=== PATIENT | male | born 1965 | race Caucasian/White ===

== ENCOUNTER 2020-11-02 15:00 | Emergency (ER) | payer OTHER, SELFPAY ==
[2020-11-02 15:08] VITALS: BP 148/100; PULSE 78; RESP 18; TEMP 36.9; O2SAT 98; BMI 27.1
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
[2020-11-02] MEDS: Ibuprofen 600 MG TABLET PO (16:53)
[2020-11-02] MEDS: Silver Sulfadiazine 1 % Cream 20 GM TUBE 1 APPL TOPICAL (17:25)
== END 2020-11-02 17:25 | disposition home or self-care (01) ==
PROVIDERS: Emergency Provider Emergency Medicine; PCP Internal Medicine
DX: T23.051A Burn of unspecified degree of right palm, initial encounter (principal); T31.0 Burns involving less than 10% of body surface; X15.8XXA Contact with other hot household appliances, initial encounter; Y93.G3 Activity, cooking and baking; Y92.010 Kitchen of single-family (private) house as the place of occurrence of the external cause; Y99.9 Unspecified external cause status
CPT/HCPCS: 16020; 99283

== ENCOUNTER 2023-02-17 10:58 | Outpatient (REF) | payer OTHER, SELFPAY ==
[2023-02-17 12:38] LABS: MANUAL DIFF FLAG NO
[2023-02-17 12:49] LABS: Basophils Percent Auto 0.9 % (0-2); Eosinophils Absolute Auto 0.2 X10*3/uL (0.0-0.4); Eosinophils Percent Auto 3.4 % (0-4); Hematocrit 43.3 % (42.0-52.0); Hemoglobin 14.5 g/dl (14.0-18.0); Imm Gran Abs Auto 0.01 X10*3/uL (0.00-0.03); Imm Gran Pct Auto 0.2 % (0.0-0.4); Lymphocytes Absolute Auto 1.1 X10*3/uL (1.2-4.9); Lymphocytes Percent Auto 25.1 % (20-40); Mean Corpuscular HGB Conc 33.5 g/dl (31.0-36.0); Mean Corpuscular Volume 98.6 fL (80.0-98.0); Mean Platelet Volume 11.2 fL (9.4-12.4); Monocytes Absolute Auto 0.4 X10*3/uL (0.1-1.2); Monocytes Percent Auto 8.5 % (2-11); Neutrophils Absolute Auto 2.8 x10*3/uL (2.0-8.3); Neutrophils Percent Auto 61.9 % (45-73); Platelet Count 173 X10*3/uL (160-400); Red Blood Count 4.39 X10*6/uL (4.60-5.80); Red Cell Distribution Width 12.8 % (11.0-16.0); White Blood Count 4.5 X10*3/uL (4.8-10.8)
[2023-02-17 12:50] LABS: NRBC Pct Auto 1.1 /100WBC (0.0-0.2)
[2023-02-17 12:55] LABS: Appearance Urine Clear; Color Urine Yellow; Glucose Urine UA Negative (Negative); Leukocyte Esterase Urine Negative (Negative); Nitrite Urine Negative (Negative); PH 5.5 (5.0-9.0); Urine Blood Negative (Negative); Urine Ketones Negative (Negative); Urine Protein Negative (Neg-Trace)
[2023-02-17 13:36] LABS: Alanine Aminotransferase 15 U/L (0-40); Albumin Level 4.5 g/dL (3.5-5.0); Alkaline Phosphatase 67 U/L (39-117); Anion Gap 13 (12-20); Aspartate Amino Transferase 13 U/L (5-37); Bilirubin Total 0.6 mg/dL (0.0-1.0); Blood Urea Nitrogen 17 mg/dL (9-16); Calcium 9.7 mg/dL (8.4-10.2); Carbon Dioxide 27 mmol/L (22-29); Chloride 106 mmol/L (96-108); Cholesterol 173 mg/dL; Estimated Glomerular Filt Rate > 60; Glucose Fasting 107 mg/dL (60-99); HDL Cholesterol 62 mg/dL; LDL Cholesterol Calculated 101 mg/dl; Potassium 4.5 mmol/L (3.3-5.1); Sodium 141 mmol/L (135-145); Total Protein 6.7 g/dL (6.5-8.0); Triglycerides 51 mg/dL
[2023-02-17 13:57] LABS: Prostate Specific Antigen Scr 0.76 ng/mL (<0.05-4.0); TSH reflex Free T4 1.61 uIU/mL (0.32-4.0)
[2023-02-17 19:28] LABS: Folate 4.9 ng/mL (> or = 4.0); Vitamin B12 369 pg/mL (200-900)
== END 2023-02-17 10:59 | disposition home or self-care (01) ==
LOC: HO.WFDLDS 10:58
PROVIDERS: Visit Provider Family Medicine
DX: Z00.00 Encounter for general adult medical examination without abnormal findings (principal); Z12.5 Encounter for screening for malignant neoplasm of prostate; E53.8 Deficiency of other specified B group vitamins; R26.89 Other abnormalities of gait and mobility
CPT/HCPCS: 36415; 80053; 80061; 81003; 82607; 82746; 84153; 84443; 85025

== ENCOUNTER → 2023-04-28 07:48 | Outpatient (BNVA) | payer OTHER, SELFPAY | PROVIDERS: PCP Family Medicine; Visit Provider Nurse Practitioner Family ==

== ENCOUNTER 2023-05-09 07:54 | Outpatient (REF) | payer OTHER, SELFPAY | END 2023-05-09 07:55 | disposition home or self-care (01) | LOC: HO.MRI 07:54 | PROVIDERS: PCP Family Medicine; Visit Provider Psychiatry & Neurology Neurology | DX: G23.1 Progressive supranuclear ophthalmoplegia [Steele-Richardson-Olszewski] (principal) | CPT/HCPCS: 70551 ==

== ENCOUNTER 2023-05-19 11:59 | Outpatient (AMB) | payer OTHER, SELFPAY ==
[2023-05-19 12:25] VITALS: BP 120/76; PULSE 67; O2SAT 97; BMI 22.0
--- NOTE | 2023-05-19 12:25 | A.OFFPC_ITS ---
Vital Signs 05/19/23 12:25 Height 6 ft Weight 162 lb BMI 22.0 BP 120/76 Blood Pressure Location Lt brachial Position Sitting Pulse 67 Pulse Source Pulse Oximeter Pulse Oximetry (%) 97 Oxygen Delivery Method Room Air Intake Visit Reasons: CPE Intake Note: Patient is here for his physical today. Patient would like med refills, too. Allergies SEASONAL ALLERGIES Allergy (Unknown, Uncoded 05/19/23 12:26) RUNNY NOSE Medication List - Last Reconciled 05/19/23 by Alen Castanon MD amantadine HCl 100 mg PO BID esomeprazole magnesium (Nexium) 20 mg PO DAILY ibuprofen 600 mg PO Q6H PRN lisinopril 20 mg PO DAILY 90 days mecobalamin (vitamin B12) 1,000 mcg PO DAILY 90 days simvastatin 20 mg PO DAILY 90 days Tobacco use date assessed: 05/19/23 Dental Screening Dental Screen Date: 05/19/23 Did you have a dental visit in the last 12 months?: Yes Did you have a dental problem in the last 6 months where you did not have access to dental care?: No Was dental information given to patient?: No HPI CPE HPI Details 57 y/o male presents for a CPE with f/u labs and health maintenance. Labs were drawn 02/17/23. Reviewed labs with pt. Elevated fasting glucose of 107. A1c today 05/19/23 is 5.4%. Triglycerides 51. TC 173. LDL 101. HDL 62. Had referred him to Neurology for his unsteady gait. Had started him on amantadine 100mg b.i.d. They report he is still unsteady but does mention that he has not fallen as much. He states he is up to date with his colonoscopy. He had it at [facility]. He reports a sleep study has not been done yet. 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 Review of Systems Const Denies chills, Denies fatigue, Denies fever(s), Denies headache(s) and Denies weakness Eyes Denies change in vision ENT Denies dizziness, Denies headache(s), Denies hearing loss, Denies nasal congestion, Denies sinus pain, Denies sinus pressure and Denies sore throat Card Denies chest pain, Denies lightheadedness, Denies dyspnea and Denies other (palpitations) Resp Denies cough, Denies dyspnea and Denies wheezing GI Denies abdominal pain, Denies melena, Denies hematochezia, Denies change in bowel habits, Denies dyspepsia and Denies nausea Denies hematuria and Denies dysuria Musc Denies abnormal gait, Denies myalgias, Denies arthralgias, Denies numbness and Denies tingling Skin/Breast Denies rash, Denies unusual bruising and Denies wounds Neuro Denies abnormal gait, Denies dizziness, Denies headache(s), Denies memory loss, Denies numbness, Denies Sensory deficit (Neuro), Denies tingling and Denies weakness Psych Denies anxiety, Denies depression and Denies memory loss Endo Denies cold intolerance, Denies fatigue, Denies heat intolerance, Denies polydipsia and Denies polyuria Lewis/Lymph Denies easy bleeding and Denies easy bruising Aller/Immun Denies wheezing Physical exam (Primary Care) Vital Signs: Last Vital Signs Pulse 67 05/19/23 12:25 BP 120/76 05/19/23 12:25 Pulse Ox 97 05/19/23 12:25 Oxygen Delivery Method Room Air 05/19/23 12:25 BMI result Body Mass Index 22.0 Tobacco/Smoking Status: Tobacco use Status Tobacco use date assessed 05/19/23 05/19/23 12:32 Patient Tobacco Use Status Former Tobacco user 05/19/23 12:27 Tobacco use type Cigarette 05/19/23 12:27 e-Cigarette/Vaping Use Never Used 05/19/23 12:27 Const General: no acute distress, well developed, alert and awake Nutritional Appearance: well nourished Orientation/consciousness: patient oriented x3 HENTN Head: Yes normocephalic and Yes atraumatic Ears: hearing grossly normal bilaterally and TM's normal bilaterally General nose exam: Normal external nose present and Normal nares present Mouth: Normal oral and palatal mucosa present and moist mucous membranes Teeth and gingiva: dentition normal Throat: Yes posterior oropharynx normal Eyes General: appearance normal, both eyes and all related structures Pupils: Equal, round and reactive pupils present and Pupil accommodation reflex normal EOM: EOMs intact bilaterally Neck Neck: Yes normal visual inspection, Yes no lymphadenopathy and Yes trachea midline Thyroid: Thyroid normal Carotids: no bruits Lymphatic: no lymphadenopathy noted Chest Chest palpation & inspection: normal inspection of the chest Resp Effort & Inspection: normal respiratory effort Auscultation: clear to auscultation bilaterally Cardio Rate: regular rate Rhythm: regular rhythm Heart sounds: S1 normal heart sound present, S2 normal heart sound present, no gallops, no murmurs and no rubs Bruits: no abdominal aortic bruits and no carotid bruits GI Palpation (GI): No Abdominal aortic bruit present, Soft to palpation, nontender, No hepatosplenomegaly present and No Rebound tenderness present Auscultation: normal bowel sounds General: Yes no CVA tenderness Back/Spine/Pelvis Back: no CVA tenderness Cervical Spine: cervical ROM normal and No Cervical spine tenderness Thoracic/Lumbar Spine: thoraco-lumbar ROM normal, No pain with thoraco-lumbar ROM, No thoracic spinal tenderness and No lumbar spinal tenderness Skin Lesions: no lesions Rashes: no rashes Trauma: no lacerations or abrasions Wounds: no wounds Nails: normal Neuro General: patient oriented x3 Cranial nerves: Yes Equal, round and reactive pupils present Cognition (Neuro): normal cognition Gait exam (Neuro): Normal gait present Motor exam (neuro): 5/5 motor strength present throughout Sensory Exam: No Sensory deficit (Neuro) Deep tendon reflexes (DTR's): Right patellar reflex intensity grade: 2+ and Left patellar reflex intensity grade: 2+ Extrem General: Yes normal to inspection and No edema Psych Appearance: grossly normal Affect: normal affect Attitude: cooperative Thought process: Normal thought process present Results AMB Hemoglobin A1c AMB Hemoglobin A1c 5.4 % Last Edit by Rayne Carrizales CMA on 05/19/23 13:15 Assessment and Plan Assessment & Plan (1) Adult general medical exam: Code(s): Z00.00 - Encounter for general adult medical examination without abnormal findings Plan: 57-year-old male presents for complete physical exam Encouraged healthy diet with active lifestyle and plenty of exercise (2) Daytime sleepiness: Code(s): R40.0 - Somnolence Plan: He has seen sleep medicine and a sleep study is ordered Advised he sleep on his side or use a wedge pillow to stay off his back while sleeping, while awaiting further workup by sleep medicine. (3) Hypertension: Code(s): I10 - Essential (primary) hypertension Plan: Blood pressure is well controlled. Goal is less than 140/90 Continue current medication regimen (4) Elevated fasting glucose: Code(s): R73.01 - Impaired fasting glucose Plan: Elevated fasting blood sugar. A1c is 5.4% which is within normal limits Likely some insulin resistance. Advised a diet lower in saturated fats and cholesterol, weight control and exercise as tolerated. 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 Collins Now started on add amantadine and tolerating this. Continue current medication and follow-up with Dr. Collins as recommended (7) Imbalance: Code(s): R26.89 - Other abnormalities of gait and mobility Plan: Will follow-up in 3 months. Follow-up with Neurology as recommended If still having difficulty or worsening, will start neurologic physical therapy (8) Unsteady gait: Code(s): R26.81 - Unsteadiness on feet Plan: As above Orders: Orders AMB Hemoglobin A1c Today Z13.9 - Encounter for screening, unspecified Medications: Changed From esomeprazole magnesium (Nexium) 20 mg PO DAILY To esomeprazole magnesium (Nexium) 20 mg PO DAILY 90 caps 3RF 90 days Refilled lisinopril 20 mg PO DAILY 90 tabs 2RF 90 days mecobalamin (vitamin B12) 1,000 mcg PO DAILY 90 tabs 2RF 90 days simvastatin 20 mg PO DAILY 90 tabs 2RF 90 days Coding Level of Care Code Est Pt Level 3 (50520) Est Pt Prev Care 40-64y(18371) Diagnoses Adult general medical exam Z00.00 Daytime sleepiness R40.0 Hypertension I10 Elevated fasting glucose R73.01 GERD (gastroesophageal reflux disease) K21.9 Progressive supranuclear palsy G23.1 Imbalance R26.89 Unsteady gait R26.81
== END 2023-05-19 13:23 | disposition home or self-care (01) ==
PROVIDERS: Visit Provider Family Medicine
DX: Z00.00 Encounter for general adult medical examination without abnormal findings (principal); I10 Essential (primary) hypertension; G23.1 Progressive supranuclear ophthalmoplegia [Steele-Richardson-Olszewski]; K21.9 Gastro-esophageal reflux disease without esophagitis; R40.0 Somnolence; R73.01 Impaired fasting glucose; R26.89 Other abnormalities of gait and mobility; R26.81 Unsteadiness on feet
CPT/HCPCS: 83036; 99396

== ENCOUNTER 2023-06-04 08:10 | Outpatient (AMB) | payer OTHER, SELFPAY ==
--- NOTE | 2023-06-04 08:22 | MHC.PC.OV ---
Vital Signs 06/04/23 08:23 Height 6 ft Weight 164 lb 2 oz BMI 22.3 BP 126/80 Blood Pressure Location Rt brachial Position Sitting Pulse 59 Pulse Source Pulse Oximeter Pulse Oximetry (%) 100 Oxygen Delivery Method Room Air Intake Visit Reasons: Neurological concerns Intake Note: Patient is here for referral to neurologist in out of area network, [facility] in [place] number: . Allergies SEASONAL ALLERGIES Allergy (Unknown, Uncoded 06/04/23 08:25) RUNNY NOSE Tobacco use date assessed: 06/04/23 Dental Screening Dental Screen Date: 06/04/23 Did you have a dental visit in the last 12 months?: Yes Did you have a dental problem in the last 6 months where you did not have access to dental care?: No Was dental information given to patient?: No HPI Neurological concerns HPI Details Pt presents today for neurological concerns. He has imbalance due to progressive supranuclear palsy. He is requesting a new neurology referral. He would like to be referred to a specialist in [place], neurology, who specializes in neuro degenerative disorders and technology excess ability for these conditions. 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 Cognitive needs: No Hearing needs: No Vision needs: No Physical exam (Primary Care) Vital Signs: Last Vital Signs Pulse 59 06/04/23 08:23 BP 126/80 06/04/23 08:23 Pulse Ox 100 06/04/23 08:23 Oxygen Delivery Method Room Air 06/04/23 08:23 BMI result Body Mass Index 22.3 Tobacco/Smoking Status: Tobacco use Status Tobacco use date assessed 06/04/23 06/04/23 08:28 Patient Tobacco Use Status Former Tobacco user 06/04/23 08:28 Tobacco use type Cigarette 06/04/23 08:28 e-Cigarette/Vaping Use Never Used 06/04/23 08:28 Assessment and Plan Assessment & Plan (1) Progressive supranuclear palsy: Code(s): G23.1 - Progressive supranuclear ophthalmoplegia [[id number]-Lrgsxrhfzd-Khxjfylzj] Plan: Referral made to specialist in [place] at patient's request. (2) Unsteady gait: Code(s): R26.81 - Unsteadiness on feet Plan: As above Plan Paperwork filled out for patient's employer regarding out of network provider. Orders: Referrals Neurology Referral G23.1 - Progressive supranuclear ophthalmoplegia [[id number]-Kmavalntxg-[id number]], R26.81 - Unsteadiness on feet Coding Level of Care Code Est Pt Level 3 (51985) Diagnoses Progressive supranuclear palsy G23.1 Unsteady gait R26.81
[2023-06-04 08:23] VITALS: BP 126/80; PULSE 59; O2SAT 100; BMI 22.3
== END 2023-06-04 08:55 | disposition home or self-care (01) ==
PROVIDERS: PCP Family Medicine; Visit Provider Family Medicine
DX: G23.1 Progressive supranuclear ophthalmoplegia [Steele-Richardson-Olszewski] (principal); R26.81 Unsteadiness on feet
CPT/HCPCS: 99213

== ENCOUNTER → 2023-06-16 13:49 | Outpatient (REF) | payer OTHER, SELFPAY | LOC: HO.SL 13:49 | PROVIDERS: PCP Family Medicine; Visit Provider Nurse Practitioner Family | DX: G47.30 Sleep apnea, unspecified (principal); R06.83 Snoring | CPT/HCPCS: 95806 ==

== ENCOUNTER → 2023-06-16 14:02 | Outpatient (BNV) | payer OTHER, SELFPAY | PROVIDERS: PCP Family Medicine; Visit Provider Psychiatry & Neurology Neurology | DX: R06.83 Snoring (principal) | CPT/HCPCS: 95806 ==

== ENCOUNTER 2023-10-05 12:08 | Emergency (ER) | payer OTHER, SELFPAY ==
--- NOTE | ~2023-10-05 | XR_ITS ---
EXAMINATION: XR KNEE, LEFT CLINICAL INFORMATION: Knee pain, swelling COMPARISON: None available. TECHNIQUE: Four views of the left knee. FINDINGS: There is a loss of lateral compartment joint space. The medial and the patellofemoral compartment joint space is maintained. A small suprapatellar joint effusion. There is solitary nail traversing the distal femur and proximal tibia from previous intervention. There is moderate enthesophyte along the lateral femoral condyle. No loose body seen. XR/XR knee LT 4V IMPRESSION: Moderate suprapatellar joint effusion. Mild loss of medial compartment joint space. There is moderate size enthesophyte along t lateral femoral condyle.
[2023-10-05 12:13] VITALS: BP 139/85; PULSE 80; RESP 16; TEMP 37.2; O2SAT 100; BMI 22.1
--- NOTE | 2023-10-05 12:16 | ED_ITS ---
HPI - Extremity Problem General Chief complaint: Extremity Problem Stated complaint: l knee issue Time Seen by Provider: 10/05/23 12:16 Source: patient Mode of arrival: ambulatory Limitations: no limitations History of Present Illness HPI Narrative: 58 year old male hx of GERD, HTN, high cholesterol presents w/ complaints of atruamtic knee swelling X 2 days. Reports its just swollen not painful. Tells me its twice as big as her other knee. Has never happened to him before. Denies fevers, chills, numbnness, tingling Related Data Home Medications Medication Instructions Recorded Confirmed amantadine HCl 100 mg capsule 100 mg PO BID 04/28/23 05/19/23 Previous Rx's Medication Instructions Recorded ibuprofen 600 mg tablet 600 mg PO Q6H PRN pain #20 tabs 11/02/20 esomeprazole magnesium 20 mg 20 mg PO DAILY 90 days #90 caps 05/19/23 capsule,delayed release (Nexium) lisinopril 20 mg tablet 20 mg PO DAILY 90 days #90 tabs 05/19/23 mecobalamin (vitamin B12) 1,000 1,000 mcg PO DAILY 90 days #90 tabs 05/19/23 mcg chewable tablet simvastatin 20 mg tablet 20 mg PO DAILY 90 days #90 tabs 05/19/23 prednisone 50 mg tablet 50 mg PO DAILY 5 days #5 tabs 10/05/23 Allergies Allergy/AdvReac Type Severity Reaction Status Date / Time SEASONAL ALLERGIES Allergy Unknown RUNNY NOSE Uncoded 10/05/23 12:16 Review of Systems Review of Systems: Constitutional : No Weight loss, No Fever, No Chills, No Fatigue, No Malaise ENT/Mouth : No sore throat, No Rhinorrhea Eyes: No Eye Pain, No Swelling, No Redness Cardiovascular : No Chest Pain, No SOB, No Dyspnea on Exertion, No Orthopnea, No Edema, No Palpitations Respiratory : No Cough, No Sputum, No Wheezing Gastrointestinal : No Nausea, No Vomiting, No Diarrhea, No Constipation, No abdominal Pain, No Hematochezia, No Melena Genitourinary : No Dysuria, No Urinary Frequency, No Hematuria, Musculoskeletal : + joint pain, No Myalgias, + Joint Swelling Skin : No Skin Lesions, No rash Neuro : No Weakness, No Numbness, No Dizziness, No Headache Psych : No Anxiety/Panic, No Depression All other systems reviewed and are negative Yes all other systems are reviewed and are negative [facility] Past Medical History Attestation statement: The following information was validated with the patient. Source: old records reviewed and nursing notes reviewed Medical History High cholesterol Hypertension Surgical History History of appendectomy History of repair of anterior cruciate ligament of left knee Family History Family History Maternal Grandmother Mental health disorder Maternal Uncle Mental health disorder Father Colon cancer Family/Other Leukemia Social History Social History Housing: House Alcohol intake: former Patient Tobacco Use Status: Former Tobacco user Tobacco use type: Cigarette e-Cigarette/Vaping Use: Never Used Substance Use Type: Marijuana service: Yes Current occupational status: employed 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 Oriented X3.? No acute distress.? Head: Normocephalic, atraumatic, no step-offs or deformities Eyes: Pupils equal, round and reactive to light.? CVS: Normal heart rate and rhythm.? Pulses normal.? Respiratory: No respiratory distress.? Breath sounds normal.? Abdomen: Soft and nontender.? Skin: Skin warm and dry.? Normal skin color.? Normal skin turgor.? Extremities: No lower extremity edema.? No calf ttp. 5/5 strength to bilateral upper and lower extremities + L sided knee effusion full painless ROM. 2+ patellar pulses. Normal sensation distally. Back: No midline tenderness, no C-spine tenderness, full range of motion, no CVA tenderness bilaterally Neuro: Oriented X 3.? No motor deficit.? No sensory deficit. CN 2-12 intact Course Course Course Narrative: RME performed by Corie Doll PA-C. Patient is a 58 year old assigned male at presenting to the emergency department with left knee pain / swelling. Imaging ordered. Patient placed back in the waiting room pending room availability and results. Reevaluation(s) Reevaluation #1: Xray with suprapatellar joint effusion. Mild loss of medial compartment of joint space ? inflammatory arthritis. BRANDON wrap and prednisione will be given at this time with ortho follow up. Not requesting anything for pain. Will give ortho follow up should call tomorrow. No indication for joint aspiration. Would like lyme testing that his PCP was going to order outpatient but never got to it will order at this time. Time: 16:55 Medical Decision Making Medical Decision Making MDM Narrative: 58 year old male presents w/ L knee pain X 2 days. A traumatic Pe w/ L sided knee effusion full painless ROM. 2+ patellar pulses. Normal sensation distally. Likely knee efussion due to inflammatory arthritis. Unlikely septic joint threat to limb, NV compromise. No signs of DVT or arterial occlusion Plan xray Differential Diagnosis Differential Diagnoses: The differential diagnosis associated with the presentation includes Likely knee efussion due to inflammatory arthritis. Unlikely septic joint threat to limb, NV compromise. No signs of DVT or arterial occlusion Admission/Observation Consideration of admission/observation: Escalation of care including admission/observation considered Unlikely Independent Interpretation I performed an independent interpretation of an: Plain X-Ray (XR/XR knee LT 4V IMPRESSION: Moderate suprapatellar joint effusion. Mild loss of medial compartment joint space. There is moderate size enthesophyte along t lateral femoral condyle.) Radiology Impression Discussion of test interpretation with radiology: I have reviewed the radiologist's reading. Prescription Management I considered prescription management with: Other (prednisione ) Discharge Plan Discharge Clinical Impression: Effusion of right knee Patient Disposition: Home, Self-Care Instructions: Swollen Joint (ED) Additional Instructions: Take your medications as prescribed. If you were prescribed antibiotics today, it is important that you take your medication to their entirety, do not skip any doses, do not finish them early. Follow-up with your primary care provider this week. Return to the emergency department with new or worsening symptoms. Such as fevers, chills, chest pain, shortness of breath, nausea, vomiting, dizziness, headache, vision changes, lethargy In case of emergency call 911 XR/XR knee LT 4V IMPRESSION: Moderate suprapatellar joint effusion. Mild loss of medial compartment joint space. There is moderate size enthesophyte along t lateral femoral condyle. Prescriptions: New prednisone 50 mg tablet 50 mg PO DAILY 5 Days Qty: 5 0RF No Action ibuprofen 600 mg tablet 600 mg PO Q6H PRN (Reason: pain) Qty: 20 0RF esomeprazole magnesium [Nexium] 20 mg capsule,delayed release(DR/EC) 20 mg PO DAILY 90 Days Qty: 90 3RF lisinopril 20 mg tablet 20 mg PO DAILY 90 Days Qty: 90 2RF mecobalamin (vitamin B12) 1,000 mcg tablet,chewable 1,000 mcg PO DAILY 90 Days Qty: 90 2RF simvastatin 20 mg tablet 20 mg PO DAILY 90 Days Qty: 90 2RF amantadine HCl 100 mg capsule 100 mg PO BID Referrals: [facility] [place]Provider Group] - 1 week Alen Castanon MD [Primary Care Provider] - 2 days Stand Alone Forms: Work/School Release
--- NOTE | 2023-10-05 16:53 | PC.NURSE ---
labs obtained/sent to lab.
[2023-10-08 01:44] LABS: Lyme Abs Screen <0.90 index
== END 2023-10-05 18:38 | disposition home or self-care (01) ==
PROVIDERS: Physician Assistant; Emergency Provider Student in an Organized Health Care Education/Training Program; PCP Family Medicine
DX: M25.461 Effusion, right knee (principal); Z87.891 Personal history of nicotine dependence; Z79.899 Other long term (current) drug therapy
CPT/HCPCS: 36415; 73564; 86617; 86618; 99283; 99284

== ENCOUNTER 2023-10-08 12:59 | Outpatient (AMB) | payer OTHER, SELFPAY ==
[2023-10-08 13:18] VITALS: BP 122/70; PULSE 69; RESP 13; TEMP 36.6; O2SAT 99; BMI 22.0
--- NOTE | 2023-10-08 13:18 | A.OFFPC_ITS ---
Vital Signs 10/08/23 13:18 Height 6 ft Weight 162 lb 8 oz BMI 22.0 BP 122/70 Blood Pressure Location Rt brachial Position Sitting Respiration 13 Pulse 69 Pulse Source Pulse Oximeter Temp 97.9 F Temp Source Temporal Artery Scan Pulse Oximetry (%) 99 Oxygen Delivery Method Room Air Intake Visit Reasons: [facility] [place]23 follow up on knee pain Special Diet Cook Required: No Accompanied by: Self / Same As Patient Allergies Seasonal Allergies Allergy (Intermediate, Verified 10/08/23 13:41) Runny Nose Medication List - Last Reconciled 10/08/23 by Lenin Esquivel CNP ibuprofen 600 mg PO Q6H PRN lisinopril 20 mg PO DAILY 90 days mecobalamin (vitamin B12) 1,000 mcg PO DAILY 90 days prednisone 50 mg PO DAILY 5 days simvastatin 20 mg PO DAILY 90 days Tobacco use date assessed: 06/04/23 Dental Screening Dental Screen Date: 10/08/23 Did you have a dental visit in the last 12 months?: Yes Did you have a dental problem in the last 6 months where you did not have access to dental care?: No Was dental information given to patient?: Patient has dentist HPI HPI Comments History of Present Illness Details 58-year-old male presents for a follow-u p visit He was evaluated at [facility] [place] [facility] on 10/05/2023 for atraumatic left knee swelling. X- ray revealed suprapatellar joint effusion, mild loss of medial compartments of joint space. He was prescribed prednisone and advised to follow-up with Ortho. He had a negative lyme disease test. He notes that the left knee is still a little bigger than the right. He has been taking prednisone as prescribed. He [place] [facility] [place] less than 2 weeks. He denies pain/discomfort, tingling, or numbness. 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 Cognitive needs: No Hearing needs: No Vision needs: No Review of Systems Const Details: Const Denies chills, Denies fatigue, Denies fever(s), Denies headache(s) and Denies weakness ENT Denies dizziness and Denies headache(s) Card Denies chest pain, Denies lightheadedness, Denies dyspnea and Denies other (Pal pitations) Resp Denies cough, Denies dyspnea, Denies wheezing and Denies other ( shortness of breath) GI Denies abdominal pain, Denies melena, Denies hematochezia, Denies change in bowel habits, Denies dyspepsia and Denies nausea Denies hematuria and Denies dysuria Musc Reports as per HPI Skin/Breast Denies rash, Denies unusual bruising and Denies wounds Neuro Denies abnormal gait, Denies dizziness, Denies headache(s), Denies memory loss, Denies numbness, Denies Sensory deficit (Neuro), Denies tingling and Denies weakness Psych Denies anxiety, Denies depression, Denies memory loss Endo Denies cold intolerance, Denies fatigue, Denies heat intolerance, Denies polydipsia and Denies polyuria Aller/Immun Denies wheezing Physical exam (Primary Care) Vital Signs: Last Vital Signs Temp 97.9 F 10/08/23 13:18 Pulse 69 10/08/23 13:18 Resp 13 10/08/23 13:18 BP 122/70 10/08/23 13:18 Pulse Ox 99 10/08/23 13:18 Oxygen Delivery Method Room Air 10/08/23 13:18 BMI result Body Mass Index 22.0 Tobacco/Smoking Status: Tobacco use Status Tobacco use date assessed 06/04/23 10/08/23 13:25 Patient Tobacco Use Status Former Tobacco user 10/08/23 13:25 Tobacco use type Cigarette 10/08/23 13:25 e-Cigarette/Vaping Use Never Used 10/08/23 13:25 Const Other: General: no acute distress and well developed Nutritional Appearance: well nourished Orientation/consciousness: patient oriented x3 HENMT Head: Yes normocephalic and Yes atraumatic Eyes General: appearance normal, both eyes and all related structures Pupils: Equal, round and reactive pupils present EOM: EOMs intact bilaterally Resp Effort & Inspection: normal respiratory effort Auscultation: clear to auscultation bilaterally Cardio Rate: regular rate Rhythm: regular rhythm Heart sounds: S1 normal heart sound present, S2 normal heart sound present, no gallops, no murmurs and no rubs GI Palpation (GI): No Abdominal aortic bruit present, Soft to palpation, nontender, No hepatosplenomegaly present and No Rebound tenderness present Auscultation: normal bowel sounds General: Yes no CVA tenderness Back/Spine/Pelvis Back: no CVA tenderness Cervical Spine: cervical ROM normal and No Cervical spine tenderness Thoracic/Lumbar Spine: thoraco-lumbar ROM normal, No pain with thoraco-lumbar ROM, No thoracic spinal tenderness and No lumbar spinal tenderness Extrem General: Yes normal to inspection, No calf tenderness. Left knee with slight edema, no erythema, no tenderness Skin General: warm and dry. Normal skin color. Normal skin turgor Neuro General: patient oriented x3, gait normal and no focal neuro deficit Cranial nerves: Yes Equal, round and reactive pupils present Cognition (Neuro): normal cognition Gait exam (Neuro): Normal gait present Sensory Exam: No Sensory deficit (Neuro) Psych Appearance: grossly normal Affect: normal affect Attitude: cooperative Thought process: Normal thought process present Assessment and Plan Assessment & Plan (1) Effusion, left knee: Code(s): M25.462 - Effusion, left knee Plan: Presents for left knee swelling follow-up. No pain or discomfort. Was evaluated and treated at [facility] [place] [facility] on 10/05/2023. He has Ortho follow-up in less than 2 weeks Left knee with slight edema, no erythema, no tenderness For advised to finish course of prednisone RICE encouraged Follow-up with Ortho and PCP as planned Return sooner with worsening or new signs and symptoms Verbalized understanding and agreed with treatment plan Coding Level of Care Code Est Pt Level 3 (24342) Diagnoses Effusion, left knee M25.462
== END 2023-10-08 13:52 | disposition home or self-care (01) ==
PROVIDERS: PCP Family Medicine; Visit Provider Nurse Practitioner Family
DX: M25.462 Effusion, left knee (principal)
CPT/HCPCS: 99213

== ENCOUNTER 2023-10-20 11:00 | Outpatient (AMB) | payer OTHER, SELFPAY ==
[2023-10-20 11:09] VITALS: BMI 22.0
--- NOTE | 2023-10-20 11:09 | MHC.OFFVIS ---
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 Patient was seen in the ED on 10/05/23 due to having an effusion. He was prescribed some steroids and it gave him relief. He states that he woke up that morning with his knee super swollen. 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 The patient presented to the ED on 10/05/2023 status post effusion of the left knee for 2 days, since 10/03/2023. In the ED note the patient reported it was swollen but not painful. X-rays of the left knee were obtained. The patient was prescribed Prednisone 50 mg PO daily for 5 days. He was negative for lyme disease. He presented to the his PCP on 10/08/2023 where he was advised to complete his course of Prednisone and to follow up with Orthopedics. While in the office today the patient reports the Prednisone gave him relief. However, he states he woke up this morning with severe edema. 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 No ecchymosis, erythema, or joint effusion. No tenderness to palpation to the medial or lateral joint lines. Full knee extension and flexion. Negative Comfort's. Negative anterior drawer. NVI. Assessment & Plan Assessment & Plan (1) Gout of left knee: Code(s): M10.9 - Gout, unspecified Qualifiers: Chronicity: unspecified Gout etiology: unspecified cause Qualified Code(s): M10.9 - Gout, unspecified Plan Mr. Clinton is a 58-year-old male who presents in the office today, as a new patient, for an evaluation of left knee effusion. The patient presented to the ED on 10/05/2023 status post effusion of the left knee for 2 days, since 10/03/2023. In the ED note the patient reported it was swollen but not painful. X-rays of the left knee were obtained. The patient was prescribed Prednisone 50 mg PO daily for 5 days. He was negative for lyme disease. He presented to the his PCP on 10/08/2023 where he was advised to complete his course of Prednisone and to follow up with Orthopedics. While in the office today the patient reports the Prednisone gave him relief. However, he states he woke up this morning with severe edema. The patient confirms a history of gout in the left knee and was previously on Allopurinol. He states he has not taken it for years due to no longer needing it. He states the Prednisone gave him relief and his symptoms have since resolved and he is back to normal. Follow up will be PRN, or sooner if needed. X-rays of the left knee, obtained on 10/05/2023, revealed no acute fracture or dislocation. Prior orthopedic hardware intact in the knee that is stable. It does show moderate effusion. Patient Instructions: Scribed for Carlotta Jefferson PA-C by Tiffani Fry medical clinic manager, on 10/20/2023 at 11:04 am, EST. Coding Level of Care Code New Pt Level 4 (50233) Diagnoses Gout of left knee, unspecified cause, unspecified chronicity M10.9 Chronicity: unspecified Gout etiology: unspecified cause
== END 2023-10-20 11:24 | disposition home or self-care (01) ==
PROVIDERS: PCP Family Medicine; Visit Provider Physician Assistant
DX: M10.9 Gout, unspecified (principal)
CPT/HCPCS: 99204

== ENCOUNTER → 2023-10-20 11:00 | Outpatient (BNVA) | payer OTHER, SELFPAY | PROVIDERS: PCP Family Medicine; Visit Provider Physician Assistant ==

== ENCOUNTER 2023-11-10 11:28 | Outpatient (AMB) | payer OTHER, SELFPAY ==
--- NOTE | 2023-11-10 11:35 | MHC.PC.OV ---
Vital Signs 11/10/23 11:39 Height 6 ft Weight 163 lb 4 oz BMI 22.1 BP 128/62 Blood Pressure Location Lt brachial Position Sitting Respiration 13 Pulse 54 Pulse Source Pulse Oximeter Pulse Oximetry (%) 99 Oxygen Delivery Method Room Air Intake Visit Reasons: f/u elevated fasting blood sugars and imbalance Intake Note: Patient is accompanied by his spouse, Kia. Pat reports patient has recently started on Sinemet, is unsure about the dosing but will call in later and leave a message. Pat is concerned about frequent urgency and episodic incontinence. 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 Last A1c 05/19/23 5.4%. A1c today 11/10/23 is 5.6%. Nuclear medicine SPECT iodine 123 brain scan positive for decreased uptake in L putamen. Differential dx included Parkinson's disease, progressive supranuclear palsy, Lewy body disease. Has seen neurologist at [facility] who took him off amatadine and put him on Sinumet. notes he has not had any improvement and symptoms may have been worse. They also note he was dizzy for more than 12 hours. He denies any nausea associated with the dizziness. They report a few episodes of urinary incontinence and urinary urgency. HPI Comments History of Present Illness Details Documentation assistance for Alen Castanon MD, was provided by Radu Lindsay, Telecom Specialist on 11/10/2023 12:32 PM RAI. I, Dr. Castanon, have read, observed, and verified documentation. 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 Cognitive needs: No Hearing needs: No Vision needs: No Review of Systems Const Denies chills, Denies fatigue, Denies fever(s), Denies headache(s) and Denies weakness ENT Denies dizziness and Denies headache(s) Card Denies chest pain, Denies lightheadedness, Denies dyspnea and Denies other (Palpitations) Resp Denies cough, Denies dyspnea, Denies wheezing and Denies other ( shortness of breath) Musc Denies numbness and Denies tingling Neuro Denies dizziness, Denies headache(s), Denies numbness, Denies tingling, Denies paresthesias and Denies weakness Psych Denies anxiety and Denies depression Endo Denies fatigue Aller/Immun Denies wheezing Physical exam (Primary Care) Vital Signs: Last Vital Signs Pulse 54 11/10/23 11:39 Resp 13 11/10/23 11:39 BP 128/62 11/10/23 11:39 Pulse Ox 99 11/10/23 11:39 Oxygen Delivery Method Room Air 11/10/23 11:39 BMI result Body Mass Index 22.1 Tobacco/Smoking Status: Tobacco use Status Tobacco use date assessed 06/04/23 11/10/23 11:36 Patient Tobacco Use Status Former Tobacco user 11/10/23 11:36 Tobacco use type Cigarette 11/10/23 11:36 e-Cigarette/Vaping Use Never Used 11/10/23 11:36 Const General: no acute distress and well developed Nutritional Appearance: well nourished Orientation/consciousness: patient oriented x3 HENMT Head: Yes normocephalic and Yes atraumatic Eyes General: appearance normal, both eyes and all related structures Pupils: Equal, round and reactive pupils present EOM: EOMs intact bilaterally Resp Effort & Inspection: normal respiratory effort Auscultation: clear to auscultation bilaterally Cardio Rate: regular rate Rhythm: regular rhythm Heart sounds: S1 normal heart sound present, S2 normal heart sound present, no gallops, no murmurs and no rubs Neuro General: patient oriented x3 and No gait normal Cranial nerves: Yes Equal, round and reactive pupils present Gait exam (Neuro): gait abnormal (wide based gait, list to the L) Psych Affect: normal affect Results AMB Hemoglobin A1c AMB Hemoglobin A1c 5.6 % Last Edit by Petrona Torres CMA on 11/10/23 12:27 Assessment and Plan Assessment & Plan (1) Progressive supranuclear palsy: Code(s): G23.1 - Progressive supranuclear ophthalmoplegia [Danielle] Plan: Working?diagnosis?includes?supranuclear?palsy?though?his?new?neurologist?questions?this?diagnosis. Also?possible?parkinsonism. He?was?recently?started?on?Sinemet Also?referred?to?neurologic?physical?therapy. Continue?to?follow-up?with?Neurology?as?recommended (2) Imbalance: Code(s): R26.89 - Other abnormalities of gait and mobility Plan: Continue?neurologic?physical?therapy (3) Elevated fasting glucose: Code(s): R73.01 - Impaired fasting glucose Plan: A1c?is?a?bit?higher. Likely?some?insulin?resistance?though?not?diabetes Encouraged?diet?lower?in?sugars?and?starches (4) Urinary incontinence: Code(s): R32 - Unspecified urinary incontinence Plan: Referred?to?Urology (5) Urinary urgency: Code(s): R39.15 - Urgency of urination Plan: Referred?to?Urology (6) Gout of left knee: Code(s): M10.9 - Gout, unspecified Qualifiers: Chronicity: unspecified Gout etiology: unspecified cause Qualified Code(s): M10.9 - Gout, unspecified Plan: History?of?gout?and?recent?left?knee?swelling?though?this?resolved?rather?quickly?to?be?gout No?swelling?today Check?uric?acid?level?with?labs. Orders: Orders AMB Hemoglobin A1c Today R73.03 - Prediabetes TSH reflex Free T4 Today Z00.00 - Encounter for general adult medical examination without abnormal findings Lipid Panel Today Z00.00 - Encounter for general adult medical examination without abnormal findings Uric Acid Today M10.9 - Gout, unspecified UA and rflx microscopic Today Z00.00 - Encounter for general adult medical examination without abnormal findings Complete Blood Count Auto Diff Today Z00.00 - Encounter for general adult medical examination without abnormal findings LDL Cholesterol Direct Today E78.00 - Pure hypercholesterolemia, unspecified Microalbumin, Random (w Creat) Today I10 - Essential (primary) hypertension Comprehensive Met. Panel Today R26.89 - Other abnormalities of gait and mobility Referrals Urology Referral R32 - Unspecified urinary incontinence Coding Level of Care Code Est Pt Level 4 (87913) Diagnoses Progressive supranuclear palsy G23.1 Imbalance R26.89 Elevated fasting glucose R73.01 Urinary incontinence R32 Urinary urgency R39.15 Gout of left knee, unspecified cause, unspecified chronicity M10.9 Chronicity: unspecified Gout etiology: unspecified cause
[2023-11-10 11:39] VITALS: BP 128/62; PULSE 54; RESP 13; O2SAT 99; BMI 22.1
== END 2023-11-10 12:48 | disposition home or self-care (01) ==
PROVIDERS: PCP Family Medicine; Visit Provider Family Medicine
DX: G23.1 Progressive supranuclear ophthalmoplegia [Steele-Richardson-Olszewski] (principal); R26.89 Other abnormalities of gait and mobility; R73.01 Impaired fasting glucose; R32 Unspecified urinary incontinence; R39.15 Urgency of urination; M10.9 Gout, unspecified; R73.03 Prediabetes
CPT/HCPCS: 83036; 99214

== ENCOUNTER 2023-11-10 12:42 | Outpatient (REF) | payer OTHER, SELFPAY ==
[2023-11-10 13:58] LABS: MANUAL DIFF FLAG NO
[2023-11-10 14:08] LABS: Basophils Percent Auto 0.7 % (0-2); Eosinophils Absolute Auto 0.1 X10*3/uL (0.0-0.4); Eosinophils Percent Auto 1.2 % (0-4); Hematocrit 40.1 % (42.0-52.0); Hemoglobin 13.4 g/dl (14.0-18.0); Imm Gran Abs Auto 0.01 X10*3/uL (0.00-0.03); Imm Gran Pct Auto 0.2 % (0.0-0.4); Lymphocytes Absolute Auto 1.1 X10*3/uL (1.2-4.9); Lymphocytes Percent Auto 26.3 % (20-40); Mean Corpuscular HGB Conc 33.4 g/dl (31.0-36.0); Mean Corpuscular Hemoglobin 32.9 pg (27.0-33.0); Mean Corpuscular Volume 98.5 fL (80.0-98.0); Mean Platelet Volume 9.6 fL (9.4-12.4); Monocytes Absolute Auto 0.4 X10*3/uL (0.1-1.2); Monocytes Percent Auto 8.6 % (2-11); Neutrophils Absolute Auto 2.6 x10*3/uL (2.0-8.3); Platelet Count 281 X10*3/uL (160-400); Red Blood Count 4.07 X10*6/uL (4.60-5.80); Red Cell Distribution Width 13.2 % (11.0-16.0); White Blood Count 4.2 X10*3/uL (4.8-10.8)
[2023-11-10 14:27] LABS: Alanine Aminotransferase < 5 U/L (0-40); Albumin Level 4.3 g/dL (3.5-5.0); Alkaline Phosphatase 74 U/L (39-117); Anion Gap 12 (12-20); Aspartate Amino Transferase 15 U/L (5-37); Bilirubin Total 0.5 mg/dL (0.0-1.0); Blood Urea Nitrogen 18 mg/dL (9-16); Calcium 9.8 mg/dL (8.4-10.2); Carbon Dioxide 28 mmol/L (22-29); Chloride 105 mmol/L (96-108); Cholesterol 176 mg/dL (<200); Estimated Glomerular Filt Rate > 60; Glucose Random 97 mg/dL (60-115); HDL Cholesterol 66 mg/dL (>40); LDL Cholesterol Calculated 92 mg/dL (<100); Potassium 4.8 mmol/L (3.3-5.1); Sodium 140 mmol/L (135-145); Total Protein 7.1 g/dL (6.5-8.0); Triglycerides 92 mg/dL (<150); Uric Acid 5.3 mg/dL (3.4-7.0)
[2023-11-10 14:39] LABS: TSH reflex Free T4 1.76 uIU/mL (0.32-4.0)
[2023-11-12 05:53] LABS: LDL Cholesterol Direct 97 mg/dL (<100)
== END 2023-11-10 12:43 | disposition home or self-care (01) ==
LOC: HO.WFDLDS 12:42
PROVIDERS: Visit Provider Family Medicine
DX: Z00.00 Encounter for general adult medical examination without abnormal findings (principal); R26.89 Other abnormalities of gait and mobility; E78.00 Pure hypercholesterolemia, unspecified; M10.9 Gout, unspecified
CPT/HCPCS: 36415; 80053; 80061; 83721; 84443; 84550; 85025

== ENCOUNTER 2024-01-19 14:37 | Outpatient (REF) | payer OTHER, SELFPAY ==
[2024-01-19 17:15] LABS: Prostate Specific Antigen 0.62 ng/mL (<0.05-4.0)
== END 2024-01-19 14:38 | disposition home or self-care (01) ==
LOC: HO.LAB 14:37
PROVIDERS: PCP Family Medicine; Visit Provider Nurse Practitioner Family
DX: Z12.5 Encounter for screening for malignant neoplasm of prostate (principal); N40.0 Benign prostatic hyperplasia without lower urinary tract symptoms; R39.9 Unspecified symptoms and signs involving the genitourinary system
CPT/HCPCS: 36415; 51798; 81003; 84153

== ENCOUNTER 2024-01-19 14:37 | Outpatient (AMB) | payer OTHER, SELFPAY ==
--- NOTE | 2024-01-19 15:01 | A.OFFVIS_ITS ---
Intake Intake Visit Reasons: Unspecified urinary incontinence Intake Note: Patient presents today for a follow-up on Unspecified urinary incontinence Meds- None Allergies to Antibiotic- No Known Allergies Blood Thinner- None Post Void Residual: 22ml Developer Evangelist Required: No Accompanied by: Allergies Seasonal Allergies Allergy (Intermediate, Verified 01/19/24 15:38) Runny Nose Medication List - Last Reconciled 01/19/24 by EDGAR Espitia carbidopa-levodopa 25-100 mg 1 tab PO TID ibuprofen 600 mg PO Q6H PRN lisinopril 20 mg PO DAILY 90 days mecobalamin (vitamin B12) 1,000 mcg PO DAILY 90 days omeprazole 20 mg PO DAILY simvastatin 20 mg PO DAILY 90 days HPI HPI Comments History of Present Illness Details Cesar is a very pleasant 58-year-old male patient of Dr. Castanon who was accompanied by his at today's office visit. He has a past medical history of hypercholesteremia, hypertension, and Parkinson's disease. He presents to the office today as a new patient for ongoing lower urinary tract symptoms. In discussion with the patient today he reports noting urinary issues to have been present for quite some time. He reports urinary urgency, urinary frequency, with episodes of incontinence if not near a bathroom. He otherwise denies hematuria, dysuria, foul smelling urine, changes to urinary stream, flank pain, fever, and or chills. Report nocturia up to 2 times per night. Discussed potential for lower urinary tract symptoms to be related to new onset Parkinson's verses overactive bladder. Will obtain retroperitoneal ultrasound and PSA for further assessment evaluation. In office urinalysis results reviewed with the patient today. PVR 22 mL. He otherwise offers no other issues or concerns at this time. [facility] Medical History Lower urinary tract symptoms High cholesterol Hypertension Surgical History History of appendectomy History of repair of anterior cruciate ligament of left knee Family History Maternal Grandmother Mental health disorder Maternal Uncle Mental health disorder Father Colon cancer Family/Other Leukemia Social History Housing: House Alcohol intake: former Patient Tobacco Use Status: Former Tobacco user Tobacco use type: Cigarette e-Cigarette/Vaping Use: Never Used Substance Use Type: Marijuana service: Yes Current occupational status: employed 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 Cognitive needs: No Hearing needs: No Vision needs: No Review of Systems Const Reports as per HPI Eyes Reports no additional complaints ENT Reports no additional complaints Card Reports as per HPI Resp Reports no additional complaints GI Reports no additional complaints Reports as per HPI Musc Reports no additional complaints Neuro Reports as per HPI Psych Reports no additional complaints Endo Reports no additional complaints Lewis/Lymph Reports no additional complaints Aller/Immun Reports no additional complaints Physical Exam Const General: cooperative, healthy appearing, comfortable, no acute distress, well developed, alert and awake Orientation/consciousness: patient oriented x3 Limitations: no limitations HEENT Head: Yes normal to inspection, Yes normocephalic and Yes atraumatic Eyes General: appearance normal, both eyes and all related structures Neck Neck: Yes normal visual inspection Chest Chest palpation & inspection: normal inspection of the chest Resp Effort & Inspection: normal respiratory effort and able to speak in complete sentences Cardio Rate: regular rate GI Inspection: Yes normal to inspection General: Yes no CVA tenderness Back/Spine/Pelvis Back: no CVA tenderness Skin General skin exam: no rashes or lesions noted Neuro General: patient oriented x3 Extrem General: Yes normal to inspection Psych Appearance: grossly normal and well kempt Mental Status: mental status grossly normal Speech and movement: Normal speech and movement present and Clear speech present Affect: normal affect Attitude: cooperative Thought process: Normal thought process present Thought content: Normal thought content present Insight: Fair insight present (Psych) Judgement: Fair judgement present (Psych) Office Procedures Post Void Residual Post Residual Void Post Void Residual (PVR): 22 [id number] Void Residual by ultrasound Results AMB Urinalysis, Automated UA Leukoctes 0 Margot/uL Last Edit by Radha Torres CMA on 01/19/24 15 :05 UA Nitrite Negative Last Edit by [facility], [facility] on 01/19/24 15: 05 UA Urobilinogen 0.2 mg/dL Last Edit by [facility], [facility] on 4 15:05 UA Protein 0 mg/dL Last Edit by [facility], [facility] on 01/19/24 15:05 UA pH 6.5 Last Edit by [facility], [facility] on 01/19/24 15:05 UA Blood 0 Joe/uL Last Edit by [facility], [facility] on 01/19/24 15:05 UA Specific [place] 1.015 Last Edit by [facility], [facility] on 15:05 UA Ketone Negative Last Edit by [facility], [facility] on 01/19/24 15:0 5 UA Bilirubin 0 mg/dL Last Edit by [facility], [facility] on 01/19/24 15: 05 UA Glucose 0 mg/dL Last Edit by [facility], [facility] on 01/19/24 15:05 Results Reviewed Results Reviewed: Laboratory Last Values Urine pH (Auto) 6.5 01/19/24 15:04 Specific [place] (Auto) 1.015 01/19/24 15:04 Urine Protein (Auto) 0 mg/dL 01/19/24 15:04 Glucose (UA)(Auto) 0 mg/dL 01/19/24 15:04 Urine Ketones (Auto) Negative 01/19/24 15:04 Urine Blood (Auto) 0 Joe/uL 01/19/24 15:04 Urine Nitrite (Auto) Negative 01/19/24 15:04 Urine Bilirubin (Auto) 0 mg/dL 01/19/24 15:04 Urine Urobilinogen (Auto) 0.2 mg/dL 01/19/24 15:04 Leukocyte Esterase (Auto) 0 Margot/uL 01/19/24 15:04 Assessment & Plan Assessment & Plan (1) Lower urinary tract symptoms: Code(s): R39.9 - Unspecified symptoms and signs involving the genitourinary system (2) Urinary urgency: Code(s): R39.15 - Urgency of urination (3) Urinary incontinence: Code(s): R32 - Unspecified urinary incontinence (4) Urinary frequency: Code(s): R35.0 - Frequency of micturition Plan In office urinalysis results reviewed with the patient today; as noted above. PVR 22 mL. Will obtain PSA for further assessment evaluation. Will obtain retroperitoneal ultrasound for assessment evaluation. Discussed at length bladder triggers/irritants. Discussed timed/scheduled voiding to assist with decreasing episodes of urinary incontinence. Discussed possible near future in office cystoscopy and or urodynamics for further assessment evaluation. Follow-up in 2-3 months with imaging and labs to be completed prior; or sooner with any issues, concerns, and or questions. Orders: Orders AMB Post Void Residual by ultrasound Today R33.9 - Retention of urine, unspecified AMB Urinalysis Automated Today R33.9 - Retention of urine, unspecified Prostate Specific Antigen Today N40.0 - Benign prostatic hyperplasia without lower urinary tract symptoms, R39.9 - Unspecified symptoms and signs involving the genitourinary system US retroperitoneal comp Today R32 - Unspecified urinary incontinence, R35.0 - Frequency of micturition, R39.15 - Urgency of urination, R39.9 - Unspecified symptoms and signs involving the genitourinary system Patient Instructions: The patient had an opportunity to ask questions regarding the treatment plan. All questions were answered. Physical exam, labs, and imaging were discussed and reviewed in detail. As well as risks, benefits, and discussion of treatment choices. No major barriers to understanding were identified. The patient expressed understanding and agreement with the above treatment plan. The patient was made aware they should contact our office by phone for worsening of their current condition, the appearance of new symptoms, or with any questions or concerns. Compliance is encouraged with any medications and follow up testing that is ordered. It is a privilege to be allowed the opportunity to participate in? your urological care.? Again, if you have any questions or concerns If you have any questions or concerns please do not hesitate to contact me. The office is [phone]. This note is constructed using voice recognition software. While every effort has been made to ensure accuracy cuprous chloride operator errors may have been included. Yours sincerely, EDGAR Espitia Coding Level of Care Code New Pt Level 3 (68154) Diagnoses Lower urinary tract symptoms R39.9 Urinary urgency R39.15 Urinary incontinence R32 Urinary frequency R35.0 CPT Codes Post Residual Void - PVR CPT Code: 94112-Ejcr Void Residual by ultrasound ([id number])
== END 2024-01-19 15:47 | disposition home or self-care (01) ==
PROVIDERS: PCP Family Medicine; Visit Provider Nurse Practitioner Family
DX: R39.9 Unspecified symptoms and signs involving the genitourinary system (principal); R39.15 Urgency of urination; R32 Unspecified urinary incontinence; R35.0 Frequency of micturition; R33.9 Retention of urine, unspecified
CPT/HCPCS: 99203

== ENCOUNTER 2024-02-08 11:51 | Outpatient (REF) | payer OTHER, SELFPAY ==
--- NOTE | ~2024-02-08 | US_ITS ---
EXAMINATION: US RETROPERITONEAL COMPLETE (RENAL) CLINICAL INFORMATION: Unspecified symptoms and signs involving the genitourinary system. COMPARISON: None available. TECHNIQUE: Real-time imaging of the kidneys and bladder. FINDINGS: RIGHT KIDNEY: 10.2 x 5.9 x 5.6 cm (SAG x AP x TRV). The kidney is normal in size, contour, and echogenicity. Renal cortical thickness is normal. No calculi or focal parenchymal lesions. No hydronephrosis. LEFT KIDNEY: 10.6 x 5.8 x 6.0 cm (SAG x AP x TRV). The kidney is normal in size, contour, and echogenicity. Renal cortical thickness is normal. No calculi or focal parenchymal lesions. Mild caliectasis. No definite hydronephrosis. BLADDER: Well distended and normal. Bilateral ureteral jets are demonstrated. Prevoid bladder volume is 114 mL. Postvoid bladder volume is 11.1 mL. ADDITIONAL FINDINGS: The prostate gland is enlarged measuring 4.7 x 3.5 x 5.3 cm, volume 45 mL. US/US retroperitoneal comp IMPRESSION: Normal right kidney. Question mild left renal caliectasis. No definite left hydronephrosis. Enlarged prostate gland. Normal bladder.
== END 2024-02-08 11:52 | disposition home or self-care (01) ==
LOC: HO.US 11:51
PROVIDERS: PCP Family Medicine; Visit Provider Nurse Practitioner Family
DX: R39.9 Unspecified symptoms and signs involving the genitourinary system (principal); R39.15 Urgency of urination; R32 Unspecified urinary incontinence; R35.0 Frequency of micturition
CPT/HCPCS: 76770

== ENCOUNTER 2024-03-23 08:41 | Outpatient (AMB) | payer SELFPAY ==
--- NOTE | 2024-03-23 09:01 | MHC.OFFVIS ---
Intake Visit Reasons: 2mo follow up US/incontinence, frequency(set) Intake Note: Patient presents today for a follow-up on urinary incontinence, ultrasound results, and PSA labs Imaging Completed: 02/08/24 PSA: 0.62 Urology Medications: None Allergies to Antibiotic: No Known Allergies Blood Thinner: None Post Void Residual: 40ml's Main Entree Cook And Cashier Required: No Accompanied by: Allergies Seasonal Allergies Allergy (Intermediate, Verified 03/23/24 09:14) Runny Nose HPI Comments Details: Cesar is a very pleasant 58-year-old male patient of Dr. Castanon who was accompanied by his at today's office visit. He has a past medical history of hypercholesteremia, hypertension, and Parkinson's disease. He presents to the office today for follow-up. Of note, patient was seen approximately 2 months ago as a new patient for ongoing lower urinary tract symptoms at which time a retroperitoneal ultrasound and PSA were ordered for further assessment evaluation. These results were reviewed with the patient today. Bilateral kidneys with no lesions or hydronephrosis. Mild left-sided caliectasis. No definite hydronephrosis. The bladder is well distended and normal. Bilateral ureteral jets are demonstrated. Pre void bladder volume is approximately 115 mL. Postvoid bladder volume is approximately 10 mL. Prostate gland measures approximately 45 mL. PSA 01/23 0.6. He continues to experience urinary urgency, urinary frequency, and episodes of incontinence if not near a bathroom. He reports having performed scheduled/timed voiding since his last office visit here and feels this has been helpful however given his decreased mobility at times of urinary urgency he still does continue to have episodes of incontinence. He otherwise denies hematuria, dysuria, foul smelling urine, changes to urinary stream, flank pain, fever, and or chills. Report nocturia up to 2 times per night. Discussed potential for lower urinary tract symptoms to be related to new onset Parkinson's verses overactive bladder. In office urinalysis results reviewed with the patient and his today. PVR 40 mL. Discussed at length potential treatment options for lower urinary tract symptoms patient is experiencing. He otherwise offers no other issues or concerns at this time. 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 Cognitive needs: No Hearing needs: No Vision needs: No Review of Systems Const Reports as per HPI Eyes Reports no additional complaints ENT Reports no additional complaints Card Reports as per HPI Resp Reports no additional complaints GI Reports no additional complaints Reports as per HPI Musc Reports no additional complaints Neuro Reports as per HPI Psych Reports no additional complaints Endo Reports no additional complaints Lewis/Lymph Reports no additional complaints Aller/Immun Reports no additional complaints Physical Exam Const General: cooperative, healthy appearing, comfortable, no acute distress, well developed, alert and awake Orientation/consciousness: patient oriented x3 Limitations: ambulation with walker HEENT Head: Yes normal to inspection, Yes normocephalic and Yes atraumatic Eyes General: appearance normal, both eyes and all related structures Neck Neck: Yes normal visual inspection Chest Chest palpation & inspection: normal inspection of the chest Resp Effort & Inspection: normal respiratory effort and able to speak in complete sentences Cardio Rate: regular rate GI Inspection: Yes normal to inspection General: Yes no CVA tenderness Back/Spine/Pelvis Back: no CVA tenderness Skin General skin exam: no rashes or lesions noted Neuro General: patient oriented x3 Extrem General: Yes normal to inspection Psych Appearance: grossly normal and well kempt Mental Status: mental status grossly normal Speech and movement: Normal speech and movement present and Clear speech present Affect: normal affect Attitude: cooperative Thought process: Normal thought process present Thought content: Normal thought content present Insight: Fair insight present (Psych) Judgement: Fair judgement present (Psych) Office Procedures Post Void Residual Post Residual Void Post Void Residual (PVR): 40 [id number] Void Residual by ultrasound Results AMB Urinalysis, Automated UA Leukoctes 0 Margot/uL Last Edit by Tristan Méndez on 03/23/24 09:16 UA Nitrite Negative Last Edit by Tristan Méndez on 03/23/24 09:16 UA Urobilinogen 0.2 mg/dL Last Edit by Tristan Méndez on 03/23/24 09:16 UA Protein 0 mg/dL Last Edit by Tristan Méndez on 03/23/24 09:16 UA pH 6.0 Last Edit by Tristan Méndez on 03/23/24 09:16 UA Blood 0 Joe/uL Last Edit by Tristan Méndez on 03/23/24 09:16 UA Specific [place] 1.010 Last Edit by Tristan Méndez on 03/23/24 09:16 UA Ketone Negative Last Edit by Tristan Méndez on 03/23/24 09:16 UA Bilirubin 0 mg/dL Last Edit by Tristan Méndez on 03/23/24 09:16 UA Glucose 0 mg/dL Last Edit by Tristan Méndez on 03/23/24 09:16 Results Reviewed Results Reviewed: Laboratory Last Values Urine pH (Auto) 6.0 03/23/24 09:15 Specific [place] (Auto) 1.010 03/23/24 09:15 Urine Protein (Auto) 0 mg/dL 03/23/24 09:15 Glucose (UA)(Auto) 0 mg/dL 03/23/24 09:15 Urine Ketones (Auto) Negative 03/23/24 09:15 Urine Blood (Auto) 0 Joe/uL 03/23/24 09:15 Urine Nitrite (Auto) Negative 03/23/24 09:15 Urine Bilirubin (Auto) 0 mg/dL 03/23/24 09:15 Urine Urobilinogen (Auto) 0.2 mg/dL 03/23/24 09:15 Leukocyte Esterase (Auto) 0 Margot/uL 03/23/24 09:15 Date of Service: 02/08/24 Procedure(s): US retroperitoneal comp FINDINGS: RIGHT KIDNEY: 10.2 x 5.9 x 5.6 cm (SAG x AP x TRV). The kidney is normal in size, contour, and echogenicity. Renal cortical thickness is normal. No calculi or focal parenchymal lesions. No hydronephrosis. LEFT KIDNEY: 10.6 x 5.8 x 6.0 cm (SAG x AP x TRV). The kidney is normal in size, contour, and echogenicity. Renal cortical thickness is normal. No calculi or focal parenchymal lesions. Mild caliectasis. No definite hydronephrosis. BLADDER: Well distended and normal. Bilateral ureteral jets are demonstrated. Prevoid bladder volume is 114 mL. Postvoid bladder volume is 11.1 mL. ADDITIONAL FINDINGS: The prostate gland is enlarged measuring 4.7 x 3.5 x 5.3 cm, volume 45 mL. IMPRESSION: Normal right kidney. Question mild left renal caliectasis. No definite left hydronephrosis. Enlarged prostate gland. Normal bladder. Assessment & Plan Assessment & Plan (1) Urinary frequency: Code(s): R35.0 - Frequency of micturition Category: Medical (2) Lower urinary tract symptoms: Code(s): R39.9 - Unspecified symptoms and signs involving the genitourinary system Category: Medical (3) Urinary urgency: Code(s): R39.15 - Urgency of urination Category: Medical (4) Urinary incontinence: Code(s): R32 - Unspecified urinary incontinence Category: Medical Plan Office urinalysis results reviewed with the patient today; as noted above. PVR 40 mL. Discussed recent retroperitoneal ultrasound results with the patient his today; as noted above. Recent PSA results reviewed with the patient today; as noted above. Discussed at length potential treatment options for lower urinary tract symptoms patient is experiencing. Start Cialis 5 mg daily as discussed and prescribed. Continue with scheduled toileting. Discussed attempting to sit when voiding to relax pelvis. Discussed pelvic floor exercises to assist with urinary dribbling. Follow-up in 1-3 months with PVR; or sooner with any issues, concerns, and or questions. Orders: Orders AMB Post Void Residual by ultrasound Today R35.0 - Frequency of micturition AMB Urinalysis Automated Today Z13.9 - Encounter for screening, unspecified Medications: New tadalafil (Cialis) [id number] [facility] [id number] Member [id number] 5 mg PO DAILY 90 days 90 tabs 1RF Patient Instructions: The patient had an opportunity to ask questions regarding the treatment plan. All questions were answered. Physical exam, labs, and imaging were discussed and reviewed in detail. As well as risks, benefits, and discussion of treatment choices. No major barriers to understanding were identified. The patient expressed understanding and agreement with the above treatment plan. The patient was made aware they should contact our office by phone for worsening of their current condition, the appearance of new symptoms, or with any questions or concerns. Compliance is encouraged with any medications and follow up testing that is ordered. It is a privilege to be allowed the opportunity to participate in? your urological care.? Again, if you have any questions or concerns If you have any questions or concerns please do not hesitate to contact me. The office is [phone]. This note is constructed using voice recognition software. While every effort has been made to ensure accuracy roll table operator errors may have been included. Yours sincerely, EDGAR Espitia Coding Level of Care Code Est Pt Level 3 (59022) Diagnoses Urinary frequency R35.0 Lower urinary tract symptoms R39.9 Urinary urgency R39.15 Urinary incontinence R32 CPT Codes Post Residual Void - PVR CPT Code: 47848-[id number] Void Residual by ultrasound ([id number])
== END 2024-03-23 09:36 | disposition home or self-care (01) ==
PROVIDERS: PCP Family Medicine; Visit Provider Nurse Practitioner Family
DX: R35.0 Frequency of micturition (principal); R39.9 Unspecified symptoms and signs involving the genitourinary system; R39.15 Urgency of urination; R32 Unspecified urinary incontinence; Z13.9 Encounter for screening, unspecified
CPT/HCPCS: 99213

== ENCOUNTER → 2024-03-23 08:41 | Outpatient (BNVA) | payer OTHER, SELFPAY | PROVIDERS: PCP Family Medicine; Visit Provider Nurse Practitioner Family | DX: R35.0 Frequency of micturition (principal); R39.15 Urgency of urination; R32 Unspecified urinary incontinence; R39.9 Unspecified symptoms and signs involving the genitourinary system | CPT/HCPCS: 51798; 81003; 99212 ==

== ENCOUNTER 2024-03-24 08:28 | Outpatient (AMB) | payer SELFPAY ==
--- NOTE | 2024-03-24 08:34 | A.OFFPC_ITS ---
Vital Signs 03/24/24 08:39 Height 6 ft Weight 164 lb 2 oz BMI 22.3 BP 104/62 Blood Pressure Location Lt brachial Position Sitting Pulse 84 Pulse Source Pulse Oximeter Temp 97.7 F Temp Source Oral Pulse Oximetry (%) 99 Oxygen Delivery Method Room Air Intake Visit Reasons: Dizziness Intake Note: Dizziness past two weeks Sleep Technologist Required: No Allergies Seasonal Allergies Allergy (Intermediate, Verified 03/24/24 08:35) Runny Nose Medication List - Last Reconciled 03/24/24 by Savana Toledo PA-C carbidopa-levodopa 25-100 mg 1 tab PO TID esomeprazole magnesium 20 mg PO DAILY ibuprofen 600 mg PO Q6H PRN lisinopril 20 mg PO DAILY 90 days meclizine 25 mg PO BID PRN mecobalamin (vitamin B12) 1,000 mcg PO DAILY 90 days ondansetron HCl 4 mg PO Q8H PRN 10 days simvastatin 20 mg PO DAILY 90 days tadalafil (Cialis) 5 mg PO DAILY 90 days trazodone 50 mg PO BEDTIME Tobacco use date assessed: 03/24/24 Dental Screening Dental Screen Date: 03/24/24 Did you have a dental visit in the last 12 months?: Yes Did you have a dental problem in the last 6 months where you did not have access to dental care?: No Was dental information given to patient?: Patient has dentist HPI Dizziness HPI Details Patient is a 58-year-old male who presents today with complaints dizziness. He has a significant past medical history progressive supranuclear palsy, difficulty sleeping, hypertension, hyperlipidemia and impaired fasting glucose. He is his Neuro: He was initially diagnosed with progressive supranuclear palsy by Dr. Collins and then went for a 2nd opinion at [facility] who thought it was possible and did not change the diagnosis. There were some suspicion that this may not be supranuclear palsy but he states that they decided to keep the diagnosis for now. He was last seen almost 6 months ago. This all started a couple years ago when he noticed that he was easily losing his balance and falling. This has then progressed over the last year and further worsened over the last few months. He is currently unemployed because he is falling at work and has been unable to continue working. He is also currently uninsured and paying [id number] for this. His has noticed that he has had increased cognitive issues, irritability and worsening gait and some speech issues. He is not scheduled back to see Neurology until the fall. Nuclear medicine SPECT iodine 123 brain scan positive for decreased uptake in L putamen. Differential dx included Parkinson's disease, progressive supranuclear palsy, Lewy body disease. Has seen neurologist at [facility] who took him off amatadine and put him on Sinumet. -he made this appointment because he fee ls like the dizziness is getting worse and more persistent. He describes this as feeling off balance and like he is drunk. He states he does not feel lightheaded and does not feel like things are spinning. He is noticing he has having a hard time focusing his eyes. His states that she is actually noticed some eye movements that seem off. He denies any congestion, ear pain, sinus pain or pressure, chest pain, palpitations, numbness or tingling. She thinks that his lower extremity strength is worsening. His gait is also worsening along with the instability and increased urinary incontinence. He did see Urology who believes that this is neurologic. -he states that this dizziness is exacer bated by being in a car with things going by him. He states it makes him feel nauseous and it feels like motion sickness. Psych: We did discuss his anxiety and PHQ-9 today and he states that he does have some anxiety regarding his diagnosis and he has difficulty sleeping at night. He has a hard time falling asleep and staying asleep. States that his thoughts are spinning but this has been going for a long time but since his diagnosis and being out of work it has worsened. He does feel that he is snappy at times during the day especially after nights that he does not sleep well. He has tried melatonin, zquil, Benadryl and in the past Ambien. He states that the zukd-eir-ocwpicm medications are ineffective. Ambien caused him to feel loopy/hung over in the morning. He did not like that medication and that was done by Dr. Santos. [facility] Medical History Lower urinary tract symptoms High cholesterol Hypertension Surgical History History of appendectomy History of repair of anterior cruciate ligament of left knee Family History Maternal Grandmother Mental health disorder Maternal Uncle Mental health disorder Father Colon cancer Family/Other Leukemia Social History (Updated 03/24/24 @ 08:37 by Elis Horn [facility] [address]) Housing: House Alcohol intake: former Patient Tobacco Use Status: Former Tobacco user Tobacco use type: Cigarette e-Cigarette/Vaping Use: Never Used Second Hand Smoke Exposure: No Substance Use Type: Marijuana service: Yes Current occupational status: unemployed Cognitive needs: No Hearing needs: No Vision needs: No Questionnaire PHQ-9 Over the last 2 weeks, how often have you been bothered by any of the following problems? 1. Little interest or pleasure in doing things: several days 2. Feeling down, depressed, or hopeless: several days 3. Trouble falling or staying asleep, or sleeping too much: nearly every day 4. Feeling tired or having little energy: several days 5. Poor appetite or overeating: not at all 6. Feeling bad about yourself - or that you are a failure or have let yourself or your family down: several days 7. Trouble concentrating on things, such as reading the newspaper or watching television: several days 8. Moving or speaking so slowly that other people could have noticed. Or the opposite - being so fidgety or restless that you have been moving around a lot more than usual: several days 9. Thoughts that you would be better off or of hurting yourself in some way: not at all Total score: 9 Depression Screening Interpretation: Positive Depression Screening Follow-up: Existing condition and New Medication prescribed Depression Screening Done: Yes 07462 - PHQ-9 Billing: Yes Source: Developed by Drs. Torrey Funez, Haley Aviles, Gilmer Souza and colleagues, with an educational jose a from [employer]. AUDIT C Alcohol Use Questionnaire (AUDIT-C) 1. How often do you have a drink containing alcohol?: Never (Stopped drinking 3 years ago) 3. How often do you have six or more drinks on one occasion?: Never Total Score: 0 Score Reviewed/Action Taken: Yes DARRICK-7 AMB Questionnaire DARRICK-7 Feeling nervous, anxious, or on edge: 1 = Several days Not being able to stop or control worryin = Several days Worrying too much about different things: 1 = Several days Trouble relaxin = Several days Being so restless that it is hard to sit still: 0 = Not at all Becoming easily annoyed or irritable: 2 = More than half the days Feeling afraid as if something awful might happen: 0 = Not at all Total DARRICK-7 score (0-4 normal; 5-9 mild; 10-14 moderate; 15-21 severe): 6 Source: Developed by Drs. Torrey Funez, Haley Aviles, Gilmer Souza and colleagues, with an educational jose a from [employer]. DARRICK-7 Assessment Billing DARRICK-7 Assessment Tool: DARRICK-7 Assessment 26882 Review of Systems ENT Reports Normal hearing present Neuro Reports Normal hearing present Physical exam (Primary Care) Tobacco/Smoking Status: Tobacco use Status Tobacco use date assessed 06/04/23 11/10/23 11:36 Patient Tobacco Use Status Former Tobacco user 03/24/24 08:37 Tobacco use type Cigarette 03/24/24 08:37 e-Cigarette/Vaping Use Never Used 03/24/24 08:37 Depression Screening Interpretation: Positive Depression Screening Follow-up: Existing condition and New Medication prescribed Const General: no acute distress Orientation/consciousness: patient oriented x3 HENMT Ears: hearing grossly normal bilaterally and TM's normal bilaterally Face and sinus: Yes sinuses nontender Mouth: Normal oral and palatal mucosa present Throat: Yes posterior oropharynx normal and Yes uvula midline Eyes Alignment and Position: alignment normal and position normal Eyelids: Yes eyelids normal Conjunctivae: conjunctivae normal Sclerae: sclerae normal Corneas: corneas normal Pupils: Equal, round and reactive pupils present and Pupil accommodation reflex normal EOM: movement deficit (eyes unable to converge medially) and Nystagmus present (Lateral nystagmus bilaterally) Neck Neck: No tracheostomy present Resp Effort & Inspection: normal respiratory effort Auscultation: clear to auscultation bilaterally Cardio Rate: regular rate Rhythm: regular rhythm Heart sounds: S1 normal heart sound present and S2 normal heart sound present Peripheral pulses: Peripheral pulses 2+ throughout GI Other: soft, nontender General: Yes CVA tenderness Back/Spine/Pelvis Back: CVA tenderness Cervical Spine: cervical ROM normal Thoracic/Lumbar Spine: thoraco-lumbar ROM normal Skin General skin exam: no rashes or lesions noted Neuro General: patient oriented x3 Cranial nerves: Yes CN's II-XII intact bilaterally, Yes Equal, round and reactive pupils present, Yes Normal accommodation reflex present, Yes Midline tongue present, Yes Symmetric palate elevation present, Yes Normal hearing present, Yes Ability to bilaterally rotate head present, Yes Ability to bilaterally elevate shoulders present and Yes Nystagmus present (Lateral nystagmus bilaterally) Cognition (Neuro): normal cognition Gait exam (Neuro): Wide-based gait present and Assistive device used Motor exam (neuro): 5/5 motor strength present throughout and Tremors during motor activity present (Noted in the upper extremities bilaterally) Sensory Exam: double simultaneous stimulation for sensation normal Deep tendon reflexes (DTR's): Right brachioradialis reflex intensity grade: 2+, Left brachioradialis reflex intensity grade: 2+ and Right patellar reflex intensity grade: 4+ Coordination: sways with eyes open and other (Rapid alternating movement of upper extremities abnormal) Extrem General: Yes normal to inspection and Yes full ROM Psych Affect: normal affect Attitude: cooperative Thought process: Normal thought process present Thought content: Normal thought content present Insight: Good insight present (Psych) Judgement: Good judgement present (Psych) Assessment and Plan Assessment & Plan (1) Dizziness: Code(s): R42 - Dizziness and giddiness Plan: advised to follow with neurology. meclizine and zofran ordered to use prn. has short term follow up arranged with pcp who is more familiar with baseline. His states today that his neurological exam is not far from his baseline but slightly worsened. (2) Progressive supranuclear palsy: Code(s): G23.1 - Progressive supranuclear ophthalmoplegia [[id number]-[id number]-[id number]] Plan: I believe the dizziness is related to this. (3) Difficulty sleeping: Code(s): G47.9 - Sleep disorder, unspecified Plan: will try trazodone but did discuss concerns of falls with any sedative like medications. he has a a bedside urinal, night lights and safety devices. Plan we also discussed health insurances and catherine advised them to contact [employer] today. pt and understand and agree with the plan. Medications: New meclizine 25 mg PO BID PRN 30 tabs 1RF dizziness ondansetron HCl 4 mg PO Q8H 10 days PRN 30 tabs 0RF nausea and vomiting trazodone 50 mg PO BEDTIME 30 tabs 6RF Coding Level of Care Code Est Pt Level 4 (30081) Complex EM visit Add On G2211 Diagnoses Dizziness R42 Progressive supranuclear palsy G23.1 Difficulty sleeping G47.9 Additional Codes DARRICK-7 Assessment Billing - DARRICK-7 Assessment Tool: DARRICK-7 Assessment [id number] ([id number])
[2024-03-24 08:39] VITALS: BP 104/62; PULSE 84; TEMP 36.5; O2SAT 99; BMI 22.3
== END 2024-03-24 13:25 | disposition home or self-care (01) ==
LOC: HO.HMGFM 08:28
PROVIDERS: PCP Family Medicine; Visit Provider Physician Assistant
DX: R42 Dizziness and giddiness (principal); G23.1 Progressive supranuclear ophthalmoplegia [Steele-Richardson-Olszewski]; G47.9 Sleep disorder, unspecified
CPT/HCPCS: 99214; G2211

== ENCOUNTER 2024-05-25 13:38 | Outpatient (AMB) | payer OTHER, SELFPAY ==
--- NOTE | 2024-05-25 13:41 | A.OFFVIS_ITS ---
Intake Visit Reasons: 2 Month Follow up/ PVR Intake Note: Patient presents today for a follow-up on: frequency, urgency, incontinence Urology Medications: Tadalafil Allergies to Antibiotic: No Known Allergies Blood Thinner: None Post Void Residual: 86ml's Commercial Hvac Service Technician Required: No Accompanied by: Self / Same As Patient Allergies Seasonal Allergies Allergy (Intermediate, Verified 05/25/24 16:12) Runny Nose Medication List - Last Reconciled 05/25/24 by Abril Delaney [facility]- carbidopa-levodopa 25-100 mg 1 tab PO TID 90 days esomeprazole magnesium 20 mg PO DAILY 90 days ibuprofen 600 mg PO Q6H PRN lisinopril 20 mg PO DAILY 90 days meclizine 25 mg PO BID PRN mecobalamin (vitamin B12) 1,000 mcg PO DAILY 90 days ondansetron HCl 4 mg PO Q8H PRN 10 days simvastatin 20 mg PO DAILY 90 days tamsulosin 0.4 mg PO BEDTIME 30 days trazodone 50 mg PO BEDTIME HPI Comments Details: Cesar is a very pleasant 58-year-old male patient of Dr. Castanon. He has a past medical history of hypercholesteremia, hypertension, and Parkinson's disease. He presents to the office today for follow-up of his lower urinary tract symptoms. In discussion with the patient today he reports to be doing and feeling well. He reports noting no improvement in urinary urgency, urinary frequency, and episodes of incontinence if not near a bathroom with 5 mg of tadalafil daily. Previous workup has included a retroperitoneal ultrasound noting bilateral kidneys with no lesions or hydronephrosis. Mild left-sided caliectasis. No definite hydronephrosis. The bladder is well distended and normal. Bilateral ureteral jets are demonstrated. Pre void bladder volume is approximately 115 mL. Postvoid bladder volume is approximately 10 mL. Prostate gland measures approximately 45 mL. PSA 01/23 0.6. He continues to experience urinary urgency, urinary frequency, and episodes of incontinence if not near a bathroom. He reports having performed scheduled/timed voiding since his last office visit here and feels this has been helpful however given his decreased mobility at times of urinary urgency he still does continue to have episodes of incontinence. He otherwise denies hematuria, dysuria, foul smelling urine, changes to urinary stream, flank pain, fever, and or chills. He reports nocturia up to 2 times per night. Discussed potential for lower urinary tract symptoms to be related to new onset Parkinson's verses overactive bladder. In office urinalysis results reviewed with the patient and his today. PVR 40 mL. Discussed at length potential treatment options for lower urinary tract symptoms patient is experiencing. He otherwise offers no other issues or kimberlee rns at this time. [facility] Medical History Lower urinary tract symptoms High cholesterol Hypertension Surgical History History of appendectomy History of repair of anterior cruciate ligament of left knee Family History Maternal Grandmother Mental health disorder Maternal Uncle Mental health disorder Father Colon cancer Family/Other Leukemia Social History Housing: House Alcohol intake: former Patient Tobacco Use Status: Former Tobacco user Tobacco use type: Cigarette e-Cigarette/Vaping Use: Never Used Second Hand Smoke Exposure: No Substance Use Type: Marijuana service: Yes Current occupational status: unemployed Cognitive needs: No Hearing needs: No Vision needs: No Review of Systems Const Reports as per HPI Eyes Reports no additional complaints ENT Reports no additional complaints Card Reports as per HPI Resp Reports no additional complaints GI Reports no additional complaints Reports as per HPI Musc Reports no additional complaints Neuro Reports as per HPI Psych Reports no additional complaints Endo Reports no additional complaints Lewis/Lymph Reports no additional complaints Aller/Immun Reports no additional complaints Physical Exam Const General: cooperative, healthy appearing, comfortable, no acute distress, well developed, alert and awake Orientation/consciousness: patient oriented x3 Limitations: ambulation with walker HEENT Head: Yes normal to inspection, Yes normocephalic and Yes atraumatic Eyes General: appearance normal, both eyes and all related structures Neck Neck: Yes normal visual inspection Chest Chest palpation & inspection: normal inspection of the chest Resp Effort & Inspection: normal respiratory effort and able to speak in complete sentences Cardio Rate: regular rate GI Inspection: Yes normal to inspection General: Yes no CVA tenderness Back/Spine/Pelvis Back: no CVA tenderness Skin General skin exam: no rashes or lesions noted Neuro General: patient oriented x3 Extrem General: Yes normal to inspection Psych Appearance: grossly normal and well kempt Mental Status: mental status grossly normal Speech and movement: Normal speech and movement present and Clear speech present Affect: normal affect Attitude: cooperative Thought process: Normal thought process present Thought content: Normal thought content present Insight: Fair insight present (Psych) Judgement: Fair judgement present (Psych) Office Procedures Post Void Residual Post Residual Void Post Void Residual (PVR): 86 [id number] Void Residual by ultrasound Results AMB Urinalysis, Automated UA Leukoctes 0 Margot/uL Last Edit by [employer] on 05/25/24 14:16 UA Nitrite Negative Last Edit by [employer] on 05/25/24 14:16 UA Urobilinogen 0.2 mg/dL Last Edit by [employer] on 05/25/24 14:16 UA Protein 0 mg/dL Last Edit by [employer] on 05/25/24 14:16 UA pH 6.0 Last Edit by [employer] on 05/25/24 14:16 UA Blood 0 Joe/uL Last Edit by [employer] on 05/25/24 14:16 UA Specific [place] 1.005 Last Edit by [employer] on 05/25/24 14:16 UA Ketone Negative Last Edit by [employer] on 05/25/24 14:16 UA Bilirubin 0 mg/dL Last Edit by [employer] on 05/25/24 14:16 UA Glucose 0 mg/dL Last Edit by [employer] on 05/25/24 14:16 Results Reviewed Results Reviewed: Laboratory Last Values Urine pH (Auto) 6.0 05/25/24 14:13 Specific [place] (Auto) 1.005 05/25/24 14:13 Urine Protein (Auto) 0 mg/dL 05/25/24 14:13 Glucose (UA)(Auto) 0 mg/dL 05/25/24 14:13 Urine Ketones (Auto) Negative 05/25/24 14:13 Urine Blood (Auto) 0 Joe/uL 05/25/24 14:13 Urine Nitrite (Auto) Negative 05/25/24 14:13 Urine Bilirubin (Auto) 0 mg/dL 05/25/24 14:13 Urine Urobilinogen (Auto) 0.2 mg/dL 05/25/24 14:13 Leukocyte Esterase (Auto) 0 Margto/uL 05/25/24 14:13 Assessment & Plan Assessment & Plan (1) Urinary frequency: Code(s): R35.0 - Frequency of micturition Category: Medical (2) Lower urinary tract symptoms: Code(s): R39.9 - Unspecified symptoms and signs involving the genitourinary system Category: Medical (3) Urinary urgency: Code(s): R39.15 - Urgency of urination Category: Medical (4) Urinary incontinence: Code(s): R32 - Unspecified urinary incontinence Category: Medical Plan Office urinalysis results reviewed with the patient today; as noted above. PVR 86 mL. Discussed at length potential treatment options for lower urinary tract symptoms patient is experiencing. Stop Cialis 5 mg daily. Start Flomax 0.4 mg daily as discussed and prescribed Continue with scheduled/timed voiding. Discussed attempting to sit when voiding to relax pelvis. Discussed pelvic floor exercises to assist with urinary dribbling. Follow-up in 1-3 months with PVR; or sooner with any issues, concerns, and or questions. Orders: Orders AMB Post Void Residual by ultrasound Today R39.9 - Unspecified symptoms and signs involving the genitourinary system AMB Urinalysis Automated Today Z13.9 - Encounter for screening, unspecified Medications: New tamsulosin 0.4 mg PO BEDTIME 30 caps 1RF 30 days N40.1 - Benign prostatic hyperplasia with lower urinary tract symptoms, R35.1 - Nocturia Discontinued tadalafil (Cialis) [id number] [facility] [id number] Member [id number] Discontinued Reason: Doctor's Order 5 mg PO DAILY 90 days 90 tabs 1RF Patient Instructions: The patient had an opportunity to ask questions regarding the treatment plan. All questions were answered. Physical exam, labs, and imaging were discussed and reviewed in detail. As well as risks, benefits, and discussion of treatment choices. No major barriers to understanding were identified. The patient expressed understanding and agreement with the above treatment plan. The patient was made aware they should contact our office by phone for worsening of their current condition, the appearance of new symptoms, or with any questions or concerns. Compliance is encouraged with any medications and follow up testing that is ordered. It is a privilege to be allowed the opportunity to participate in? your urological care.? Again, if you have any questions or concerns If you have any questions or concerns please do not hesitate to contact me. The office is [phone]. This note is constructed using voice recognition software. While every effort has been made to ensure accuracy hand bootmaker errors may have been included. Yours sincerely, EDGAR Espitia Coding Level of Care Code Est Pt Level 4 (82955) Diagnoses Urinary frequency R35.0 Lower urinary tract symptoms R39.9 Urinary urgency R39.15 Urinary incontinence R32 CPT Codes Post Residual Void - PVR CPT Code: 50354-Izwd Void Residual by ultrasound ([id number])
== END 2024-05-25 14:10 | disposition home or self-care (01) ==
PROVIDERS: PCP Family Medicine; Visit Provider Nurse Practitioner Family
DX: R35.0 Frequency of micturition (principal); R39.9 Unspecified symptoms and signs involving the genitourinary system; R39.15 Urgency of urination; R32 Unspecified urinary incontinence; Z13.9 Encounter for screening, unspecified
CPT/HCPCS: 99214

== ENCOUNTER → 2024-05-25 13:38 | Outpatient (BNVA) | payer OTHER, SELFPAY | PROVIDERS: PCP Family Medicine; Visit Provider Nurse Practitioner Family | DX: R35.0 Frequency of micturition (principal); R39.9 Unspecified symptoms and signs involving the genitourinary system; R39.15 Urgency of urination; R32 Unspecified urinary incontinence | CPT/HCPCS: 51798; 81003 ==

== ENCOUNTER 2024-07-27 14:19 | Outpatient (AMB) | payer OTHER, SELFPAY ==
--- NOTE | 2024-07-27 14:35 | MHC.PC.OV ---
Vital Signs 07/27/24 14:45 Height 6 ft Weight 167 lb 4 oz BMI 22.7 BP 120/50 L Blood Pressure Location Lt brachial Position Sitting Respiration 12 Pulse 74 Pulse Source Pulse Oximeter Temp 97.7 F Temp Source Tympanic Pulse Oximetry (%) 98 Oxygen Delivery Method Room Air Intake Visit Reasons: Mental Health Intake Note: mental health Allergies Seasonal Allergies Allergy (Intermediate, Verified 05/25/24 16:12) Runny Nose Medication List - Last Reconciled 07/27/24 by Alen Castanon MD carbidopa-levodopa 25-100 mg 1 tab PO TID 90 days citalopram 20 mg PO DAILY 90 days esomeprazole magnesium 20 mg PO DAILY 90 days ibuprofen 600 mg PO Q6H PRN lisinopril 20 mg PO DAILY 90 days meclizine 25 mg PO BID PRN mecobalamin (vitamin B12) 1,000 mcg PO DAILY 90 days ondansetron HCl 4 mg PO Q8H PRN 10 days simvastatin 20 mg PO DAILY 90 days tamsulosin 0.4 mg PO BEDTIME 30 days trazodone 50 mg PO BEDTIME Tobacco use date assessed: 03/24/24 Dental Screening Dental Screen Date: 03/24/24 HPI Mental Health HPI Details 59 y/o male presents today to f/u chronic conditions. Requesting a letter to excuse for jury duty. Hx of progresssive supranuclear palsy. Had seen Dr. Collins and they note they recommended he see a movement specialist. He is on carbidopa-levodopa 25-100mg t.i.d.. They note medication regimen does not make much different. He continues to fall 3x a day. He feels this is all due to his balance. He states he continues to use his walker when he can. Also reports some dizziness. PHQ-9 16, DARRICK-7 10 today. Pt does note he feels irritable. Denies SI/HI. HPI Comments History of Present Illness Details Documentation assistance for Alen Castanon MD, was provided by Radu Lindsay, [employer] on 07/27/2024 at 3:31 PM RAI. I, Dr. Castanon, have read, observed, and verified documentation. [facility] Medical History Lower urinary tract symptoms High cholesterol Hypertension Surgical History History of appendectomy History of repair of anterior cruciate ligament of left knee Family History Maternal Grandmother Mental health disorder Maternal Uncle Mental health disorder Father Colon cancer Family/Other Leukemia Social History Housing: House Alcohol intake: former Patient Tobacco Use Status: Former Tobacco user Tobacco use type: Cigarette e-Cigarette/Vaping Use: Never Used Second Hand Smoke Exposure: No Substance Use Type: Marijuana service: Yes Current occupational status: unemployed Cognitive needs: No Hearing needs: No Vision needs: No Questionnaire PHQ-9 Over the last 2 weeks, how often have you been bothered by any of the following problems? 1. Little interest or pleasure in doing things: nearly every day 2. Feeling down, depressed, or hopeless: several days 3. Trouble falling or staying asleep, or sleeping too much: nearly every day 4. Feeling tired or having little energy: not at all 5. Poor appetite or overeating: several days 6. Feeling bad about yourself - or that you are a failure or have let yourself or your family down: nearly every day 7. Trouble concentrating on things, such as reading the newspaper or watching television: several days 8. Moving or speaking so slowly that other people could have noticed. Or the opposite - being so fidgety or restless that you have been moving around a lot more than usual: nearly every day 9. Thoughts that you would be better off or of hurting yourself in some way: several days Total score: 16 Depression Screening Interpretation: Positive Depression Screening Done: Yes 41139 - PHQ-9 Billing: Yes Source: Developed by Drs. Torrey Funez, Haley Aviles, Gilmer Souza and colleagues, with an educational jose a from [employer]. DARRICK-7 AMB Questionnaire DARRICK-7 Date DARRICK - 7 assessed: 07/27/24 Feeling nervous, anxious, or on edge: 1 = Several days Not being able to stop or control worryin = Several days Worrying too much about different things: 3 = Nearly every day Trouble relaxin = Several days Being so restless that it is hard to sit still: 0 = Not at all Becoming easily annoyed or irritable: 3 = Nearly every day Feeling afraid as if something awful might happen: 1 = Several days Total DARRICK-7 score (0-4 normal; 5-9 mild; 10-14 moderate; 15-21 severe): 10 Source: Developed by Drs. Torrey Funez, Haley Aviles, Gilmer Souza and colleagues, with an educational jose a from [employer]. DARRICK-7 Assessment Billing DARRICK-7 Assessment Tool: DARRICK-7 Assessment 73539 Review of Systems Const Denies chills, Denies fatigue, Denies fever(s), Denies headache(s) and Denies weakness ENT Denies dizziness and Denies headache(s) Card Denies dyspnea Resp Denies cough, Denies dyspnea, Denies wheezing and Denies other (shortness of breath) Musc Denies numbness and Denies tingling Neuro Denies dizziness, Denies headache(s), Denies numbness, Denies tingling and Denies weakness Psych Reports anxiety and Reports depression Endo Denies fatigue Aller/Immun Denies wheezing Physical exam (Primary Care) Vital Signs: Last Vital Signs Temp 97.7 F 07/27/24 14:45 Pulse 74 07/27/24 14:45 Resp 12 07/27/24 14:45 BP 120/50 L 07/27/24 14:45 Pulse Ox 98 07/27/24 14:45 Oxygen Delivery Method Room Air 07/27/24 14:45 BMI result Body Mass Index 22.7 Tobacco/Smoking Status: Tobacco use Status Tobacco use date assessed 03/24/24 07/27/24 14:38 Patient Tobacco Use Status Former Tobacco user 07/27/24 14:38 Tobacco use type Cigarette 07/27/24 14:38 e-Cigarette/Vaping Use Never Used 07/27/24 14:38 PHQ-9: PHQ-9 Score PHQ-9: Total score 16 07/27/24 14:38 Depression Screening Interpretation: Positive Const General: well developed; No acute distress Nutritional Appearance: well nourished Orientation/consciousness: patient oriented x3 HENMT Head: Yes normocephalic and Yes atraumatic Eyes General: appearance normal, both eyes and all related structures Pupils: Equal, round and reactive pupils present EOM: EOMs intact bilaterally Resp Effort & Inspection: normal respiratory effort Auscultation: clear to auscultation bilaterally Cardio Rate: regular rate Rhythm: regular rhythm Heart sounds: S1 normal heart sound present, S2 normal heart sound present, no gallops, no murmurs and no rubs Neuro General: patient oriented x3 and gait normal Cranial nerves: Yes Equal, round and reactive pupils present Gait exam (Neuro): gait abnormal Psych Affect: normal affect Assessment and Plan Assessment & Plan (1) Progressive supranuclear palsy: Code(s): G23.1 - Progressive supranuclear ophthalmoplegia [Danielle] Plan: Progressive?supranuclear?palsy?with?weakness?and?imbalance. Patient?was?seen?by?Neurology?and?prescribed?carbidopa?levodopa However,?patient?says?this?is?not?helping?at?all.??Has?appointment?with?his?neurologist?again?in?October. I?am?recommending?they?seek?to?get?a?sooner?appointment. Will?also?refer?him?for?physical?therapy?as?he?has?not?had?physical?therapy?in?about?9?months?and?is?having?numerous?falls. Given?patient's?weakness?and?imbalance?and?inability?to?sit?and?remain?still?for?any?significant?period?of?time,?patient?should?not?be?considered?for?jury?duty. Patient?was?summoned?for?jury?duty?and?I?have?written?a?letter?to?excuse?him?from?this. 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 If?called?again,?will?recommend?that?he?be?excused?from?jury?duty?permanently. (2) Imbalance: Code(s): R26.89 - Other abnormalities of gait and mobility Plan: As?above,?referred?for?physical?therapy?and?recommended?he?follow-up?with?his?neurologist (3) Anxiety with depression: Code(s): F41.8 - Other specified anxiety disorders Plan: Significant?anxiety?and?depression. Patient?notes severe?irritability. He?has?never?had?a?therapist?and?I?will?make?a?referral He?has?never?tried?an?SSRI. Will?start?with?citalopram. Will?follow-up?in?1?month. Patient?has?had?some?SI?but?no?plan. Contracts?for?safety. Orders: Orders PT Evaluation and Treatment Today G23.1 - Progressive supranuclear ophthalmoplegia [[id number]-Vnnyqtokv], R26.81 - Unsteadiness on feet, R26.89 - Other abnormalities of gait and mobility, R53.1 - Weakness Referrals Psychiatry Outpatient Consultation Service F41.8 - Other specified anxiety disorders, G23.1 - Progressive supranuclear ophthalmoplegia [[id number]] Medications: New citalopram 20 mg PO DAILY 90 days 90 tabs 1RF Coding Level of Care Code Est Pt Level 4 (92390) Diagnoses Progressive supranuclear palsy G23.1 Imbalance R26.89 Anxiety with depression F41.8 Additional Codes DARRICK-7 Assessment Billing - DARRICK-7 Assessment Tool: DARRICK-7 Assessment [id number] ([id number])
[2024-07-27 14:45] VITALS: BP 120/50; PULSE 74; RESP 12; TEMP 36.5; O2SAT 98; BMI 22.7
== END 2024-07-27 15:52 | disposition home or self-care (01) ==
PROVIDERS: PCP Family Medicine; Visit Provider Family Medicine
DX: G23.1 Progressive supranuclear ophthalmoplegia [Steele-Richardson-Olszewski] (principal); R26.89 Other abnormalities of gait and mobility; F41.8 Other specified anxiety disorders

== ENCOUNTER → 2024-07-27 14:19 | Outpatient (BNVA) | payer OTHER, SELFPAY | PROVIDERS: PCP Family Medicine; Visit Provider Family Medicine | DX: G23.1 Progressive supranuclear ophthalmoplegia [Steele-Richardson-Olszewski] (principal); R26.89 Other abnormalities of gait and mobility; F41.8 Other specified anxiety disorders | CPT/HCPCS: 96127 ==

== ENCOUNTER 2024-08-12 09:21 | Outpatient (AMB) | payer OTHER, SELFPAY ==
--- NOTE | 2024-08-12 09:40 | MHC.OFFVIS ---
Intake Visit Reasons: 3M PVR/Med Review(Tamsulosin) Intake Note: Patient is Present for PVR/Med Review(Tamsulosin) Urology Med: Tamsulosin Antibiotic Allergy: None Blood Thinner: None Last PVR: 86ml Todays PVR: 78ml Recent PSA: 01/2024- 0.62 Case Management Associate Required: No Care Specialist: Care Specialist Present Accompanied by: Spouse Allergies Seasonal Allergies Allergy (Intermediate, Verified 05/25/24 16:12) Runny Nose HPI Comments Details: Juanita is a pleasant male. He is a patient of Dr. Castanon. He is seen for the following urologic conditions - Lower urinary tract symptoms in the setting of neurologic disease (Parkinson's/supranuclear palsy) Based on assessment of current symptoms which are primarily urgency with frequency although he is on a timed voiding schedule we will trial Myrbetriq Anticholinergics are not recommended as first-line therapy for patients with known neurologic conditions Lower urinary tract symptoms Report on initial nocturia x2, urinary urgency with frequency and episodes of incontinence of not narrow bathroom Bladder ultrasound prostate 45 cc PSA 01/23 0.6 At time of initial visit had new onset Parkinson's diagnosis Initial therapy tamsulosin Tried Cialis daily however this did not help PFSH Medical History Lower urinary tract symptoms High cholesterol Hypertension Surgical History History of appendectomy History of repair of anterior cruciate ligament of left knee Family History Maternal Grandmother Mental health disorder Maternal Uncle Mental health disorder Father Colon cancer Family/Other Leukemia Social History Housing: House Alcohol intake: former Patient Tobacco Use Status: Former Tobacco user Tobacco use type: Cigarette e-Cigarette/Vaping Use: Never Used Second Hand Smoke Exposure: No Substance Use Type: Marijuana service: Yes Current occupational status: unemployed Cognitive needs: No Hearing needs: No Vision needs: No Review of Systems Const Denies chills and Denies fever(s) Card Reports no additional complaints and Denies syncope Resp Denies cough GI Denies abdominal pain and Denies heartburn Reports as per HPI and Denies change in libido Neuro Denies syncope Psych Denies change in libido Endo Denies change in libido Physical Exam Const General: cooperative, healthy appearing, comfortable and no acute distress Orientation/consciousness: patient oriented x3 HEENT Face and sinus: Yes normal facial exam Mouth: moist mucous membranes Neck Neck: Yes normal visual inspection, Yes full ROM and Yes trachea midline Chest Chest palpation & inspection: normal inspection of the chest Resp Effort & Inspection: normal respiratory effort, able to speak in complete sentences and no respiratory distress GI Inspection: Yes normal to inspection Back/Spine/Pelvis Cervical Spine: normal cervical lordosis Thoracic/Lumbar Spine: thoracic and lumbar spine normal to inspection Skin General skin exam: no rashes or lesions noted Neuro General: patient oriented x3, gait normal, tone normal and moves all extremities Extrem General: Yes normal to inspection and Yes capillary refill normal Office Procedures Post Void Residual Post Residual Void Post Void Residual (PVR): 78 [id number]-Iimx Void Residual by ultrasound Assessment & Plan Assessment & Plan (1) Bladder instability: Code(s): N32.89 - Other specified disorders of bladder Category: Medical (2) Urinary frequency: Code(s): R35.0 - Frequency of micturition Category: Medical Plan Two month follow-up tele Trial Myrbetriq Orders: Orders AMB Post Void Residual by ultrasound Today R39.9 - Unspecified symptoms and signs involving the genitourinary system Medications: New mirabegron ER (Myrbetriq) 25 mg PO DAILY 30 days 30 tabs 1RF N30.10 - Interstitial cystitis (chronic) without hematuria, N32.81 - Overactive bladder, N32.89 - Other specified disorders of bladder, R35.1 - Nocturia, R39.15 - Urgency of urination Patient Instructions: Imaging studies, laboratory and physical exam results were discussed and reviewed in detail. No major barriers to patient understanding were identified. An opportunity to ask questions regarding the treatment plan was provided. All questions were answered. The patient expressed understanding and agreement with the above treatment plan. The patient is aware they should contact our office by phone for worsening of their current condition or the appearance of new urologic symptoms. Compliance is encouraged with any medications and followup testing that is ordered. It is a privilege to participate in the urologic care of your patient. If you have any questions or concerns regarding treatment for the above conditions, or other urologic issues, please do not hesitate to contact me. The office telephone contact is [phone]. This note is constructed using voice recognition software. While every effort has been made to ensure accuracy ramp boss errors may have been included. Yours sincerely, Dr Rico Moreno MD, [facility] - Urology Providers of Expert, Compassionate Care for the Genitourinary System Coding Level of Care Code Est Pt Level 4 (17111) Diagnoses Bladder instability N32.89 Urinary frequency R35.0 CPT Codes Post Residual Void - PVR CPT Code: 63745-Wmha Void Residual by ultrasound ([id number])
== END 2024-08-12 10:23 | disposition home or self-care (01) ==
PROVIDERS: PCP Family Medicine; Visit Provider Urology
DX: N32.89 Other specified disorders of bladder (principal); R35.0 Frequency of micturition
CPT/HCPCS: 99214

== ENCOUNTER → 2024-08-12 09:21 | Outpatient (BNVA) | payer OTHER, SELFPAY | PROVIDERS: PCP Family Medicine; Visit Provider Urology | DX: N32.89 Other specified disorders of bladder (principal); R35.0 Frequency of micturition | CPT/HCPCS: 51798 ==

== ENCOUNTER 2024-08-30 15:24 | Outpatient (AMB) | payer OTHER, SELFPAY ==
--- NOTE | 2024-08-30 15:33 | A.OFFPC_ITS ---
Vital Signs 08/30/24 15:36 Height 6 ft Weight 172 lb 2 oz BMI 23.3 BP 108/60 Blood Pressure Location Rt brachial Position Sitting Respiration 14 Pulse 72 Pulse Source Pulse Oximeter Temp 98.1 F Temp Source Temporal Artery Scan Pulse Oximetry (%) 98 Oxygen Delivery Method Room Air Intake Visit Reasons: f/u anxiety/depression, chronic conditions Intake Note: f/u anxiety and depression / chronic conditions Allergies Seasonal Allergies Allergy (Intermediate, Verified 08/30/24 15:34) Runny Nose Tobacco use date assessed: 03/24/24 Dental Screening Dental Screen Date: 03/24/24 HPI f/u anxiety/depression, chronic conditions HPI Details 59 y/o male presents to f/u anxiety/depr ession, chronic conditions. Had started him on citalopram and referred him to [facility] outpatient consult group. He notes he does not feel citalopram has been helping much. Still has an appt. with Neurology in October. [facility] Medical History Lower urinary tract symptoms High cholesterol Hypertension Surgical History History of appendectomy History of repair of anterior cruciate ligament of left knee Family History Maternal Grandmother Mental health disorder Maternal Uncle Mental health disorder Father Colon cancer Family/Other Leukemia Social History Housing: House Alcohol intake: former Patient Tobacco Use Status: Former Tobacco user Tobacco use type: Cigarette e-Cigarette/Vaping Use: Never Used Second Hand Smoke Exposure: No Substance Use Type: Marijuana service: Yes Current occupational status: unemployed Cognitive needs: No Hearing needs: No Vision needs: No Questionnaire PHQ-9 Over the last 2 weeks, how often have you been bothered by any of the following problems? 1. Little interest or pleasure in doing things: several days 2. Feeling down, depressed, or hopeless: several days 3. Trouble falling or staying asleep, or sleeping too much: several days 4. Feeling tired or having little energy: several days 5. Poor appetite or overeating: not at all 6. Feeling bad about yourself - or that you are a failure or have let yourself or your family down: not at all 7. Trouble concentrating on things, such as reading the newspaper or watching television: not at all 8. Moving or speaking so slowly that other people could have noticed. Or the opposite - being so fidgety or restless that you have been moving around a lot more than usual: several days 9. Thoughts that you would be better off or of hurting yourself in some way: not at all Total score: 5 Depression Screening Interpretation: Negative Depression Screening Done: Yes 10652 - PHQ-9 Billing: Yes Source: Developed by Drs. Torrey Funez, Haley Aviles, Gilmer Souza and colleagues, with an educational jose a from [employer]. Thrive Questionnaire I am a: Patient What is your living situation today?: I have a steady place to live Within the past 12 months, did the food you bought not last and you didn't have the money to get more?: Never true Within the past 12 months, did you worry whether your food would run out before you got money to buy more?: Never true Do you have trouble paying for medicines?: No Do you have trouble getting transportation to medical appointments?: No Do you have trouble paying your heating and electricity bill?: No Do you have trouble taking care of your child, family member or friend?: I choose not to answer this question Do you have trouble with day-to-day activities such as bathing, preparing meals, shopping, managing finances, etc.?: No Are you currently unemployed and looking for a job?: Yes Are you interested in more education?: No Please select the resources that you would like help with: Care for elder or disabled Currently or been in a relationship where the following occur: No concerns reported THRIVE Score: 0 AUDIT C Alcohol Use Questionnaire (AUDIT-C) 1. How often do you have a drink containing alcohol?: Never Total Score: 0 DARRICK-7 AMB Questionnaire DARRICK-7 Date DARRICK - 7 assessed: 07/27/24 Feeling nervous, anxious, or on edge: 0 = Not at all Not being able to stop or control worryin = Not at all Worrying too much about different things: 0 = Not at all Trouble relaxin = Not at all Being so restless that it is hard to sit still: 0 = Not at all Becoming easily annoyed or irritable: 1 = Several days Feeling afraid as if something awful might happen: 1 = Several days Total DARRICK-7 score (0-4 normal; 5-9 mild; 10-14 moderate; 15-21 severe): 2 Source: Developed by Drs. Torrey Funez, Haley Aviles, Gilmer Souza and colleagues, with an educational jose a from [employer]. DARRICK-7 Assessment Billing DARRICK-7 Assessment Tool: DARRICK-7 Assessment 24825 Review of Systems Const Denies chills, Denies fatigue, Denies fever(s), Denies headache(s) and Denies weakness ENT Denies dizziness and Denies headache(s) Card Denies dyspnea Resp Denies cough, Denies dyspnea, Denies wheezing and Denies other (shortness of breath) Musc Denies numbness and Denies tingling Neuro Denies dizziness, Denies headache(s), Denies numbness, Denies tingling and Denies weakness Psych Reports anxiety and Reports depression Endo Denies fatigue Aller/Immun Denies wheezing Physical exam (Primary Care) Vital Signs: Last Vital Signs Temp 98.1 F 08/30/24 15:36 Pulse 72 08/30/24 15:36 Resp 14 08/30/24 15:36 BP 108/60 08/30/24 15:36 Pulse Ox 98 08/30/24 15:36 Oxygen Delivery Method Room Air 08/30/24 15:36 BMI result Body Mass Index 23.3 Tobacco/Smoking Status: Tobacco use Status Tobacco use date assessed 03/24/24 08/30/24 15:38 Patient Tobacco Use Status Former Tobacco user 08/30/24 15:38 Tobacco use type Cigarette 08/30/24 15:38 e-Cigarette/Vaping Use Never Used 08/30/24 15:38 PHQ-9: PHQ-9 Score PHQ-9: Total score 5 08/30/24 16:02 Depression Screening Interpretation: Negative Currently or been in a relationship where the following occur: No concerns reported Const General: well developed; No acute distress Nutritional Appearance: well nourished Orientation/consciousness: patient oriented x3 HENMT Head: Yes normocephalic and Yes atraumatic Eyes General: appearance normal, both eyes and all related structures Pupils: Equal, round and reactive pupils present EOM: EOMs intact bilaterally Resp Effort & Inspection: normal respiratory effort Neuro General: patient oriented x3 and gait normal Cranial nerves: Yes Equal, round and reactive pupils present Psych Affect: normal affect Coding Level of Care Code Est Pt Level 3 (40375) Diagnoses Anxiety with depression F41.8 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 Tried?citalopram?and?patient?is?not?noticing?much?benefit.??Will?increase?this?f rom?20?mg?daily?to?40?mg?daily. Had?referred?him?to?the?[facility]iatric?outpatient?consult?team?but?he?has?not?been?scheduled?yet.??I?gave?him?t he?phone?number?so?he?can?call?to?get?scheduled. 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 Carbidopa?levodopa?does?not?seem?to?be?helping?much Referred?him?for?physical?therapy?for?lower?extremity?weakness He?has?imbalance?and?has?had?numerous?falls. He?is?using?a?walker?and?I?am?sending?a?script?for?a?wheelchair Also?has?bladder?dysfunction.??PSA?is?within?normal?limits. Likely?neurogenic He?is?on?Myrbetriq?which?may?be?helping?a?little.??Also?advised?scheduled?voids. ??He?will?follow-up?with?urology I?have?also?referred?him?for?V NA?to?evaluate?his?home?for?ramps?and?railings?things?etc (3) Imbalance: Code(s): R26.89 - Other abnormalities of gait and mobility Category: Medical Plan: As?above Orders: Orders Comprehensive [place]. Panel Fast Today Z00.00 - Encounter for general adult medical examination without abnormal findings Lipid Panel Today Z00.00 - Encounter for general adult medical examination without abnormal findings UA and rflx microscopic Today Z00.00 - Encounter for general adult medical examination without abnormal findings Microalbumin, Random (w Creat) Today I10 - Essential (primary) hypertension TSH reflex Free T4 Today Z00.00 - Encounter for general adult medical examination without abnormal findings Referrals [facility] Referral G23.1 - Progressive supranuclear ophthalmoplegia [Hdzhlt-Sgwhvzeslo-Rfdmjbvgh], R26.81 - Unsteadiness on feet, R29.6 - Repeated falls, R53.1 - Weakness Medications: New chair, wheel (Wheel chair) Daily As directed, 999 days 1 ea 0RF G23.1 - Progressive supranuclear ophthalmoplegia [Ekjjqu-Lpoddrfgsm-Mosqmwskl], R26.81 - Unsteadiness on feet, R29.6 - Repeated falls, R53.1 - Weakness
[2024-08-30 15:36] VITALS: BP 108/60; PULSE 72; RESP 14; TEMP 36.7; O2SAT 98; BMI 23.3
== END 2024-08-30 16:16 | disposition home or self-care (01) ==
LOC: HO.HMCFM 15:25
PROVIDERS: PCP Family Medicine; Visit Provider Family Medicine
DX: F41.8 Other specified anxiety disorders (principal); G23.1 Progressive supranuclear ophthalmoplegia [Steele-Richardson-Olszewski]; R26.89 Other abnormalities of gait and mobility

== ENCOUNTER → 2024-08-30 15:24 | Outpatient (BNVA) | payer OTHER, SELFPAY | PROVIDERS: PCP Family Medicine; Visit Provider Family Medicine | DX: F41.8 Other specified anxiety disorders (principal); G23.1 Progressive supranuclear ophthalmoplegia [Steele-Richardson-Olszewski]; R26.89 Other abnormalities of gait and mobility | CPT/HCPCS: 96127 ==

== ENCOUNTER 2024-09-28 09:58 | Outpatient (REF) | payer OTHER, SELFPAY ==
[2024-09-28 11:23] LABS: Appearance Urine Clear; Color Urine Yellow; Glucose Urine UA Negative (Negative); Leukocyte Esterase Urine Negative (Negative); Nitrite Urine Negative (Negative); PH 5.5 (5.0-9.0); Urine Blood Negative (Negative); Urine Ketones Negative (Negative); Urine Protein Negative (Neg-Trace)
[2024-09-28 11:47] LABS: Alanine Aminotransferase 10 U/L (0-40); Albumin Level 4.4 g/dL (3.5-5.0); Alkaline Phosphatase 69 U/L (39-117); Anion Gap 15 (12-20); Aspartate Amino Transferase 20 U/L (5-37); Bilirubin Total 0.8 mg/dL (0.0-1.0); Blood Urea Nitrogen 15 mg/dL (9-16); Calcium 9.9 mg/dL (8.4-10.2); Carbon Dioxide 25 mmol/L (22-29); Chloride 102 mmol/L (96-108); Cholesterol 158 mg/dL (<200); Estimated Glomerular Filt Rate > 60; Glucose Fasting 111 mg/dL (60-99); HDL Cholesterol 65 mg/dL (>40); LDL Cholesterol Calculated 79 mg/dL (<100); Sodium 138 mmol/L (135-145); Total Protein 7.2 g/dL (6.5-8.0); Triglycerides 70 mg/dL (<150)
[2024-09-28 11:53] LABS: TSH reflex Free T4 1.25 uIU/mL (0.32-4.0)
[2024-09-28 12:03] LABS: Creatinine Urine 52.59 mg/dL; Microalbumin Urine < 5.0 mg/L
== END 2024-09-28 09:59 | disposition home or self-care (01) ==
LOC: HO.LAB 09:58
PROVIDERS: PCP Family Medicine; Visit Provider Family Medicine
DX: Z00.00 Encounter for general adult medical examination without abnormal findings (principal); I10 Essential (primary) hypertension
CPT/HCPCS: 36415; 80053; 80061; 81003; 82043; 82570; 84443

== ENCOUNTER 2024-10-17 08:12 | Emergency (ER) | payer OTHER, SELFPAY ==
--- NOTE | ~2024-10-17 | CT_ITS ---
EXAMINATION: CT ABDOMEN AND PELVIS WITHOUT CONTRAST CLINICAL INFORMATION: Left hip and left lower quadrant pain. COMPARISON: None currently available. TECHNIQUE: Multidetector volumetric imaging was performed from the superior aspect of the liver through the pubic symphysis. Sagittal and coronal reformatted images were obtained on the technologist's workstation. This CT examination was performed using dose optimization techniques as appropriate, variously including the following: *Automated exposure control *Adjustment of mA and/or kV according to patient size (this includes techniques or standardized protocols for targeted exams where dose is matched to indication/reason for exam; i.e. extremities or head) *Use of iterative reconstruction technique DLP: 0.70 mGy-cm FINDINGS: LUNG BASES: The lung bases appear clear, with no evidence of inflammation or nodules. LIVER, GALLBLADDER, AND BILIARY TREE: The liver appears unremarkable in size, shape, and attenuation. No focal hepatic lesion or biliary ductal dilatation is appreciated. Unremarkable appearance of the gallbladder. PANCREAS: Unremarkable SPLEEN: Unremarkable ADRENAL GLANDS: Unremarkable KIDNEYS AND URETERS: The kidneys appear unremarkable in size, shape, and attenuation. Question mild fullness of the left renal collecting system. No hydronephrosis, aleah hydroureter, or calculi seen. BLADDER: Suspect muscular hypertrophy. No stone identified within the urinary bladder.. GASTROINTESTINAL TRACT: The small and large bowel appear unremarkable. ABDOMINAL WALL: No significant hernia is appreciated. LYMPH NODES: No evidence of adenopathy by size criteria. VASCULAR: Unremarkable PELVIC VISCERA: Mildly enlarged prostate. OSSEOUS STRUCTURES: Old, healed fractures of the lateral aspects of the right 8th through 10th ribs CT/CT abdomen pelvis wo IV con IMPRESSION: No acute finding. Question mild fullness of the left renal collecting system. No urinary tract stone directly visualized. Question recently passed left ureteral stone. Additional findings, as above. Electronically signed by: Mark Lai MD 10/17/2024 12:02 PM [facility]
--- OUTSIDE RECORDS SUMMARY | 2024-10-17 08:15 | XMS_ITS ---
Author Name [facility] Organization Unknown History of Medication Use Medication Directions Dispensed Refills Start Date End Date Stat us lisinopril (PRINIVIL,ZeSTRIL) 20 MG tablet Take 1 tablet (20 mg total) by mouth daily. 08/28/2023 active simvastatin (ZOCOR) 20 MG tablet Take 1 tablet (20 mg total) by mouth daily. 08/28/2023 active amantadine (SYMMETREL) 100 MG capsule 08/28/2023 active carbidopa-levodopa (SINEMET) 25-100 MG per tablet Take 1 tablet by mouth 3 (three) times a day. 1/2 tab per dose for 1 week then increase to 1 tab per dose 11/06/2023 active B-12, Methylcobalamin, [address] TABLET UNDER THE TONGUE EVERY DAY 08/28/2023 active esomeprazole (NexIUM) 20 MG capsule Take 1 capsule (20 mg total) by mouth daily. 08/28/2023 active Multiple Minerals-Vitamins (WILDER MAG ZINC +D3 PO) Take by mouth. 08/28/2023 active Problems Problem Status Onset Date Problem Type Date of Resoluti on Source Primary parkinsonism active 2023-08-26 ProblemAct [facility] HTN (hypertension) active 2023-10-08 ProblemAct [facility] Gait instability active 2023-08-26 ProblemAct H [facility]
[2024-10-17 08:18] VITALS: BP 124/77; PULSE 86; RESP 16; TEMP 36.2; O2SAT 100; BMI 23.7
--- NOTE | 2024-10-17 08:34 | ED_ITS ---
HPI - General Adult General Chief complaint: Extremity Injury, Lower Stated complaint: l side pain unable to walk Time Seen by Provider: 10/17/24 08:33 Source: patient and family (patient's ) Mode of arrival: ambulatory Limitations: no limitations History of Present Illness ED Provider: Corie Doll PA-C HPI narrative: Patient is a 59 year old assigned male at with a history of progressive supranuclear palsy, HTN, and gout presenting to the emergency department today with left hip pain / left lower abdominal pain. Patient states that he has frequent falls and woke up this morning with left hip pain. Patient states that the hip hurts when he walks but when he is sitting there it is not as bad. Patient denies any dizziness, lightheadedness, nausea, vomiting, fever, chills, blurry vision, double vision, loss of vision, chest pain, difficulty breathing, shortness of breath, back pain, night sweats, pain with urination, increased urinary frequency, increased urinary urgency, blood in his urine or stool, syncope or a near syncopal episode, bowel incontinence, bladder incontinence, or any other complaints at this time. Patient states he last fell yesterday and did not hit his head or have any loss of consciousness. Relieving factors: none Exacerbating factors: movement Associated symptoms: denies other symptoms Treatments prior to arrival: none Related Data Previous Rx's ?Medication ?Instructions ?Recorded carbidopa 25 mg-levodopa 100 mg 1 tab PO TID 90 days #270 tabs 05/11/24 tablet ibuprofen 600 mg tablet 600 mg PO Q6H PRN pain #20 tabs 06/27/24 lisinopril 20 mg tablet 20 mg PO DAILY 90 days #90 tabs 06/27/24 meclizine 25 mg tablet 25 mg PO BID PRN dizziness #30 tabs 06/27/24 mecobalamin (vitamin B12) 1,000 1,000 mcg PO DAILY 90 days #90 tabs 06/27/24 mcg chewable tablet ondansetron HCl 4 mg tablet 4 mg PO Q8H PRN nausea and 06/27/24 vomiting 10 days #30 tabs simvastatin 20 mg tablet 20 mg PO DAILY 90 days #90 tabs 06/27/24 tamsulosin 0.4 mg capsule 0.4 mg PO BEDTIME 30 days #30 caps 08/26/24 citalopram 20 mg tablet 20 mg PO DAILY 90 days #90 tabs 07/27/24 Myrbetriq 25 mg tablet,extended 25 mg PO DAILY 30 days #30 tabs 08/19/24 release (mirabegron) chair, wheel (Wheel chair) #1 ea 08/30/24 esomeprazole magnesium 20 mg 20 mg PO DAILY 90 days #90 caps 09/06/24 capsule,delayed release Allergies Allergy/AdvReac Type Severity Reaction Status Date / Time Seasonal Allergies Allergy Intermediate Runny Nose Verified 10/17/24 08:19 Review of Systems 2 Constitutional: Constitutional: Reports no additional constitutional complaints, Denies chills, Denies fever(s) and Denies night sweats Eyes: Eyes: Reports no additional eye complaints, Denies blurry vision, Denies change in vision, Denies diplopia, Denies eye discharge, Denies loss of vision and Denies eye pain ENT: Denies dizziness Cardiovascular: Cardiovascular: Reports no additional cardiovascular complaints, Denies chest pain, Denies lightheadedness, Denies Loss of Consciousness and Denies dyspnea Respiratory: Respiratory: Reports no additional respiratory complaints and Denies dyspnea Gastrointestinal: Gastrointestinal: Reports no additional gastrointestinal complaints, Reports abdominal pain, Denies melena, Denies hematochezia, Denies change in bowel habits and Denies change in stool character Genitourinary: Genitourinary: Reports no additional male genitourinary complaints, Denies hematuria, Denies oliguria, Denies difficulty urinating, Denies dysuria, Denies urinary frequency, Denies urinary hesitancy, Denies urinary incontinence and Denies urinary urgency Musculoskeletal: Musculoskeletal: Reports no additional musculoskeletal complaints, Denies numbness and Denies tingling Comments: left hip pain Neurologic: Denies dizziness, Denies loss of vision, Denies numbness and Denies tingling Psychiatric: Psychiatric: Reports no additional psychiatric complaints Endocrine: Endocrine: Reports no additional endocrine complaints Hematologic/Lymphatic: Hematologic/Lymphatic: Reports no additional hematologic/lymphatic complaints Allergic/Immunologic: Allergic/Immunologic: Reports no additional allergic/immunologic complaints PMFSH Past Medical History Attestation statement: The following information was validated with the patient. (all information validated with the patient's ) Source: old records reviewed, obtained from family (patient's provided additional history and confirmed the history provided by the patient.) and nursing notes reviewed Medical History Urinary urgency Urinary incontinence Effusion, left knee Adult general medical exam Falls Weakness Dizziness Imbalance Difficulty sleeping Daytime sleepiness Urinary frequency Elevated fasting glucose Lower urinary tract symptoms High cholesterol Hypertension Surgical History History of appendectomy History of repair of anterior cruciate ligament of left knee Family History Family History Maternal Grandmother Mental health disorder Maternal Uncle Mental health disorder Father Colon cancer Family/Other Leukemia Social History Social History Housing: House Alcohol intake: former Patient Tobacco Use Status: Former Tobacco user Tobacco use type: Cigarette e-Cigarette/Vaping Use: Never Used Second Hand Smoke Exposure: No Substance Use Type: Marijuana Advance Directives: Yes Advance Directives Information Provided: No Advance Directives on File: No Do you have a plan to hurt others: No Plan service: Yes Current occupational status: unemployed Cognitive needs: No Hearing needs: No Vision needs: No Physical Exam ED Vital Signs: Vital Signs - 24 hr 10/17/24 08:18 10/17/24 12:45 Temperature 97.2 F 98.9 F Pulse Rate 86 79 Respiratory Rate 16 18 Blood Pressure 124/77 125/80 Pulse Oximetry 100 100 Oxygen Delivery Method Room Air Room Air BMI result Body Mass Index 23.7 Const General: cooperative, no acute distress, alert and awake Nutritional Appearance: well nourished Orientation/consciousness: patient oriented x3 Limitations: no limitations [facility] Head: Yes normal to inspection and Yes atraumatic Ears: hearing grossly normal bilaterally and external ears normal General nose exam: Normal external nose present, no nasal discharge noted and no epistaxis Face and sinus: Yes normal facial exam, No abrasion and No laceration Mouth: Normal oral and palatal mucosa present, no drooling and no muffled voice Eyes General: appearance normal, both eyes and all related structures Periorbital: periorbital findings normal Eyelids: Yes eyelids normal Conjunctivae: conjunctivae normal Pupils: Equal, round and reactive pupils present EOM: EOMs intact bilaterally Neck Neck: Yes normal visual inspection, Yes full ROM and Yes no lymphadenopathy Chest Chest palpation & inspection: normal inspection of the chest Resp Effort & Inspection: normal respiratory effort and able to speak in complete sentences GI Inspection: Yes normal to inspection Neuro General: patient oriented x3 and moves all extremities Cranial nerves: Yes Equal, round and reactive pupils present Cognition (Neuro): normal cognition Extrem General: Yes normal to inspection, Yes full ROM and Yes capillary refill normal Psych Appearance: grossly normal Mental Status: mental status grossly normal Affect: normal affect Attitude: cooperative Thought process: Normal thought process present Thought content: Normal thought content present Insight: Good insight present (Psych) Medical Decision Making Medical Decision Making [facility] Narrative: Patient is a 59 year old assigned male at with a history of progressive supranuclear palsy, HTN, and gout presenting to the emergency department today with left hip pain / left lower abdominal pain. Patient's physical exam was unremarkable. Patient's blood work was unremarkable. Patient's urine showed no acute process. Patient's CT abd/pelvis showed no acute process but did show evidence of a recently passed left ureteral stone. I explained my physical exam findings as well as all test results to the patient. I answered all questions asked by the patient. I stressed the importance of the patient taking his medication as directed (either prescribed or as the over the counter packaging recommends). I stressed the importance of the patient following up with his primary care provider. I stressed the importance of the patient returning to the emergency department immediately if his symptoms were to worsen or if he were to develop any dizziness, shortness of breath, difficulty breathing, chest pain, blurry vision, loss of vision, nausea, vomiting, abdominal pain, fever, chills, back pain, or any other complaints. Patient verbalized agreement and understanding with this treatment plan and discharge. Differential Diagnosis Differential Diagnoses: The differential diagnosis associated with the presentation includes Kidney stone Abdominal pain Hip pain Admission/Observation Consideration of admission/observation: Escalation of care including admission/observation considered Patient would have been admitted to the hospital had his work up had any findings where hospital admission was appropriate and his clinical presentation warranted hospital admission. Lab Data [facility] Lab Attestation statement: I reviewed the patient's lab results. My interpretation of these results are in the [facility] Rationale portion of this note. 10/17/24 08:56 10/17/24 08:56 Labs: Lab Results 10/17/24 Range/Units 08:56 WBC 7.3 (4.8-10.8) X10*3/uL RBC 3.71 L (4.60-5.80) X10*6/uL Hgb 12.8 L (14.0-18.0) g/dl Hct 36.6 L (42.0-52.0) % MCV 98.7 H (80.0-98.0) fL MCH 34.5 H (27.0-33.0) pg MCHC 35.0 (31.0-36.0) g/dl RDW 13.0 (11.0-16.0) % Plt Count 256 (160-400) X10*3/uL MPV 8.8 L (9.4-12.4) fL Immature Gran % (Auto) 0.4 (0.0-0.4) % Neut % (Auto) 73.2 H (45-73) % Lymph % (Auto) 14.3 L (20-40) % [place] % (Auto) 8.0 (2-11) % Eos % (Auto) 3.4 (0-4) % Baso % (Auto) 0.7 (0-2) % Lymph # (Auto) 1.1 L (1.2-4.9) X10*3/uL [place] # (Auto) 0.6 (0.1-1.2) X10*3/uL Eos # (Auto) 0.3 (0.0-0.4) X10*3/uL Baso # (Auto) 0.1 (0.0-0.2) X10*3/uL Abs Immat Gran (auto) 0.03 (0.00-0.03) X10*3/uL Absolute Neuts (auto) 5.4 (2.0-8.3) x10*3/uL Absolute Nucleated RBC 0.000 (0.0-0.012) X10*3/uL Nucleated RBC % (auto) 0.0 (0.0-0.2) /100WBC ESR 6 (0-15) MM/HR Sodium 136 (135-145) mmol/L Potassium 4.4 (3.3-5.1) mmol/L Chloride 105 (96-108) mmol/L Carbon Dioxide 25 (22-29) mmol/L Anion Gap 10 L (12-20) BUN 20 H (9-16) mg/dL Creatinine 0.83 (0.5-1.4) mg/dL Estim Creat Clear Calc 102.5 Estimated GFR > 60 Random Glucose 110 (60-115) mg/dL Calcium 8.9 D (8.4-10.2) mg/dL Total Bilirubin 0.3 (0.0-1.0) mg/dL AST 23 (5-37) U/L ALT 26 (0-40) U/L Alkaline Phosphatase 70 (39-117) U/L C-Reactive Protein < 0.10 (< or = 0.50) mg/dL Total Protein 6.6 (6.5-8.0) g/dL Albumin 4.2 (3.5-5.0) g/dL Urine Color Yellow Urine Appearance Clear Urine pH 5.0 (5.0-9.0) Ur Specific [place] <= 1.005 (1.005-1.025) Urine Protein Negative (Neg-Trace) mg/dL Urine Glucose (UA) Negative (Negative) mg/dL Urine Ketones Negative (Negative) mg/dL Urine Blood Negative (Negative) Urine Nitrite Negative (Negative) Ur Leukocyte Esterase Negative (Negative) Independent Interpretation I performed an independent interpretation of an: CT Scan Interpretation: My interpretation is in agreement with the radiologist's impression of this imaging study. L EXAMINATION: CT ABDOMEN AND PELVIS WITHOUT CONTRAST CLINICAL INFORMATION: Left hip and left lower quadrant pain. COMPARISON: None currently available. TECHNIQUE: Multidetector volumetric imaging was performed from the superior aspect of the liver through the pubic symphysis. Sagittal and coronal reformatted images were obtained on the technologist's workstation. This CT examination was performed using dose optimization techniques as appropriate, variously including the following: *Automated exposure control *Adjustment of mA and/or kV according to patient size (this includes techniques or standardized protocols for targeted exams where dose is matched to indication/reason for exam; i.e. extremities or head) *Use of iterative reconstruction technique DLP: 0.70 mGy-cm FINDINGS: LUNG BASES: The lung bases appear clear, with no evidence of inflammation or nodules. LIVER, GALLBLADDER, AND BILIARY TREE: The liver appears unremarkable in size, shape, and attenuation. No focal hepatic lesion or biliary ductal dilatation is appreciated. Unremarkable appearance of the gallbladder. PANCREAS: Unremarkable SPLEEN: Unremarkable ADRENAL GLANDS: Unremarkable KIDNEYS AND URETERS: The kidneys appear unremarkable in size, shape, and attenuation. Question mild fullness of the left renal collecting system. No hydronephrosis, aleah hydroureter, or calculi seen. BLADDER: Suspect muscular hypertrophy. No stone identified within the urinary bladder.. GASTROINTESTINAL TRACT: The small and large bowel appear unremarkable. ABDOMINAL WALL: No significant hernia is appreciated. LYMPH NODES: No evidence of adenopathy by size criteria. VASCULAR: Unremarkable PELVIC VISCERA: Mildly enlarged prostate. OSSEOUS STRUCTURES: Old, healed fractures of the lateral aspects of the right 8th through 10th ribs CT/CT abdomen pelvis wo IV con IMPRESSION: No acute finding. Question mild fullness of the left renal collecting system. No urinary tract stone directly visualized. Question recently passed left ureteral stone. Additional findings, as above. Electronically signed by: Mark Lai MD 10/17/2024 12:02 PM [facility] Dictated By: Mark Lai Signed By: Electronically signed by Mark Lai 10/17/24 1202 Radiology Impression Discussion of test interpretation with radiology: I have reviewed the radiologist's reading. Independent Historian Clinical information obtained from an independent historian. History obtained from or confirmed by: Spouse (patient's provided additional history and confirmed the history provided by the patient.) Discharge Plan Discharge Clinical Impression: Abdominal pain, LLQ, Acute hip pain, Kidney stone Patient Disposition: Home, Self-Care Instructions: Kidney Stones (ED), Abdominal Pain (ED), Hip Pain (ED) Additional Instructions: Your work up today was reassuring and shows evidence of a passed kidney stone. Follow up with your primary care provider. Return to the emergency department immediately if your symptoms worsen or if you develop any dizziness, shortness of breath, difficulty breathing, chest pain, blurry vision, loss of vision, nausea, vomiting, abdominal pain, fever, chills, back pain, or any other complaints. Prescriptions: No Action carbidopa-levodopa 25-100 mg tablet 1 tab PO TID 90 Days Qty: 270 3RF ibuprofen 600 mg tablet 600 mg PO Q6H PRN (Reason: pain) Qty: 20 0RF lisinopril 20 mg tablet 20 mg PO DAILY 90 Days Qty: 90 2RF meclizine 25 mg tablet 25 mg PO BID PRN (Reason: dizziness) Qty: 30 1RF mecobalamin (vitamin B12) 1,000 mcg tablet,chewable 1,000 mcg PO DAILY 90 Days Qty: 90 2RF ondansetron HCl 4 mg tablet 4 mg PO Q8H PRN (Reason: nausea and vomiting) 10 Days Qty: 30 0RF simvastatin 20 mg tablet 20 mg PO DAILY 90 Days Qty: 90 2RF tamsulosin 0.4 mg capsule 0.4 mg PO BEDTIME 30 Days Qty: 30 1RF mirabegron [Myrbetriq] 25 mg tablet extended release 24 hr 25 mg PO DAILY 30 Days Qty: 30 1RF Rx Instructions: no substitutions esomeprazole magnesium 20 mg capsule,delayed release(DR/EC) 20 mg PO DAILY 90 Days Qty: 90 2RF citalopram 20 mg tablet 20 mg PO DAILY 90 Days Qty: 90 1RF (DME) Wheel chair Kit See Rx Instructions .Route Qty: 1 0RF Rx Instructions: Daily As directed, 999 days Referrals: Alen Castanon MD [Primary Care Provider] - Print Language: Wolof
--- NOTE | 2024-10-17 09:00 | PC.NURSE ---
a&ox4. vss and up to date. pt presents to ED w/ multiple complaints such as difficulty ambulating, pain in left hip, and frequent witnessed falls at home. pt recently dx w/ PSP x last year. ambulates w/ cane/walker at home. lives at home w/ . -headstrikes, -loc, -thinners during falls. pt reports tripping over things or losing balance d/t having an unsteady gait. pt denies any numbness/tingling. labs obtained/sent to lab. urinal utilized - UA obtained/sent to lab. pt on RA w/o difficulty. no sob/wob noted. respirations even/unlabored. pt waiting to go to CT at this time. plan of care ongoing.
[2024-10-17 09:01] LABS: MANUAL DIFF FLAG NO
[2024-10-17 09:03] LABS: Basophils Absolute Auto 0.1 X10*3/uL (0.0-0.2); Basophils Percent Auto 0.7 % (0-2); Eosinophils Absolute Auto 0.3 X10*3/uL (0.0-0.4); Eosinophils Percent Auto 3.4 % (0-4); Hematocrit 36.6 % (42.0-52.0); Hemoglobin 12.8 g/dl (14.0-18.0); Imm Gran Abs Auto 0.03 X10*3/uL (0.00-0.03); Imm Gran Pct Auto 0.4 % (0.0-0.4); Lymphocytes Absolute Auto 1.1 X10*3/uL (1.2-4.9); Lymphocytes Percent Auto 14.3 % (20-40); Mean Corpuscular Hemoglobin 34.5 pg (27.0-33.0); Mean Corpuscular Volume 98.7 fL (80.0-98.0); Mean Platelet Volume 8.8 fL (9.4-12.4); Monocytes Absolute Auto 0.6 X10*3/uL (0.1-1.2); Neutrophils Absolute Auto 5.4 x10*3/uL (2.0-8.3); Neutrophils Percent Auto 73.2 % (45-73); Platelet Count 256 X10*3/uL (160-400); Red Blood Count 3.71 X10*6/uL (4.60-5.80); White Blood Count 7.3 X10*3/uL (4.8-10.8)
[2024-10-17 09:06] LABS: Appearance Urine Clear; Color Urine Yellow; Glucose Urine UA Negative (Negative); Leukocyte Esterase Urine Negative (Negative); Nitrite Urine Negative (Negative); Specific Gravity - Urine <= 1.005 (1.005-1.025); Urine Blood Negative (Negative); Urine Ketones Negative (Negative); Urine Protein Negative (Neg-Trace)
[2024-10-17 09:19] LABS: Alanine Aminotransferase 26 U/L (0-40); Albumin Level 4.2 g/dL (3.5-5.0); Alkaline Phosphatase 70 U/L (39-117); Anion Gap 10 (12-20); Aspartate Amino Transferase 23 U/L (5-37); Bilirubin Total 0.3 mg/dL (0.0-1.0); Blood Urea Nitrogen 20 mg/dL (9-16); C Reactive Protein < 0.10 mg/dL (< or = 0.50); Calcium 8.9 mg/dL (8.4-10.2); Carbon Dioxide 25 mmol/L (22-29); Chloride 105 mmol/L (96-108); Creatinine Clr Calc Pharmacy 102.5; Estimated Glomerular Filt Rate > 60; Glucose Random 110 mg/dL (60-115); Potassium 4.4 mmol/L (3.3-5.1); Sodium 136 mmol/L (135-145); Total Protein 6.6 g/dL (6.5-8.0)
[2024-10-17 09:40] LABS: Erythrocyte Sedimentation Rate 6 MM/HR (0-15)
[2024-10-17 12:45] VITALS: BP 125/80; PULSE 79; RESP 18; TEMP 37.2; O2SAT 100
[2024-10-17 13:03] VITALS: BP 125/80; PULSE 79; RESP 18; TEMP 37.2; O2SAT 100
== END 2024-10-17 13:03 | disposition home or self-care (01) ==
PROVIDERS: Physician Assistant Medical; Emergency Provider Emergency Medicine; PCP Family Medicine
DX: N20.0 Calculus of kidney (principal); R10.2 Pelvic and perineal pain; R10.32 Left lower quadrant pain; Z79.899 Other long term (current) drug therapy
CPT/HCPCS: 36415; 74176; 80053; 81003; 85025; 85652; 86140; 99283; 99284

== ENCOUNTER 2024-10-19 08:38 | Outpatient (AMB) | payer OTHER, SELFPAY ==
--- NOTE | 2024-10-19 08:43 | A.OFFPC_ITS ---
Vital Signs 10/19/24 08:47 Height 6 ft Weight 177 lb 2 oz BMI 24.0 BP 108/60 Blood Pressure Location Rt brachial Position Sitting Respiration 14 Pulse 75 Pulse Source Pulse Oximeter Pulse Oximetry (%) 97 Oxygen Delivery Method Room Air Intake Visit Reasons: CPE Intake Note: CPE Grade Tamper: Present Accompanied by: Followed by:: dewayne Allergies Seasonal Allergies Allergy (Intermediate, Verified 10/19/24 08:46) Runny Nose Medication List - Last Reconciled 10/19/24 by Alen Castanon MD carbidopa-levodopa 25-100 mg 1 tab PO TID 90 days chair, wheel (Wheel chair) Daily As directed, 999 days citalopram 20 mg PO DAILY 90 days esomeprazole magnesium 20 mg PO DAILY 90 days ibuprofen 600 mg PO Q6H PRN lisinopril 20 mg PO DAILY 90 days meclizine 25 mg PO BID PRN mecobalamin (vitamin B12) 1,000 mcg PO DAILY 90 days Myrbetriq ER (mirabegron) 25 mg PO DAILY 30 days NS ondansetron HCl 4 mg PO Q8H PRN 10 days simvastatin 20 mg PO DAILY 90 days tamsulosin 0.4 mg PO BEDTIME 30 days Tobacco use date assessed: 03/24/24 Dental Screening Dental Screen Date: 03/24/24 HPI CPE HPI Details 59 y/o male presents for a CPE with f/u labs and health maint. Recent ED visit 10/17/24 for L hip pain/L lower abd. pain. He had stated he has frequent falls and woke up that morning with L hip pain. CT scan no acute findings. Work up was reassuring. Showed evidence of a passed kidney stone. Notes he had been off his citalopram for about a month. He notes he did not see any difference on citalopram 40mg. COUNTS INCLUDE 234 BEDS AT THE [facility] Medical History (Updated 10/19/24 @ 09:37 by Radu Lindsay) Adult general medical exam Urinary urgency Urinary incontinence Effusion, left knee Falls Weakness Dizziness Imbalance Difficulty sleeping Daytime sleepiness Urinary frequency Elevated fasting glucose Lower urinary tract symptoms High cholesterol Hypertension Surgical History History of appendectomy History of repair of anterior cruciate ligament of left knee Family History Maternal Grandmother Mental health disorder Maternal Uncle Mental health disorder Father Colon cancer Family/Other Leukemia Social History Housing: House Alcohol intake: former Patient Tobacco Use Status: Former Tobacco user Tobacco use type: Cigarette e-Cigarette/Vaping Use: Never Used Second Hand Smoke Exposure: No Substance Use Type: Marijuana service: Yes Current occupational status: unemployed Cognitive needs: No Hearing needs: No Vision needs: No Questionnaire PHQ-9 Over the last 2 weeks, how often have you been bothered by any of the following problems? 1. Little interest or pleasure in doing things: more than half the days 2. Feeling down, depressed, or hopeless: nearly every day 3. Trouble falling or staying asleep, or sleeping too much: nearly every day 4. Feeling tired or having little energy: not at all 5. Poor appetite or overeating: not at all 6. Feeling bad about yourself - or that you are a failure or have let yourself or your family down: more than half the days 7. Trouble concentrating on things, such as reading the newspaper or watching television: not at all 8. Moving or speaking so slowly that other people could have noticed. Or the opposite - being so fidgety or restless that you have been moving around a lot more than usual: nearly every day 9. Thoughts that you would be better off or of hurting yourself in some way: more than half the days Total score: 15 Depression Screening Interpretation: Positive Depression Screening Done: Yes 91303 - PHQ-9 Billing: Yes Source: Developed by Drs. Torrey Funez, Haley Aviles, Gilmer Souza and colleagues, with an educational jose a from [employer]. Thrive Questionnaire Date Thrive assessed: 10/19/24 I am a: Patient What is your living situation today?: I have a steady place to live Within the past 12 months, did the food you bought not last and you didn't have the money to get more?: Never true Within the past 12 months, did you worry whether your food would run out before you got money to buy more?: Never true Do you have trouble paying for medicines?: No Do you have trouble getting transportation to medical appointments?: No Do you have trouble paying your heating and electricity bill?: No Do you have trouble taking care of your child, family member or friend?: I choose not to answer this question Do you have trouble with day-to-day activities such as bathing, preparing meals, shopping, managing finances, etc.?: No Are you currently unemployed and looking for a job?: Yes Are you interested in more education?: No Please select the resources that you would like help with: Care for elder or disabled Currently or been in a relationship where the following occur: No concerns reported THRIVE Score: 0 DARRICK-7 AMB Questionnaire DARRICK-7 Date DARRICK - 7 assessed: 10/19/24 Feeling nervous, anxious, or on edge: 2 = More than half the days Not being able to stop or control worryin = Not at all Worrying too much about different things: 2 = More than half the days Trouble relaxin = Nearly every day Being so restless that it is hard to sit still: 0 = Not at all Becoming easily annoyed or irritable: 3 = Nearly every day Feeling afraid as if something awful might happen: 3 = Nearly every day Total DARRICK-7 score (0-4 normal; 5-9 mild; 10-14 moderate; 15-21 severe): 13 Source: Developed by Drs. Torrey Funez, Haley Aviles, Gilmer Souza and colleagues, with an educational jose a from [employer]. DARRICK-7 Assessment Billing DARRICK-7 Assessment Tool: DARRICK-7 Assessment 31998 Review of Systems Const Denies chills, Denies fatigue, Denies fever(s), Denies headache(s) and Denies weakness Eyes Denies change in vision ENT Denies dizziness, Denies headache(s), Denies hearing loss, Denies nasal congestion, Denies sinus pain, Denies sinus pressure and Denies sore throat Card Denies chest pain, Denies lightheadedness, Denies dyspnea and Denies other (palpitations) Resp Denies cough, Denies dyspnea and Denies wheezing GI Denies abdominal pain, Denies melena, Denies hematochezia, Denies change in bowel habits, Denies dyspepsia and Denies nausea Denies hematuria and Denies dysuria Musc Denies abnormal gait, Denies myalgias, Denies arthralgias, Denies numbness and Denies tingling Skin/Breast Denies rash, Denies unusual bruising and Denies wounds Neuro Denies abnormal gait, Denies dizziness, Denies headache(s), Denies memory loss, Denies numbness, Denies Sensory deficit (Neuro), Denies tingling and Denies w eakness Psych Reports anxiety, Reports depression and Denies memory loss Endo Denies cold intolerance, Denies fatigue, Denies heat intolerance, Denies polydipsia and Denies polyuria Lewis/Lymph Denies easy bleeding and Denies easy bruising Aller/Immun Denies wheezing Physical exam (Primary Care) Vital Signs: Last Vital Signs Pulse 75 10/19/24 08:47 Resp 14 10/19/24 08:47 BP 108/60 10/19/24 08:47 Pulse Ox 97 10/19/24 08:47 Oxygen Delivery Method Room Air 10/19/24 08:47 BMI result Body Mass Index 24.0 Tobacco/Smoking Status: Tobacco use Status Tobacco use date assessed 03/24/24 10/19/24 08:49 Patient Tobacco Use Status Former Tobacco user 10/19/24 08:49 Tobacco use type Cigarette 10/19/24 08:49 e-Cigarette/Vaping Use Never Used 10/19/24 08:49 PHQ-9: PHQ-9 Score PHQ-9: Total score 15 10/19/24 09:37 Depression Screening Interpretation: Positive Thrive Assessment: Date of Thrive Assessment Date Thrive assessed 10/19/24 10/19/24 08:49 Currently or been in a relationship where the following occur: No concerns repor rajani Const General: no acute distress, well developed, alert and awake Nutritional Appearance: well nourished Orientation/consciousness: patient oriented x3 HENMT Head: Yes normocephalic and Yes atraumatic Ears: hearing grossly normal bilaterally and TM's normal bilaterally General nose exam: Normal external nose present and Normal nares present Mouth: Normal oral and palatal mucosa present and moist mucous membranes Teeth and gingiva: dentition normal Throat: Yes posterior oropharynx normal Eyes General: appearance normal, both eyes and all related structures Pupils: Equal, round and reactive pupils present and Pupil accommodation reflex normal EOM: EOMs intact bilaterally Neck Neck: Yes normal visual inspection, Yes no lymphadenopathy and Yes trachea midline Thyroid: Thyroid normal Carotids: no bruits Lymphatic: no lymphadenopathy noted Chest Chest palpation & inspection: normal inspection of the chest Resp Effort & Inspection: normal respiratory effort Auscultation: clear to auscultation bilaterally Cardio Rate: regular rate Rhythm: regular rhythm Heart sounds: S1 normal heart sound present, S2 normal heart sound present, no gallops, no murmurs and no rubs Bruits: no abdominal aortic bruits and no carotid bruits GI Palpation (GI): No Abdominal aortic bruit present, Soft to palpation, nontender, No hepatosplenomegaly present and No Rebound tenderness present Auscultation: normal bowel sounds General: Yes no CVA tenderness Back/Spine/Pelvis Back: no CVA tenderness Cervical Spine: cervical ROM normal and No Cervical spine tenderness Thoracic/Lumbar Spine: thoraco-lumbar ROM normal, No pain with thoraco-lumbar ROM, No thoracic spinal tenderness and No lumbar spinal tenderness Skin Lesions: no lesions Rashes: no rashes Trauma: no lacerations or abrasions Wounds: no wounds Nails: normal Neuro Other: Hyperreflexia of all four limbs, 3+ LE weakness, uses a walker General: patient oriented x3 and No gait normal Cranial nerves: Yes Equal, round and reactive pupils present Cognition (Neuro): normal cognition Gait exam (Neuro): gait abnormal and Assisted gait required Gait assisted method: walker Motor exam (neuro): 5/5 motor strength present throughout Sensory Exam: No Sensory deficit (Neuro) Extrem General: Yes normal to inspection and No edema Psych Appearance: grossly normal Affect: normal affect Attitude: cooperative Thought process: Normal thought process present Coding Level of Care Code Est Pt Prev Care 40-64y(08786) Diagnoses Adult general medical exam Z00.00 Hip pain M25.559 Abdominal pain R10.9 Anxiety with depression F41.8 Progressive supranuclear palsy G23.1 Mild anemia D64.9 Screening for colon cancer Z12.11 Screening for prostate cancer Z12.5 Additional Codes DARRICK-7 Assessment Billing - DARRICK-7 Assessment Tool: DARRICK-7 Assessment 14417 ([id number]) PHQ-9 - 46322 - PHQ-9 Billing: Yes ([id number]) Assessment & Plan Assessment & Plan (1) Adult general medical exam: Code(s): Z00.00 - Encounter for general adult medical examination without abnormal findings Category: Medical Plan: 59-year-old?male?presents?for?complete?physical?exam Encouraged?healthy?diet?with?active?lifestyle?exercise?as?tolerated (2) Hip pain: Code(s): M25.559 - Pain in unspecified hip Category: Medical Plan: Patient?had?a?recent ED visit for L Hip and lower abd pain. Patient?was?told?he?may?have?passed?a?renal?stone,?likely?due?to?findings of?a??mild?fullness?of?the?left?renal?collecting?system . However,?no?stone?was?seen, no?blood ?found?in?urine?studies?and?patient's?presentation?at?the?time?was?not?colicky?p ain?associated?passing?stone. Urinary?system?findings?on?CT?as?follows: KIDNEYS AND URETERS: The kidneys appear unremarkable in size, shape, and attenuation. Question mild fullness of the left renal collecting system. No hydronephrosis, aleah hydroureter, or calculi seen. BLADDER: Suspect muscular hypertrophy. No stone identified within the urinary bladder.. Unclear?cause?however?pain?did?resolve. Patient?appointment?with?Urology?scheduled (3) Abdominal pain: Code(s): R10.9 - Unspecified abdominal pain Category: Medical Plan: As?above,?this?has?resolved (4) Anxiety with depression: Code(s): F41.8 - Other specified anxiety disorders Category: Medical Plan: Patient?had?been?on?citalopram?but?has?run?out?as?was?absolute?in?taking?an?incr eased?dose?of?citalopram Does?not?recall?this?helping?much He?will?resume?citalopram?10?mg?daily?and?titrate?up?20?daily He?is?followed?by?psych?med?provider?will?follow-up?them?subsequently. (5) Progressive supranuclear palsy: Code(s): G23.1 - Progressive supranuclear ophthalmoplegia [Danielle] Category: Medical Plan: Ongoing?weakness?and?on?exam?patient?has?vertical?gaze?deficits?hyper?reflexia?a s?well?as?lower?extremity?weakness?and?is?using?a?walker. He?is?exercising?regularly?and?still?attending?physical?therapy. A?neurologist?who?unfortunately?is?out?network?who?specializes?in?his?diagnosis. He?will?discuss?with?that?specialist?if?he?has?any?recommendations?for ?a?local?neurologist?for?more?regular?visits?and?would?follow- up?with?the?specialist?annually?or?semiannually. For?now,?follow-up?with??Rc?as?recommended (6) Mild anemia: Code(s): D64.9 - Anemia, unspecified Category: Medical Plan: Will?garcia ve?patient?recheck?blood?counts?as?well?additional?lab?work?to?investigate?furth er. He?has?a?mild?macrocytic?anemia?and?is?now?taking?vitamin?B12 (7) Screening for colon cancer: Code(s): Z12.11 - Encounter for screening for malignant neoplasm of colon Category: Medical Plan: Patient?says?he?had?a?colonoscopy?4-5?years?ago?and?was?told?follow-up?in?about? 4?years. Unclear?when?his?follow-up?date?is?but?patient?thinks?he?is?follow-up.??I?will?flaco puentes?him?to??Jania (8) Screening for prostate cancer: Code(s): Z12.5 - Encounter for screening for malignant neoplasm of prostate Category: Medical Plan: PSA?was?within?range Will?continue?in?screening Orders: Orders IRON PROFILE Today D64.9 - Anemia, unspecified Reticulocyte Count Today D64.9 - Anemia, unspecified Vitamin B12 and Folate Today D64.9 - Anemia, unspecified, E53.8 - Deficiency of other specified B group vitamins Complete Blood Count Auto Diff Today D64.9 - Anemia, unspecified, Z00.00 - Encounter for general adult medical examination without abnormal findings Basic Metabolic Panel Today D64.9 - Anemia, unspecified, Z00.00 - Encounter for general adult medical examination without abnormal findings Ferritin Today D64.9 - Anemia, unspecified Referrals Gastroenterology Referral Z12.11 - Encounter for screening for malignant neoplasm of colon Medications: Refilled citalopram 20 mg PO DAILY 90 days 90 tabs 1RF
[2024-10-19 08:47] VITALS: BP 108/60; PULSE 75; RESP 14; O2SAT 97; BMI 24.0
== END 2024-10-19 10:00 | disposition home or self-care (01) ==
PROVIDERS: PCP Family Medicine; Visit Provider Family Medicine
DX: Z00.00 Encounter for general adult medical examination without abnormal findings (principal); G23.1 Progressive supranuclear ophthalmoplegia [Steele-Richardson-Olszewski]; M25.552 Pain in left hip; R10.9 Unspecified abdominal pain; F41.8 Other specified anxiety disorders; D64.9 Anemia, unspecified; Z12.11 Encounter for screening for malignant neoplasm of colon; Z12.5 Encounter for screening for malignant neoplasm of prostate

== ENCOUNTER → 2024-10-19 08:38 | Outpatient (BNVA) | payer OTHER, SELFPAY | PROVIDERS: PCP Family Medicine; Visit Provider Family Medicine | DX: Z00.00 Encounter for general adult medical examination without abnormal findings (principal); F41.8 Other specified anxiety disorders; G23.1 Progressive supranuclear ophthalmoplegia [Steele-Richardson-Olszewski]; D64.9 Anemia, unspecified; Z79.899 Other long term (current) drug therapy | CPT/HCPCS: 96127 ==

== ENCOUNTER 2024-10-25 11:20 | Outpatient (AMB) | payer OTHER, SELFPAY ==
--- NOTE | 2024-10-25 11:20 | MHC.OFFVIS ---
Intake Visit Reasons: 2M Med Review(Myrbetriq) Intake Note: Patient is present for 2M MED REVIEW Urology Medication:MIRABEGGRON,TAMSULOSIN,VITAMIN B12 Antibiotic Allergy:NONE Blood Thinner:NONE Mule Rider Required: No Allergies Seasonal Allergies Allergy (Intermediate, Verified 10/25/24 11:21) Runny Nose Medication List - Last Reconciled 10/25/24 by Rico Moreno MD carbidopa-levodopa 25-100 mg 1 tab PO TID 90 days chair, wheel (Wheel chair) Daily As directed, 999 days citalopram 20 mg PO DAILY 90 days esomeprazole magnesium 20 mg PO DAILY 90 days ibuprofen 600 mg PO Q6H PRN lisinopril 20 mg PO DAILY 90 days meclizine 25 mg PO BID PRN mecobalamin (vitamin B12) 1,000 mcg PO DAILY 90 days mirabegron ER 50 mg PO DAILY 30 days ondansetron HCl 4 mg PO Q8H PRN 10 days simvastatin 20 mg PO DAILY 90 days tamsulosin 0.4 mg PO BEDTIME 30 days HPI Comments Details: Juanita is a pleasant male. He is a patient of Dr. Castanon. He is seen for the following urologic conditions - Lower urinary tract symptoms in the setting of neurologic disease (Parkinson's/supranuclear palsy) Telemedicine Evaluation 15 min Consultation [employer] [place] Fei Video Follow-up from trial of Myrbetriq Did notice some benefit at 1st Control of urination Lately does not appear to be as successful Will try increasing to 50 mg daily Reassess in 2 months Based on assessment of current symptoms which are primarily urgency with frequency although he is on a timed voiding schedule we will trial Myrbetriq Anticholinergics are not recommended as first-line therapy for patients with known neurologic conditions Lower urinary tract symptoms Report on initial nocturia x2, urinary urgency with frequency and episodes of incontinence Bladder ultrasound prostate 45 cc PSA 01/23 0.6 At time of initial visit had new onset Parkinson's diagnosis Initial therapy tamsulosin Tried Cialis daily however this did not help [facility] Medical History (Updated 10/19/24 @ 09:37 by Radu Lindsay) Adult general medical exam Urinary urgency Urinary incontinence Effusion, left knee Falls Weakness Dizziness Imbalance Difficulty sleeping Daytime sleepiness Urinary frequency Elevated fasting glucose Lower urinary tract symptoms High cholesterol Hypertension Surgical History History of appendectomy History of repair of anterior cruciate ligament of left knee Family History Maternal Grandmother Mental health disorder Maternal Uncle Mental health disorder Father Colon cancer Family/Other Leukemia Social History Housing: House Alcohol intake: former Patient Tobacco Use Status: Former Tobacco user Tobacco use type: Cigarette e-Cigarette/Vaping Use: Never Used Second Hand Smoke Exposure: No Substance Use Type: Marijuana service: Yes Current occupational status: unemployed Cognitive needs: No Hearing needs: No Vision needs: No Review of Systems Const All systems reviewed & are unremarkable except as noted in HPI and below Reports no additional complaints Resp Reports no additional complaints GI Reports no additional complaints Reports as per HPI Musc Reports no additional complaints Physical Exam Telemedicine evaluation Appropriate responses Regular breathing rate and rhythm HEENT Head: Yes normal to inspection Ears: hearing grossly normal bilaterally Eyes General: appearance normal, both eyes and all related structures Neck Neck: Yes normal visual inspection Chest Chest palpation & inspection: normal inspection of the chest Resp Effort & Inspection: normal respiratory effort and able to speak in complete sentences Telehealth Telehealth Telehealth Platform: [employer] [place] Location of provider rendering services: practice address Location of patient: address on file Patient Identification confirmed using: Name, : Yes Telehealth method: video Patient verbally consented to treatment: Yes Patient verbally consented to billing insurance company: Yes Patient informed of any privacy concerns related to visit: Yes Minutes spent on Phone/Video with Pt.: 15 Assessment & Plan Assessment & Plan (1) Lower urinary tract symptoms: Code(s): R39.9 - Unspecified symptoms and signs involving the genitourinary system Category: Medical (2) Bladder instability: Code(s): N32.89 - Other specified disorders of bladder Category: Medical Plan Trial increased dose Myrbetriq Medications: Changed From Myrbetriq ER no substitutions 25 mg PO DAILY 30 days 30 tabs 1RF NS To mirabegron ER no substitutions 50 mg PO DAILY 30 tabs 1RF 30 days Patient Instructions: Imaging studies, laboratory and physical exam results were discussed and reviewed in detail. No major barriers to patient understanding were identified. An opportunity to ask questions regarding the treatment plan was provided. All questions were answered. The patient expressed understanding and agreement with the above treatment plan. The patient is aware they should contact our office by phone for worsening of their current condition or the appearance of new urologic symptoms. Compliance is encouraged with any medications and followup testing that is ordered. It is a privilege to participate in the urologic care of your patient. If you have any questions or concerns regarding treatment for the above conditions, or other urologic issues, please do not hesitate to contact me. The office telephone contact is [phone]. This note is constructed using voice recognition software. While every effort has been made to ensure accuracy motor carrier inspector errors may have been included. Yours sincerely, Dr Rico Moreno MD, [facility] - Urology Providers of Expert, Compassionate Care for the Genitourinary System Coding Level of Care Code Tele Est Pt Level 3 (05572) Diagnoses Lower urinary tract symptoms R39.9 Bladder instability N32.89
== END 2024-10-25 12:41 | disposition home or self-care (01) ==
LOC: HO.HUSH 11:20
PROVIDERS: PCP Family Medicine; Visit Provider Urology
DX: R39.9 Unspecified symptoms and signs involving the genitourinary system (principal); N32.89 Other specified disorders of bladder
CPT/HCPCS: 99213

== ENCOUNTER 2024-11-16 08:08 | Outpatient (REF) | payer OTHER, SELFPAY ==
[2024-11-16 08:32] LABS: MANUAL DIFF FLAG NO
[2024-11-16 09:05] LABS: Basophils Absolute Auto 0.1 X10*3/uL (0.0-0.2); Basophils Percent Auto 0.9 % (0-2); Eosinophils Absolute Auto 0.2 X10*3/uL (0.0-0.4); Eosinophils Percent Auto 3.6 % (0-4); Hematocrit 41.6 % (42.0-52.0); Hemoglobin 14.1 g/dl (14.0-18.0); Imm Gran Abs Auto 0.01 X10*3/uL (0.00-0.03); Imm Gran Pct Auto 0.2 % (0.0-0.4); Immature Retic Fraction 7.7 % (2.3-13.4); Lymphocytes Absolute Auto 1.2 X10*3/uL (1.2-4.9); Lymphocytes Percent Auto 21.5 % (20-40); Mean Corpuscular HGB Conc 33.9 g/dl (31.0-36.0); Mean Corpuscular Hemoglobin 33.8 pg (27.0-33.0); Mean Corpuscular Volume 99.8 fL (80.0-98.0); Mean Platelet Volume 9.1 fL (9.4-12.4); Monocytes Absolute Auto 0.4 X10*3/uL (0.1-1.2); Monocytes Percent Auto 7.1 % (2-11); Neutrophils Absolute Auto 3.7 x10*3/uL (2.0-8.3); Neutrophils Percent Auto 66.7 % (45-73); Platelet Count 310 X10*3/uL (160-400); Red Blood Count 4.17 X10*6/uL (4.60-5.80); Red Cell Distribution Width 12.7 % (11.0-16.0); Retic HGB Equivalent 37.9 pg (30.0-35.0); Reticulocyte Percent 1.1 % (0.5-1.8); Reticulocytes Absolute 0.047 X10*6/uL (0.026-0.095); White Blood Count 5.5 X10*3/uL (4.8-10.8)
[2024-11-16 09:15] LABS: Appearance Urine Clear; Color Urine Yellow; Glucose Urine UA Negative (Negative); Leukocyte Esterase Urine Negative (Negative); Nitrite Urine Negative (Negative); PH 5.5 (5.0-9.0); Urine Blood Negative (Negative); Urine Ketones Negative (Negative); Urine Protein Negative (Neg-Trace)
[2024-11-16 09:32] LABS: Anion Gap 11 (12-20); Blood Urea Nitrogen 25 mg/dL (9-16); Calcium 9.7 mg/dL (8.4-10.2); Carbon Dioxide 25 mmol/L (22-29); Chloride 107 mmol/L (96-108); Estimated Glomerular Filt Rate > 60; Glucose Random 108 mg/dL (60-115); Iron 52 mcg/dL (45-160); Percent Iron Saturation 17 % (15-50); Potassium 4.6 mmol/L (3.3-5.1); Sodium 138 mmol/L (135-145); Total Iron Binding Capacity 305 mcg/dL (228-428); Unsaturated Iron Binding 253 ug/dL
[2024-11-16 09:55] LABS: Ferritin 190 ng/mL (20-250)
[2024-11-16 10:00] LABS: Creatinine Urine 120.36 mg/dL; Microalbum/Creatinine Ratio Ur 4.1 ug/mg cr (<30)
[2024-11-16 10:00] LABS: Folate 11.8 ng/mL (> or = 4.0); Vitamin B12 940 pg/mL (200-900)
== END 2024-11-16 08:09 | disposition home or self-care (01) ==
LOC: HO.LAB 08:08
PROVIDERS: PCP Family Medicine; Visit Provider Family Medicine
DX: Z00.00 Encounter for general adult medical examination without abnormal findings (principal); D64.9 Anemia, unspecified; I10 Essential (primary) hypertension; E53.8 Deficiency of other specified B group vitamins
CPT/HCPCS: 36415; 80048; 81003; 82043; 82570; 82607; 82728; 82746; 83540; 85025; 85045

== ENCOUNTER 2024-11-23 12:10 | Emergency (ER) | payer OTHER, SELFPAY ==
--- NOTE | ~2024-11-23 | CT_ITS ---
EXAMINATION: CT HEAD WITHOUT CONTRAST CLINICAL INFORMATION: Fall with head strike, history of EtOH abuse COMPARISON: 04/09/2020. TECHNIQUE: Contiguous axial imaging was performed from the skull base to vertex without intravenous administration of contrast. This CT examination was performed using dose optimization techniques as appropriate, variously including the following: *Automated exposure control *Adjustment of mA and/or kV according to patient size (this includes techniques or standardized protocols for targeted exams where dose is matched to indication/reason for exam; i.e. extremities or head) *Use of iterative reconstruction technique FINDINGS: There is no evidence of intracranial hemorrhage or extra-axial fluid collection. There is no mass effect, or edema. No CT evidence of acute territorial infarct. Ventricles, sulci, and cisterns are normal in size and configuration for patient age. No hydrocephalus. No midline shift. Negative hyperdense MCA sign. Negative insular ribbon sign. Mild supratentorial foci of white matter hypoattenuation in keeping with small vessel ischemia. There are tiny old lacunar type infarcts in the anterior gangliocapsular regions. Partial empty sella. Mild atheromatous calcification of the bilateral carotid siphons. Globes and orbital contents image normally. There is mild right parietal scalp soft tissue swelling. Moderate patchy mucosal thickening ethmoid sinuses. The remainder of the paranasal sinuses, mastoid air cells, and tympanic cavities are normally aerated. No suspicious bony abnormalities. No fracture seen. CT/CT head/brain wo IV con IMPRESSION: No acute intracranial abnormalities. No fractures seen. Electronically signed by: Medhat Cueto MD 11/23/2024 02:20 PM [facility]
--- NOTE | ~2024-11-23 | CT_ITS ---
EXAMINATION: CT CERVICAL SPINE WITHOUT CONTRAST CLINICAL INFORMATION: Fall with head strike. COMPARISON: None available. TECHNIQUE: Spiral CT examination of the cervical spine performed in axial plane without IV contrast. Sagittal, coronal, and thin section axial reformatted images were constructed from the axial data set. This CT examination was performed using dose optimization techniques as appropriate, variously including the following: *Automated exposure control *Adjustment of mA and/or kV according to patient size (this includes techniques or standardized protocols for targeted exams where dose is matched to indication/reason for exam; i.e. extremities or head) *Use of iterative reconstruction technique FINDINGS: Mild straightening of the normal lordosis. There is a trace levoconvex scoliosis which may be positional. No fracture, compression deformity, evidence of traumatic subluxation, or suspicious bone lesion. Trace degenerative retrolistheses C5-6 and C6-7. Sagittal alignment is otherwise normal. Moderate to severe degenerative disc changes C5-6 and C6-7. Dorsal disc osteophytic spurring at these levels contributes to moderate central canal stenosis. There is normal facet alignment bilaterally. There are no significant changes of facet arthropathy. C1-2 articulation and craniocervical junction are intact and normally aligned. No prevertebral soft tissue abnormalities. Mild calcifications of both carotid bulbs. Mildly heterogeneous thyroid without dominant nodule seen. Imaged lung apices are clear. CT/CT cervical spine wo IV con IMPRESSION: 1. No CT evidence of acute cervical spine fracture or injury. 2. Degenerative spondylosis most significant C5-6 and C6-7. Fleischner guidelines were followed. Electronically signed by: Medhat Cueto MD 11/23/2024 02:33 PM [facility]
--- NOTE | ~2024-11-23 | CT_ITS ---
EXAMINATION: CT FACIAL BONES WITHOUT CONTRAST CLINICAL INFORMATION: Right eye pain after fall. COMPARISON: None available. TECHNIQUE: Spiral CT examination of the maxillofacial bones was performed in the axial plane without contrast. Sagittal, coronal, and thin section axial reformatted images were constructed from the axial data set. This CT examination was performed using dose optimization techniques as appropriate, variously including the following: *Automated exposure control *Adjustment of mA and/or kV according to patient size (this includes techniques or standardized protocols for targeted exams where dose is matched to indication/reason for exam; i.e. extremities or head) *Use of iterative reconstruction technique FINDINGS: No maxillofacial fractures are identified. The nasal bones appear intact. The orbits appear intact. Leftward deviation of the nasal septum with small spur. No septal fracture. Zygomatic arches, maxilla, pterygoid plates, mandible, TM joints, and the imaged sphenoid bone appear intact. Lamina papyracea appear intact. There are torus mandibularis. There are numerous periapical lucencies surrounding both mandibular and right maxillary root tips. Moderate sinus opacification of the ethmoid sinuses. Frothy secretions present in the left sphenoid sinus. The frontal recesses appear obstructed. Mild right periorbital soft tissue swelling. Globes and orbital contents appear normal with no post septal abnormality. CT/CT facial bones wo IV con IMPRESSION: 1. No evidence of maxillofacial bone fracture. 2. Mild right periorbital soft tissue swelling. 3. Dental disease with numerous periapical lucencies in the mandible and maxilla. 4. Ethmoid sinus disease. Electronically signed by: Medhat Cueto MD 11/23/2024 02:28 PM [facility]
--- NOTE | ~2024-11-23 | XR_ITS ---
EXAMINATION: XR HAND/WRIST, LEFT CLINICAL INFORMATION: fall, dorsal hand tenderness COMPARISON: None available. TECHNIQUE: PA, lateral, oblique, and scaphoid views of the left hand and wrist. FINDINGS: There is an oblique fracture through the proximal fourth metacarpal metadiaphysis. This is essentially nondisplaced, nonimpacted, and not angulated. No intra-articular extension. There are no additional fractures or focal bony lesions. Carpal bones are intact and normally aligned. There moderate to severe changes of osteoarthrosis at the first CMC joint, with milder changes at the STT joints. There is dorsal soft tissue swelling. XR/XR hand wrist LT IMPRESSION: Oblique acute fracture through the proximal fourth metacarpal metadiaphysis, essentially nondisplaced. Electronically signed by: Medhat Cueto MD 11/23/2024 01:06 PM [facility]
[2024-11-23 12:40] VITALS: BP 133/75; PULSE 85; RESP 18; TEMP 36.6; O2SAT 99; BMI 24.3
--- NOTE | 2024-11-23 12:40 | ED_ITS ---
HPI - General Adult General Chief complaint: Fall Stated complaint: Head L Hand Pain Fall 11/22 &11/23/24 Time Seen by Provider: 11/23/24 17:03 Source: patient, family and RN notes reviewed Mode of arrival: ambulatory Limitations: no limitations History of Present Illness ED Provider: Rabia Ray PA-C HPI narrative: This is a [id number]-male, with a hx of parkinson's disease, who presents to the ER with complaints of left hand pain s/p mechanical fall yesterday. Pt reports that he oftentimes falls due to parkinson's and unsteady gait. He states yesterday he tripped over boots and landed onto his outstretched left hand. He denies hitting his head or LOC. He states today he also tripped and fell into snow. No LOC or headstrike. He denies any dizziness, lightheadedness, chest pain or SOB prior to the fall. He states he is right handed. No other complaints. MD complaint: L hand pain Onset (ago): day(s) Radiation: non-radiation Severity: moderate Quality: aching Pain Consistency: constant Relieving factors: none Exacerbating factors: none Associated symptoms: denies other symptoms Treatments prior to arrival: none Related Data Previous Rx's ?Medication ?Instructions ?Recorded carbidopa 25 mg-levodopa 100 mg 1 tab PO TID 90 days #270 tabs 05/11/24 tablet ibuprofen 600 mg tablet 600 mg PO Q6H PRN pain #20 tabs 06/27/24 lisinopril 20 mg tablet 20 mg PO DAILY 90 days #90 tabs 06/27/24 meclizine 25 mg tablet 25 mg PO BID PRN dizziness #30 tabs 06/27/24 mecobalamin (vitamin B12) 1,000 1,000 mcg PO DAILY 90 days #90 tabs 06/27/24 mcg chewable tablet simvastatin 20 mg tablet 20 mg PO DAILY 90 days #90 tabs 06/27/24 tamsulosin 0.4 mg capsule 0.4 mg PO BEDTIME 30 days #30 caps 06/27/24 chair, wheel (Wheel chair) #1 ea 08/30/24 esomeprazole magnesium 20 mg 20 mg PO DAILY 90 days #90 caps 09/06/24 capsule,delayed release citalopram 20 mg tablet 20 mg PO DAILY 90 days #90 tabs 10/19/24 vibegron 75 mg tablet (Gemtesa) 75 mg PO DAILY 30 days #30 tabs 11/01/24 ondansetron HCl 4 mg tablet 4 mg PO Q8H PRN nausea and 11/04/24 vomiting 10 days #30 tabs Allergies Allergy/AdvReac Type Severity Reaction Status Date / Time Seasonal Allergies Allergy Intermediate Runny Nose Verified 11/23/24 12:43 Review of Systems Review of Systems: Yes all other systems are reviewed and are negative Constitutional: Constitutional: Reports as per [facility] Past Medical History Medical History (Updated 11/23/24 @ 17:47 by ALY Restrepo) Adult general medical exam Urinary urgency Urinary incontinence Effusion, left knee Falls Weakness Dizziness Imbalance Difficulty sleeping Daytime sleepiness Urinary frequency Elevated fasting glucose Lower urinary tract symptoms High cholesterol Hypertension Surgical History History of appendectomy History of repair of anterior cruciate ligament of left knee Family History Family History Maternal Grandmother Mental health disorder Maternal Uncle Mental health disorder Father Colon cancer Family/Other Leukemia Social History Social History Housing: House Alcohol intake: former Patient Tobacco Use Status: Former Tobacco user Tobacco use type: Cigarette e-Cigarette/Vaping Use: Never Used Second Hand Smoke Exposure: No Substance Use Type: Marijuana Advance Directives: No Advance Directives Information Provided: No Do you have a plan to hurt others: No Plan service: Yes Current occupational status: unemployed Cognitive needs: No Hearing needs: No Vision needs: No Physical Exam ED Vital Signs: Vital Signs - 24 hr 11/23/24 12:40 11/23/24 17:04 11/23/24 18:04 Temperature 97.9 F 97.6 F 97.6 F Pulse Rate 85 72 72 Respiratory Rate 18 16 16 Blood Pressure 133/75 119/71 119/71 Pulse Oximetry 99 100 100 Oxygen Delivery Method Room Air Room Air Room Air BMI result Body Mass Index 24.3 Const General: cooperative, comfortable and no acute distress Orientation/consciousness: patient oriented x3 Limitations: no limitations HENMT Head: Yes normal to inspection, Yes normocephalic and Yes atraumatic Ears: hearing grossly normal bilaterally General nose exam: Normal external nose present Face and sinus: Yes normal facial exam Mouth: Normal oral and palatal mucosa present, oropharynx normal and moist mucous membranes Throat: Yes posterior oropharynx normal Eyes Other: R infraorbital ecchymosis seen, healing, no bony step off or deformity. EOMI. No open wounds General: appearance normal, both eyes and all related structures Eyelids: Yes eyelids normal Conjunctivae: conjunctivae normal Sclerae: sclerae normal Pupils: Equal, round and reactive pupils present EOM: EOMs intact bilaterally Neck Other: no midline spine ttp. Neck: Yes normal visual inspection, Yes full ROM and Yes no lymphadenopathy Lymphatic: no lymphadenopathy noted Chest Chest palpation & inspection: normal inspection of the chest Resp Effort & Inspection: normal respiratory effort and able to speak in complete sentences Auscultation: clear to auscultation bilaterally, no crackles, no rales, no rhonchi and no wheezes Cardio Rate: regular rate Rhythm: regular rhythm Heart sounds: S1 normal heart sound present and S2 normal heart sound present GI Inspection: Yes normal to inspection Skin General skin exam: no rashes or lesions noted Trauma: no lacerations or abrasions Wounds: no wounds Neuro General: patient oriented x3 and moves all extremities Cranial nerves: Yes Equal, round and reactive pupils present Extrem Other: L hand dorsal aspect there is moderate ecchymosis and edema noted, more pronouced over the third and fourth metacarpal bones. Strong radial pulse. No open wounds. Able to make a fist without difficulty. Able to oppose thumb to all digits. Cap refill less than 3 seconds. General: Yes normal to inspection Right upper extremity: normal to inspection Left upper extremity: normal to inspection Right lower extremity: normal to inspection Left lower extremity: normal to inspection Course Course Course Narrative: This is a rapid medical exam performed by Robert Hudson NP: Additional HPI, ROS, PE not included below will be deferred to primary provider. Patient is a 59-year-old male with history of Parkinson's, HTN, high cholesterol, GERD, alcohol use disorder, sleep apnea, anxiety/depression, anemia presenting with complaint of left hand pain. Fell while getting up from a chair, tripped over boots. Also fell into the snow getting in the car today. Denies LOC, not anticoagulated. Plan: xray, CT Procedures Orthopedic Splinting/Casting Injury #1: Side: left Upper Extremity Injury Location: hand Upper Extremity Immobilizer: ulnar gutter Medical Decision Making Medical Decision Making MDM Narrative: 59 y.o M who presents to the ER for left hand pain s/p mechanical fall yesterday. On arrival, pt alert and oriented x 4. He does have old healing ecchymosis to right infraorbital region. Pt's fall purely mechanical, complicated with unsteady gait of known parkinson's. L hand with fx of the proximal fourth metacarpal metadiaphysis. CT head, neck and facial bones reveal no acute process. Discussed workup with patient and at bedside. Placed left hand in sugar tong splint and given ortho referral. Given return precautions. Pt goes to rehab for parkinson's, lives at home with . Stable for d.c Differential Diagnosis Differential Diagnoses: The differential diagnosis associated with the presentation includes ICH, SDH, cervical spine fx, contusion, dislocation, fx, Admission/Observation Consideration of admission/observation: Escalation of care including admission/observation considered Radiology Impression Discussion of test interpretation with radiology: I have reviewed the radiologist's reading. Radiologist Impression: EXAMINATION: XR HAND/WRIST, LEFT CLINICAL INFORMATION: fall, dorsal hand tenderness COMPARISON: None available. TECHNIQUE: PA, lateral, oblique, and scaphoid views of the left hand and wrist. FINDINGS: There is an oblique fracture through the proximal fourth metacarpal metadiaphysis. This is essentially nondisplaced, nonimpacted, and not angulated. No intra-articular extension. There are no additional fractures or focal bony lesions. Carpal bones are intact and normally aligned. There moderate to severe changes of osteoarthrosis at the first CMC joint, with milder changes at the STT joints. There is dorsal soft tissue swelling. XR/XR hand wrist LT IMPRESSION: Oblique acute fracture through the proximal fourth metacarpal metadiaphysis, essentially nondisplaced. Electronically signed by: Mdehat Cueto MD 11/23/2024 01:06 PM EST RP Dictated By: Medhat Cueto MD CT/CT head/brain wo IV con IMPRESSION: No acute intracranial abnormalities. No fractures seen. Electronically signed by: Medhat Cueto MD 11/23/2024 02:20 PM EST RP Dictated By: Medhat Cueto MD CT/CT facial bones wo IV con IMPRESSION: 1. No evidence of maxillofacial bone fracture. 2. Mild right periorbital soft tissue swelling. 3. Dental disease with numerous periapical lucencies in the mandible and maxilla. 4. Ethmoid sinus disease. Electronically signed by: Medhat Cueto MD 11/23/2024 02:28 PM EST RP Dictated By: Medhat Cueto MD CT/CT cervical spine wo IV con IMPRESSION: 1. No CT evidence of acute cervical spine fracture or injury. 2. Degenerative spondylosis most significant C5-6 and C6-7. Fleischner guidelines were followed. Electronically signed by: Medhat Cueto MD 11/23/2024 02:33 PM EST RP Discharge Plan Discharge Clinical Impression: Fracture of fourth metacarpal bone Patient Disposition: Home, Self-Care Instructions: Hand Fracture (ED) Additional Instructions: You were seen in the emergency department and your x-ray of your left hand shows a fracture of your 4th metacarpal bone. We placed your wrist and hand in a splint. Please do not remove until you were seen by the computer systems support specialist. Elevate your arm to help reduce swelling. Ibuprofen and or Tylenol as needed for pain and symptoms. Call the computer systems support specialist tomorrow to make an appointment. If any new or worsening symptoms occur including but not limited to pain out of proportion to your right hand and wrist, changes in coloration of your fingers, decreased sensation to your fingers, or refill as though your splint is too tight, you need to immediately seek emergent care. Prescriptions: No Action carbidopa-levodopa 25-100 mg tablet 1 tab PO TID 90 Days Qty: 270 3RF ibuprofen 600 mg tablet 600 mg PO Q6H PRN (Reason: pain) Qty: 20 0RF lisinopril 20 mg tablet 20 mg PO DAILY 90 Days Qty: 90 2RF meclizine 25 mg tablet 25 mg PO BID PRN (Reason: dizziness) Qty: 30 1RF mecobalamin (vitamin B12) 1,000 mcg tablet,chewable 1,000 mcg PO DAILY 90 Days Qty: 90 2RF simvastatin 20 mg tablet 20 mg PO DAILY 90 Days Qty: 90 2RF tamsulosin 0.4 mg capsule 0.4 mg PO BEDTIME 30 Days Qty: 30 1RF esomeprazole magnesium 20 mg capsule,delayed release(DR/EC) 20 mg PO DAILY 90 Days Qty: 90 2RF Gemtesa 75 mg tablet 75 mg PO DAILY 30 Days Qty: 30 3RF ondansetron HCl 4 mg tablet 4 mg PO Q8H PRN (Reason: nausea and vomiting) 10 Days Qty: 30 0RF citalopram 20 mg tablet 20 mg PO DAILY 90 Days Qty: 90 1RF (DME) Wheel chair Kit See Rx Instructions .Route Qty: 1 0RF Rx Instructions: Daily As directed, 999 days Referrals: [facility] – [place] [facility] [Provider Group] Interventions: ED Discharge Assessment Last Done: 11/23/24 18:04 Discharge Date/Time: 11/23/24 18:04 Print Language: Occitan
[2024-11-23 17:04] VITALS: BP 119/71; PULSE 72; RESP 16; TEMP 36.4; O2SAT 100
[2024-11-23 18:04] VITALS: BP 119/71; PULSE 72; RESP 16; TEMP 36.4; O2SAT 100
--- OUTSIDE RECORDS SUMMARY | 2024-11-23 18:29 | XMS_ITS | Clinical Summary ---
Author Organization [facility] Address [address] [place] [address] Care Team Providers Care Biomedical Equipment Tech Name Role Phone Alen Castanon MD Primary Care Provider Allergies No known active allergies Medications Medication Sig Dispensed Refills Start Date End Date Status esomeprazole (NexIUM) 20 MG capsule Take 1 capsule (20 mg total) by mouth daily. 05/20/2023 Active B-12, Methylcobalamin, [address] TABLET UNDER THE TONGUE EVERY DAY 05/20/2023 Active simvastatin (ZOCOR) 20 MG tablet Take 1 tablet (20 mg total) by mouth daily. 05/19/2023 Active lisinopril (PRINIVIL,ZeSTRIL) 20 MG tablet Take 1 tablet (20 mg total) by mouth daily. 05/19/2023 Active Multiple Minerals-Vitamins (WILEDR MAG ZINC +D3 PO) Take by mouth. Active Myrbetriq 25 MG ER tablet Take 1 tablet (25 mg total) by mouth daily. 08/19/2024 Active citalopram (CeleXA) 20 MG tablet Take 1 tablet (20 mg total) by mouth daily. 10/19/2024 Active carbidopa-levodopa (SINEMET) 25-100 MG per tabletIndications: Primary parkinsonism (HCC) Take 1.5 tablets by mouth 3 (three) times a day. 405 tablet 1 10/31/2024 Active carbidopa-levodopa (SINEMET) 25-100 MG per tabletIndications: Primary parkinsonism (HCC) Take 1 tablet by mouth 3 (three) times a day. 270 tablet 1 07/28/2024 Discontinued Active Problems Problem Noted Date Diagnosed Date HTN (hypertension) 10/08/2023 Primary parkinsonism 08/26/2023 Gait instability 08/26/2023 Encounters Date Type Department Care Team Description 10/31/2024 11:30 AM EST Office Visit [facility] [address] [phone] Paolo Wilkins APRN Primary parkinsonism (HCC) 10/31/2024 Travel 08/25/2024 Telephone [facility] [address] [phone] Paolo Wilkins APRN from Last 3 Months Social History Tobacco Use Types Packs/Day Years Used Date Smoking Tobacco: Never Smokeless Tobacco: Never Tobacco Cessation:Counseling Given: Not Answered Alcohol Use Standard Drinks/Week Comments Not Currently 0 (1 standard drink = 0.6 oz pur e alcohol) PHQ-2 Answer Date Recorded PHQ-2 Total Score 2 10/31/2024 Sex and Gender Information Value Date Recorded Sex Assigned at Male 08/03/2023 9:49 AM EDT Gender Identity Male 08/03/2023 9:49 AM EDT Sexual Orientation Not on file Last Filed Vital Signs Vital Sign Reading Time Taken Comments Blood Pressure 128/80 10/31/2024 11:00 AM EST Pulse 81 10/31/2024 11:00 AM EST Temperature - - Respiratory Rate - - Oxygen Saturation - - Inhaled Oxygen Concentration - - Weight 78.5 kg (173 lb) 10/31/2024 11:00 AM EST Height - - Body Mass Index - - Plan of Treatment Upcoming Encounters Date Type Department Care Team (Late st Contact Info) Description 08/01/2025 9:30 AM EDT Office Visit [facility] [address] [phone] Paolo Wilkins APRN [address] [place] [phone] Health Maintenance Due Date Last Done Comments Hepatitis C Virus Screening 1963 HIV Screening 1976 DTaP/Tdap/Td Vaccines (1 - Tdap) 1982 Colonoscopy 2008 Pneumococcal Vaccines 50+ (1 of 1 - PCV) 2013 Zoster (Shingles) Vaccine (1 of 2) 2013 Influenza Vaccine 06/02/2024 COVID-19 Vaccine (1 - 2023-2 5 season) 2024 RSV Vaccine 60 years and old er and Patients (1 - 1-dose 75+ series) 2038 Hepatitis B Vaccines Aged Out No long er eligible based on patient's age to complete this topic Pneumococcal Vaccine: Pediat concha (0-5 Years) and At-Risk Patients (6 to 49 Years) Aged Out No longer eligible b ased on patient's age to complete this topic Goals Goal Patient Goal Type Associated Problems Recent Progress Patient-Stated? Author [facility] 1 Speech Therapy No Geni Du CCC-[employer]AN[employer]ER Note: Pt will use compensatory strategies for word retrieval, memory, attention and executive skills for functional activities with min cues/80% accuracy. [facility] 2 Speech Therapy No Geni Du CCC-[employer]ER Note: Pt score on the Communicative Participation Item Bank will improve by at least 3 points. Care Teams Biomedical Equipment Tech Relationship Specialty Start Date End Date Alen Castanon MD [address] [place] [address] [place] [phone] PCP - General Family Medicine 08/03/23
--- OUTSIDE RECORDS SUMMARY | 2024-11-23 18:29 | XMS_ITS | Clinical Summary ---
Author Organization [facility] Address [address] [place] [address] Care Team Providers Care Mower Mechanic Name Role Phone Unavailable Primary Care Provider Unavailabl e Social History Tobacco Use Types Packs/Day Years Used Date Smoking Tobacco: Never Assessed Sex and Gender Information Value Date Recorded Sex Assigned at Not on file Gender Identity Not on file Sexual Orientation Not on file Plan of Treatment Not on file
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
--- OUTSIDE RECORDS SUMMARY | 2024-11-23 18:29 | XMS_ITS | Encounter Summary ---
Author Organization Formerly [facility] Address [address] [place] [address] Care Team Providers Care Letter Of Credit Document Examiner Name Role Phone Alen Castanon MD Primary Care Provider Encounter Details Date Type Department Care Team (Latest Contact Info) Description 10/31/2024 Travel Social History Tobacco Use Types Packs/Day Years [...] on file documented as of this encounter Plan of Treatment Upcoming Encounters Date Type Department Care Team (Late st Contact Info) Description 08/01/2025 9:30 AM EDT Office Visit [facility] Neurology [address] [phone] Paolo Wilkins, ACUPUNCTURIST [address] [facility] [address] [place] [address] documented as of this encounter Goals Goal Patient Goal Type Associated Problems Recent Progress Patient-Stated? Author ST LTG 1 Speech Therapy No Geni Du CCC-ECONOMIC ADVISER Note: Pt will use compensatory strategies for word retrieval, memory, attention and executive skills for functional activities with min cues/80% accuracy. ST LTG 2 Speech Therapy No Geni Du CCC-ECONOMIC ADVISER Note: Pt score on the Communicative Participation Item Bank will improve by at least 3 points. documented as of this encounter Visit Diagnoses Not on filedocumented in this encounter Care Teams Letter Of Credit Document Examiner Relationship Specialty Start Date End Date Alen Castanon MD [address] [place] [address] [place] [address] PCP - General Family Medicine 08/03/23 documented as of this encounter
== END 2024-11-23 18:04 | disposition home or self-care (01) ==
PROVIDERS: Emergency Provider Emergency Medicine Emergency Medical Services; PCP Family Medicine
DX: S62.305A Unspecified fracture of fourth metacarpal bone, left hand, initial encounter for closed fracture (principal); R51.9 Headache, unspecified; M54.2 Cervicalgia; H57.11 Ocular pain, right eye; R26.81 Unsteadiness on feet; G20.A1 Parkinson's disease without dyskinesia, without mention of fluctuations; M79.641 Pain in right hand; W01.0XXA Fall on same level from slipping, tripping and stumbling without subsequent striking against object, initial encounter; Y93.89 Activity, other specified; Y92.89 Other specified places as the place of occurrence of the external cause; Y99.8 Other external cause status; Z87.891 Personal history of nicotine dependence; Z79.899 Other long term (current) drug therapy
CPT/HCPCS: 29125; 70450; 70486; 72125; 73110; 73130; 99283; 99284

== ENCOUNTER → 2024-11-23 12:42 | Outpatient (BNV) | payer OTHER, SELFPAY | PROVIDERS: PCP Family Medicine; Visit Provider Radiology Diagnostic Radiology | DX: M79.642 Pain in left hand (principal); S09.90XA Unspecified injury of head, initial encounter; S09.93XA Unspecified injury of face, initial encounter | CPT/HCPCS: 70450; 70486; 72125; 73130 ==

== ENCOUNTER 2024-11-27 06:41 | Emergency (ER) | payer OTHER, SELFPAY ==
[2024-11-27 07:21] VITALS: BP 123/73; PULSE 84; RESP 16; TEMP 36.8; O2SAT 97; BMI 23.1
--- NOTE | 2024-11-27 07:43 | ED.EXTPRO ---
HPI - Extremity Problem General Chief complaint: Extremity Injury, Upper Stated complaint: needs splint rewrapped Time Seen by Provider: 11/27/24 07:21 Source: patient, RN notes reviewed and old records reviewed Mode of arrival: ambulatory Limitations: no limitations History of Present Illness ED Provider: Adrien Marcano PA-C HPI Narrative: 59 yo male with history of Parkinson's disease who recently broken his left hand s/p fall and was splinted here on 11/23 presents to the ER for splint evaluation and re-wrapping. He states he re-wrapped it himself when it came undone. He does not know how it came undone. He states he covered the splint with a bag when he showered but it got wet anyway. He denies any pain in the hand. No numbness, tingling. He called Ortho the other day but hasn't heard back for follow up appointment yet. MD Complaint: other (splint unwrapped) Onset (ago): day(s) (1) Pain Consistency: constant Radiation: none Relieving factors: nothing Exacerbating factors: nothing Associated symptoms: denies other symptoms Related Data Previous Rx's ?Medication ?Instructions ?Recorded carbidopa 25 mg-levodopa 100 mg 1 tab PO TID 90 days #270 tabs 05/11/24 tablet ibuprofen 600 mg tablet 600 mg PO Q6H PRN pain #20 tabs 06/27/24 lisinopril 20 mg tablet 20 mg PO DAILY 90 days #90 tabs 06/27/24 meclizine 25 mg tablet 25 mg PO BID PRN dizziness #30 tabs 06/27/24 mecobalamin (vitamin B12) 1,000 1,000 mcg PO DAILY 90 days #90 tabs 06/27/24 mcg chewable tablet simvastatin 20 mg tablet 20 mg PO DAILY 90 days #90 tabs 06/27/24 tamsulosin 0.4 mg capsule 0.4 mg PO BEDTIME 30 days #30 caps 06/27/24 chair, wheel (Wheel chair) #1 ea 08/30/24 esomeprazole magnesium 20 mg 20 mg PO DAILY 90 days #90 caps 09/06/24 capsule,delayed release citalopram 20 mg tablet 20 mg PO DAILY 90 days #90 tabs 10/19/24 vibegron 75 mg tablet (Gemtesa) 75 mg PO DAILY 30 days #30 tabs 11/01/24 ondansetron HCl 4 mg tablet 4 mg PO Q8H PRN nausea and 11/04/24 vomiting 10 days #30 tabs Allergies Allergy/AdvReac Type Severity Reaction Status Date / Time Seasonal Allergies Allergy Intermediate Runny Nose Verified 11/27/24 07:24 Review of Systems Review of Systems: Yes all other systems are reviewed and are negative [facility] Past Medical History Medical History (Updated 11/27/24 @ 07:44 by ALY Almeida) Adult general medical exam Urinary urgency Urinary incontinence Effusion, left knee Falls Weakness Dizziness Imbalance Difficulty sleeping Daytime sleepiness Urinary frequency Elevated fasting glucose Lower urinary tract symptoms High cholesterol Hypertension Surgical History History of appendectomy History of repair of anterior cruciate ligament of left knee Family History Family History Maternal Grandmother Mental health disorder Maternal Uncle Mental health disorder Father Colon cancer Family/Other Leukemia Social History Social History Housing: House Alcohol intake: former Patient Tobacco Use Status: Former Tobacco user Tobacco use type: Cigarette e-Cigarette/Vaping Use: Never Used Second Hand Smoke Exposure: No Substance Use Type: Marijuana Advance Directives: No Advance Directives Information Provided: Yes Do you have a plan to hurt others: No Plan service: Yes Current occupational status: unemployed Cognitive needs: No Hearing needs: No Vision needs: No Physical Exam Vital Signs: Vital Signs: Last Vital Signs Temp 98.3 F 11/27/24 07:21 Pulse 84 11/27/24 07:21 Resp 16 11/27/24 07:21 BP 123/73 11/27/24 07:21 Pulse Ox 97 11/27/24 07:21 O2 Del Method Room Air 11/27/24 07:21 BMI result Body Mass Index 23.1 Appearance: Alert. Oriented X3. No acute distress. HEENT: normal inspection CVS: Normal heart rate and rhythm. Pulses normal. Respiratory: No respiratory distress. Skin: Skin warm and dry. Normal skin color. yellowing ecchymosis on the dosrum of left hand and distal arm, blue ecchymosis on the palm of the hand Extremities: minimal swelling of the left hand, tenderness over the 4th metacarpal is minimal, NV intact disally. Neuro: Oriented X 3. steady gait, no resting tremor Medical Decision Making Medical Decision Making MDM Narrative: 59 yo male with recent left hand fx presenting for splint re-wrapping. his splint is dirty and unwrapped. it was fully removed and redone. patient counseled on importance of splint compliance and not removing or re-wrapping it himself. it was reinforced with tape. stable for d/c home. encouarged to call ortho again tomorrow to arrange follow up. Differential Diagnosis Differential Diagnoses: The differential diagnosis associated with the presentation includes noncompliance, splint malfunction, displaced fracture due to noncompliance less likely External Record Review External record reviewed: Prior outpatient radiology Tests considered The following testing was considered but not selected: considered repeat hand x-ray Prescription Management I considered prescription management with: Pain Medication Procedures Orthopedic Splinting/Casting Injury #1: Side: left Upper Extremity Injury Location: hand Upper Extremity Immobilizer: ulnar gutter Discharge Plan Discharge Clinical Impression: Fracture of hand Qualifiers: Encounter type: subsequent encounter Fracture type: closed Laterality: left Fracture healing: with routine healing Qualified Code(s): S62.92XD - Unspecified fracture of left wrist and hand, subsequent encounter for fracture with routine healing Patient Disposition: Home, Self-Care Instructions: Hand Fracture (ED) Additional Instructions: follow up with orthopedics this week - try calling them again tomorrow DO NOT UNWRAP OR TAKE THE SPLINT OFF If you develop new or worsening symptoms call 911 or come back to the ER for further evaluation. Prescriptions: No Action carbidopa-levodopa 25-100 mg tablet 1 tab PO TID 90 Days Qty: 270 3RF ibuprofen 600 mg tablet 600 mg PO Q6H PRN (Reason: pain) Qty: 20 0RF lisinopril 20 mg tablet 20 mg PO DAILY 90 Days Qty: 90 2RF meclizine 25 mg tablet 25 mg PO BID PRN (Reason: dizziness) Qty: 30 1RF mecobalamin (vitamin B12) 1,000 mcg tablet,chewable 1,000 mcg PO DAILY 90 Days Qty: 90 2RF simvastatin 20 mg tablet 20 mg PO DAILY 90 Days Qty: 90 2RF tamsulosin 0.4 mg capsule 0.4 mg PO BEDTIME 30 Days Qty: 30 1RF esomeprazole magnesium 20 mg capsule,delayed release(DR/EC) 20 mg PO DAILY 90 Days Qty: 90 2RF Gemtesa 75 mg tablet 75 mg PO DAILY 30 Days Qty: 30 3RF ondansetron HCl 4 mg tablet 4 mg PO Q8H PRN (Reason: nausea and vomiting) 10 Days Qty: 30 0RF citalopram 20 mg tablet 20 mg PO DAILY 90 Days Qty: 90 1RF (DME) Wheel chair Kit See Rx Instructions .Route Qty: 1 0RF Rx Instructions: Daily As directed, 999 days [place] [facility] [place] [facility] [Provider Group] Alen Castanon MD [Primary Care Provider] - Print Language: Japanese
[2024-11-27 08:02] VITALS: BP 126/70; PULSE 80; RESP 16; TEMP 37; O2SAT 97
== END 2024-11-27 08:05 | disposition home or self-care (01) ==
PROVIDERS: Emergency Provider Emergency Medicine; PCP Family Medicine
DX: S62.102A Fracture of unspecified carpal bone, left wrist, initial encounter for closed fracture (principal); X58.XXXA Exposure to other specified factors, initial encounter; Y93.9 Activity, unspecified; Y92.9 Unspecified place or not applicable; Y99.8 Other external cause status
CPT/HCPCS: 29125; 99282; 99284

== ENCOUNTER 2024-12-02 12:55 | Outpatient (REF) | payer OTHER, SELFPAY ==
--- NOTE | ~2024-12-02 | XR_ITS ---
CLINICAL HISTORY: M79.642 - Pain in left hand 3 view left hand Comparison: None Findings: There is a 4th finger metacarpal fracture. No dislocations. There are changes of osteoarthritis in the carpometacarpal joint. No erosions. No radiopaque foreign body. IMPRESSION: 1. Fourth metacarpal fracture This document has been electronically signed by: Adan Lua MD on 12/02/2024 18:52:01
--- OUTSIDE RECORDS SUMMARY | 2024-12-02 13:09 | XMS_ITS | Clinical Summary ---
Author Organization [facility] Address [address] [place] [address] Care Team Providers Care Renal Dialysis Technician Name Role Phone Alen Castanon MD Primary [...] by mouth daily. 05/19/2023 Active Multiple Minerals-Vitamins (WILDER MAG ZINC +D3 PO) Take by mouth. Active Myrbetriq 25 MG ER tablet Take 1 tablet (25 mg total) by mouth daily. 08/19/2024 Active citalopram (CeleXA) 20 MG tablet Take 1 tablet (20 mg total) by mouth daily. 10/19/2024 Active carbidopa-levodopa (SINEMET) 25-100 MG per tabletIndications:Rosaline nathaniel parkinsonism (HCC) Take 1.5 tablets by mouth 3 (three) times a day. 405 tablet 1 10/31/2024 Active Active Problems Problem Noted Date Diagnosed Date HTN (hypertension) 10/08/2023 Primary parkinsonism 08/26/2023 Gait instability 08/26/2023 Encounters Date Type Department Care Team Description 10/31/2024 11:30 AM EST Office Visit [facility] [address] [phone] Paolo Wilkins APRN Primary parkinsonism (HCC) 10/31/2024 Travel from Last 3 Months Social History Tobacco [...] Description 08/01/2025 9:30 AM EDT Office Visit [facility] [address] [phone] Paolo Wilkins APRN [address] [place] [phone] Health Maintenance Due Date Last Done Comments Hepatitis C Virus Screening 1963 HIV Screening 1976 DTaP/Tdap/Td Vaccines (1 - Tdap) 1982 Colonoscopy 2008 Pneumococcal Vaccines 50+ (1 of 1 - PCV) 2013 Zoster (Shingles) Vaccine (1 of 2) 2013 Influenza Vaccine 06/02/2024 COVID-19 Vaccine ( - 2023-2 5 season) 2024 RSV Vaccine 60 years and old er and Patients (1 - 1-dose 75+ series) 2038 Hepatitis B Vaccines Aged Out No long er eligible based on patient's age to complete this topic Goals Goal Patient Goal Type Associated Problems Recent Progress Patient-Stated? Author LTG 1 Speech Therapy No Geni Du, HILARY-BUS MONITOR Note: Pt will use compensatory strategies for word retrieval, memory, attention and executive skills for functional activities with min cues/80% accuracy. LTG 2 Speech Therapy No Geni Du CCC-BUS MONITOR Note: Pt score on the Communicative Participation Item Bank will improve by at least 3 points. Care Teams Renal Dialysis Technician Relationship Specialty Start Date End Date Alen Castanon MD [address] [place] [address] [place] [id number] PCP - General Family Medicine 08/03/23
== END 2024-12-02 12:56 | disposition home or self-care (01) ==
LOC: HO.HOSX 12:55
DX: M79.642 Pain in left hand (principal); S62.305A Unspecified fracture of fourth metacarpal bone, left hand, initial encounter for closed fracture
CPT/HCPCS: 73130; 99212

== ENCOUNTER → 2024-12-02 13:43 | Outpatient (BNV) | payer OTHER, SELFPAY | PROVIDERS: Visit Provider Specialist | DX: S62.305A Unspecified fracture of fourth metacarpal bone, left hand, initial encounter for closed fracture (principal) | CPT/HCPCS: 73130 ==

== ENCOUNTER 2024-12-05 12:45 | Day surgery (SDC) | payer OTHER, SELFPAY ==
--- NOTE | ~2024-12-05 | FL_ITS ---
EXAMINATION: FL GUIDANCE ONLY HISTORY: ORIF COMPARISON: Correlation is made with plain films of the left hand dated 12/02/2024. TECHNIQUE: Fluoroscopy time: 32.72 seconds. Cumulative Dose: 1.0736 mGy. DAP: 0.0649 mGym2 Images: 4. FINDINGS: Images demonstrate internal fixation of a fracture of the 4th metacarpal with placement of a pin across the 3rd, 4th, and 5th metacarpal heads. FL/FL guidance in OR IMPRESSION: Fluoroscopy during procedure. Please see procedure report for additional information. Electronically signed by: Torrey Meraz MD 12/06/2024 07:07 AM RAI
[2024-12-05 12:54] VITALS: BMI 23.2
[2024-12-05 13:06] VITALS: BP 145/87; PULSE 81; RESP 15; TEMP 37; O2SAT 97
--- NOTE | 2024-12-05 13:36 | HO.ANESPROP2 ---
HPI - Anesthesia Eval Consult details Narrative: For 4th metacarpal ORIF PMFSH Active Problems Active Problems: All Active Problems Fracture of fourth metacarpal bone of left hand (Acute) Screening for prostate cancer (Acute) Screening for colon cancer (Acute) Mild anemia (Acute) Abdominal pain (Acute) Hip pain (Acute) Bladder instability (Acute) Anxiety with depression (Acute) Gout of left knee (Acute) Progressive supranuclear palsy (Acute) Unsteady gait (Acute) Sleep apnea (Acute) History of alcohol abuse (Acute) GERD (gastroesophageal reflux disease) (Acute) Adult general medical exam (Acute) Lower urinary tract symptoms (Acute) High cholesterol (Acute) Hypertension (Acute) Past Medical History Medical History (Updated 12/05/24 @ 12:54 by Lesvia Murrieta RN) Parkinson disease GERD (gastroesophageal reflux disease) Falls Weakness Urinary frequency Lower urinary tract symptoms Urinary urgency Urinary incontinence Effusion, left knee Elevated fasting glucose Adult general medical exam Daytime sleepiness Difficulty sleeping Dizziness Imbalance High cholesterol Hypertension Family History Family History Maternal Grandmother Mental health disorder Maternal Uncle Mental health disorder Father Colon cancer Family/Other Leukemia Family history of problems with anesthesia: No Surgical History Surgical History History of appendectomy History of repair of anterior cruciate ligament of left knee History of Problems with Anesthesia: No Social History Social History Housing: House Alcohol intake: former Comment: uses walker for balance related issues from parkinson's Patient Tobacco Use Status: Former Tobacco user Tobacco use type: Cigarette e-Cigarette/Vaping Use: Never Used Second Hand Smoke Exposure: No Substance Use Type: Marijuana service: Yes Current occupational status: unemployed Cognitive needs: No Hearing needs: No Vision needs: No Meds Allergies Allergy/AdvReac Type Severity Reaction Status Date / Time Seasonal Allergies Allergy Intermediate Runny Nose Verified 12/05/24 12:53 Active Medications: Current Medications Lactated Ringer's (Lr) 1,000 mls @ 50 mls/hr IVCONT .Q20H ANURAG Exam Height,Weight and Vital Signs: Height 6 ft Weight 77.564 kg Last Vital Signs Temp 98.6 F 12/05/24 13:06 Pulse 81 12/05/24 13:06 Resp 15 12/05/24 13:06 BP 145/87 H 12/05/24 13:06 Pulse Ox 97 12/05/24 13:06 O2 Del Method Room Air 12/05/24 13:06 Airway Mallampati Class: II TM Dist: >3cm Neck ROM: Full Partial: Upper and Lower Heart: ok Lungs: ok Assessment and Plan Assessment Anesthesia Assessment: Anesthesia Plan Discussed and Chart Reviewed Final Anesthetic Review Family History of Problems with Anesthesia: No History of Problems with Anesthesia: No NPO: Yes ASA Class: III Final Preanesthetic Review: No Changes in Pt Med Stat, Meds/Allgs Chart Reviewed, Consent Obtained/Reviewed and Anes Risks/Benef Reviewed Patient Risk: High Procedure Risk: Low Anesthetic Plan Anesthetic Plan: GA and Agree w/ Assess. and Plan Disposition: Standard PACU
--- NOTE | 2024-12-05 13:43 | MHC.SHP ---
Pre-Procedural Eval Section A - 24 Hr Update-Section A only Date of Service: 12/05/24 The patient is an INPATIENT: No Changes since office visit: No Cold of Flu in the past 2 weeks, No New Medical Problems, No Changes in Medication and No Patient answered all questions The patient has been examined within 24 hours of the surgical procedure. The History & Physical has been completed within 30 days and I have reviewed it.: Yes Section B - Complete if H&P > 30 days Chief Complaint: Unspecified fracture of fourth metacarpal bone, Allergies: Allergies Allergy/AdvReac Type Severity Reaction Status Date / Time Seasonal Allergies Allergy Intermediate Runny Nose Verified 12/05/24 12:53 Plan I have reviewed the history and physical and performed a pertinent physical examination on my patient. No changes have occurred unless specified. Time Spent With Patient Time: Total time managing care of this patient today ____ minutes.
--- NOTE | 2024-12-05 13:43 | W.PM.OPN ---
Operative Note Operative Note Date of Service: 12/05/24 Narrative: Operative Note Narrative: Preop diagnosis: 1. Left 4th Metacarpal shaft fracture Postop diagnosis: Same Procedure: 1. Left 4th Metacarpal fracture closed reduction percutaneous pinning 2. Ulnar nerve block Surgeon: Roz Grant MD Family Services Manager: None Anesthesia: General Anesthesia Findings: Metacarpal fracture Implants: 0.054 K-wires times 1 Tourniquet time: None EBL: Minimal Specimen: None Drains: None Complications: None Disposition: Brought to the recovery room in stable condition Plan: Follow-up in 10-14 days for a wound check, postop radiographs and for placement in a short-arm cast or splint Anticipate K-wire removal in 4 weeks based on interval bony healing Educate the patient that full fracture healing anticipated in approximately 8-12 weeks. Indications: The patient is 59 years old with left 4th metacarpal shaft fracture . The risks and benefits of operative treatment, including but not limited to risk of damage to blood vessels, nerves, tendons, infection, recurrence, delayed or nonunion of fracture, persistent pain or numbness, incomplete resolution of preoperative symptoms, or need for further surgery were discussed with the patient and they wished to proceed with surgery. Procedure: Once consent was obtained patient was brought back to the operating suite and placed in the operating table in a supine position. . Perioperative antibiotics and general anesthesia was administered by the anesthesia team. A tourniquet was applied to the proximal aspect of the left upper extremity and the limb was prepped and draped in a standard surgical fashion. Tourniquet was not inflated during the case. The FluoroScan was used during the case to assist with our fracture reduction and placement of all implants. A closed reduction was performed on the patient's left 4th metacarpal shaft fracture. I placed a single 0.062 K-wire retrograde through the head of the left metacarpal extending proximally across the fracture site to the base of the metacarpal. A 2nd 0.062 K-wire was placed transversely through the neck of the 5th metacarpal extending into the head and neck of the 4th metacarpal. Fracture alignment was assessed for both angular and rotational malalignment. Once satisfied with our fracture reduction and implant placement, the K-wires were bent and cut short and pin caps applied. Final fluoroscopic images were then obtained. The wounds were copiously irrigated with normal saline. An ulnar nerve block was then performed by infiltrating about the ulnar nerve at the wrist with some 1% lidocaine with epinephrine for postop pain control. A Sterile dressing and short volar splint was applied. The patient appears to have tolerated the procedure well and with no complications. All digits were well vascularized at the conclusion of the case.
--- OUTSIDE RECORDS SUMMARY | 2024-12-05 14:02 | XMS_ITS | Clinical Summary ---
[facility] Organization [facility] Address [address] [place] [address] Care Team Providers Care Installment Account Checker Name Role Phone Unavailable Primary Care Provider Unavailabl e Social History Tobacco Use Types Packs/Day Years Used Date Smoking Tobacco: Never Assessed Sex and Gender Information Value Date Recorded Sex Assigned at Not on file Gender Identity Not on file Sexual Orientation Not on file Plan of Treatment Not on file
--- OUTSIDE RECORDS SUMMARY | 2024-12-05 14:02 | XMS_ITS | Clinical Summary ---
Author Organization [facility] Address [address] [place] [address] Care Team Providers Care Antenna Engineer Name Role Phone Alen Castanon MD Primary Care Provider [phone] Allergies No known active allergies Medications Medication [...] [facility] [address] [phone] Paolo Wilkins APRN Primary parkinsonism (HCC) 10/31/2024 [...] [facility] [address] [phone] Paolo Wilkins APRN [address] [place] [id number] Health Maintenance Due Date Last Done Comments [...] LTG 1 Speech Therapy No Geni Du, HILARY-DATA PROCESSING SPECIALIST Note: Pt will use compensatory strategies for word retrieval, memory, attention and executive skills for functional activities with min cues/80% accuracy. LTG 2 Speech Therapy No Geni Du CCC-DATA PROCESSING SPECIALIST Note: Pt score on the Communicative Participation Item Bank will improve by at least 3 points. Care Teams Antenna Engineer Relationship Specialty Start Date End Date Alen Castanon MD [address] [place] [address] [place] [phone] PCP - General Family Medicine 08/03/23
[2024-12-05 15:49] VITALS: BP 139/84; PULSE 87; RESP 18; TEMP 36.8; O2SAT 96
[2024-12-05 15:54] VITALS: BP 137/82; PULSE 76; RESP 18; O2SAT 98
[2024-12-05 15:59] VITALS: BP 141/86; PULSE 78; RESP 18; O2SAT 99
[2024-12-05 16:04] VITALS: BP 141/81; PULSE 76; RESP 18; O2SAT 100
[2024-12-05 16:19] VITALS: BP 145/85; PULSE 77; RESP 18; TEMP 36.6; O2SAT 100
== END 2024-12-05 16:37 | disposition home or self-care (01) ==
PROVIDERS: PCP Family Medicine; Visit Provider Orthopaedic Surgery
PROC: (CPT 26615; principal; 2024-12-05 14:00)
DX: S62.305A Unspecified fracture of fourth metacarpal bone, left hand, initial encounter for closed fracture (principal); W18.30XA Fall on same level, unspecified, initial encounter; Z91.81 History of falling; Y93.9 Activity, unspecified; Y92.9 Unspecified place or not applicable; Y99.9 Unspecified external cause status; G20.A1 Parkinson's disease without dyskinesia, without mention of fluctuations; R26.89 Other abnormalities of gait and mobility; J30.2 Other seasonal allergic rhinitis; I10 Essential (primary) hypertension; E78.00 Pure hypercholesterolemia, unspecified; R73.01 Impaired fasting glucose; Z87.891 Personal history of nicotine dependence; Z56.0 Unemployment, unspecified; Z98.890 Other specified postprocedural states
CPT/HCPCS: 26608; J0690; J2003; J2004; J2704; J3010

== ENCOUNTER → 2024-12-05 12:45 | Outpatient (BNV) | payer OTHER, SELFPAY | PROVIDERS: PCP Family Medicine; Visit Provider Orthopaedic Surgery | DX: S62.325A Displaced fracture of shaft of fourth metacarpal bone, left hand, initial encounter for closed fracture (principal) | CPT/HCPCS: 26608 ==

== ENCOUNTER 2024-12-07 13:41 | Outpatient (RCR) | payer OTHER, SELFPAY ==
--- NOTE | 2024-08-30 15:02 | MHC.PT.EP ---
[facility] [place] Office [place] Office [place] Office [address] [phone] F: [phone] F: [phone] F: [phone] F: [phone] Physical Therapy Plan of Care Date of Evaluation: 08/30/24 Date of Surgery: Diagnosis: PROGRESSIVE SUPRANUCLEAR PALSY/GAIT AND BALANCE (KP) Assessment: CORIE IS A 59 YO MALE WHO PRESENTS WITH ABOVE DIAGNOSIS. NOTES HE WAS DIAGNOSED SEVERAL MONTHS AGO AND DID TRIAL PT FOR SEVERAL MONTHS WITH [facility] IN [facility]. 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 USING ROLLATOR WALKER AT ALL TIMES. LIVES IN SINGLE FAMILY HOME. WAKES FEELING PRETTY WELL, WEAKNESS WITH GETTING UP FROM CHAIR AND LOWERING TO GROUND. CURRENTLY INDEPENDENT WITH ADLs AND iADLs, NOTES DECREASED PACE OF SPEECH. UPON EXAM, IMPAIRMENTS INCLUDE DECREASED LE AND TRUNK STRENGTH, ALTERED BALANCE AND GAIT. FUNCTIONAL LIMITATIONS INCLUDE DECREASED TOLERANCE TO WALKING, LIFTING, BENDING, PUSHING AND PULLING. HE REPORTS FREQUENT FALLS RECENTLY WITH DECREASED ABILITY TO PERFORM FITNESS AND RECREATIONAL ACTIVITIES. Frequency and Duration: The patient will be seen 2 X WEEK FOR 4 WEEKS Short Term Goals: INITIATE HEP AND PROMOTE SELF MANAGEMENT OF SYMPTOMS Residential Goals: TO AMBULATE AD EDEN WITH NO FALLS OR NEAR FALLS X 1 MONTH TO RETURN TO GYM PROGRAM INDEPENDENTLY TO DEMONSTRATE A MINIMUN OF 1/3 GRADE INCREASE IN STRENGTH OF LEs Treatment Plan: Modalities to reduce pain, spasms and effusion. Manual therapy to restore motion and function. Therapeutic exercise to improve strength and flexibility. Neuromuscular re-education for posture and balance. Therapeutic activities to return to functional activities of daily living. Electronically signed by: REGINALDO STODDARD PT DPT Please sign and return to therapist. Thank you for your referral.
--- NOTE | 2025-01-12 11:32 | MHC.PT.DC ---
[facility] [place] [facility] [place] [facility] [place] [facility] [address] Steven Daniels [address] [phone] F: [phone] F: [phone] F: [phone] F: [phone] Physical Therapy Discharge Report Diagnosis: PROGRESSIVE SUPRANUCLEAR PALSY/GAIT AND BALANCE (KP) Date of Surgery: Date of Evaluation: 08/30/24 Date of Discharge: 12/03/24 Treatments to Date: 15 Cancellations to Date: 0 No Shows to Date: 0 Discharge Status: Discharge Summary: Pt underwent unrelated surgical proceedure on hand but currently unable to appropriately and safely ambulate with rollator. Will DC to HEP at this time. Currently Cesar is independent with current program and self management of symptoms. Electronically signed by: Kaila Yao PT DPT Please sign and return to therapist. Thank you for your referral.
== END 2025-01-12 11:32 | disposition home or self-care (01) ==
LOC: HO.PT 13:41
PROVIDERS: PCP Family Medicine; Visit Provider Family Medicine
DX: R26.89 Other abnormalities of gait and mobility (principal); R26.81 Unsteadiness on feet; G23.1 Progressive supranuclear ophthalmoplegia [Steele-Richardson-Olszewski]
CPT/HCPCS: 97110; 97112; 97116; 97162; 97163; 97530; 97535

== ENCOUNTER 2024-12-21 09:26 | Outpatient (AMB) | payer OTHER, SELFPAY ==
--- NOTE | 2024-12-21 09:37 | A.OFFPC_ITS ---
Vital Signs 12/21/24 09:40 Height 6 ft Weight 171 lb 8 oz BMI 23.3 BP 120/74 Blood Pressure Location Lt brachial Position Sitting Pulse 99 Pulse Source Pulse Oximeter Pulse Oximetry (%) 97 Oxygen Delivery Method Room Air Intake Visit Reasons: f/u mild anemia, depression/anxiety Allergies Seasonal Allergies Allergy (Intermediate, Verified 12/21/24 09:38) Runny Nose Tobacco use date assessed: 12/21/24 Dental Screening Dental Screen Date: 12/21/24 Did you have a dental visit in the last 12 months?: Yes Did you have a dental problem in the last 6 months where you did not have access to dental care?: No Was dental information given to patient?: Patient has dentist HPI f/u mild anemia, depression/anxiety HPI Details 59 y/o male presents to f/u mild anemia, depression/anxiety. Labs drawn 11/16/24. Reviewed labs with pt. Mild anemia have been improving. Had been following up with hand surgery for a L hand fracture. Had broken his L hand s/p fall. Pt notes he feels citalopram is not doing anything for his mood. They report ongoing memory changes, imbalance. [facility] Medical History Parkinson disease GERD (gastroesophageal reflux disease) Falls Weakness Urinary frequency Lower urinary tract symptoms Urinary urgency Urinary incontinence Effusion, left knee Elevated fasting glucose Adult general medical exam Daytime sleepiness Difficulty sleeping Dizziness Imbalance High cholesterol Hypertension Surgical History History of appendectomy History of repair of anterior cruciate ligament of left knee Family History Maternal Grandmother Mental health disorder Maternal Uncle Mental health disorder Father Colon cancer Family/Other Leukemia Social History Housing: House Alcohol intake: former Comment: counts correct Patient Tobacco Use Status: Former Tobacco user Tobacco use type: Cigarette e-Cigarette/Vaping Use: Never Used Second Hand Smoke Exposure: No Substance Use Type: Marijuana service: Yes Current occupational status: unemployed Cognitive needs: No Hearing needs: No Vision needs: No Questionnaire PHQ-9 Over the last 2 weeks, how often have you been bothered by any of the following problems? 1. Little interest or pleasure in doing things: not at all 2. Feeling down, depressed, or hopeless: several days 3. Trouble falling or staying asleep, or sleeping too much: more than half the days 4. Feeling tired or having little energy: several days 5. Poor appetite or overeating: not at all 6. Feeling bad about yourself - or that you are a failure or have let yourself or your family down: several days 7. Trouble concentrating on things, such as reading the newspaper or watching television: not at all 8. Moving or speaking so slowly that other people could have noticed. Or the opposite - being so fidgety or restless that you have been moving around a lot more than usual: more than half the days 9. Thoughts that you would be better off or of hurting yourself in some way: several days Total score: 8 Depression Screening Interpretation: Positive Depression Screening Done: Yes 12478 - PHQ-9 Billing: Yes Source: Developed by Drs. Torrey Funez, Haley Aviles, Gilmer Souza and colleagues, with an educational jose a from [employer]. Thrive Questionnaire Date Thrive assessed: 12/21/24 I am a: Patient What is your living situation today?: I have a steady place to live Within the past 12 months, did the food you bought not last and you didn't have the money to get more?: Never true Within the past 12 months, did you worry whether your food would run out before you got money to buy more?: Never true Do you have trouble paying for medicines?: No Do you have trouble getting transportation to medical appointments?: No Do you have trouble paying your heating and electricity bill?: No Do you have trouble taking care of your child, family member or friend?: Yes Do you have trouble with day-to-day activities such as bathing, preparing meals, shopping, managing finances, etc.?: Yes Are you currently unemployed and looking for a job?: No Are you interested in more education?: No Please select the resources that you would like help with: Care for elder or disabled Currently or been in a relationship where the following occur: No concerns reported THRIVE Score: 0 AUDIT C Alcohol Use Questionnaire (AUDIT-C) 1. How often do you have a drink containing alcohol?: Never 3. How often do you have six or more drinks on one occasion?: Never Total Score: 0 DARRICK-7 AMB Questionnaire DARRICK-7 Date DARRICK - 7 assessed: 12/21/24 Feeling nervous, anxious, or on edge: 0 = Not at all Not being able to stop or control worryin = Not at all Worrying too much about different things: 1 = Several days Trouble relaxin = Not at all Being so restless that it is hard to sit still: 0 = Not at all Becoming easily annoyed or irritable: 1 = Several days Feeling afraid as if something awful might happen: 1 = Several days Total DARRICK-7 score (0-4 normal; 5-9 mild; 10-14 moderate; 15-21 severe): 3 Source: Developed by Drs. Torrey Funez, Haley Aviles, Gilmer Souza and colleagues, with an educational jose a from [employer]. DARRICK-7 Assessment Billing DARRICK-7 Assessment Tool: DARRICK-7 Assessment 50376 Review of Systems Const Denies chills, Denies fatigue, Denies fever(s), Denies headache(s) and Denies weakness ENT Denies dizziness and Denies headache(s) Card Denies dyspnea Resp Denies cough, Denies dyspnea, Denies wheezing and Denies other (shortness of breath) Musc Denies numbness and Denies tingling Neuro Denies dizziness, Denies headache(s), Denies numbness, Denies tingling and Denies weakness Psych Reports anxiety and Reports depression Endo Denies fatigue Aller/Immun Denies wheezing Physical exam (Primary Care) Vital Signs: Last Vital Signs Pulse 99 12/21/24 09:40 BP 120/74 12/21/24 09:40 Pulse Ox 97 12/21/24 09:40 Oxygen Delivery Method Room Air 12/21/24 09:40 BMI result Body Mass Index 23.3 Tobacco/Smoking Status: Tobacco use Status Tobacco use date assessed 12/21/24 12/21/24 09:40 Patient Tobacco Use Status Former Tobacco user 12/21/24 09:38 Tobacco use type Cigarette 12/21/24 09:38 e-Cigarette/Vaping Use Never Used 12/21/24 09:38 PHQ-9: PHQ-9 Score PHQ-9: Total score 8 12/21/24 09:40 Depression Screening Interpretation: Positive Thrive Assessment: Date of Thrive Assessment Date Thrive assessed 12/21/24 12/21/24 09:40 Currently or been in a relationship where the following occur: No concerns reported Const General: well developed; No acute distress Nutritional Appearance: well nourished Orientation/consciousness: patient oriented x3 HENAR Head: Yes normocephalic and Yes atraumatic Eyes General: appearance normal, both eyes and all related structures Pupils: Equal, round and reactive pupils present EOM: EOMs intact bilaterally Resp Effort & Inspection: normal respiratory effort Neuro General: patient oriented x3 and gait normal Cranial nerves: Yes Equal, round and reactive pupils present Psych Affect: normal affect Coding Level of Care Code Est Pt Level 5 (87386) Diagnoses Progressive supranuclear palsy G23.1 Mild anemia D64.9 Fracture of fourth metacarpal bone of left hand S62.305A Anxiety with depression F41.8 Memory changes R41.3 Additional Codes DARRICK-7 Assessment Billing - DARRICK-7 Assessment Tool: DARRICK-7 Assessment 58952 ([id number]) PHQ-9 - 38760 - PHQ-9 Billing: Yes ([id number]) Assessment & Plan Assessment & Plan (1) Progressive supranuclear palsy: Code(s): G23.1 - Progressive supranuclear ophthalmoplegia [Yssnoa-Xgnjgjuczf-[id number]] Category: Medical (2) Mild anemia: Code(s): D64.9 - Anemia, unspecified Category: Medical (3) Fracture of fourth metacarpal bone of left hand: Code(s): S62.305A - Unspecified fracture of fourth metacarpal bone, left hand, initial encounter for closed fracture Category: Medical (4) Anxiety with depression: Code(s): F41.8 - Other specified anxiety disorders Category: Medical (5) Memory changes: Code(s): R41.3 - Other amnesia Category: Medical Plan Ongoing?issues?from?progressive?supranuclear?palsy. Patient?has?had?a?recent?fall?and?left?4th?metacarpal?fracture?which?has?been?re paired?surgically. He?has?follow-up?with?ortho?for?this?on?Thursday. Currently?unable?to?perform?physical?therapy?due?to?this?injury. Encouraged?him?to?get?as?much?activity?and?exercise?as?he?can?at?home. He?is?using?his?walker?and?does?have?ramps?and?safety?handles?at?home. He?is?followed?by?Dr. Chavez, neurology?movements?specialty who?recently?increased?his?carbidopa?levodopa?from?1?tab?t.i.d. to 1.5?tabs?t.i.d. but?patient?says?this?has?not?helped?much. His??is?noticing?worsening?cognitive?and?mem ory?changes.??Will?refer?to?neuropsychiatry. Ongoing?anxiety?and?depression.??Does?not?feel?that?citalopram?is?helping.??Will ?switch?this?to?sertraline.??He?continues?to?see?a?therapist?and?I?encoura ged?this. Mild?macrocytic?anemia?which?is?nearly?resolved?since?starting?B12. Continue?B12?script?and?can?switch?to?OTC?supplement?when?anemia?has?resolved.?? Would?continue?B12?for?neuro?protective?affects?ongoing. Orders: Referrals Neuropsychiatry Referral G23.1 - Progressive supranuclear ophthalmoplegia [Danielle], R41.3 - Other amnesia Medications: New sertraline 75 mg (1.5 x 50 mg) PO DAILY 90 days 135 tabs 3RF Refilled esomeprazole magnesium 20 mg PO DAILY 90 days 90 caps 2RF Discontinued citalopram Discontinued Reason: Doctor's Order 20 mg PO DAILY 90 days 90 tabs 1RF
[2024-12-21 09:40] VITALS: BP 120/74; PULSE 99; O2SAT 97; BMI 23.3
--- OUTSIDE RECORDS SUMMARY | 2024-12-21 09:47 | XMS_ITS | Clinical Summary ---
[facility] Address [address] [place] [address] Care Team Providers Care Aging Room Operator Name Role Phone Unavailable Primary Care Provider Unavailabl e Social History Tobacco Use Types Packs/Day Years Used Date Smoking Tobacco: Never Assessed Sex and Gender Information Value Date Recorded Sex Assigned at Not on file Gender Identity Not on file Sexual Orientation Not on file Plan of Treatment Not on file
--- OUTSIDE RECORDS SUMMARY | 2024-12-21 09:47 | XMS_ITS | Clinical Summary ---
Author Organization [facility] Address [address] [place] [address] Care Team Providers Care Director Credit Risk Name Role Phone Alen Castanon MD Primary [...] Description 10/31/2024 11:30 AM EST Office Visit [facility] Neurology [address] [phone] Paolo Wilkins APRN Primary parkinsonism (HCC) 10/31/2024 [...] Description 08/01/2025 9:30 AM EDT Office Visit [facility] Neurology [address] [address] Paolo Wilkins APRN [address] [place] [address] Health Maintenance Due Date Last Done Comments [...] LTG 1 Speech Therapy No Geni Du, HILARY-WIRED SWEATBAND CUTTER Note: Pt will use compensatory strategies for word retrieval, memory, attention and executive skills for functional activities with min cues/80% accuracy. LTG 2 Speech Therapy No Geni Du CCC-WIRED SWEATBAND CUTTER Note: Pt score on the Communicative Participation Item Bank will improve by at least 3 points. Care Teams Director Credit Risk Relationship Specialty Start Date End Date Alen Castanon MD [address] [place] [address] [place] [id number] PCP - General Family Medicine 08/03/23
== END 2024-12-21 10:23 | disposition home or self-care (01) ==
PROVIDERS: PCP Family Medicine; Visit Provider Family Medicine
DX: G23.1 Progressive supranuclear ophthalmoplegia [Steele-Richardson-Olszewski] (principal); D64.9 Anemia, unspecified; S62.305A Unspecified fracture of fourth metacarpal bone, left hand, initial encounter for closed fracture; F41.8 Other specified anxiety disorders; R41.3 Other amnesia

== ENCOUNTER → 2024-12-21 09:26 | Outpatient (BNVA) | payer OTHER, SELFPAY | PROVIDERS: PCP Family Medicine; Visit Provider Family Medicine | DX: G23.1 Progressive supranuclear ophthalmoplegia [Steele-Richardson-Olszewski] (principal); D64.9 Anemia, unspecified; F41.8 Other specified anxiety disorders; R41.3 Other amnesia; S62.305D Unspecified fracture of fourth metacarpal bone, left hand, subsequent encounter for fracture with routine healing; W19.XXXD Unspecified fall, subsequent encounter | CPT/HCPCS: 96127 ==

== ENCOUNTER 2024-12-23 11:43 | Outpatient (REF) | payer OTHER, SELFPAY ==
--- NOTE | ~2024-12-23 | XR_ITS ---
EXAMINATION: XR HAND 3 OR MORE VIEWS LEFT HISTORY: M79.642 - Pain in left hand COMPARISON: Comparison is made with the prior examination dated 12/02/2024. FINDINGS: Three views of the left hand are submitted. Osseous mineralization is normal. The patient is status post placement of a K wire across the metacarpal heads of the 3rd-5th fingers. Again seen is an oblique fracture of the shaft of the 4th metacarpal. There is callus formation noted consistent with healing. 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 The soft tissues are unremarkable. XR/XR hand LT min 3V IMPRESSION: Status post placement of a K wire across the 3rd through 5th metacarpal heads. Healing oblique fracture of the 4th metacarpal shaft. Electronically signed by: Torrey Meraz MD 12/27/2024 08:57 AM RAI
--- OUTSIDE RECORDS SUMMARY | 2024-12-27 14:22 | XMS_ITS | Clinical Summary ---
[facility] Organization [facility] Address [address] [place] [address] Care Team Providers Care Bonding Equipment Operator Name Role Phone Unavailable Primary Care Provider Unavailabl e Social History Tobacco Use Types Packs/Day Years Used Date Smoking Tobacco: Never Assessed Sex and Gender Information Value Date Recorded Sex Assigned at Not on file Gender Identity Not on file Sexual Orientation Not on file Plan of Treatment Not on file
--- OUTSIDE RECORDS SUMMARY | 2024-12-27 14:22 | XMS_ITS | Clinical Summary ---
Author Organization [facility] Address [address] [place] [address] Care Team Providers Care Auto Tech Name Role Phone Alen Castanon MD [...] Description 10/31/2024 11:30 AM EST Office Visit [facility] Neurology [address] [phone] Paolo Wilkins APRN Primary parkinsonism (HCC) 10/31/2024 [...] Description 08/01/2025 9:30 AM EDT Office Visit [facility] Neurology [address] [phone] Paolo Wilkins APRN [address] [place] [id number] Health Maintenance Due Date Last Done Comments [...] LTG 1 Speech Therapy No Geni Du, HILARY-PEDIATRIC PHYSIATRIST Note: Pt will use compensatory strategies for word retrieval, memory, attention and executive skills for functional activities with min cues/80% accuracy. LTG 2 Speech Therapy No Geni Du CCC-PEDIATRIC PHYSIATRIST Note: Pt score on the Communicative Participation Item Bank will improve by at least 3 points. Care Teams Auto Tech Relationship Specialty Start Date End Date Alen Castanon MD [address] [place] [address] [place] [id number] PCP - General Family Medicine 08/03/23
== END 2024-12-23 11:44 | disposition home or self-care (01) ==
LOC: HO.HOSX 11:43
PROVIDERS: Visit Provider Orthopaedic Surgery
DX: M79.642 Pain in left hand (principal); S62.305A Unspecified fracture of fourth metacarpal bone, left hand, initial encounter for closed fracture
CPT/HCPCS: 73130; 99212

== ENCOUNTER 2024-12-23 14:28 | Outpatient (AMB) | payer OTHER, SELFPAY ==
--- NOTE | 2024-12-23 14:30 | A.OFFVIS_ITS ---
Intake Visit Reasons: PO-Left 4th metacarpal CRPP versus ORIF-DOS 12/05/24 Intake Note: Cesar 59 year old male who presents today for his post operative visit for his LT 4th metacarpal CRPP, DOS 12/05/24. Splint removed and x-rays updated. Patient reports while he was in our office waiting room he went to itch his hand and his pin had came out. Allergies Seasonal Allergies Allergy (Intermediate, Verified 12/23/24 14:57) Runny Nose HPI HPI PO-Left 4th metacarpal CRPP versus ORIF-DOS 12/05/24: Details: Cesar is a 59 year old right hand dominant man who returns S/P left 4th metacarpal shaft CRPP, DOS: 12/05/24. From a fall, DOI: 11/22/24. He says he is doing well overall. He denies any numbness or tingling. He accidentally removed his k_wire today in clinic, when removing his dressing. [facility] Medical History Parkinson disease GERD (gastroesophageal reflux disease) Falls Weakness Urinary frequency Lower urinary tract symptoms Urinary urgency Urinary incontinence Effusion, left knee Elevated fasting glucose Adult general medical exam Daytime sleepiness Difficulty sleeping Dizziness Imbalance High cholesterol Hypertension Surgical History History of appendectomy History of repair of anterior cruciate ligament of left knee Family History Maternal Grandmother Mental health disorder Maternal Uncle Mental health disorder Father Colon cancer Family/Other Leukemia Social History Housing: House Alcohol intake: former Comment: counts correct Patient Tobacco Use Status: Former Tobacco user Tobacco use type: Cigarette e-Cigarette/Vaping Use: Never Used Second Hand Smoke Exposure: No Substance Use Type: Marijuana service: Yes Current occupational status: unemployed Cognitive needs: No Hearing needs: No Vision needs: No Review of Systems Const All systems reviewed & are unremarkable except as noted in HPI and below Physical Exam Const General: no acute distress and alert Orientation/consciousness: patient oriented x3 Neuro General: patient oriented x3 Extrem Other: The patient was alert oriented and in no acute distress The pin site is healing well with no erythema drainage or evidence of infection. Sutures removed and Steri-Strips applied K-wire removed accidentally by the patient, today in clinic after x-rays which he tolerated well No rotational or angular mal-alignment He can make a weak fist and extend all his digits Fracture site non-tender Sensation is intact Cap refill is brisk Radiographs: 3 views of the left hand were taken and viewed by me today in clinic. they show a 4th metacarpal shaft fracture and single K-wire passing through the 3rd, 4th and 5th metacarpal heads, with satisfactory fracture alignment and position of all implants. Psych Appearance: grossly normal Affect: normal affect Attitude: cooperative Assessment & Plan Assessment & Plan (1) Fracture of fourth metacarpal bone of left hand: Code(s): S62.305A - Unspecified fracture of fourth metacarpal bone, left hand, initial encounter for closed fracture Category: Medical Plan Assessment & Plan: 1. Left 4th metacarpal shaft fracture, S/P CRPP DOS: 12/05/24 From a fall, DOI: 11/22/24 K-wire removed accidentally by patient today in clinic: 12/23/24 The patient appears to be doing well post-operatively I educated him about the post-operative course He was fitted for a velcro wrist splint, with his middle & ring fingers Rashard- taped, to be worn for the next 2 weeks I explained the signs and symptoms of infection, if the patient develops any new or worsening erythema, drainage, pain, or warmth they should contact the clinic or attend the ED. I discussed activity modifications, he is to lift nothing heavier than a cellphone for the next 4 weeks. Apparently he has been lifting 45lb bags of pellets at home prior to today's appointment. He will perform gentle ROM exercises at home He will follow up in 3 weeks with X-rays, 3V L hand, OOP. Scribed for Roz Grant MD by Charli Gentile, medical practice administrator, on 12/23/24 at 2:50 PM, EST. Orders: Orders XR hand LT min 3V Today M79.642 - Pain in left hand Coding Level of Care Code Global (60758) Diagnoses Fracture of fourth metacarpal bone of left hand S62.305A
--- OUTSIDE RECORDS SUMMARY | 2024-12-23 14:50 | XMS_ITS | Clinical Summary ---
Author Organization [facility] Address [address] [place] [address] Care Team Providers Care Oil Operator Name Role Phone Unavailable Primary Care Provider Unavailabl e Social History Tobacco Use Types Packs/Day Years Used Date Smoking Tobacco: Never Assessed Sex and Gender Information Value Date Recorded Sex Assigned at Not on file Gender Identity Not on file Sexual Orientation Not on file Plan of Treatment Not on file
== END 2024-12-23 15:20 | disposition home or self-care (01) ==
PROVIDERS: PCP Family Medicine; Visit Provider Orthopaedic Surgery
DX: S62.305A Unspecified fracture of fourth metacarpal bone, left hand, initial encounter for closed fracture (principal)
CPT/HCPCS: 99024

== ENCOUNTER → 2024-12-23 14:39 | Outpatient (BNV) | payer OTHER, SELFPAY | PROVIDERS: Visit Provider Radiology Diagnostic Radiology | DX: Z47.81 Encounter for orthopedic aftercare following surgical amputation (principal); M79.642 Pain in left hand | CPT/HCPCS: 73130 ==

== ENCOUNTER 2024-12-26 09:38 | Outpatient (REF) | payer OTHER, SELFPAY ==
--- NOTE | ~2024-12-26 | XR_ITS ---
EXAMINATION: XR HAND, LEFT CLINICAL INFORMATION: M79.642 - Pain in left hand COMPARISON: December 23, 2024. TECHNIQUE: PA, lateral, and oblique views of the left hand. FINDINGS: Status post removal of a metallic pin. No periosteal bone reaction or callus formation in the comminuted fracture proximal to mid diaphysis of the fourth metacarpal. Degenerative changes in the first carpometacarpal joint and radiocarpal joint. The phalanges are intact. Degenerative changes in the interphalangeal joints of the third and fifth digits. XR/XR hand LT min 3V IMPRESSION: No healing the comminuted fracture fourth metacarpal. Degenerative changes/osteoarthrosis first carpometacarpal joint and interphalangeal joints third and fifth digits. Electronically signed by: Mak Patel MD 12/27/2024 12:08 PM RAI SANCHEZ
--- OUTSIDE RECORDS SUMMARY | 2024-12-26 10:30 | XMS_ITS | Clinical Summary ---
Author Organization [facility] Address [address] [place] [address] Care Team Providers Care Casey Saw Operator Name Role Phone Unavailable Primary Care Provider Unavailabl e Social History Tobacco Use Types Packs/Day Years Used Date Smoking Tobacco: Never Assessed Sex and Gender Information Value Date Recorded Sex Assigned at Not on file Gender Identity Not on file Sexual Orientation Not on file Plan of Treatment Not on file
--- OUTSIDE RECORDS SUMMARY | 2024-12-26 10:30 | XMS_ITS | Clinical Summary ---
Author Organization [facility] Address [address] [place] [address] Care Team Providers Care Waste Water Plant Operator Name Role Phone Alen Castanon MD Primary [...] Description 10/31/2024 11:30 AM EST Office Visit [facility] Neurology [address] [phone] Paolo Wilkins APRN Primary parkinsonism (HCC) 10/31/2024 [...] Description 08/01/2025 9:30 AM EDT Office Visit [facility] Neurology [address] [phone] Paolo Wilkins APRN [address] [place] [address] Health Maintenance Due Date Last Done Comments [...] LTG 1 Speech Therapy No Geni Du, HILARY-LYE BOILER Note: Pt will use compensatory strategies for word retrieval, memory, attention and executive skills for functional activities with min cues/80% accuracy. LTG 2 Speech Therapy No Geni Du CCC-LYE BOILER Note: Pt score on the Communicative Participation Item Bank will improve by at least 3 points. Care Teams Waste Water Plant Operator Relationship Specialty Start Date End Date Alen Castanon MD [address] [place] [address] [place] [id number] PCP - General Family Medicine 08/03/23
== END 2024-12-26 09:39 | disposition home or self-care (01) ==
LOC: HO.HOSX 09:38
DX: M79.642 Pain in left hand (principal); S62.355A Nondisplaced fracture of shaft of fourth metacarpal bone, left hand, initial encounter for closed fracture; W03.XXXA Other fall on same level due to collision with another person, initial encounter; Y93.01 Activity, walking, marching and hiking; Y92.009 Unspecified place in unspecified non-institutional (private) residence as the place of occurrence of the external cause; Y99.9 Unspecified external cause status
CPT/HCPCS: 73130

== ENCOUNTER 2024-12-26 10:46 | Outpatient (AMB) | payer OTHER, SELFPAY ==
[2024-12-26 11:00] VITALS: BMI 23.2
--- NOTE | 2024-12-26 11:00 | MHC.OFFVIS ---
Vital Signs 12/26/24 11:00 Height 6 ft Weight 171 lb BMI 23.2 Intake Visit Reasons: P/O L 4th metacarpal CRPP -12/05/24. Intake Note: Cesar 59 year old male who presents today s/p post operative visit for his LT 4th metacarpal CRPP, DOS 12/05/24. States he fell at his daughter home, states his fell on top of him trying to prevent the fall, he hurt his left hand. Currently states he has no pain and he was wearing his brace at the time of fall, he did have increase swelling after his fall, his state ice was put onhis hand and that help alot. Allergies Seasonal Allergies Allergy (Intermediate, Verified 12/26/24 11:03) Runny Nose HPI HPI P/O L 4th metacarpal CRPP -12/05/24.: Details: Cesar 59 year old male who presents today s/p post operative visit for his LT 4th metacarpal CRPP, DOS 12/05/24. States he fell at his daughter home, states his fell on top of him trying to prevent the fall, he hurt his left hand. Currently states he has no pain and he was wearing his brace at the time of fall, he did have increase swelling after his fall, his state ice was put onhis hand and that help alot. [facility] Medical History Parkinson disease GERD (gastroesophageal reflux disease) Falls Weakness Urinary frequency Lower urinary tract symptoms Urinary urgency Urinary incontinence Effusion, left knee Elevated fasting glucose Adult general medical exam Daytime sleepiness Difficulty sleeping Dizziness Imbalance High cholesterol Hypertension Surgical History History of appendectomy History of repair of anterior cruciate ligament of left knee Family History Maternal Grandmother Mental health disorder Maternal Uncle Mental health disorder Father Colon cancer Family/Other Leukemia Social History Housing: House Alcohol intake: former Comment: counts correct Patient Tobacco Use Status: Former Tobacco user Tobacco use type: Cigarette e-Cigarette/Vaping Use: Never Used Second Hand Smoke Exposure: No Substance Use Type: Marijuana service: Yes Current occupational status: unemployed Cognitive needs: No Hearing needs: No Vision needs: No Review of Systems Const All systems reviewed & are unremarkable except as noted in HPI and below Physical Exam Vital Signs: BMI result Body Mass Index 23.2 Const General: no acute distress and alert Orientation/consciousness: patient oriented x3 Neuro General: patient oriented x3 Extrem Other: The patient was alert oriented and in no acute distress The pin site is healing well with no erythema drainage or evidence of infection. Sutures removed and Steri-Strips applied K-wire removed accidentally by the patient, today in clinic after x-rays which he tolerated well No rotational or angular mal-alignment He can make a weak fist and extend all his digits Fracture site non-tender Sensation is intact Cap refill is brisk Psych Appearance: grossly normal Affect: normal affect Attitude: cooperative Results Reviewed Results Reviewed: X-rays obtained in the office today and independently reviewed by me, Joni Francis PA-C, demonstrate nondisplaced fracture of the left 4th metacarpal shaft with evidence of interval bony healing. Assessment & Plan Assessment & Plan (1) Fracture of fourth metacarpal bone of left hand: Code(s): S62.305A - Unspecified fracture of fourth metacarpal bone, left hand, initial encounter for closed fracture Category: Medical Plan 1. Status post CRPP of left 4th metacarpal DOS 12/05/2024 Patient is educated that he did not displace his fracture upon falling Patient was educated they are still good evidence of bony healing Patient and his were thankful for this and are amenable to continuing previously discussed plan with Dr. Grant Patient will follow-up for previously scheduled appointment with Dr. Grant for reassessment, sooner with any acute concerns Orders: Orders XR hand LT min 3V Today M79.642 - Pain in left hand Coding Level of Care Code Global (23491) Diagnoses Fracture of fourth metacarpal bone of left hand S62.305A
--- OUTSIDE RECORDS SUMMARY | 2024-12-26 12:11 | XMS_ITS | Clinical Summary ---
Author Organization [facility] Address [address] [place] [address] Care Team Providers Care Automation Architect Name Role Phone Alen Castanon MD Primary Care Provider [phone] Allergies No known active allergies Medications Medication [...] [facility] Neurology [address] [phone] Paolo Wilkins APRN Primary parkinsonism (HCC) 10/31/2024 [...] [facility] Neurology [address] [address] Paolo Wilkins APRN [address] [place] [address] Health Maintenance Due Date Last Done Comments [...] LTG 1 Speech Therapy No Geni Du, HILARY-AEROLOGIST Note: Pt will use compensatory strategies for word retrieval, memory, attention and executive skills for functional activities with min cues/80% accuracy. LTG 2 Speech Therapy No Geni Du CCC-AEROLOGIST Note: Pt score on the Communicative Participation Item Bank will improve by at least 3 points. Care Teams Automation Architect Relationship Specialty Start Date End Date Alen Castanon MD [address] [place] [address] [place] [id number] PCP - General Family Medicine 08/03/23
--- OUTSIDE RECORDS SUMMARY | 2024-12-26 12:11 | XMS_ITS | Clinical Summary ---
Author Organization [facility] Address [address] [place] [address] Care Team Providers Care Landscaper Helper Name Role Phone Unavailable Primary Care Provider Unavailabl e Social History Tobacco Use Types Packs/Day Years Used Date Smoking Tobacco: Never Assessed Sex and Gender Information Value Date Recorded Sex Assigned at Not on file Gender Identity Not on file Sexual Orientation Not on file Plan of Treatment Not on file
== END 2024-12-26 11:09 | disposition home or self-care (01) ==
PROVIDERS: PCP Family Medicine
DX: S62.305A Unspecified fracture of fourth metacarpal bone, left hand, initial encounter for closed fracture (principal)
CPT/HCPCS: 99024

== ENCOUNTER → 2024-12-26 10:50 | Outpatient (BNV) | payer OTHER, SELFPAY | PROVIDERS: Visit Provider Radiology Diagnostic Radiology | DX: S62.355 Nondisplaced fracture of shaft of fourth metacarpal bone, left hand (principal) | CPT/HCPCS: 73130 ==

== ENCOUNTER 2024-12-27 09:32 | Outpatient (AMB) | payer OTHER, SELFPAY ==
--- NOTE | 2024-12-27 09:32 | MHC.OFFVIS ---
Intake Visit Reasons: 2M Med Review(Gemtesa) Intake Note: Patient is present for 2M MED REVIEW (GEMTESA) Urology Medication:VITAMIN B12 Antibiotic Allergy:NONE Blood Thinner:NONE Asbestos Removal Supervisor Required: No Allergies Seasonal Allergies Allergy (Intermediate, Verified 12/27/24 09:33) Runny Nose HPI Comments Details: Juanita is a pleasant male. He is a patient of Dr. Castanon. He is seen for the following urologic conditions - Lower urinary tract symptoms in the setting of neurologic disease (Parkinson's/supranuclear palsy) Telemedicine Evaluation 15 min Consultation [place] [facility] Video Follow-up Myrbetriq 50 mg trial not helpful Off medication Nocturia x3, daytime control 5-6x Occasional accidents Anticholinergics are not recommended as first-line therapy for patients with known neurologic conditions Urinary urgency and frequency Prior trial of Myrbetriq Moderate success with 25 mg Did not think 50mg was not helpful Lower urinary tract symptoms Report on initial nocturia x2, urinary urgency with frequency and episodes of incontinence Bladder ultrasound prostate 45 cc PSA 01/23 0.6 At time of initial visit had new onset Parkinson's diagnosis Initial therapy tamsulosin Tried Cialis daily however this did not help PFSH Medical History Parkinson disease GERD (gastroesophageal reflux disease) Falls Weakness Urinary frequency Lower urinary tract symptoms Urinary urgency Urinary incontinence Effusion, left knee Elevated fasting glucose Adult general medical exam Daytime sleepiness Difficulty sleeping Dizziness Imbalance High cholesterol Hypertension Surgical History History of appendectomy History of repair of anterior cruciate ligament of left knee Family History Maternal Grandmother Mental health disorder Maternal Uncle Mental health disorder Father Colon cancer Family/Other Leukemia Social History Housing: House Alcohol intake: former Comment: counts correct Patient Tobacco Use Status: Former Tobacco user Tobacco use type: Cigarette e-Cigarette/Vaping Use: Never Used Second Hand Smoke Exposure: No Substance Use Type: Marijuana service: Yes Current occupational status: unemployed Cognitive needs: No Hearing needs: No Vision needs: No Assessment & Plan Assessment & Plan (1) Lower urinary tract symptoms: Code(s): R39.9 - Unspecified symptoms and signs involving the genitourinary system Category: Medical (2) Bladder instability: Code(s): N32.89 - Other specified disorders of bladder Category: Medical Plan No medications currently Review in six-month Patient Instructions: This note is constructed using voice recognition software. While every effort has been made to ensure accuracy chargemaster analyst errors may have been included. Imaging studies, laboratory and physical exam results were discussed and reviewed in detail. No major barriers to patient understanding were identified. An opportunity to ask questions regarding the treatment plan was provided. All questions were answered. The patient expressed understanding and agreement with the above treatment plan. The patient is aware they should contact our office by phone for worsening of their current condition or the appearance of new urologic symptoms. Compliance is encouraged with any medications and followup testing that is ordered. It is a privilege to participate in the urologic care of your patient. If you have any questions or concerns regarding treatment for the above conditions, or other urologic issues, please do not hesitate to contact me. The office telephone contact is [phone]. Sincerely, Dr Rico Moreno MD, [facility] - Urology Compassionate Specialist Care for the Genitourinary System Coding Level of Care Code Tele Est Pt Level 3 (76261) Diagnoses Lower urinary tract symptoms R39.9 Bladder instability N32.89
--- OUTSIDE RECORDS SUMMARY | 2024-12-27 10:39 | XMS_ITS | Clinical Summary ---
Author Organization [facility] Address [address] [place] [address] Care Team Providers Care Whey Department Operator Name Role Phone Alen Castanon MD [...] 10/31/2024 11:30 AM EST Office Visit [facility] Neurology [address] [phone] Paolo Wilkins APRN Primary parkinsonism (HCC) 10/31/2024 [...] 08/01/2025 9:30 AM EDT Office Visit [facility] Neurology [address] [phone] Paolo Wilkins APRN [address] [place] [id number] Health Maintenance Due Date Last Done Comments [...] LTG 1 Speech Therapy No Geni Du, HILARY-DRUG DEPARTMENT WORKER Note: Pt will use compensatory strategies for word retrieval, memory, attention and executive skills for functional activities with min cues/80% accuracy. LTG 2 Speech Therapy No Geni Du CCC-DRUG DEPARTMENT WORKER Note: Pt score on the Communicative Participation Item Bank will improve by at least 3 points. Care Teams Whey Department Operator Relationship Specialty Start Date End Date Alen Castnaon MD [address] [place] [address] [place] [id number] PCP - General Family Medicine 08/03/23
--- OUTSIDE RECORDS SUMMARY | 2024-12-27 10:39 | XMS_ITS | Clinical Summary ---
Author Organization [facility] Address [address] [place] [address] Care Team Providers Care Radiology Physician Assistant Name Role Phone Unavailable Primary Care Provider Unavailabl e Social History Tobacco Use Types Packs/Day Years Used Date Smoking Tobacco: Never Assessed Sex and Gender Information Value Date Recorded Sex Assigned at Not on file Gender Identity Not on file Sexual Orientation Not on file Plan of Treatment Not on file
== END 2024-12-27 10:30 | disposition home or self-care (01) ==
LOC: HO.HUSH 09:32
PROVIDERS: PCP Family Medicine; Visit Provider Urology
DX: R39.9 Unspecified symptoms and signs involving the genitourinary system (principal); N32.89 Other specified disorders of bladder
CPT/HCPCS: 98004

== ENCOUNTER 2025-01-07 21:02 | Emergency (ER) | payer OTHER, SELFPAY ==
--- NOTE | ~2025-01-07 | CT_ITS ---
CLINICAL HISTORY: fall CT head without contrast Comparison: Head CT from 11/23/2024. Findings: No acute intracranial hemorrhage. No midline shift or hydrocephalus. Mild volume loss is generalized greater than expected for age. Mild white matter lesions are redemonstrated likely due to small-vessel ischemic disease. No large arterial territorial infarction by CT. Posterior fossa arachnoid cyst measures 7 mm. Partially empty sella. Fluid and mucosal thickening persists in the left anterior ethmoid air cells with overall improved aeration of the paranasal sinuses relative to the comparison study. Imaged mastoid air cells are well aerated. No acute skull fracture. IMPRESSION: 1. No acute intracranial abnormality by CT. 2. No acute skull fracture. 3. No significant change in brain parenchyma compared to 11/23/2024. This document has been electronically signed by: Charli Clements MD on 01/08/2025 00:37:28
--- NOTE | ~2025-01-07 | CT_ITS ---
CLINICAL HISTORY: fall CT cervical spine without contrast Comparison: CT of the cervical spine from 11/23/2024 Findings: No acute fracture of the cervical spine. No significant listhesis or change in vertebral alignments. Mild reversal of the cervical lordosis. No significant change in mild height loss of the C5 through C7. Disc osteophyte complexes with mild-moderate spinal canal stenosis at C5-C6 and C6-C7, with [id number] foraminal narrowing, left worse than right. Additional mild foraminal narrowing is multifocal. Multifocal facet arthropathy is redemonstrated without significant change. No paraspinal hematoma. Vascular calcifications noted. Mild scarring of the imaged lung apices IMPRESSION: No acute fracture of the cervical spine and no significant change when compared to 11/23/2024 This document has been electronically signed by: Charli Clements MD on 01/08/2025 00:42:59
[2025-01-07 21:08] VITALS: BP 152/80; PULSE 86; O2SAT 100
[2025-01-07 21:20] VITALS: BP 137/82; PULSE 68; RESP 14; TEMP 37.1; O2SAT 97; BMI 24.0
--- NOTE | 2025-01-07 22:58 | ED.HEATRA ---
HPI - Head Injury General Chief complaint: Head Injury Stated complaint: Fall, + headstrike, 2 inch head lac, no thinners Time Seen by Provider: 01/07/25 22:57 Source: patient Mode of arrival: EMS Limitations: no limitations History of Present Illness ED Provider: HPI Narrative: Patient's history of Parkinson supposed to use walker at home not using it had multiple falls last few weeks today patient was standing with his sister in the kitchen without any walker, fell backwards hitting his head to the ground came with laceration to the back of the head Related Data Previous Rx's ?Medication ?Instructions ?Recorded carbidopa 25 mg-levodopa 100 mg 1 tab PO TID 90 days #270 tabs 05/11/24 tablet ibuprofen 600 mg tablet 600 mg PO Q6H PRN pain #20 tabs 06/27/24 lisinopril 20 mg tablet 20 mg PO DAILY 90 days #90 tabs 06/27/24 meclizine 25 mg tablet 25 mg PO BID PRN dizziness #30 tabs 06/27/24 mecobalamin (vitamin B12) 1,000 1,000 mcg PO DAILY 90 days #90 tabs 06/27/24 mcg chewable tablet simvastatin 20 mg tablet 20 mg PO DAILY 90 days #90 tabs 06/27/24 chair, wheel (Wheel chair) #1 ea 08/30/24 ondansetron HCl 4 mg tablet 4 mg PO Q8H PRN nausea and 11/04/24 vomiting 10 days #30 tabs esomeprazole magnesium 20 mg 20 mg PO DAILY 90 days #90 caps 12/21/24 capsule,delayed release sertraline 50 mg tablet 75 mg (1.5 x 50 mg) PO DAILY 90 12/21/24 days #135 tabs Allergies Allergy/AdvReac Type Severity Reaction Status Date / Time Seasonal Allergies Allergy Intermediate Runny Nose Verified 01/07/25 21:23 Review of Systems Review of Systems: Yes all other systems are reviewed and are negative PMFSH Past Medical History Medical History Parkinson disease GERD (gastroesophageal reflux disease) Falls Weakness Urinary frequency Lower urinary tract symptoms Urinary urgency Urinary incontinence Effusion, left knee Elevated fasting glucose Adult general medical exam Daytime sleepiness Difficulty sleeping Dizziness Imbalance High cholesterol Hypertension Surgical History History of appendectomy History of repair of anterior cruciate ligament of left knee Family History Family History Maternal Grandmother Mental health disorder Maternal Uncle Mental health disorder Father Colon cancer Family/Other Leukemia Social History Social History Housing: House Alcohol intake: former Comment: counts correct Patient Tobacco Use Status: Former Tobacco user Tobacco use type: Cigarette e-Cigarette/Vaping Use: Never Used Second Hand Smoke Exposure: No Substance Use Type: Marijuana Advance Directives: No Advance Directives Information Provided: No Do you have a plan to hurt others: No Plan service: Yes Current occupational status: unemployed Cognitive needs: No Hearing needs: No Vision needs: No Physical Exam Vital Signs: Vital Signs: Last Vital Signs Temp 97.6 F 01/08/25 00:25 Pulse 75 01/08/25 00:25 Resp 14 01/08/25 00:25 BP 124/79 01/08/25 00:25 Pulse Ox 96 01/08/25 00:25 O2 Del Method Room Air 01/08/25 00:25 BMI result Body Mass Index 24.0 Appearance: Alert. Oriented X3. No acute distress. Eyes: PERRLA, No Nystagmus HEENT: Pharynx normal. Oral Mucosa moist 5 cm long laceration of the occipital area Neck: Normal inspection. Neck supple. No midline tenderness CVS: Normal heart rate and rhythm. Pulses normal. Respiratory: No respiratory distress. Equal air entry bilateral, no wheezing/rales/rhonchi Abdomen: Soft and nontender. Bowel sounds are present, no mass palpable, no CVA tenderness Skin: Skin warm and dry. Normal skin color. Normal skin turgor. Extremities: No lower extremity edema. No calf tenderness Neuro: Oriented X 3. No motor deficit. No sensory deficit.No cerebellar signs , cranial nerves II-XII intact Medical Decision Making Medical Decision Making MDM Narrative: Patient's Parkinson disease with frequent falls secondary to imbalance patient is supposed to use walker does not use it came here with similar fall with laceration to the back of the head CT scan of the head and C-spine negative laceration was repaired using theo patient advised to use walker at home Independent Interpretation I performed an independent interpretation of an: CT Scan Radiology Impression Discussion of test interpretation with radiology: I have reviewed the radiologist's reading. Radiologist Impression: Negative CT head and cervical spine Procedures Laceration Laceration 1: Site: scalp Size (cm): 4 Description: linear Depth: simple, single layer Skin layer closed with: other ([place]# 5) Discharge Plan Discharge Clinical Impression: Head injury, Laceration of scalp Patient Disposition: Home, Self-Care Instructions: Laceration (DC), Head Injury (ED) Additional Instructions: Care and cautions as advised use walker when ambulating at home Staple removal in 7-10 days Prescriptions: No Action carbidopa-levodopa 25-100 mg tablet 1 tab PO TID 90 Days Qty: 270 3RF ibuprofen 600 mg tablet 600 mg PO Q6H PRN (Reason: pain) Qty: 20 0RF lisinopril 20 mg tablet 20 mg PO DAILY 90 Days Qty: 90 2RF meclizine 25 mg tablet 25 mg PO BID PRN (Reason: dizziness) Qty: 30 1RF mecobalamin (vitamin B12) 1,000 mcg tablet,chewable 1,000 mcg PO DAILY 90 Days Qty: 90 2RF simvastatin 20 mg tablet 20 mg PO DAILY 90 Days Qty: 90 2RF ondansetron HCl 4 mg tablet 4 mg PO Q8H PRN (Reason: nausea and vomiting) 10 Days Qty: 30 0RF (DME) Wheel chair Kit See Rx Instructions .Route Qty: 1 0RF Rx Instructions: Daily As directed, 999 days esomeprazole magnesium 20 mg capsule,delayed release(DR/EC) 20 mg PO DAILY 90 Days Qty: 90 2RF sertraline 50 mg tablet 75 mg PO DAILY 90 Days Qty: 135 3RF Print Language: Polish
[2025-01-08 00:25] VITALS: BP 124/79; PULSE 75; RESP 14; TEMP 36.4; O2SAT 96
[2025-01-08 01:00] VITALS: BP 124/79; PULSE 75; RESP 14; TEMP 36.4; O2SAT 96
== END 2025-01-08 01:00 | disposition home or self-care (01) ==
PROVIDERS: Emergency Provider Internal Medicine; PCP Family Medicine
DX: S01.01XA Laceration without foreign body of scalp, initial encounter (principal); S09.90XA Unspecified injury of head, initial encounter; W01.0XXA Fall on same level from slipping, tripping and stumbling without subsequent striking against object, initial encounter; R29.6 Repeated falls; Z91.81 History of falling; G20.A1 Parkinson's disease without dyskinesia, without mention of fluctuations; I10 Essential (primary) hypertension; E78.5 Hyperlipidemia, unspecified; K21.9 Gastro-esophageal reflux disease without esophagitis; D64.9 Anemia, unspecified; R26.81 Unsteadiness on feet; Z79.02 Long term (current) use of antithrombotics/antiplatelets; Z79.899 Other long term (current) drug therapy; Z87.891 Personal history of nicotine dependence; Y93.9 Activity, unspecified; Y92.9 Unspecified place or not applicable; Y99.9 Unspecified external cause status
CPT/HCPCS: 12002; 70450; 72125; 99284

== ENCOUNTER → 2025-01-07 23:11 | Outpatient (BNV) | payer OTHER, SELFPAY | PROVIDERS: Emergency Provider Internal Medicine; PCP Family Medicine; Visit Provider Radiology Neuroradiology | DX: Z48.02 Encounter for removal of sutures (principal); W19.XXXA Unspecified fall, initial encounter | CPT/HCPCS: 70450; 72125 ==

== ENCOUNTER 2025-01-11 08:58 | Outpatient (REF) | payer OTHER, SELFPAY ==
--- NOTE | ~2025-01-11 | XR_ITS ---
EXAMINATION: XR HAND, LEFT CLINICAL INFORMATION: M79.642 - Pain in left hand COMPARISON: December 26, 2024. TECHNIQUE: PA, lateral, and oblique views of the left hand. FINDINGS: There is minimal callus formation at the fracture proximal to mid diaphysis fourth metacarpal. Moderate to severe degenerative changes in the first carpometacarpal joint. XR/XR hand LT min 3V IMPRESSION: Minimal healing, comminuted fracture left fourth metacarpal. Electronically signed by: Mak Patel MD 01/11/2025 03:50 PM EDT
--- OUTSIDE RECORDS SUMMARY | 2025-01-12 10:05 | XMS_ITS | Clinical Summary ---
Author Organization [facility] Address [address] [place] [address] Care Team Providers Care Brace Maker Name Role Phone Unavailable Primary Care Provider Unavailabl e Social History Tobacco Use Types Packs/Day Years Used Date Smoking Tobacco: Never Assessed Sex and Gender Information Value Date Recorded Sex Assigned at Not on file Gender Identity Not on file Sexual Orientation Not on file Plan of Treatment Not on file
--- OUTSIDE RECORDS SUMMARY | 2025-01-12 10:06 | XMS_ITS | Encounter Summary ---
Author Organization [facility] Address [address] [place] [address] Care Team Providers Care Windows System Admin Name Role Phone Alen Castanon MD Primary Care Provider [phone] Reason for Referral * Home Health (Routine) - Closed Specialty Diagnoses / Procedures Referred By Adriane hunter Referred To Contact Home Health Services Diagnoses Primary parkinsonism (HCC) Gait instability Paolo Wilkins, RADIOLOGIST DIAGNOSTIC 35 [facility] [address] [place] [address] [facility] Scheduling [address] [place] [address] Referral ID Status Reason Start Date Expiration Date Visits Re quested Visits Authorized [id number] Closed 01/09/2025 01/10/2026 999 999 Scheduling Instructions [facility] Question Answer Primary Reason for Home Health (Enter diagnosis; avoid symptoms): Parkinson's disease (tremor, stiffness, slow motion, unstable posture) (HCC) [960279] Pre-Book? No Comments Please evaluate Henry Clinton [...] Primary parkinsonism (HCC) Paolo Wilkins APRN [id number] [place] [address] Referral ID Status Reason Start Date Expiration Date Visits Requested Visits Authorized [id number] Authorized Support Services 01/09/2025 01/10/2026 1 1 Scheduling Instructions [address] [address] Question Answer Is this referral for an initial evaluation or additional visits? Initial evaulation Is this related to a Neurological Condition? Yes Is this referral for PT or OT? PT Encounter Details Date Type Department Care Team (Late st Contact Info) Description 01/09/2025 Telephone [facility] Neurology [address] [address] Paolo Wilkins APRN 35 [facility] [address] [place], [place] [id number] Social History Tobacco Use Types Packs/Day Years [...] Encounter - Stefania Beyer RN - 01/11/2025 3:10 PM EDT Called [facility] and relayed that [facility] does not do in home care in his area and that [facility] should be reaching out to them. * Telephone Encounter - Stefania Beyer RN - 01/11/2025 2:15 PM EDT [facility] called and advised that [facility] is out of their area. [place] [address] Admin * Telephone Encounter - Stefania Beyer RN - 01/10/2025 10:31 AM EDT Called [facility] and relayed message from director of social work and advised that the PT/OT order was placed. * Telephone Encounter - Stefania Beyer RN - 01/09/2025 4:01 PM EDT [facility] * Addendum Note - Paolo Wilkins APRN [...] if appropriate. [employer] [employer] Medicare Insurance: [place] [id number] (spam?) [phone] * Telephone Encounter - Paolo Wilkins APRN [...] to PT. Pended order for PT at [place] [facility] if appropriate. Would you recommend reducing his CL back to 1 tablet TID? Please advise. documented in this encounter Plan of Treatment Upcoming Encounters Date Type Department Care Team (Late st Contact Info) Description 08/01/2025 9:30 AM EDT Office Visit [facility] Neurology [address] [place] [phone] Paolo Wilkins, TIMOTHY [address] [address] Scheduled Referrals Name Type Priority Associated Diagnoses Orde r Schedule Amb Referral to Therapy Services (PT or OT) Outpatient Referral Routine Primary parkinsonism Ordered: 01/09/2025 Amb Referral to Home Health Outpatient Referral Routine Primary parkinsonism (HCC) Gait instability Ordered: 01/09/2025 documented as of this encounter Goals Goal Patient Goal Type Associated Problems Recent Progress Patient-Stated? Author LTG 1 Speech Therapy No Geni Du, HILARY-APPRENTICE/LINEMAN Note: Pt will use compensatory strategies for word retrieval, memory, attention and executive skills for functional activities with min cues/80% accuracy. ST MARKG 2 Speech Therapy No Geni Du, HILARY-APPRENTICE/LINEMAN Note: Pt score on the Communicative Participation Item Bank will improve by at least 3 points. documented as of this encounter Visit Diagnoses Diagnosis Primary parkinsonism (HCC)- Primary Paralysis agitans Gait instability Abnormality of gait documented in this encounter Care Teams Windows System Admin Relationship Specialty Start Date End Date Alen Castanon MD [address] [place] [address] [place] [address] PCP - General Family Medicine 08/03/23 documented as of this encounter
--- OUTSIDE RECORDS SUMMARY | 2025-01-12 10:06 | XMS_ITS | Clinical Summary ---
Author Organization [facility] Address [address] [place] [address] Care Team Providers Care Assisted Living Care Manager Name Role Phone Alen Castanon MD Primary Care Provider [phone] Allergies No known active allergies Medications Medication [...] Type Department Care Team Description 01/09/2025 Telephone [facility] Neurology [address] [address] Paolo Wilkins APRN 10/31/2024 11:30 AM EST Office Visit [facility] Neurology [address] [phone] Paolo Wilkins APRN Primary parkinsonism (HCC) 10/31/2024 [...] Description 08/01/2025 9:30 AM EDT Office Visit [facility] Neurology [address] [phone] Paolo Wilkins APRN [address] [place] [address] Health Maintenance Due Date Last Done Comments [...] LTG 1 Speech Therapy No Geni Du CCC-HAND IRONER Note: Pt will use compensatory strategies for word retrieval, memory, attention and executive skills for functional activities with min cues/80% accuracy. LTG 2 Speech Therapy No Geni Du CCC-HAND IRONER Note: Pt score on the Communicative Participation Item Bank will improve by at least 3 points. Care Teams Assisted Living Care Manager Relationship Specialty Start Date End Date Alen Castanon MD [address] [place] [address] [address] [place] [address] PCP - General Family Medicine 08/03/23
== END 2025-01-11 08:59 | disposition home or self-care (01) ==
LOC: HO.HOSX 08:58
PROVIDERS: Visit Provider Orthopaedic Surgery
DX: M79.642 Pain in left hand (principal)
CPT/HCPCS: 73130

== ENCOUNTER 2025-01-11 12:28 | Outpatient (AMB) | payer OTHER, SELFPAY ==
[2025-01-11 12:43] VITALS: BMI 24.0
--- NOTE | 2025-01-11 12:43 | MHC.OFFVIS ---
Vital Signs 01/11/25 12:43 Height 6 ft Weight 177 lb BMI 24.0 Intake Visit Reasons: PO-L 4th metacarpal CRPP versus ORIF-12/05/24-w/xray Intake Note: Cesar 59 year old male who presents today s/p post operative visit for his LT 4th metacarpal CRPP, DOS 12/05/24. He was last seen with Gualberto Quinones due to a fell at his daughter home, his fell on top of him trying to prevent the fall and he hurt his left hand. Per Joni, he did not displace his fracture upon falling. Currently states heis doing well. States he does gentle ROM when he removes his brace while showering. Xrays updated in office. Allergies Seasonal Allergies Allergy (Intermediate, Verified 01/11/25 12:45) Runny Nose HPI HPI PO-L 4th metacarpal CRPP versus ORIF-12/05/24-w/xray: Details: Cesar is a 59 year old right hand dominant man who returns S/P left 4th metacarpal shaft CRPP, DOS: 12/05/24. From a fall, DOI: 11/22/24. He says he is doing well overall. He has a Hx of multiple falls, especially recently. He fell today when getting X-rays taken. He denies being hurt and say she is fine . He denies any numbness or tingling. [facility] Medical History (Updated 01/11/25 @ 13:06 by Charli Gentile) Parkinson disease GERD (gastroesophageal reflux disease) Falls Weakness Urinary frequency Lower urinary tract symptoms Urinary urgency Urinary incontinence Effusion, left knee Elevated fasting glucose Adult general medical exam Daytime sleepiness Difficulty sleeping Dizziness Imbalance High cholesterol Hypertension Surgical History History of appendectomy History of repair of anterior cruciate ligament of left knee Family History Maternal Grandmother Mental health disorder Maternal Uncle Mental health disorder Father Colon cancer Family/Other Leukemia Social History Housing: House Alcohol intake: former Comment: counts correct Patient Tobacco Use Status: Former Tobacco user Tobacco use type: Cigarette e-Cigarette/Vaping Use: Never Used Second Hand Smoke Exposure: No Substance Use Type: Marijuana service: Yes Current occupational status: unemployed Cognitive needs: No Hearing needs: No Vision needs: No Review of Systems Const All systems reviewed & are unremarkable except as noted in HPI and below Physical Exam Vital Signs: BMI result Body Mass Index 24.0 Const General: no acute distress and alert Orientation/consciousness: patient oriented x3 Neuro General: patient oriented x3 Extrem Other: Evaluation of Left Upper Extremity: The patient is alert, oriented, and in no acute distress Neuro: Median, Ulnar, Radial nerves motor and sensory intact and sensation is normal to the tips of all digits Vascular: Cap refill brisk ROM: No rotational or angular mal-alignment He can make a fist and extend all his digits, with no pain Fracture site non-tender Sensation is intact Cap refill is brisk Radiographs: 3 views of the left hand were taken and viewed by me today in clinic. they show a 4th metacarpal shaft fracture with satisfactory fracture alignment and good evidence of interval bony healing Psych Appearance: grossly normal Affect: normal affect Attitude: cooperative Assessment & Plan Assessment & Plan (1) Fracture of fourth metacarpal bone of left hand: Code(s): S62.305A - Unspecified fracture of fourth metacarpal bone, left hand, initial encounter for closed fracture Category: Medical (2) History of falling: Code(s): Z91.81 - History of falling Category: Medical (3) Parkinson disease: Code(s): G20.A1 - Parkinson's disease without dyskinesia, without mention of fluctuations Category: Medical Plan Assessment & Plan: 1. Left 4th metacarpal shaft fracture, S/P CRPP DOS: 12/05/24 From a fall, DOI: 11/22/24 K-wire removed accidentally by patient in clinic: 12/23/24 The patient appears to be doing well post-operatively I educated him about the post-operative course He will discontinue his velcro wrist splint at this time I discussed activity modifications. He understands that he is not yet able to lift 45lb bags of pellets at home He will continue to work on ROM exercises, and increasing activities at home. He can start lifting increasingly heavy objects working up to about a half a gal of milk in a couple of weeks on a gown of milk in about 4 weeks He should be mindful to avoid any falls when possible. I encouraged him to continue to use his walker & cane when possible. Anticipate return to full strength and normal activities at 8-12 weeks post-op He says he has joined a boxing league for people with Parkinsons. I told him he needs to avoid any impact activities for at least another 4-8 weeks. He can return to exercising at the gym with his . Anticipate returning to boxing, light impacts only, in 4 weeks, but no heavy impacts until 8 weeks from today. He will follow up prn Scribed for Roz Grant MD by Charli Gentile, director of medical staff services, on 01/11/25 at 1:05 PM, EST. Orders: Orders XR hand LT min 3V Today M79.642 - Pain in left hand Coding Level of Care Code Global (09579) Diagnoses Fracture of fourth metacarpal bone of left hand S62.305A History of falling Z91.81 Parkinson disease G20.A1
--- OUTSIDE RECORDS SUMMARY | 2025-01-11 14:32 | XMS_ITS | Clinical Summary ---
Author Organization [facility] Address [address] [place] [address] Care Team Providers Care Reverse Unit Operator Fisherman Name Role Phone Alen Castanon MD Primary [...] by mouth 3 (three) times a day. 01/09/2025 Active carbidopa-levodopa (SINEMET) 25-100 MG per tabletIndications: Primary parkinsonism (HCC) Take 1.5 tablets by mouth 3 (three) times a day. 405 tablet 1 10/31/2024 Discontinued Active Problems Problem Noted Date Diagnosed Date HTN (hypertension) 10/08/2023 Primary parkinsonism 08/26/2023 Gait instability 08/26/2023 Encounters Date Type Department Care Team Description 01/09/2025 Telephone [facility] Neurology [address] [phone] Paolo Wilkins APRN 10/31/2024 11:30 AM EST Office Visit [facility] Neurology [address] [phone] Paolo Wilkins APRN Primary parkinsonism (HCC) 10/31/2024 [...] Description 08/01/2025 9:30 AM EDT Office Visit [facility] Neurology [address] [phone] Paolo Wilkins APRN [address] [place] [id number] Health Maintenance Due Date Last Done Comments [...] LTG 1 Speech Therapy No Geni Du CCC-NURSING DEPARTMENT CHAIRPERSON Note: Pt will use compensatory strategies for word retrieval, memory, attention and executive skills for functional activities with min cues/80% accuracy. LTG 2 Speech Therapy No Geni Du CCC-NURSING DEPARTMENT CHAIRPERSON Note: Pt score on the Communicative Participation Item Bank will improve by at least 3 points. Care Teams Reverse Unit Operator Fisherman Relationship Specialty Start Date End Date Alen Castanon MD [address] [place] [address] Dr [address] [place] [address] PCP - General Family Medicine 08/03/23
--- OUTSIDE RECORDS SUMMARY | 2025-01-11 14:32 | XMS_ITS | Encounter Summary ---
Author Organization Formerly [facility] Address [address] [place] [address] Care Team Providers Care Grey Tender Name Role Phone Alen Castanon MD Primary Care Provider Reason for Referral * Home Health (Routine) - Closed Specialty Diagnoses / Procedures Referred By Adriane hunter Referred To Contact Home Health Services Diagnoses Primary parkinsonism (HCC) Gait instability Paolo Wilkins, BOAT HAND 35 [facility] [address] [place] [address] [facility] Scheduling [address] [place] [address] Referral ID Status Reason Start Date Expiration Date Visits Re quested Visits Authorized [id number] Closed 01/09/2025 01/10/2026 999 999 Scheduling Instructions [facility] Question Answer Primary Reason for Home Health (Enter diagnosis; avoid symptoms): Parkinson's disease (tremor, stiffness, slow motion, unstable posture) (HCC) [[id number]] Pre-Book? No Comments Please evaluate Henry Clinton for admission to HomeCare Services The following services are medically necessary home health services: Physical Therapy: ADL/IADLs: improve independence Gait Training Home Safety Evaluation and Teaching Safe Steps Program: improve gait instability, functional balance impairments Strengthening: improve function and mobility Secondary Disciplines &Services: Occupational Therapy: , ADL/IADLs: improve independence, Cognitive/ Process assessment, Dementia Cognitive assessment and Functional activity/ ADL training, Home Safety Evaluation and Teaching, Safe Steps Program: improve gait instability, functional balance impairments, and Strengthening: improve function and mobility Medical Social Work: Support of patient and family Home Health Aide: Assist with personal care Special Instructions: None This patient is homebound because: Requires walker and wheelchair for safe ambulation. Difficulty with ambulation and transfers requiring assistance of others to leave home safely. and Extreme weakness r/t disease and illness Date of F2F Encounter: I verify that a F2F Encounter occurred on 10/31/2024 upon which the patient was found to be homebound and require intermittent skilled care by a SN, PT, ST or OT. Services. The encounter findings are communicated to the certifying physician * Rehabilitation (Routine) - Authorized Specialty Diagnoses / Procedures Referred By Adriane hunter Referred To Contact Diagnoses Primary parkinsonism (HCC) Paolo Wilkins APRN [id number] [place] [address] Referral ID Status Reason Start Date Expiration Date Visits Requested Visits Authorized [id number] Authorized Support Services 01/09/2025 01/10/2026 1 1 Scheduling Instructions [address] [address] Question Answer Is this referral for an initial evaluation or additional visits? Initial evaulation Is this related to a Neurological Condition? Yes Is this referral for PT or OT? PT Encounter Details Date Type Department Care Team (Late st Contact Info) Description 01/09/2025 Telephone [facility] Neurology [address] [address] Paolo Wilkins APRN 35 [facility] [address] [place], [place] [id number] Social History Tobacco Use Types Packs/Day Years [...] on file documented as of this encounter Miscellaneous Notes * Telephone Encounter - Stefania Beyer RN - 01/11/2025 2:15 PM EDT [facility] called and advised that [place] is out of their area[place] [address] Admin * Telephone Encounter - Stefania Beyer RN - 01/10/2025 10:31 AM EDT Called [facility] and relayed message from social services manager and advised that the PT/OT order was placed. * Telephone Encounter - Stefania Beyer RN - 01/09/2025 4:01 PM EDT Faxed referral to [facility]. * Addendum Note - Paolo Wilkins APRN - 01/09/2025 3:52 PM EDTAddended by: PAOLO WILKINS on: 01/09/2025 03:52 PM Modules accepted: Orders * Addendum Note - Stefania Beyer RN - 01/09/2025 3:39 PM EDTAddended by: STEFANIA BEYER on: 01/09/2025 03:39 PM Modules accepted: Orders * Telephone Encounter - Stefania Beyer RN - 01/09/2025 3:05 PM EDT Called and spoke with Ila. Relayed message from provider for patient to reduce his CL medication to 1 tablet per dose TID. She verbalized understanding. Discussed PT/OT options. Advised we can try to get in home services through [facility]. Pended order if appropriate. [facility] [employer] Medicare Insurance: [place] [id number] (spam?) [phone] * Telephone Encounter - Paolo Wilkins APRN - 01/09/2025 12:25 PM EDT If they feel he has been falling more on the increased dose of carbidopa- levodopa, please go back to 1 tab TID. Also, I agree about PT/OT. * Telephone Encounter - Stefania Beyer RN - 01/09/2025 12:03 PM EDT Patient's Ila called in regarding increased falling for Rich. He recently fell and had a scalp laceration with theo. He just fell again, about 20 minutes ago, and he's covered with scrapes on his back from this recent fall. She says that he walked to the bathroom holding onto his .He has been trying to use an indoor walker but his balance is so off getting up that he is havinga difficult time with it. It is a 4 point walker. He is currently taking 1 1/2 tablets TID. He states that he has only noticed that he has been falling more since increasing his medication. He deniesfeeling dizzy or lightheaded prior to falling, although his reports he does. He is mostly in achair during the day. He says that he can leave the house to go to PT. Pended order for PT at [place] [facility] if appropriate. Would you recommend reducing his CL back to 1 tablet TID? Please advise. documented in this encounter Plan of Treatment Upcoming Encounters Date Type Department Care Team (Late st Contact Info) Description 08/01/2025 9:30 AM EDT Office Visit [facility] Neurology [place] [address] [address] Paolo Wilkins, BOAT HAND [address] [address] Scheduled Referrals Name Type Priority Associated Diagnoses Orde r Schedule Amb Referral to Therapy Services (PT or OT) Outpatient Referral Routine Primary parkinsonism Ordered: 01/09/2025 Amb Referral to Home Health Outpatient Referral Routine Primary parkinsonism (HCC) Gait instability Ordered: 01/09/2025 documented as of this encounter Goals Goal Patient Goal Type Associated Problems Recent Progress Patient-Stated? Author ST LTG 1 Speech Therapy No Geni Du CCC-GEOTECHNICAL DEPARTMENT MANAGER Note: Pt will use compensatory strategies for word retrieval, memory, attention and executive skills for functional activities with min cues/80% accuracy. ST LTG 2 Speech Therapy No Geni Du CCC-GEOTECHNICAL DEPARTMENT MANAGER Note: Pt score on the Communicative Participation Item Bank will improve by at least 3 points. documented as of this encounter Visit Diagnoses Diagnosis Primary parkinsonism (HCC)- Primary Paralysis agitans Gait instability Abnormality of gait documented in this encounter Care Teams Grey Tender Relationship Specialty Start Date End Date Alen Castanon MD [address] [place] [address] [place] [address] PCP - General Family Medicine 08/03/23 documented as of this encounter
--- OUTSIDE RECORDS SUMMARY | 2025-01-11 14:32 | XMS_ITS | Clinical Summary ---
[facility] Address [address] [place] [address] Care Team Providers Care Market Risk Analyst Name Role Phone Unavailable Primary Care Provider Unavailabl e Social History Tobacco Use Types Packs/Day Years Used Date Smoking Tobacco: Never Assessed Sex and Gender Information Value Date Recorded Sex Assigned at Not on file Gender Identity Not on file Sexual Orientation Not on file Plan of Treatment Not on file
== END 2025-01-11 13:09 | disposition home or self-care (01) ==
LOC: HO.HOS 12:29
PROVIDERS: PCP Family Medicine; Visit Provider Orthopaedic Surgery
DX: S62.305A Unspecified fracture of fourth metacarpal bone, left hand, initial encounter for closed fracture (principal); Z91.81 History of falling; G20.A1 Parkinson's disease without dyskinesia, without mention of fluctuations
CPT/HCPCS: 99024

== ENCOUNTER → 2025-01-11 12:34 | Outpatient (BNV) | payer OTHER, SELFPAY | PROVIDERS: Visit Provider Radiology Diagnostic Radiology | DX: S62.325A Displaced fracture of shaft of fourth metacarpal bone, left hand, initial encounter for closed fracture (principal) | CPT/HCPCS: 73130 ==

== ENCOUNTER 2025-01-18 09:09 | Emergency (ER) | payer OTHER, SELFPAY ==
[2025-01-18 09:11] VITALS: BP 132/71; PULSE 86; RESP 18; TEMP 36.6; O2SAT 98; BMI 23.6
--- NOTE | 2025-01-18 11:26 | ED_ITS ---
HPI - General Adult General Chief complaint: Skin/Abscess/Foreign Body Stated complaint: Staple removal Time Seen by Provider: 01/18/25 11:03 Source: patient, family and old records reviewed Mode of arrival: ambulatory Limitations: no limitations History of Present Illness ED Provider: MINERVA DAVID narrative: 59 yo male here for staple removal placed 7 days ago no issues well healing otherwise feeling fine tried to go to urgent care they were closed MD complaint: staple removal Onset (ago): day(s) (7) Location: head Radiation: non-radiation Severity: mild Relieving factors: none Exacerbating factors: none Associated symptoms: denies other symptoms Treatments prior to arrival: none Related Data Previous Rx's ?Medication ?Instructions ?Recorded carbidopa 25 mg-levodopa 100 mg 1 tab PO TID 90 days #270 tabs 05/11/24 tablet ibuprofen 600 mg tablet 600 mg PO Q6H PRN pain #20 tabs 06/27/24 lisinopril 20 mg tablet 20 mg PO DAILY 90 days #90 tabs 06/27/24 meclizine 25 mg tablet 25 mg PO BID PRN dizziness #30 tabs 06/27/24 mecobalamin (vitamin B12) 1,000 1,000 mcg PO DAILY 90 days #90 tabs 06/27/24 mcg chewable tablet simvastatin 20 mg tablet 20 mg PO DAILY 90 days #90 tabs 06/27/24 chair, wheel (Wheel chair) #1 ea 08/30/24 ondansetron HCl 4 mg tablet 4 mg PO Q8H PRN nausea and 11/04/24 vomiting 10 days #30 tabs esomeprazole magnesium 20 mg 20 mg PO DAILY 90 days #90 caps 12/21/24 capsule,delayed release sertraline 50 mg tablet 75 mg (1.5 x 50 mg) PO DAILY 90 12/21/24 days #135 tabs Allergies Allergy/AdvReac Type Severity Reaction Status Date / Time Seasonal Allergies Allergy Intermediate Runny Nose Verified 01/18/25 09:12 [facility] Past Medical History Medical History (Updated 01/18/25 @ 11:32 by Nirali Mora DO) Parkinson disease GERD (gastroesophageal reflux disease) Falls Weakness Urinary frequency Lower urinary tract symptoms Urinary urgency Urinary incontinence Effusion, left knee Elevated fasting glucose Adult general medical exam Daytime sleepiness Difficulty sleeping Dizziness Imbalance High cholesterol Hypertension Surgical History History of appendectomy History of repair of anterior cruciate ligament of left knee Family History Family History Maternal Grandmother Mental health disorder Maternal Uncle Mental health disorder Father Colon cancer Family/Other Leukemia Social History Social History Housing: House Alcohol intake: former Comment: counts correct Patient Tobacco Use Status: Former Tobacco user Tobacco use type: Cigarette e-Cigarette/Vaping Use: Never Used Second Hand Smoke Exposure: No Substance Use Type: Marijuana Advance Directives: No Advance Directives Information Provided: Yes service: Yes Current occupational status: unemployed Cognitive needs: No Hearing needs: No Vision needs: No Physical Exam ED Vital Signs: Vital Signs - 24 hr 01/18/25 09:11 Temperature 97.8 F Pulse Rate 86 Respiratory Rate 18 Blood Pressure 132/71 Pulse Oximetry 98 Oxygen Delivery Method Room Air BMI result Body Mass Index 23.6 Appearance: Alert. Oriented X3. No acute distress. Eyes: Pupils equal, round and reactive to light. ENT: Pharynx normal. well healed incision incision 6 theo noted no signs of infection Neck: Normal inspection. CVS: Pulses normal. Respiratory: No respiratory distress. Abdomen: Soft and nontender. Skin: Skin warm and dry. Normal skin color. Extremities: No lower extremity edema. Neuro: Oriented X 3. No motor deficit. No sensory deficit. Procedures Procedure Narrative Procedure Narrative: verbal consent no issues removed 6 theo without issue no signs of infection. Medical Decision Making Medical Decision Making MDM Narrative: 59 yo male here for staple removal uncomplicated removal no signs of infection - tolerated well. Independent Historian Clinical information obtained from an independent historian. History obtained from or confirmed by: Other External Record Review External record reviewed: Outpatient record Discharge Plan Discharge Clinical Impression: Encounter for removal of theo Patient Disposition: Home, Self-Care Instructions: Staple Care (ED) Additional Instructions: removed theo without incident okay to shower etc return for severe pain, fevers, yellow drainage or any other concerns. Prescriptions: No Action carbidopa-levodopa 25-100 mg tablet 1 tab PO TID 90 Days Qty: 270 3RF ibuprofen 600 mg tablet 600 mg PO Q6H PRN (Reason: pain) Qty: 20 0RF lisinopril 20 mg tablet 20 mg PO DAILY 90 Days Qty: 90 2RF meclizine 25 mg tablet 25 mg PO BID PRN (Reason: dizziness) Qty: 30 1RF mecobalamin (vitamin B12) 1,000 mcg tablet,chewable 1,000 mcg PO DAILY 90 Days Qty: 90 2RF simvastatin 20 mg tablet 20 mg PO DAILY 90 Days Qty: 90 2RF ondansetron HCl 4 mg tablet 4 mg PO Q8H PRN (Reason: nausea and vomiting) 10 Days Qty: 30 0RF (DME) Wheel chair Kit See Rx Instructions .Route Qty: 1 0RF Rx Instructions: Daily As directed, 999 days esomeprazole magnesium 20 mg capsule,delayed release(DR/EC) 20 mg PO DAILY 90 Days Qty: 90 2RF sertraline 50 mg tablet 75 mg PO DAILY 90 Days Qty: 135 3RF Print Language: Estonian
[2025-01-18 11:56] VITALS: BP 132/71; PULSE 86; RESP 18; TEMP 36.6; O2SAT 98
== END 2025-01-18 11:57 | disposition home or self-care (01) ==
PROVIDERS: Emergency Provider Emergency Medicine; PCP Family Medicine
DX: Z48.02 Encounter for removal of sutures (principal)
CPT/HCPCS: 99282

== ENCOUNTER 2025-03-02 09:04 | Outpatient (REF) | payer OTHER, SELFPAY ==
[2025-03-02 09:28] LABS: MANUAL DIFF FLAG NO
--- OUTSIDE RECORDS SUMMARY | 2025-03-02 09:45 | XMS_ITS | Clinical Summary ---
Author Organization [facility] Address [address] [place] [address] Care Team Providers Care Team Driver Name Role Phone Alen Castanon MD Primary Care Provider Allergies No known active allergies Medications esomeprazole (NexIUM) 20 MG capsule Take 1 capsule (20 mg total) by mouth daily. 3 Active B-12, Methylcobalamin, [address] ONE TABLET UNDER THE TONGUE EVERY DAY 3 Active simvastatin (ZOCOR) 20 MG tablet Take 1 tablet (20 mg total) by mouth daily. 3 Active lisinopril (PRINIVIL,ZeSTRIL ) 20 MG tablet Take 1 tablet (20 mg total) by mouth daily. 3 Active Multiple Minerals-Vitamins (WILDER MAG ZINC +D3 PO) Take by mouth. Active Myrbetriq 25 MG ER tablet Take 1 tablet (25 mg total) by mouth daily. 4 Active citalopram (CeleXA) 20 MG tablet Take 1 tablet (20 mg total) by mouth daily. 4 Active carbidopa-levodop a (SINEMET) 25-100 MG per tabletIndications :Primary parkinsonism (HCC) Take 1 tablet by mouth 3 (three) times a day. 5 Active Active Problems Problem Noted Date Diagnosed Date HTN (hypertension) 10/08/2023 Primary parkinsonism 08/26/2023 Gait instability 08/26/2023 Encounters Date Type Department Care Team Description 01/09/2025 Telephone [facility] Neurology [address] [phone] Paolo Wilkins, TIMOTHY from Last 3 Months Social History Tobacco [...] Assigned at Male 08/03/2023 9:49 AM EDT Legal Sex Male 9:48 AM EDT Gender Identity Male 08/03/2023 9:49 [...] Description 08/01/2025 9:30 AM EDT Office Visit [facility] Neurology [address] [phone] Paolo Wilkins, TIMOTHY [address] [address] Health Maintenance Due Date Last Done Comments [...] LTG 1 Speech Therapy No Geni Du CCC-ELEMENTARY TEACHER Note: Pt will use compensatory strategies for word retrieval, memory, attention and executive skills for functional activities with min cues/80% accuracy. LTG 2 Speech Therapy No Geni Du CCC-ELEMENTARY TEACHER Note: Pt score on the Communicative Participation Item Bank will improve by at least 3 points. Insurance [employer] Care Teams Team Driver Relationship Specialty Start Date End Date Alen Castanon MD [address] [place] [address] [place] [address] PCP - General Family Medicine 08/03/23
[2025-03-02 09:53] LABS: Basophils Absolute Auto 0.1 X10*3/uL (0.0-0.2); Basophils Percent Auto 1.1 % (0-2); Eosinophils Absolute Auto 0.2 X10*3/uL (0.0-0.4); Eosinophils Percent Auto 3.8 % (0-4); Hematocrit 38.9 % (42.0-52.0); Hemoglobin 13.2 g/dl (14.0-18.0); Imm Gran Abs Auto 0.01 X10*3/uL (0.00-0.03); Imm Gran Pct Auto 0.2 % (0.0-0.4); Lymphocytes Absolute Auto 0.9 X10*3/uL (1.2-4.9); Lymphocytes Percent Auto 18.1 % (20-40); Mean Corpuscular HGB Conc 33.9 g/dl (31.0-36.0); Mean Corpuscular Hemoglobin 34.2 pg (27.0-33.0); Mean Corpuscular Volume 100.8 fL (80.0-98.0); Mean Platelet Volume 9.2 fL (9.4-12.4); Monocytes Absolute Auto 0.4 X10*3/uL (0.1-1.2); Neutrophils Absolute Auto 3.2 x10*3/uL (2.0-8.3); Neutrophils Percent Auto 67.8 % (45-73); Platelet Count 310 X10*3/uL (160-400); Red Blood Count 3.86 X10*6/uL (4.60-5.80); Red Cell Distribution Width 13.9 % (11.0-16.0); White Blood Count 4.7 X10*3/uL (4.8-10.8)
[2025-03-02 11:07] LABS: Alanine Aminotransferase 24 U/L (0-40); Albumin Level 4.3 g/dL (3.5-5.0); Alkaline Phosphatase 93 U/L (39-117); Anion Gap 13 (12-20); Aspartate Amino Transferase 22 U/L (5-37); Bilirubin Total 0.3 mg/dL (0.0-1.0); Blood Urea Nitrogen 26 mg/dL (9-16); Calcium 9.7 mg/dL (8.4-10.2); Carbon Dioxide 28 mmol/L (22-29); Chloride 103 mmol/L (96-108); Estimated Glomerular Filt Rate > 60; Glucose Random 97 mg/dL (60-115); Potassium 5.5 mmol/L (3.3-5.1); Sodium 138 mmol/L (135-145); Total Protein 6.9 g/dL (6.5-8.0)
== END 2025-03-02 09:05 | disposition home or self-care (01) ==
LOC: HO.LAB 09:04
PROVIDERS: PCP Family Medicine; Visit Provider Family Medicine
DX: Z00.00 Encounter for general adult medical examination without abnormal findings (principal); D64.9 Anemia, unspecified
CPT/HCPCS: 36415; 80053; 85025

== ENCOUNTER 2025-03-21 08:57 | Outpatient (AMB) | payer OTHER, SELFPAY ==
--- OUTSIDE RECORDS SUMMARY | 2025-03-21 09:26 | XMS_ITS | Clinical Summary ---
Author Organization [facility] Address [address] [place] [address] Care Team Providers Care Microfilm Duplicating Unit Supervisor Name Role Phone Alen Castanon MD Primary [...] Type Department Care Team Description 01/09/2025 Telephone [facility] [address] [address] Paolo Wilkins, TIMOTHY from Last 3 Months [...] Description 08/01/2025 9:30 AM EDT Office Visit [facility] [address] [address] Paolo Wilkins, TIMOTHY [address] [address] Health Maintenance Due Date Last Done Comments Hepatitis C Virus Screening 1965 HIV Screening 1976 DTaP/Tdap/Td Vaccines (1 - Tdap) 1982 Colonoscopy 2008 Pneumococcal Vaccines 50+ (1 of 1 - PCV) 2013 Zoster (Shingles) Vaccine (1 of 2) 2013 COVID-19 Vaccine ( - 2023-2 5 season) 2024 Influenza Vaccine 06/02/2025 RSV Vaccine 60 years and old er and Patients (1 - 1-dose 75+ series) 2038 Hepatitis B Vaccines Aged Out No long er eligible based on patient's age to complete this topic Goals Goal Patient Goal Type Associated Problems Recent Progress Patient-Stated? Author LTG 1 Speech Therapy No Geni Du CCC-MANUFACTURING ASSISTANT Note: Pt will use compensatory strategies for word retrieval, memory, attention and executive skills for functional activities with min cues/80% accuracy. LTG 2 Speech Therapy No Geni Du CCC-MANUFACTURING ASSISTANT Note: Pt score on the Communicative Participation Item Bank will improve by at least 3 points. Insurance [employer] Care Teams Microfilm Duplicating Unit Supervisor Relationship Specialty Start Date End Date Alen Castanon MD [address] [place] [address] [place] [address] PCP - General Family Medicine 08/03/23
--- OUTSIDE RECORDS SUMMARY | 2025-03-21 09:26 | XMS_ITS ---
Author Organization [facility] Address [address] [place] [address] Care Team Providers Care Marketing Co Op Name Role Phone Alen Castanon Primary Care Provider Torrey Pathak Unavailable [phone] Allergies No Known Allergies REASON FOR VISIT Patient presents today for a COLON SCREENING Medications Medication SIG (Take, Route, Frequency, Duration) Notes Start Date End Date Status Lisinopril 20 MG 1 tablet Orally Once a day Active Simvastatin 20 MG 1 tablet in the even ing Orally Once a day Active Carbidopa-Levodopa 10-100 MG 1 tablet Orally Three times a day Active Esomeprazole Magnesium 20 MG 1 capsule 1/2 to 1 hour before morning meal Orally Once a day Active Vitamin B12 100 MCG as directed Orally Active Vitamin C 500 MG as directed Orally Active Sertraline HCl 50 MG 1 tablet Orally Onc e a day Active Multivitamin - 1 tablet Orally Once a day Active Social History Tobacco Use: Social History Observation Description Date Details (start date - stop date) Former Smoker NA - NA Tobacco Control (Standard) Question Answer Notes Tobacco use: Former smoker How long has it been since you last smoked? 5-10 years AUDIT-C (Standard) Question Answer Notes Did you have a drink containing alcohol in the p ast year? No Points 0 Interpretation Negative Section Notes: QUIT TOBACCO 1988 QUIT 4 YEARS AGO ALCOHOL-PREVIOUSLY HEAVY Problems Problem Type SNOMED Code ICD Code Onset Dates Problem Status W/U Status Risk Notes Problem Colon cancer screening (446242689) Colon cancer screening (Z12.11) Active confirmed Problem Preprocedural examination (752500397394975) Preprocedural examination (Z01.818) Active confirmed Problem History of polyp of colon (situation) (449839411) History of colon polyps (Z86.0100) Active confirmed Problem Family history of malignant neoplasm of gastrointestinal tract (516320255) Family history of colon cancer in father (Z80.0) Active confirmed Vital Signs Blood pressure systolic 111 mm Hg 02/29/20 25 Blood pressure diastolic 77 mm Hg 025 Height 72 in 02/28/2025 Weight 171 lbs 02/28/2025 BMI 23.19 kg/m2 02/28/2025 Procedures Procedure Date Ordered Date Performed Result Body Sit e COLONOSCOPY 02/28/2025 N/A Encounters Encounter Location Date Provider Diagnosis [facility] [address] [place] [address] 02/28/2025 Torrey Dykes Colon cancer screeni ng Z12.11 ; Preprocedural examination Z01.818 ; History of colon polyps Z86.0100 and Family history of colon cancer in father Z80.0 Assessments Encounter Date Diagnosis (ICD Code) Assessment Notes Treatment Notes Treatment Clinical Notes Section Notes 02/28/2025 Colon cancer screening (ICD-10 - Z12.11) Overall, Corie appears to be doing well from a GI standpoint and denies any new or worrisome GI symptoms. Given his history of 3 tubular adenomas removed over 4 years ago and his significant family history, I did recommend a follow-up colonoscopy for further screening purposes. We did review the rationale for this in regard to colon cancer prevention. Full consent has been obtained from him for this, including risks of bleeding and perforation. The procedure will be done with monitored anesthesia care. His reflux seems to be quite stable and without any worrisome symptoms on his daily PPI. Given the report of a negative upper endoscopy in the past and no new or worsening symptoms, I do not think a repeat endoscopy is presently required. Corie and his are comfortable with this plan. Thank you again for allowing me to participate in Corie's care. I shall continue to keep you advised of his progress. 02/28/2025 Preprocedural examination (ICD-10 - Z01.818) Overall, Corie appears to be doing well from a GI standpoint and denies any new or worrisome GI symptoms. Given his history of 3 tubular adenomas removed over 4 years ago and his significant family history, I did recommend a follow-up colonoscopy for further screening purposes. We did review the rationale for this in regard to colon cancer prevention. Full consent has been obtained from him for this, including risks of bleeding and perforation. The procedure will be done with monitored anesthesia care. His reflux seems to be quite stable and without any worrisome symptoms on his daily PPI. Given the report of a negative upper endoscopy in the past and no new or worsening symptoms, I do not think a repeat endoscopy is presently required. Corie and his are comfortable with this plan. Thank you again for allowing me to participate in Corie's care. I shall continue to keep you advised of his progress. 02/28/2025 History of colon polyps (ICD-10 - Z86.0100) Overall, Corie appears to be doing well from a GI standpoint and denies any new or worrisome GI symptoms. Given his history of 3 tubular adenomas removed over 4 years ago and his significant family history, I did recommend a follow-up colonoscopy for further screening purposes. We did review the rationale for this in regard to colon cancer prevention. Full consent has been obtained from him for this, including risks of bleeding and perforation. The procedure will be done with monitored anesthesia care. His reflux seems to be quite stable and without any worrisome symptoms on his daily PPI. Given the report of a negative upper endoscopy in the past and no new or worsening symptoms, I do not think a repeat endoscopy is presently required. Corie and his are comfortable with this plan. Thank you again for allowing me to participate in Corie's care. I shall continue to keep you advised of his progress. 02/28/2025 Family history of colon cancer in father (ICD-10 - Z80.0) Overall, Corie appears to be doing well from a GI standpoint and denies any new or worrisome GI symptoms. Given his history of 3 tubular adenomas removed over 4 years ago and his significant family history, I did recommend a follow-up colonoscopy for further screening purposes. We did review the rationale for this in regard to colon cancer prevention. Full consent has been obtained from him for this, including risks of bleeding and perforation. The procedure will be done with monitored anesthesia care. His reflux seems to be quite stable and without any worrisome symptoms on his daily PPI. Given the report of a negative upper endoscopy in the past and no new or worsening symptoms, I do not think a repeat endoscopy is presently required. Corie and his are comfortable with this plan. Thank you again for allowing me to participate in Corie's care. I shall continue to keep you advised of his progress. Plan Of Treatment Pending Test Test Name Order Date COLONOSCOPY 02/28/2025 Next Appt Details Follow Up: prn, Reason: Provider Name:Torrey Dykes , 05/19/2025 01:10:00 PM, [address] [place] [address] , [place], [place], [phone], Progress Notes * CORIE DAVILADOB:1965 (59 yo M)Acc No.[id number]:02/28/2025 Progress Notes Patient:?CORIE DAVILA Provider:?Torrey Dykes MD :1965???Age:59 Y???Sex:Male Ibrahima e:02/28/2025 Address:[address] [place], [place] [id number] Pcp:Alen Castanon Subjective: * Chief Complaints: * ???Patient presents today fo r a COLON SCREENING * HPI: ???incontinence:? I saw Corie in the office today for evaluation of his personal history of tubular adenomas of the colon,?family history of colon cancer, and discussion of the need for colorectal cancer screening. He was accompanied by his . As you know, Corie is a 59-year-old male who presently feels well from a GI standpoint. He has a good appetite and denies any dysphagia, early satiety, nausea, nor vomiting. He does take daily esomeprazole with good relief of previous heartburn and reflux symptoms. He does describe a previous upper endoscopy through [facility] that did not show any significant findings and was not advised to have any follow-up endoscopies. He denies abdominal pain, jaundice, nor any unintentional weight loss. His bowel movements have been regular and without any signs of bleeding. He does describe 2 previous colonoscopies through [facility]. The most recent one in November 2020 removed 3 small tubular adenomas from the transverse colon. He describes that his father had colon cancer in his 60s. Laboratories from November revealed a hemoglobin of 14.1, and normal chemistries and renal function. He had a normal liver profile in October 2024. * ROS:?General/Constitutional:?Change in appetite?denies.?Chills?denies.?Fatigue?denies.?Ophthalmologic:?Comments?all negative.?ENT:?Comments?all negative.?Respiratory:?hemoptysis?denies.?Cough?denies.?Cardiovascular:?Chest pain?denies.?Orthopnea?denies.?Gastrointestinal:?Comments?See HPI for details.?Genitourinary:?Hematuria?denies.?Dysuria?denies.?Musculoskeletal:?Painful joints?denies.?Weakness?denies.?Skin:?Itching?denies.?Rash?denies.?Neurologic:?Headache?denies.?Seizures?denies.?Psychiatric:?Comments?all negative.? * Medical History:? * Surgical History:?Appendecto my ACL LEFT Broken left wrist 2024 * Hospitalization/Major Diagno stic Procedure:?No Hospitalization History. * Family History:?Father: dece ased, Colon cancer at age 60, diagnosed with Colon cancer.?Mother: alive.? * Social History:?Tobacco Use:?Tobacco Control (Standard)?Tobacco use:?Former smoker,?How long has it been since you last smoked??5-10 years.?Miscellaneous:?Marital status: . Occupation: retired/ DISABLED. ???Drug/Alcohol:?AUDIT-C (Standard)?Did you have a drink containing alcohol in the past year??No,?Points?0,?Interpretation?Negative.?QUIT TOBACCO? 1988 QUIT? 4 YEARS AGO ALCOHOL-PREVIOUSLY HEAVY. * Medications:?TakingVitamin C 500 MG Capsule as directed Orally Multivitamin - Tablet 1 tablet Orally Once a day Sertraline HCl 50 MG Tablet 1 tablet Orally Once a day Vitamin B12 100 MCG Tablet as directed Orally Esomeprazole Magnesium 20 MG Capsule Delayed Release 1 capsule 1/2 to 1 hour before morning meal Orally Once a day Simvastatin 20 MG Tablet 1 tablet in the evening Orally Once a day Lisinopril 20 MG Tablet 1 tablet Orally Once a day Carbidopa-Levodopa 10-100 MG Tablet 1 tablet Orally Three times a day Medication List reviewed and reconciled with the patientTaking Vitamin C 500 MG Capsule as directed Orally Taking Multivitamin - Tablet 1 tablet Orally Once a day Taking Sertraline HCl 50 MG Tablet 1 tablet Orally Once a day Taking Vitamin B12 100 MCG Tablet as directed Orally Taking Esomeprazole Magnesium 20 MG Capsule Delayed Release 1 capsule 1/2 to 1 hour before morning meal Orally Once a day Taking Simvastatin 20 MG Tablet 1 tablet in the evening Orally Once a day Taking Lisinopril 20 MG Tablet 1 tablet Orally Once a day Taking Carbidopa-Levodopa 10- 100 MG Tablet 1 tablet Orally Three times a day Medication List reviewed and reconciled with the patient * Allergies:?N.K.D.A.yes[Aller gies Verified] Objective: * Vitals:?Wt:171lbs, Ht:72in, BMI:23.19Index, BP:111/77mm Hg, Ht-cm: 182.88, Wt- k.57. * Examination: ???General Examination: ?GENERAL APPEARANCE:?pleasant, well nourished, well developed, in no acute distress.?EYES:?sclera non-icteric.?ORAL CAVITY:?mucosa moist.?NECK/THYROID:?no cervical lymphadenopathy, neck supple.?SKIN:?nonjaundiced, no spider angiomata.?HEART:?S1, S2 normal.?LUNGS:?clear to auscultation bilaterally.?ABDOMEN:?normal bowel sounds, no guarding or rigidity, no guarding or rigidity, no masses palpable, soft, nontender, nondistended.?EXTREMITIES:?no edema.?NEUROLOGIC:?alert and oriented.? Assessment: * Assessment: 1.?Preprocedural examination - Z01.818 (Primary)???2.?Colon cancer screening - Z12.11???3.?History of colon polyps - Z86.0100???4.?Family history of colon cancer in father - Z80.0??? Overall, Corie appears to be doing well from a GI standpoint and denies any new or worrisome GI symptoms. Given his history of 3 tubular adenomas removed over 4 years ago and his significant family history, I did recommend a follow-up colonoscopy for further screening purposes. We did review the rationale for this in regard to colon cancer prevention. Full consent has been obtained from him for this, including risks of bleeding and perforation. The procedure will be done with monitored anesthesia care. His reflux seems to be quite stable and without any worrisome symptoms on his daily PPI. Given the report of a negative upper endoscopy in the past and no new or worsening symptoms, I do not think a repeat endoscopy is presently required. Corie and his are comfortable with this plan. Thank you again for allowing me to participate in Corie's care. I shall continue to keep you advised of his progress. Plan: * Treatment: 2.?History of colon polyps?Procedure: COLONOSCOPY* with MAC 3.?Family history of colon cancer in father?Procedure: COLONOSCOPY* with MAC * Procedure Codes:?85779 DIAGN OSTIC [id number] COLORECTAL CA SCREEN DOC [id number] TOBACCO [id number] BP SCR NOT PRFRM REC REASON [id number] RCMND FLW-UP 10 YRS DOCD * Preventive Medicine:? ??Counseling:?Care goal follow-up plan:?Above Normal BMI Follow-up?Giving encouragement to exercise,?BMI management provided?Yes.? * Follow Up:?prn * * Sign off status: Completed true * Provider:?Torrey Dykes MD Date:? 025 Generated for Pawel nevarez/Glory/Rikkiitting on:?03/21/2025 09:25 AM EDT History and Physical Notes * HPI (History of Present Illness) Category Sub-Category Detail Notes Category Not es incontinence I saw Corie in the office today for evaluation of his personal history of tubular adenomas of the colon, family history of colon cancer, and discussion of the need for colorectal cancer screening. He was accompanied by his . As you know, Corie is a 59-year-old male who presently feels well from a GI standpoint. He has a good appetite and denies any dysphagia, early satiety, nausea, nor vomiting. He does take daily esomeprazole with good relief of previous heartburn and reflux symptoms. He does describe a previous upper endoscopy through [facility] that did not show any significant findings and was not advised to have any follow-up endoscopies. He denies abdominal pain, jaundice, nor any unintentional weight loss. His bowel movements have been regular and without any signs of bleeding. He does describe 2 previous colonoscopies through [facility]. The most recent one in November 2020 removed 3 small tubular adenomas from the transverse colon. He describes that his father had colon cancer in his 60s. Laboratories from November revealed a hemoglobin of 14.1, and normal chemistries and renal function. He had a normal liver profile in October 2024 Examination Category Sub-Category Detail Notes Category Not es General Examination GENERAL APPEARANCE: pleasant , well nourished, well developed, in no acute distress HEAD: EYES: sclera non-icteric EARS: NOSE: THROAT: NECK/THYROID: no cervical lymphade nopathy, neck supple HEART: S1, S2 normal CHEST: LUNGS: clear to auscultatio n bilaterally ABDOMEN: normal bowel sounds, no guarding or rigidity, no guarding or rigidity, no masses palpable, soft, nontender, nondistended NEUROLOGIC: alert and oriented SKIN: nonjaundiced, no spi jason angiomata EXTREMITIES: no edema PERIPHERAL PULSES: BACK: BREASTS: MUSCULOSKELETAL: MALE GENITOURINARY: LYMPH NODES: RECTAL EXAM: FEMALE GENITOURINARY: ORAL CAVITY: mucosa moist
--- OUTSIDE RECORDS SUMMARY | 2025-03-21 09:26 | XMS_ITS | Clinical Summary ---
Author Organization [facility] Address [address] [place] [address] Care Team Providers Care Tip Finisher Name Role Phone Unavailable Primary Care Provider Unavailabl e Social History Tobacco Use Types Packs/Day Years Used Date Smoking Tobacco: Never Assessed Sex and Gender Information Value Date Recorded Sex Assigned at Not on file Gender Identity Not on file Sexual Orientation Not on file Plan of Treatment Not on file
--- OUTSIDE RECORDS SUMMARY | 2025-03-21 09:26 | XMS_ITS | Patient Health Record ---
Author Organization [facility] Address [address] [place] [address] Care Team Providers Care Game Technician Name Role Phone Alen Castanon Primary Care Provider UnavailTorrey lEi Unavailable [phone] Allergies No Known Allergies Reason For Referral No Information Medications Medication SIG (Take, Route, Frequency, Duration) Notes Start Date End Date Status Vitamin C 500 MG as directed Orally Active Lisinopril 20 MG 1 tablet Orally Once a day Active Simvastatin 20 MG 1 tablet in the even ing Orally Once a day Active Carbidopa-Levodopa 10-100 MG 1 tablet Orally Three times a day Active Sertraline HCl 50 MG 1 tablet Orally Onc e a day Active Multivitamin - 1 tablet Orally Once a day Active Esomeprazole Magnesium 20 MG 1 capsule 1/2 to 1 hour before morning meal Orally Once a day Active Vitamin B12 100 MCG as directed Orally Active Social History Tobacco Use: Social History [...] Status Risk Notes Problem Colon cancer screening (884667790) Colon cancer screening (Z12.11) Active confirmed Problem Preprocedural examination (454785280616068) Preprocedural examination (Z01.818) Active confirmed Problem Family history of malignant neoplasm of gastrointestinal tract (650123995) Family history of colon cancer in father (Z80.0) Active confirmed Problem History of polyp of colon (situation) (092025256) History of colon polyps (Z86.0100) Active confirmed Vital Signs Blood pressure diastolic 77 mm Hg 02/28/2025 Height 72 in 02/28/2025 Blood pressure systolic 111 mm Hg 02/28/2025 Weight 171 lbs 02/28/2025 BMI 23.19 kg/m2 02/28/2025 Procedures Procedure Date Ordered Date Performed Result Body Sit e COLONOSCOPY 02/28/2025 N/A Encounters Encounter Location Date Provider Diagnosis [facility] [address] [place] [address] 02/28/2025 Torrey Dykes Colon cancer screeni ng [...] Order Date COLONOSCOPY 02/28/2025 Next Appt Details Provider Name:Torrey Dykes , 05/19/2025 01:10:00 PM, [address] [place] [address] , [place], [place], [phone], Insurance Providers Payer Name Payer Address Payer Phone Subscriber Number Group Number Insured Name Patient Relationship to Insured Coverage Start Date Coverage End Date [facility] [address] [place] [phone] [id number] CORIE DAVILA Self - patient is the insured Medical (General) History Medical History History ICD Code hx of kidney stones hx of Gout hypertension Parkinsons disease Hypercholesterolemia GERD-He describes a negative upper endos copy in the past Depression Denies [place],DM,CVA,Lung disease,renal dise ase 2 previous colonoscopies [facility] with the most recent one in November 2020 removing 3 small tubular adenomas Surgical History Surgery Date(Month/Year) Broken left wrist 2024 ACL LEFT Appendectomy
--- NOTE | 2025-03-21 09:28 | MHC.PC.OV ---
Vital Signs 03/21/25 09:30 Height 6 ft Weight 172 lb 2 oz BMI 23.3 BP 120/70 Blood Pressure Location Lt brachial Position Sitting Respiration 16 Pulse 97 Pulse Source Pulse Oximeter Temp 98.5 F Temp Source Oral Pulse Oximetry (%) 97 Oxygen Delivery Method Room Air Intake Visit Reasons: f/u chronic conditions Intake Note: patient is scheduled for chronic conditions Associate Creative Director Required: No Allergies Seasonal Allergies Allergy (Intermediate, Verified 03/21/25 09:29) Runny Nose Medication List - Last Reconciled 03/21/25 by Alen Castanon MD carbidopa-levodopa 25-100 mg 1 tab PO TID 90 days chair, wheel (Wheel chair) Daily As directed, 999 days esomeprazole magnesium 20 mg PO DAILY 90 days ibuprofen 600 mg PO Q6H PRN lisinopril 20 mg PO DAILY 90 days meclizine 25 mg PO BID PRN mecobalamin (vitamin B12) 1,000 mcg PO DAILY 90 days ondansetron HCl 4 mg PO Q8H PRN 10 days sertraline 100 mg PO DAILY 90 days simvastatin 20 mg PO DAILY 30 days Tobacco use date assessed: 12/21/24 Dental Screening Dental Screen Date: 12/21/24 HPI f/u chronic conditions HPI Details 59 y/o male presents to f/u chronic conditions. Blood pressure today 120/70, 97p. He is on lisinopril 20mg daily. Hx of Parkinsons. He had reported memory changes, anxiety/depression. He notes his counselor has made a referral to a psychiatrist. I had made a referral to neuropsych a while back. He does not seem to have heard back from them yet. Pt reports ongoing falls. Pt reports eye irritation which he notes started today. [facility] Medical History (Updated 03/21/25 @ 10:05 by Radu Lindsay) Parkinson disease GERD (gastroesophageal reflux disease) Falls Weakness Urinary frequency Lower urinary tract symptoms Urinary urgency Urinary incontinence Effusion, left knee Elevated fasting glucose Adult general medical exam Daytime sleepiness Difficulty sleeping Dizziness Imbalance High cholesterol Hypertension Surgical History History of appendectomy History of repair of anterior cruciate ligament of left knee Family History Maternal Grandmother Mental health disorder Maternal Uncle Mental health disorder Father Colon cancer Family/Other Leukemia Social History Housing: House Alcohol intake: former Comment: counts correct Patient Tobacco Use Status: Former Tobacco user Tobacco use type: Cigarette e-Cigarette/Vaping Use: Never Used Second Hand Smoke Exposure: No Substance Use Type: Marijuana service: Yes Current occupational status: unemployed Cognitive needs: No Hearing needs: No Vision needs: No Questionnaire Thrive Questionnaire Date Thrive assessed: 12/21/24 I am a: Patient What is your living situation today?: I have a steady place to live Within the past 12 months, did the food you bought not last and you didn't have the money to get more?: Never true Within the past 12 months, did you worry whether your food would run out before you got money to buy more?: Never true Do you have trouble paying for medicines?: No Do you have trouble getting transportation to medical appointments?: No Do you have trouble paying your heating and electricity bill?: No Do you have trouble taking care of your child, family member or friend?: Yes Do you have trouble with day-to-day activities such as bathing, preparing meals, shopping, managing finances, etc.?: Yes Are you currently unemployed and looking for a job?: No Are you interested in more education?: No Please select the resources that you would like help with: Care for elder or disabled Currently or been in a relationship where the following occur: No concerns reported THRIVE Score: 0 DARRICK-7 AMB Questionnaire DARRICK-7 Date DARRICK - 7 assessed: 12/21/24 Source: Developed by Drs. Torrey Funez, Haley Aviles, Gilmer Souza and colleagues, with an educational jose a from [employer]. Review of Systems Const Denies chills, Denies fatigue, Denies fever(s), Denies headache(s) and Denies weakness ENT Denies dizziness and Denies headache(s) Card Denies dyspnea Resp Denies cough, Denies dyspnea, Denies wheezing and Denies other (shortness of breath) Musc Denies numbness and Denies tingling Neuro Denies dizziness, Denies headache(s), Denies numbness, Denies tingling and Denies weakness Psych Denies anxiety and Denies depression Endo Denies fatigue Aller/Immun Denies wheezing Physical exam (Primary Care) Vital Signs: Last Vital Signs Temp 98.5 F 03/21/25 09:30 Pulse 97 03/21/25 09:30 Resp 16 03/21/25 09:30 BP 120/70 03/21/25 09:30 Pulse Ox 97 03/21/25 09:30 Oxygen Delivery Method Room Air 03/21/25 09:30 BMI result Body Mass Index 23.3 Tobacco/Smoking Status: Tobacco use Status Tobacco use date assessed 12/21/24 03/21/25 09:33 Patient Tobacco Use Status Former Tobacco user 03/21/25 09:33 Tobacco use type Cigarette 03/21/25 09:33 e-Cigarette/Vaping Use Never Used 03/21/25 09:33 Thrive Assessment: Date of Thrive Assessment Date Thrive assessed 12/21/24 03/21/25 09:33 Currently or been in a relationship where the following occur: No concerns reported Const General: well developed; No acute distress Nutritional Appearance: well nourished Orientation/consciousness: patient oriented x3 HENMT Head: Yes normocephalic and Yes atraumatic Eyes General: appearance normal, both eyes and all related structures Pupils: Equal, round and reactive pupils present EOM: EOMs intact bilaterally Resp Effort & Inspection: normal respiratory effort Neuro General: patient oriented x3 and No gait normal Cranial nerves: Yes Equal, round and reactive pupils present Psych Affect: normal affect Coding Level of Care Code Est Pt Level 4 (18628) Diagnoses Hypertension I10 Parkinson disease G20.A1 Memory changes R41.3 Anxiety with depression F41.8 History of falling Z91.81 Eye irritation H57.89 Assessment & Plan Assessment & Plan (1) Hypertension: Code(s): I10 - Essential (primary) hypertension Category: Medical Plan: Blood?pressure?is?controlled.??Goal?is?less?/ (2) Parkinson disease: Code(s): G20.A1 - Parkinson's disease without dyskinesia, without mention of fluctuations Category: Medical Plan: Progressive Followed?by?Neurology?and?has?been?carbidopa?levodopa?which?patient?has?it?has?not?helping?much Recent?falls-see?below Follow-up?with?Neurology?as?recommended (3) Memory changes: Code(s): R41.3 - Other amnesia Category: Medical Plan: Had?referred?him?to?neuropsychiatry?but?he?has?not?been?contacted Will?ask?the?office?to?help?get?him?scheduled. (4) Anxiety with depression: Code(s): F41.8 - Other specified anxiety disorders Category: Medical Plan: Had?tried?citalopram?which?did?not?help Started?sertraline?and?have?increased?dose. Will?increase?once?more He?has?a?therapist?and?therapist?has?referred?him?to?a?psychiatrist?who?can?manage?his?medications?when?he?sees?them. (5) History of falling: Code(s): Z91.81 - History of falling Category: Medical Plan: Patient?notes?multiple?falls Has?not?started?physical?therapy?yet. Will?ask?the?office?to?help?get?him?scheduled?for?physical?therapy?as?ordered He?has?a?walker?and?wheelchair?at?home. Advised?him?to?use?wheelchair?for?longer?distances?or?if?fatigued (6) Eye irritation: Code(s): H57.89 - Other specified disorders of eye and adnexa Category: Medical Plan: Irritation?at?right?eye. No Globe pain. No acute vision changes No?foreign?body?inspection Can?use?gel?or?hydrating?drops?4?times?a?day?for?the?next?2?days Call?or?return?to?office?if?any?globe?pain, crusting?or?discharge.??Or?for?any?other?concerning?symptoms. Medications: Changed From sertraline 75 mg (1.5 x 50 mg) PO DAILY 90 days 135 tabs 3RF To sertraline 100 mg PO DAILY 90 days 90 tabs 3RF
[2025-03-21 09:30] VITALS: BP 120/70; PULSE 97; RESP 16; TEMP 36.9; O2SAT 97; BMI 23.3
== END 2025-03-21 10:08 | disposition home or self-care (01) ==
LOC: HO.HMCFM 08:58
PROVIDERS: PCP Family Medicine; Visit Provider Family Medicine
DX: I10 Essential (primary) hypertension (principal); G20.A1 Parkinson's disease without dyskinesia, without mention of fluctuations; R41.3 Other amnesia; F41.8 Other specified anxiety disorders; Z91.81 History of falling; H57.89 Other specified disorders of eye and adnexa

== ENCOUNTER → 2025-03-21 08:57 | Outpatient (BNVA) | payer OTHER, SELFPAY | PROVIDERS: PCP Family Medicine; Visit Provider Family Medicine ==

== ENCOUNTER 2025-05-19 11:49 | Day surgery (SDC) | payer OTHER, SELFPAY ==
--- OUTSIDE RECORDS SUMMARY | 2025-04-07 08:53 | XMS_ITS | Patient Health Record ---
Author Organization [facility] [place] Address [address] [place] [address] Care Team Providers Care Court Deputy Name Role Phone Danielle CABRAL, Major Primary Care Provider Cira natalie Gutierrez [place] Unavailable [phone] Reason For Referral No Information Medications Medication SIG (Take, Route, Frequency, Duration) Notes Start Date End Date Status Colchicine 0.6 MG 1 tablet Orally Once a day for 10 days 02/09/2018 Not-Taking Lisinopril-hydroCHLOROthi azide 10-12.5 MG Orally Active Allopurinol 300 MG Orally A ctive Ibuprofen 800 MG 1 tablet with food o r milk as needed Orally Three times a day for 30 days 02/09/2018 Not-Taking Work Note . . . patient had cortisone injection and is disabled from work until 11/05/17 Active Zolpidem Tartrate 10 MG Orally Active Simvastatin 20 MG Orally Ac tive Gabapentin 300mg once a day hs orally daily for 10 days 02/09/2018 Not-Taking Social History Tobacco Use: Social History Observation Description Date Details (start date - stop date) Former Smoker NA - NA Tobacco Use/Smoking Question Answer Notes Are you a: former smoker When did you stop smoking? 12 years ago Additional Findings: Tobacco Non-User Ex-very he favian cigarette smoker (40+/day) Alcohol Screen Question Answer Notes Did you have a drink containing alcohol in the p ast year? Yes Points 0 Interpretation Negative Tobacco use other than smoking: Question Answer Notes Are you an other tobacco user? No Problems Problem Type SNOMED Code ICD Code Onset Dates Problem Status W/U Status Risk Notes Problem Localized, primary osteoarthritis of the ankle and/or foot (140478566) Primary osteoarthritis , right ankle and foot (M19.071) Active confirmed Problem Acquired hallux valgus (92802030) Hallux valgus (acquired), right foot (M20.11) Active confirmed Problem Acquired hammer toe of left foot (0989676542256641) Other hammer toe(s) (acquired), left foot (M20.42) Active confirmed Problem Primary gout (95353054) Idiopathic gout, right ankle and foot (M10.071) Active confirmed Plan Of Treatment Pending Test Test Name Order Date X ray : Foot, left 2V 04/23/2018 X ray : Foot, right 2V 03/23/2018 X ray : Foot, right 2V 04/23/2018 X ray : Foot, right 3V 11/03/2017 X ray : Foot, right 3V 03/09/2018 70402, [id number]/INJECT, JOINT/BURSA 0 11/03/2017 Insurance Providers Payer Name Payer Address Payer Phone Subscriber Number Group Number Insured Name Patient Relationship to Insured Coverage Start Date Coverage End Date [facility] [address] [place] [address] [id number] Cesar Clinton Self - patient is the insured Medical (General) History Medical History History ICD Code Gout High blood pressure Surgical History Surgery Date(Month/Year) knee replacement 1986 appendectomy 1990 [facility] Right foot 03/04/2018
[2025-05-16 15:37] VITALS: BMI 23.2
--- NOTE | 2025-05-18 12:09 | P.CONAN_ITS ---
Documented by User: Sary Valles NP 05/18/25 12:10 HPI - Anesthesia Eval Consult details Narrative: 59yo M for Colonoscopy s/p hand ORIF 12/2024 with GA-LMA 4 PMFSH Active Problems Active Problems: All Active Problems Eye irritation (Acute) History of falling (Acute) Memory changes (Acute) Fracture of fourth metacarpal bone of left hand (Acute) Screening for prostate cancer (Acute) Screening for colon cancer (Acute) Mild anemia (Acute) Abdominal pain (Acute) Hip pain (Acute) Bladder instability (Acute) Anxiety with depression (Acute) Lower urinary tract symptoms (Acute) Gout of left knee (Acute) Progressive supranuclear palsy (Acute) Unsteady gait (Acute) Adult general medical exam (Acute) Sleep apnea (Acute) History of alcohol abuse (Acute) GERD (gastroesophageal reflux disease) (Acute) Parkinson disease (Acute) High cholesterol (Acute) Hypertension (Acute) Past Medical History Medical History (Updated 05/16/25 @ 15:34 by Rocio Young RN) Anxiety with depression Gout Parkinson disease GERD (gastroesophageal reflux disease) Urinary frequency Elevated fasting glucose Daytime sleepiness Difficulty sleeping Dizziness High cholesterol Hypertension Family History Family History Maternal Grandmother Mental health disorder Maternal Uncle Mental health disorder Father Colon cancer Family/Other Leukemia Family history of problems with anesthesia: No Surgical History Surgical History (Updated 05/16/25 @ 15:38 by Rocio Young RN) H/O colonoscopy History of appendectomy History of repair of anterior cruciate ligament of left knee History of Problems with Anesthesia: No Social History Social History Housing: House Alcohol intake: former Comment: counts correct Patient Tobacco Use Status: Former Tobacco user Tobacco use type: Cigarette e-Cigarette/Vaping Use: Never Used Second Hand Smoke Exposure: No Substance Use Type: Marijuana Have you been hit, kicked, punched, or otherwise hurt by someone within the past year? If so, by whom?: No Are you DNR?: No Advance Directives: No Advance Directives Information Provided: Yes service: Yes Current occupational status: unemployed Cognitive needs: No Hearing needs: No Vision needs: No Meds Allergies Allergy/AdvReac Type Severity Reaction Status Date / Time Seasonal Allergies Allergy Intermediate Runny Nose Verified 03/21/25 09:29 Exam Height,Weight and Vital Signs: Height 6 ft Weight 77.564 kg Assessment and Plan Assessment Anesthesia Assessment: Chart Reviewed Final Anesthetic Review Family History of Problems with Anesthesia: No History of Problems with Anesthesia: No Documented by User: Juan Miguel Morrow MD 05/19/25 13:20 PMF Past Medical History Medical History (Updated 05/16/25 @ 15:34 by Rocio Young RN) Anxiety with depression Gout Parkinson disease GERD (gastroesophageal reflux disease) Urinary frequency Elevated fasting glucose Daytime sleepiness Difficulty sleeping Dizziness High cholesterol Hypertension Family History Family History Maternal Grandmother Mental health disorder Maternal Uncle Mental health disorder Father Colon cancer Family/Other Leukemia Surgical History Surgical History (Updated 05/16/25 @ 15:38 by Rocio Young RN) H/O colonoscopy History of appendectomy History of repair of anterior cruciate ligament of left knee History of Problems with Anesthesia: No Social History Social History Housing: House Alcohol intake: former Comment: counts correct Patient Tobacco Use Status: Former Tobacco user Tobacco use type: Cigarette e-Cigarette/Vaping Use: Never Used Second Hand Smoke Exposure: No Substance Use Type: Marijuana Have you been hit, kicked, punched, or otherwise hurt by someone within the past year? If so, by whom?: No Are you DNR?: No Advance Directives: No Advance Directives Information Provided: Yes service: Yes Current occupational status: unemployed Cognitive needs: No Hearing needs: No Vision needs: No Meds Allergies Allergy/AdvReac Type Severity Reaction Status Date / Time Seasonal Allergies Allergy Intermediate Runny Nose Verified 03/21/25 09:29 Exam Airway Mallampati Class: II TM Dist: >3cm Neck ROM: Full Partial: Upper and Lower Heart: ok Lungs: ok Assessment and Plan Assessment Anesthesia Assessment: Anesthesia Plan Discussed Final Anesthetic Review History of Problems with Anesthesia: No NPO: Yes ASA Class: III and IV Final Preanesthetic Review: No Changes in Pt Med Stat, Meds/Allgs Chart Reviewed, Consent Obtained/Reviewed and Anes Risks/Benef Reviewed Patient Risk: Intermediate Procedure Risk: Low Anesthetic Plan Anesthetic Plan: MAC: and Agree w/ Assess. and Plan Disposition: Standard PACU
[2025-05-19] MEDS: Lactated Ringers 1,000 ML 100 ML IVCONT (12:35)
[2025-05-19 12:37] VITALS: BP 114/78; PULSE 76; RESP 20; TEMP 36.9; O2SAT 99; BMI 22.5
[2025-05-19 14:35] VITALS: BP 110/71; PULSE 68; RESP 18; TEMP 36.4; O2SAT 100
--- NOTE | 2025-05-19 14:35 | P.BOP_ITS ---
Brief Operative Note Date of Service: 05/19/25 Pre-op diagnosis: Screening Post-op diagnosis: other (Polyps) Procedure: Colonoscopy to the cecum and TI with bx/removal of polyps, and hot snare polypectomy of TC polyp Surgeon: Torrey Dykes MD Anesthesia: MAC Was an Relations Specialist used for this Procedure?: No Estimated blood loss (mL): 2.0 Pathology: other (A. Cecal polyp B. Transverse colon polyps) Condition: stable Disposition: PACU
[2025-05-19 14:50] VITALS: BP 115/69; PULSE 65; RESP 18; TEMP 36.6; O2SAT 100
--- NOTE | 2025-05-19 18:47 | OP_ITS ---
DATE OF SERVICE: 05/19/2025 SURGEON: Torrey Dykes MD INDICATIONS: The patient presents for evaluation of colorectal cancer screening and personal history of tubular adenoma of the colon. Full consent has been obtained from him for this, including risks of bleeding and perforation. PREOPERATIVE DIAGNOSIS: Colorectal cancer screening and personal history of tubular adenoma of the colon. POSTOPERATIVE DIAGNOSIS: PROCEDURE PERFORMED: Colonoscopy to the cecum and terminal ileum with biopsy and removal of polyps, and hot snare polypectomy x1. ESTIMATED BLOOD LOSS: COMPLICATIONS: ANESTHESIA: Monitored anesthesia care. ASSISTANTS: SPECIMENS: POSTOPERATIVE DIAGNOSES: Colorectal cancer screening and personal history of tubular adenoma of the colon, colon polyps, diverticulosis, and internal hemorrhoids. PROCEDURE IN DETAIL: The patient was placed in the left lateral decubitus position. The digital rectal exam revealed no abnormalities. The Olympus video pediatric colonoscope was entered into the rectum and advanced easily to the cecum. Once in the cecum, I did identify cecal pouch with appendiceal orifice and a normal-appearing ileocecal valve. The entire cecum appeared normal other than a 3 or 4 mm polyp, which was biopsied and completely removed with cold biopsy forceps. The terminal ileum was cannulated and appeared normal. Scope was withdrawn back in the colon. The remainder of the cecum including the appendiceal orifice appeared normal. The scope was slowly withdrawn assessing all mucosal surfaces carefully. Preparation for the most part was excellent, but did require some suctioning and irrigation. In the transverse colon, was a flat, but raised approximately 12 mm polyp, which was removed by hot snare polypectomy, recovered by suction. The polypectomy site appeared clean, without any sign of residual polyp nor bleeding. Also, in the transverse colon, there was a 2 or 3 mm polyp, which was biopsied and completely removed with cold biopsy forceps. I did not visualize any other polyps, colitis, nor angiodysplasia. There was a mild amount of sigmoid diverticulosis. In the rectum, scope was retroflexed visualizing internal hemorrhoids, but no other pathology. The rectal mucosa appeared normal. Scope was straightened and withdrawn from the patient. He tolerated the procedure well and was returned to recovery area in stable condition. IMPRESSION: 1. Colon polyps. 2. Diverticulosis. 3. Internal hemorrhoids. PLAN: The results of the pathology will be checked. I would recommend a repeat colonoscopy in 5 years for further screening. He will otherwise see me on a p.r.n. basis. MD ALO Culp/JOSUE / [id number]
== END 2025-05-19 15:11 | disposition home or self-care (01) ==
PROVIDERS: PCP Family Medicine; Visit Provider Internal Medicine
PROC: 0DJD8ZZ Inspection of Lower Intestinal Tract, Via Natural or Artificial Opening Endoscopic (ICD-10-PCS; CPT 45378; principal; 2025-05-19 13:10)
DX: Z12.11 Encounter for screening for malignant neoplasm of colon (principal); Z86.0101 Personal history of adenomatous and serrated colon polyps; Z80.0 Family history of malignant neoplasm of digestive organs; D12.0 Benign neoplasm of cecum; D12.3 Benign neoplasm of transverse colon; K57.30 Diverticulosis of large intestine without perforation or abscess without bleeding; K64.8 Other hemorrhoids; K21.9 Gastro-esophageal reflux disease without esophagitis; G20.A1 Parkinson's disease without dyskinesia, without mention of fluctuations; I10 Essential (primary) hypertension; Z87.442 Personal history of urinary calculi; E78.00 Pure hypercholesterolemia, unspecified; F32.A Depression, unspecified; Z79.899 Other long term (current) drug therapy; Z87.891 Personal history of nicotine dependence; Z98.890 Other specified postprocedural states
CPT/HCPCS: 45385; 45380; 88305; J2003; J2704

== ENCOUNTER 2025-05-26 10:52 | Emergency (ER) | payer OTHER, SELFPAY ==
--- NOTE | ~2025-05-26 | CT_ITS ---
EXAMINATION: CT HEAD WITHOUT CONTRAST CLINICAL INFORMATION: Head trauma. COMPARISON: 01/07/2025. TECHNIQUE: Contiguous axial imaging was performed from the skull base to vertex without intravenous administration of contrast. This CT examination was performed using dose optimization techniques as appropriate, variously including the following: *Automated exposure control *Adjustment of mA and/or kV according to patient size (this includes techniques or standardized protocols for targeted exams where dose is matched to indication/reason for exam; i.e. extremities or head) *Use of iterative reconstruction technique FINDINGS: There is no evidence of intracranial hemorrhage or extra-axial fluid collection. There is no mass effect, or edema. No CT evidence of acute territorial infarct. Ventricles, sulci, and cisterns are mildly diffusely prominent in keeping with mildly age advanced cerebral and cerebellar involutional changes. No hydrocephalus. No midline shift. Negative hyperdense MCA sign. Negative insular ribbon sign. Patchy periventricular and deep white matter hypoattenuation is consistent with mild small vessel ischemic changes. There are tiny old lacunar type infarcts in the anterior gangliocapsular regions. Normal pituitary. Mild atheromatous calcification of the bilateral carotid siphons. Globes and orbital contents image normally. No extracranial soft tissue abnormalities. The paranasal sinuses demonstrate opacification of the left anterior ethmoid air cells, and left frontal recess. Remainder of the paranasal sinuses are normally pneumatized. There is left nasal septal deviation. Mastoid air cells, and tympanic cavities are normally aerated. No suspicious bony abnormalities. There are no acute fractures evident. CT/CT head/brain wo IV con IMPRESSION: 1. No acute intracranial abnormality. No fracture evident. 2. Left anterior ethmoid and frontal paranasal sinus disease. Electronically signed by: Medhat Cueto MD 05/26/2025 12:22 PM EDT
--- NOTE | ~2025-05-26 | XR_ITS ---
EXAMINATION: XR ELBOW, RIGHT CLINICAL INFORMATION: trauma COMPARISON: None available. TECHNIQUE: AP, lateral, and oblique views of the right elbow. FINDINGS: No acute cortical disruption or malalignment. Well-corticated calcifications in the soft tissues adjacent to the medial epicondyles right humerus. Well-corticated calcifications at the triceps tendon insertion near the olecranon. No lytic or blastic lesions. No gross joint effusion. XR/XR elbow RT min 3V IMPRESSION: No acute fracture or dislocation. Electronically signed by: Mak Patel MD 05/26/2025 11:37 AM EDT
[2025-05-26 11:06] VITALS: BP 133/76; PULSE 87; RESP 16; TEMP 36.8; O2SAT 98; BMI 23.5
--- NOTE | 2025-05-26 11:09 | ED_ITS ---
HPI - General Adult General Chief complaint: Fall Stated complaint: R Elbow Injury 05/26/25 Time Seen by Provider: 05/26/25 13:57 Source: patient and family (spouse) Mode of arrival: ambulatory Limitations: no limitations History of Present Illness ED Provider: HPI narrative: 59-year-old patient here with his , patient has advanced Parkinson's, has had issues with frequent falls over the past few years, however this is progressively getting worse, patient sees a neurologist once a year to have his medications adjusted, and he does have a PCP involved but the falls have gotten worse and patient keeps hurting himself and patient's is the sole provider home and she is frustrated by the lack of PT and home evaluation and she would like to speak to someone regarding setting up some home assistance and evaluation. Patient has not had any reports of fevers or chills, he does have right elbow pain and that is probably the most acute injury he bumped into something and has been hurting. This is going on for the past 1 day sounds like. He also has not abrasion to his forehead and he was found on the floor by his but this is pretty much a daily occurrence in the past week at least. Related Data Previous Rx's ?Medication ?Instructions ?Recorded carbidopa 25 mg-levodopa 100 mg 1 tab PO TID 90 days # 270 tabs 05/11/24 tablet ibuprofen 600 mg tablet 600 mg PO Q6H PRN pain #20 t abs 06/27/24 meclizine 25 mg tablet 25 mg PO BID PRN dizziness # 30 tabs 06/27/24 mecobalamin (vitamin B12) 1,000 1,000 mcg PO DAILY 90 days #90 tabs 06/27/24 mcg chewable tablet chair, wheel (Wheel chair) #1 ea 08/30/24 esomeprazole magnesium 20 mg 20 mg PO DAILY 90 days #9 0 caps 12/21/24 capsule,delayed release ondansetron HCl 4 mg tablet 4 mg PO Q8H PRN nausea and 02/01/25 vomiting 10 days #30 tabs simvastatin 20 mg tablet 20 mg PO DAILY 30 days #30 t abs 02/01/25 lisinopril 20 mg tablet 20 mg PO DAILY 90 days #90 t abs 02/06/25 sertraline 100 mg tablet 100 mg PO DAILY 90 days #90 tabs 03/21/25 methylprednisolone 4 mg tablets in 4 mg PO DAILY #21 e a 05/26/25 a dose pack (Medrol (Armando)) oxycodone 5 mg tablet 2.5 mg (1/2 x 5 mg) PO Q6H P RN 05/26/25 pain #6 tabs Allergies Allergy/AdvReac Type Severity Reaction Status Date / Time Seasonal Allergies Allergy Intermediate Runny Nose Verified 05/26/25 11:12 Review of Systems 2 Constitutional: Constitutional: Reports as per [facility] Past Medical History Medical History (Updated 05/26/25 @ 15:00 by Temo Robles DO) Anxiety with depression Gout Parkinson disease GERD (gastroesophageal reflux disease) Urinary frequency Elevated fasting glucose Daytime sleepiness Difficulty sleeping Dizziness High cholesterol Hypertension Surgical History (Updated 05/16/25 @ 15:38 by Rocio Young RN) H/O colonoscopy History of appendectomy History of repair of anterior cruciate ligament of left knee Family History Family History Maternal Grandmother Mental health disorder Maternal Uncle Mental health disorder Father Colon cancer Family/Other Leukemia Social History Social History Housing: House Alcohol intake: former Comment: counts correct Patient Tobacco Use Status: Former Tobacco user Tobacco use type: Cigarette e-Cigarette/Vaping Use: Never Used Second Hand Smoke Exposure: No Substance Use Type: Marijuana Advance Directives: Yes Advance Directives Information Provided: Yes Advance Directives on File: No service: Yes Current occupational status: unemployed Cognitive needs: No Hearing needs: No Vision needs: No Physical Exam ED Vital Signs: Vital Signs - 24 hr 05/26/25 11:06 05/26/25 14:14 Temperature 98.2 F 98.4 F Pulse Rate 87 68 Respiratory Rate 16 15 Blood Pressure 133/76 121/76 Pulse Oximetry 98 96 Oxygen Delivery Method Room Air Room Air BMI result Body Mass Index 23.5 Const Other: * Gen: ?Facial expression consistent with longstanding Parkinson's, there is forehead abrasion * Neck: Supple, no LAD * CV: RRR, no obvious murmurs appreciated * Resp: ?No wheezing rales rhonchi no stridor moving air well * Abd: ?Bowel sounds are present, no tenderness no rebound no rigidity * MSK: Tender over the lateral condyle right elbow, slight swelling over that area no crepitus, no erythema, distal pulses intact, lacks approximately 10-15 degrees of extension, * Skin: Warm, dry, intact, * Neuro: ?Alert and oriented x3, moving upper and lower extremities symmetrically, no obvious facial asymmetry noted Course Course Course Narrative: RME, this is a rapid medical exam performed by Dago Sheikh please refer to primary provider for complete H&P- 59-year-old male with a diagnosis of progressive supranuclear palsy, a form of parkinsonism presents for evaluation of multiple falls, most recently this morning injuring his right elbow. He reports being on the ground for only a few minutes before his is able to help him up. He reports multiple falls per week in his interested in speaking to physical therapy and case management. His has been trying to help him set it up as an outpatient but has not been successful. Plan for EKG, basic labs, x-ray of the right elbow, CT scan of the brain Medical Decision Making Medical Decision Making MDM Narrative: Pleasant family, with the advanced Parkinson's disease, multiple falls, providing care at home, and requires additional support, he did have an injury and abrasion to the head and injury to his elbow, the x-rays without any acute fractures, there was no evidence for septic joint, there was no evidence for dislocation, and CT brain without traumatic brain injury, the rest of his workup including ECG, CPK to make sure there was no rhabdomyolysis from spending time in the floor, all of which has been reassuring, consulted case management. Differential Diagnosis Differential Diagnoses: The differential diagnosis associated with the presentation includes (Head injury, failure to thrive, dehydration, UTI, electrolyte derangements) Admission/Observation Consideration of admission/observation: Escalation of care including admission/observation considered 2022 Emergency Medicine Coding Guide from [email or web address] on 05/26/2025 All calculations should be rechecked by clinician prior to use RESULT SUMMARY: 5 Estimated Level of Service Problems: High (5) Risk: Moderate (4) Data: Extensive (5) NARRATIVE MDM: This patient's problem complexity is High as patient: may have an acute or chronic illness/injury posing a threat to life or body function. This patient's risk is Moderate due to: overall presentation requiring evaluation for a potentially Moderate-risk process. This patient's data complexity is Extensive due to: -multiple tests ordered/reviewed -independent historian used to support history -independent interpretation of imaging or EKG INPUTS: Number and Complexity ?> 2 = 5: illness/injury w/life or body threat (b) Risk level ?> 3 = Moderate Tests ordered ?> 3 = >= Tests results reviewed (excluding labs) ?> 2 = 2 Prior external notes reviewed ?> 0 = 0 Assessment requiring and independent historian ?> 1 = Yes Independent interpretation of tests ?> 1 = Yes Discussed management/test interpretation w/external professional ?> 0 = No Consult Healthcare Provider Case management Lab Data MDM Lab Attestation statement: I reviewed the patient's lab results. 05/26/25 11:54 05/26/25 11:54 Labs: Lab Results 05/26/25 Range/Units 11:54 WBC 9.8 (4.8-10.8) X10*3/uL RBC 3.92 L (4.60-5.80) X10*6/uL Hgb 13.5 L (14.0-18.0) g/dl Hct 38.9 L (42.0-52.0) % MCV 99.2 H (80.0-98.0) fL MCH 34.4 H (27.0-33.0) pg MCHC 34.7 (31.0-36.0) g/dl RDW 12.8 (11.0-16.0) % Plt Count 256 (160-400) X10*3/uL MPV 9.2 L (9.4-12.4) fL Immature Gran % (Auto) 0.4 (0.0-0.4) % Neut % (Auto) 84.6 H (45-73) % Lymph % (Auto) 8.8 L (20-40) % Hunt % (Auto) 5.5 (2-11) % Eos % (Auto) 0.3 (0-4) % Baso % (Auto) 0.4 (0-2) % Lymph # (Auto) 0.9 L (1.2-4.9) X10*3/uL Hunt # (Auto) 0.5 (0.1-1.2) X10*3/uL Eos # (Auto) 0.0 (0.0-0.4) X10*3/uL Baso # (Auto) 0.0 (0.0-0.2) X10*3/uL Abs Immat Gran (auto) 0.04 H (0.00-0.03) X10*3/uL Absolute Neuts (auto) 8.3 (2.0-8.3) x10*3/uL Absolute Nucleated RBC 0.000 (0.0-0.012) X10*3/uL Nucleated RBC % (auto) 0.0 (0.0-0.2) /100WBC Sodium 138 (135-145) mmol/L Potassium 4.7 (3.3-5.1) mmol/L Chloride 106 (96-108) mmol/L Carbon Dioxide 24 (22-29) mmol/L Anion Gap 13 (12-20) BUN 28 H (9-16) mg/dL Creatinine 0.85 (0.5-1.4) mg/dL Estim Creat Clear Calc 100.1 Estimated GFR > 60 Random Glucose 115 (60-115) mg/dL Calcium 9.6 (8.4-10.2) mg/dL Total Bilirubin 0.4 (0.0-1.0) mg/dL AST 28 (5-37) U/L ALT 13 (0-40) U/L Alkaline Phosphatase 98 (39-117) U/L Total Creatine Kinase 389 H (38-174) U/L Total Protein 7.2 (6.5-8.0) g/dL Albumin 4.7 (3.5-5.0) g/dL Lipase 33 (8-78) U/L Independent Interpretation I performed an independent interpretation of an: EKG (75 beats per minute otherwise normal ECG without dysrhythmia, AV jude blocks or ST-T changes to suspect underlying ACS, my independent interpretation) and Plain X-Ray (No fractures no dislocations, calcification of the lateral epicondylar area) Radiology Impression Discussion of test interpretation with radiology: I have reviewed the radiologist's reading. ( XR/XR elbow RT min 3V IMPRESSION: No acute fracture or dislocation.) Independent Historian Clinical information obtained from an independent historian. History obtained from or confirmed by: Spouse Chronic Conditions Patient?s care impacted by: Other (Parkinson's) Discharge Plan Discharge Clinical Impression: Contusion of elbow, right, Falls frequently, Parkinson's disease Additional Instructions: Tylenol 975 mg every 6 hours needed for pain, continue steroids starting tomorrow, make sure that patient does not develop a flexion contracture and so exercise that elbow and you can even do flexion-extension exercises with a can of soup, continue steroids starting tomorrow 1st dose in the ER, I am providing tiny dose of oxycodone that you can add on to his treatment you can take half a pill if he has a lot of pain and he is not able to move his elbow otherwise no need to use a full-dose or use it frequently is not to contribute to falls. Workup, cat scan and elbow x-rays has been reassuring, case management has discussed that typically someone we will get a touch with the next 48 hours, obviously this any other trauma or any other concern you should always be free to come back to the ER for re-evaluation. Prescriptions: New methylprednisolone [Medrol (Armando)] 4 mg tablets,dose pack 4 mg PO DAILY Qty: 21 0RF Rx Instructions: Day 1: 24 mg on day 1 administered as 8 mg before breakfast, 4 mg after lunch, 4 mg after supper, and 8 mg at bedtime or 24 mg as a single dose or divided into 2 or 3 doses upon initiation. Day 2: 20 mg on day 2 administered as 4 mg before breakfast, 4 mg after lunch, 4 mg after supper, and 8 mg at bedtime. Day 3: 16 mg on day 3 administered as 4 mg before breakfast, 4 mg after lunch, 4 mg after supper, and 4 mg at bedtime. Day 4: 12 mg on day 4 administered as 4 mg before breakfast, 4 mg after lunch, and 4 mg at bedtime. Day 5: 8 mg on day 5 administered as 4 mg before breakfast and 4 mg at bedtime. Day 6: 4 mg on day 6 administered as 4 mg before breakfast. oxycodone 5 mg tablet 2.5 mg PO Q6H PRN (Reason: pain) Qty: 6 0RF Rx Instructions: Partial Fill upon patient request. No Action carbidopa-levodopa 25-100 mg tablet 1 tab PO TID 90 Days Qty: 270 3RF ibuprofen 600 mg tablet 600 mg PO Q6H PRN (Reason: pain) Qty: 20 0RF meclizine 25 mg tablet 25 mg PO BID PRN (Reason: dizziness) Qty: 30 1RF mecobalamin (vitamin B12) 1,000 mcg tablet,chewable 1,000 mcg PO DAILY 90 Days Qty: 90 2RF simvastatin 20 mg tablet 20 mg PO DAILY 30 Days Qty: 30 1RF ondansetron HCl 4 mg tablet 4 mg PO Q8H PRN (Reason: nausea and vomiting) 10 Days Qty: 30 0RF lisinopril 20 mg tablet 20 mg PO DAILY 90 Days Qty: 90 1RF sertraline 100 mg tablet 100 mg PO DAILY 90 Days Qty: 90 3RF (DME) Wheel chair Kit See Rx Instructions .Route Qty: 1 0RF Rx Instructions: Daily As directed, 999 days esomeprazole magnesium 20 mg capsule,delayed release(DR/EC) 20 mg PO DAILY 90 Days Qty: 90 2RF Print Language: Montserratian
--- NOTE | 2025-05-26 11:13 | ECG_ITS ---
Test Reason : fall Blood Pressure : */* mmHG Vent. Rate : 75 BPM Atrial Rate : 75 BPM P-R Int : 142 ms QRS Dur : 112 ms QT Int : 396 ms P-R-T Axes : 58 -24 76 degrees QTcB Int : 442 ms Normal sinus rhythm Incomplete right bundle branch block Septal infarct , age undetermined Abnormal ECG When compared with ECG of 15-Nov-2010 08:13, Incomplete right bundle branch block is now Present Septal infarct is now Present T wave inversion now evident in Lateral leads Referred By: Jack Sheikh Electronically Signed By: Chung Rodriguez
--- NOTE | 2025-05-26 11:53 | MHC.EDTECH ---
do to patient being in CT and x-ray EKG was delay nurse aware
[2025-05-26 12:04] LABS: MANUAL DIFF FLAG NO
[2025-05-26 12:08] LABS: Hematocrit 38.9 % (42.0-52.0); Hemoglobin 13.5 g/dl (14.0-18.0); Imm Gran Abs Auto 0.04 X10*3/uL (0.00-0.03); Imm Gran Pct Auto 0.4 % (0.0-0.4); Lymphocytes Absolute Auto 0.9 X10*3/uL (1.2-4.9); Mean Corpuscular HGB Conc 34.7 g/dl (31.0-36.0); Mean Corpuscular Hemoglobin 34.4 pg (27.0-33.0); Mean Corpuscular Volume 99.2 fL (80.0-98.0); NRBC Abs Auto 0.000 X10*3/uL (0.0-0.012); NRBC Pct Auto 0.0 /100WBC (0.0-0.2); Platelet Count 256 X10*3/uL (160-400); Red Blood Count 3.92 X10*6/uL (4.60-5.80); White Blood Count 9.8 X10*3/uL (4.8-10.8)
[2025-05-26 12:20] LABS: Alanine Aminotransferase 13 U/L (0-40); Albumin Level 4.7 g/dL (3.5-5.0); Alkaline Phosphatase 98 U/L (39-117); Anion Gap 13 (12-20); Aspartate Amino Transferase 28 U/L (5-37); Blood Urea Nitrogen 28 mg/dL (9-16); Calcium 9.6 mg/dL (8.4-10.2); Carbon Dioxide 24 mmol/L (22-29); Chloride 106 mmol/L (96-108); Creatinine Clr Calc Pharmacy 100.1; Estimated Glomerular Filt Rate > 60; Lipase 33 U/L (8-78); Potassium 4.7 mmol/L (3.3-5.1); Sodium 138 mmol/L (135-145); Total Protein 7.2 g/dL (6.5-8.0)
[2025-05-26 14:14] VITALS: BP 121/76; PULSE 68; RESP 15; TEMP 36.9; O2SAT 96
--- OUTSIDE RECORDS SUMMARY | 2025-05-26 14:20 | XMS_ITS ---
Author Name [facility] Organization Unknown History of Medication Use Medication Directions Dispensed Refills Start Date End Date Stat us citalopram (CeleXA) 20 MG tablet Take 1 tablet (20 mg total) by mouth daily. 10/19/2024 active Myrbetriq 25 MG ER tablet Take 1 tablet (25 mg total) by mouth daily. 08/19/2024 active carbidopa-levodopa (SINEMET) 25-100 MG per tablet Take 1 tablet by mouth 3 (three) times a day. 11/04/2023 10/31/2024 aborted simvastatin (ZOCOR) 20 MG tablet Take 1 tablet (20 mg total) by mouth daily. 05/19/2023 active Problems Problem Status Onset Date Problem Type Date of Resoluti on Source Primary parkinsonism active 2023-08-26 ProblemAct [facility] Gait instability active 2023-08-26 ProblemAct H [facility] HTN (hypertension) active 2023-10-08 ProblemAct [facility] Encounters Encounter Type Encounter Reason Primary Diagnosis Location Date Ambulatory [facility] 10/31/2024 Ambulatory Parkinsonism, unspecified Parkinsonism, unspecified [facility] 01/28/2024 Ambulatory Parkinsonism, unspecified Parkinsonism, unspecified [facility] 12/29/2023 Ambulatory Cognitive communication deficit Cognitive communication deficit [facility] 12/29/2023 Ambulatory Cognitive communication deficit Cognitive communication deficit [facility] 12/22/2023 Ambulatory Parkinsonism, unspecified Parkinsonism, unspecified [facility] 12/22/2023 Ambulatory Parkinsonism, unspecified Parkinsonism, unspecified [facility] 12/08/2023 Ambulatory Cognitive communication deficit Cognitive communication deficit [facility] 12/08/2023 Ambulatory Parkinsonism, unspecified Parkinsonism, unspecified [facility] 12/03/2023 Ambulatory Other lack of coordination Other lack of coordination [facility] 12/03/2023 Ambulatory Cognitive communication deficit Cognitive communication deficit [facility] 12/01/2023 Ambulatory Parkinsonism, unspecified Parkinsonism, unspecified [facility] 12/01/2023 Ambulatory Other lack of coordination Other lack of coordination [facility] 12/01/2023 Ambulatory Parkinsonism, unspecified Parkinsonism, unspecified [facility] 11/26/2023 Ambulatory Other lack of coordination Other lack of coordination [facility] 11/26/2023 Ambulatory Parkinsonism, unspecified Parkinsonism, unspecified [facility] 11/24/2023 Ambulatory Other lack of coordination Other lack of coordination [facility] 11/24/2023 Ambulatory Parkinsonism, unspecified Parkinsonism, unspecified [facility] 11/19/2023 Ambulatory Other lack of coordination Other lack of coordination [facility] 11/19/2023 Ambulatory Parkinsonism, unspecified Parkinsonism, unspecified [facility] 11/17/2023 Ambulatory Other lack of coordination Other lack of coordination [facility] 11/17/2023 Ambulatory Parkinsonism, unspecified Parkinsonism, unspecified [facility] 11/12/2023 Ambulatory Other lack of coordination Other lack of coordination [facility] 11/12/2023 Ambulatory Parkinsonism, unspecified Parkinsonism, unspecified [facility] 11/10/2023 Ambulatory Other lack of coordination Other lack of coordination [facility] 11/10/2023 Ambulatory Parkinsonism, unspecified Parkinsonism, unspecified [facility] 11/05/2023 Ambulatory Other lack of coordination Other lack of coordination [facility] 11/05/2023 Ambulatory Parkinsonism, unspecified Parkinsonism, unspecified [facility] 11/03/2023 Ambulatory Other lack of coordination Other lack of coordination [facility] 11/03/2023 Ambulatory Parkinsonism, unspecified Parkinsonism, unspecified [facility] 10/20/2023 Ambulatory Other lack of coordination Other lack of coordination [facility] 10/08/2023 Ambulatory Unsteadiness on feet Unsteadiness on feet [facility] 08/26/2023 Care Team Organization Name Specialty Phone Email Start Date End Da te [facility] 11/22/2023 [facility] 08/26/20232024 [facility] 08/26/20232022
--- OUTSIDE RECORDS SUMMARY | 2025-05-26 14:20 | XMS_ITS | Patient Health Record ---
Author Organization [facility] Address [address] [place] [address] Care Team Providers Care Customer Service Assistant Name Role Phone Alen Castanon Primary Care Provider UnavailTorrey Eli Unavailable [phone] Allergies No Known Allergies Results Component Value Reference Range Notes Pathology (Not yet reviewed by provider) Interpretation: Performing Lab:[facility], [address] [place] [phone] Notes/Report: Reason For Referral No Information Medications Medication [...] Status Risk Notes Problem Colon cancer screening (916791243) Colon cancer screening (Z12.11) Active confirmed Problem Preprocedural examination (468782527687451) Preprocedural examination (Z01.818) Active confirmed Problem Family history of malignant neoplasm of gastrointestinal tract (454464144) Family history of colon cancer in father (Z80.0) Active confirmed Problem History of polyp of colon (situation) (195294033) History of colon polyps (Z86.0100) Active confirmed Vital Signs Blood pressure diastolic 77 mm Hg 02/28/2025 Height 72 in 02/28/2025 Blood pressure systolic 111 mm Hg 02/28/2025 Weight 171 lbs 02/28/2025 BMI 23.19 kg/m2 02/28/2025 Procedures Procedure Date Ordered Date Performed Result Body Sit e COLONOSCOPY 02/28/2025 N/A Encounters Encounter Location Date Provider Diagnosis [facility] [address] [place], [place] [id number] 05/19/2025 Torrey Dykes [facility] [address] [place] [address] 02/28/2025 Torrey Dykes Colon cancer screeni ng [...] Test Test Name Order Date COLONOSCOPY 02/28/2025 Pathology 05/19/2025 Insurance Providers Payer Name Payer Address Payer Phone Subscriber Number Group Number Insured Name Patient Relationship to Insured Coverage Start Date Coverage End Date [facility] [address] [place] [address] [phone] [id number] CORIE DAVILA Self - patient is the insured Medical (General) History Medical History History ICD Code hx of kidney stones hx of Gout hypertension Parkinsons disease Hypercholesterolemia GERD-He describes a negative upper endos copy in the past Depression Denies CO,DM,CVA,Lung disease,renal dise ase 2 previous colonoscopies thr [facility] with the most recent one in November 2020 removing 3 small tubular adenomas Surgical History Surgery Date(Month/Year) Broken left wrist 2024 ACL LEFT Appendectomy
--- OUTSIDE RECORDS SUMMARY | 2025-05-26 14:20 | XMS_ITS | Clinical Summary ---
Author Organization [facility] Address [address] [place] [address] Care Team Providers Care Classifier Name Role Phone Alen Castanon MD Primary Care Provider [phone] Allergies No known active allergies Medications esomeprazole [...] 10/08/2023 Primary parkinsonism 08/26/2023 Gait instability 08/26/2023 Social History Tobacco Use Types Packs/Day Years [...] Description 08/01/2025 9:30 AM EDT Office Visit [facility] Neurology [address] [place] [phone] Paolo Wilkins, TIMOTHY [address] [place] [address] Health Maintenance Due Date Last Done Comments [...] Associated Problems Recent Progress Patient-Stated? Author ST [facility] 1 Speech Therapy No Florian, Geni, CCC-PRODUCTION CORRUGATOR Note: Pt will use compensatory strategies for word retrieval, memory, attention and executive skills for functional activities with min cues/80% accuracy. ST L[facility] 2 Speech Therapy No Geni Du, CCC-PRODUCTION CORRUGATOR Note: Pt score on the Communicative Participation Item Bank will improve by at least 3 points. Insurance [employer] Care Teams Classifier Relationship Specialty Start Date End Date Alen Castanon MD [address] [place] [address] [place] [address] PCP - General Family Medicine 08/03/23
--- OUTSIDE RECORDS SUMMARY | 2025-05-26 14:20 | XMS_ITS | Patient Health Record ---
Author Organization [facility] [place] Address [address] [place] [address] Care Team Providers Care Asphalt Distributor Operator Name Role Phone Danielle CABRAL, Major Primary Care Provider Cira natalie Gutierrez [place] Unavailable [phone] Reason For Referral No Information Medications Medication SIG (Take, Route, Frequency, Duration) Notes Start Date End Date Status Colchicine 0.6 MG 1 tablet Orally Once a day; Duration: 10 days 02/09/2018 Not-Takin g Lisinopril-hydroCHLOROthi azide 10-12.5 MG Orally Active Allopurinol 300 MG Orally A ctive Ibuprofen 800 MG 1 tablet with food o r milk as needed Orally Three times a day; Duration: 30 days 02/09/2018 Not-Taking Work Note . . . patient had cortisone injection and is disabled from work until 11/05/17 Active Zolpidem Tartrate 10 MG Orally Active Simvastatin 20 MG Orally Ac tive Gabapentin 300mg once a day hs orally daily; Duration: 10 days 02/09/2018 Not-Taking Social History Tobacco [...] primary osteoarthritis of the ankle and/or foot (753303560) Primary osteoarthritis , right ankle and foot (M19.071) Active confirmed Problem Acquired hallux valgus (62188828) Hallux valgus (acquired), right foot (M20.11) Active confirmed Problem Acquired hammer toe of left foot (1824769229279036) Other hammer toe(s) (acquired), left foot (M20.42) Active confirmed Problem Primary gout (04322529) Idiopathic gout, right ankle and foot (M10.071) Active confirmed Plan Of Treatment Pending Test Test Name Order Date X ray : Foot, left 2V 04/23/2018 X ray : Foot, right 2V 03/23/2018 X ray : Foot, right 2V 04/23/2018 X ray : Foot, right 3V 11/03/2017 X ray : Foot, right 3V 03/09/2018 [id number], [id number]/[id number], JOINT/BURSA 0 11/03/2017 Insurance Providers Payer Name Payer Address Payer Phone Subscriber Number Group Number Insured Name Patient Relationship to Insured Coverage Start Date Coverage End Date [facility] [address] [place] [address] [id number] Cesar Clinton Self - patient is the insured Medical (General) History Medical History History ICD Code Gout High blood pressure Surgical History Surgery Date(Month/Year) knee replacement 1986 appendectomy 1990 [place]/[facility]la Right foot 03/04/2018
--- OUTSIDE RECORDS SUMMARY | 2025-05-26 14:20 | XMS_ITS | Clinical Summary ---
Author Organization [facility] Address [address] [place] [address] Care Team Providers Care Tank Furnace Operator Name Role Phone Unavailable Primary Care Provider Unavailabl e Social History Tobacco Use Types Packs/Day Years Used Date Smoking Tobacco: Never Assessed Sex and Gender Information Value Date Recorded Sex Assigned at Not on file Gender Identity Not on file Sexual Orientation Not on file Plan of Treatment Not on file
--- NOTE | 2025-05-26 14:59 | PC.NURSE ---
firm swelling noted right elbow. healing abrasion right forehead. at bedside stating that she's been trying to get additional help at home and struggles. CM has been into see patient.
--- NOTE | 2025-05-26 15:05 | MHC.CM.ED ---
Received case management consult from Dr Adame. Patient came to the ER due to elbow pain after a fall. Patient has a history of Parkinson's. Met with patient and , Pat, in regards to discharge planning. Patient lives with Pat, uses a walker for mobility and had no services prior to coming to the ER. PCP was supposed to arrange some services at home but has not been successful. Patient and Pat agreeable to [facility] for senior living and physical therapy. Also agreeable to referral to [facility]. Both referrals made via [facility]. Pat will transport patient home. Dr Robles and Ximena RN aware. Continue to monitor for d/c needs.
[2025-05-26 15:42] VITALS: BP 121/76; PULSE 68; RESP 15; TEMP 36.9; O2SAT 96
--- NOTE | 2025-05-26 21:29 | MHC.CM.ED ---
Erika FABIAN declined patient. Local referrals made. [facility], [facility] has accepted patient F2F uploaded. Pt had been discharged home.
== END 2025-05-26 15:43 | disposition home or self-care (01) ==
PROVIDERS: Physician Assistant; Emergency Provider Emergency Medicine; PCP Family Medicine
DX: S50.01XA Contusion of right elbow, initial encounter (principal); G20.A1 Parkinson's disease without dyskinesia, without mention of fluctuations; R51.9 Headache, unspecified; I45.10 Unspecified right bundle-branch block; X58.XXXA Exposure to other specified factors, initial encounter; Y93.9 Activity, unspecified; Y92.9 Unspecified place or not applicable; Y99.8 Other external cause status; Z91.81 History of falling; Z79.899 Other long term (current) drug therapy; Z87.891 Personal history of nicotine dependence
CPT/HCPCS: 36415; 70450; 73080; 80053; 82550; 83690; 85025; 93005; 99284; J8540

== ENCOUNTER → 2025-05-26 11:10 | Outpatient (BNV) | payer OTHER, SELFPAY | PROVIDERS: PCP Family Medicine; Visit Provider Radiology Diagnostic Radiology | DX: J32.2 Chronic ethmoidal sinusitis (principal); M77.01 Medial epicondylitis, right elbow | CPT/HCPCS: 70450; 73080 ==

== ENCOUNTER → 2025-05-26 11:13 | Outpatient (BNV) | payer OTHER, SELFPAY | PROVIDERS: Emergency Provider Emergency Medicine; PCP Family Medicine; Visit Provider Internal Medicine Cardiovascular Disease | DX: I45.10 Unspecified right bundle-branch block (principal) | CPT/HCPCS: 93010 ==

== ENCOUNTER 2025-06-05 15:00 | Outpatient (AMB) | payer OTHER, SELFPAY ==
--- OUTSIDE RECORDS SUMMARY | 2025-06-05 15:05 | XMS_ITS | Patient Health Record ---
Author Organization [facility] [place] Address [address] [place] [address] Care Team Providers Care Copper Miner Name Role Phone Danielle CABRAL, Major Primary Care Provider Cira natalie Gutierrez [place] Unavailable [phone] Reason For Referral No Information Medications Medication [...] primary osteoarthritis of the ankle and/or foot (286308938) Primary osteoarthritis , right ankle and foot (M19.071) Active confirmed Problem Acquired hallux valgus (06265325) Hallux valgus (acquired), right foot (M20.11) Active confirmed Problem Acquired hammer toe of left foot (5504002648587055) Other hammer toe(s) (acquired), left foot (M20.42) Active confirmed Problem Idiopathic gout, right ankle and foot (M10.071) Active confirmed Plan Of Treatment Pending Test Test Name Order Date X ray : Foot, left 2V 04/23/2018 X ray : Foot, right 2V 03/23/2018 X ray : Foot, right 2V 04/23/2018 X ray : Foot, right 3V 11/03/2017 X ray : Foot, right 3V 03/09/2018 [id number], [id number]/INJECT, JOINT/BURSA 0 11/03/2017 Insurance Providers Payer Name Payer Address Payer Phone Subscriber Number Group Number Insured Name Patient Relationship to Insured Coverage Start Date Coverage End Date [facility] [address] [place] [address] [id number] Cesar Clinton Self - patient is the insured Medical (General) History Medical History History ICD Code Gout High blood pressure Surgical History Surgery Date(Month/Year) knee replacement 1986 appendectomy 1990 Gardiner/Cayla Right foot 03/04/2018
--- OUTSIDE RECORDS SUMMARY | 2025-06-05 15:05 | XMS_ITS | Clinical Summary ---
Author Organization [facility] Address [address] [place] [address] Care Team Providers Care Weapons System Instrument Mechanic Name Role Phone Unavailable Primary Care Provider Unavailabl e Social History Tobacco Use Types Packs/Day Years Used Date Smoking Tobacco: Never Assessed Sex and Gender Information Value Date Recorded Sex Assigned at Not on file Gender Identity Not on file Sexual Orientation Not on file Plan of Treatment Not on file
--- OUTSIDE RECORDS SUMMARY | 2025-06-05 15:05 | XMS_ITS | Encounter Summary ---
Author Organization [facility] Address [address] [place] [address] Care Team Providers Care Acute Care Physical Therapist Name Role Phone Alen Castanon MD Primary Care Provider Encounter Details Date Type Department Care Team (Late st Contact Info) Description 06/02/2025 Telephone [facility] Neu[facility] [address] [place] [phone] Paolo Wilkins, ACCOUNTS RECEIVABLE MANAGER [address] [facility] [address] [place] [address] Social History Tobacco Use Types Packs/Day Years [...] encounter Miscellaneous Notes * Telephone Encounter - Cornelia Vizcarra MA - 06/02/2025 2:16 PM EDT Called and relayed information to Pat and told her if she has any questions to call us back. * Telephone Encounter - Paolo Wilkins APRN - 06/02/2025 11:55 AM EDT Yes he should back down to 1 tab TID as per instructions in December as they reported he was falling more on 1 ?? tabs per dose. * Telephone Encounter - Juliet Murphy MA - 06/02/2025 11:40 AM EDT [facility] called asking for refills for sinemet. She states he takes 1.5 tabs TID. Our last TEstates he was supposed to go back down to 1 TID due to increased falls. does not recall getting that recommendation. Nurse documented that it was relayed to . She states he is still falling about 4/week. Feels balance is an issue, shuffling a lot. She stateshe is taking meclizine prn for dizziness but reports his BP readings have been good. Lemuel FABIAN JUST got in touch with them to schedule PT/OT for him despite us referring him in December. He states with them for PT/OT/ABE TEACHER and nursing. Med changes-Celexa Stopped, Mirtazapine 7.5 to 15MG at bedtime was started. reports he is still depressed but seems to be sleeping better. Stopped Mybetriq awhile ago, she states he still has urgency but denies accidents during the day. She had to start using pullups at night about two weeks ago. She reports worsening confusion towards the end of the day that began about 1-2 weeks ago. No recent bloodwork or ua done. They have follow up with PCP Dr Castanon on Thursday. Again, he needs refills for sinemet and she is unsure if she should decrease him back down to 1 tabTID or keep him at 1.5 TID. Please advise and send appropriate script documented in this encounter Plan of Treatment Upcoming Encounters Date Type Department Care Team (Late st Contact Info) Description 08/01/2025 9:30 AM EDT Office Visit [facility] Neurology [place] [address] [place] [address] Paolo Wilkins, ACCOUNTS RECEIVABLE MANAGER [address] [facility] [address] [place] [address] documented as of this encounter Goals Goal Patient Goal Type Associated Problems Recent Progress Patient-Stated? Author ST LTG 1 Speech Therapy No Geni Du CCC-ABE TEACHER Note: Pt will use compensatory strategies for word retrieval, memory, attention and executive skills for functional activities with min cues/80% accuracy. LTG 2 Speech Therapy No Geni Du CCC-ABE TEACHER Note: Pt score on the Communicative Participation Item Bank will improve by at least 3 points. documented as of this encounter Visit Diagnoses Not on filedocumented in this encounter Care Teams Acute Care Physical Therapist Relationship Specialty Start Date End Date Alen Castanon MD [address] [place] [address] [place] [address] PCP - General Family Medicine 08/03/23 documented as of this encounter
--- OUTSIDE RECORDS SUMMARY | 2025-06-05 15:05 | XMS_ITS | Patient Health Record ---
Author Organization [facility] Address [address] [place] [address] Care Team Providers Care Music Writer Name Role Phone Alen Castanon Primary Care Provider UnavailTorrey Eli Unavailable [phone] Allergies No Known Allergies Results Component Value Reference Range Notes Pathology (Not yet reviewed by provider) Interpretation: Performing Lab:[facility], [address] [place] [phone] Notes/Report: Reason For Referral No Information Medications [...] Status Risk Notes Problem Colon cancer screening (729873011) Colon cancer screening (Z12.11) Active confirmed Problem Preprocedural examination (463686893212338) Preprocedural examination (Z01.818) Active confirmed Problem Family history of malignant neoplasm of gastrointestinal tract (218911954) Family history of colon cancer in father (Z80.0) Active confirmed Problem History of polyp of colon (situation) (805742897) History of colon polyps (Z86.0100) Active confirmed Vital Signs Blood pressure diastolic 77 mm Hg 02/28/2025 Height 72 in 02/28/2025 Blood pressure systolic 111 mm Hg 02/28/2025 Weight 171 lbs 02/28/2025 BMI 23.19 kg/m2 02/28/2025 Procedures Procedure Date Ordered Date Performed Result Body Sit e COLONOSCOPY 02/28/2025 N/A Encounters Encounter Location Date Provider Diagnosis [facility] Outpatient [address] [place], [place] [phone] 05/19/2025 Torrey Dykes [facility] [address] [place] [address] 02/28/2025 Torrey Dykes Colon cancer screeni ng [...] Insured Coverage Start Date Coverage End Date [facility] [address] [place] [address] [id number] CORIE DAVILA Self - patient is the insured Medical (General) History Medical History History ICD Code hx of kidney stones hx of Gout hypertension Parkinsons disease Hypercholesterolemia GERD-He describes a negative upper endos copy in the past Depression Denies OR,DM,CVA,Lung disease,renal dise ase 2 previous colonoscopies thr [facility] with the most recent one in November 2020 removing 3 small tubular adenomas Surgical History Surgery Date(Month/Year) Broken left wrist 2024 ACL LEFT Appendectomy
--- NOTE | 2025-06-05 15:19 | A.OFFPC_ITS ---
Vital Signs 06/05/25 15:21 Height 6 ft Weight 177 lb 2 oz BMI 24.0 BP 104/74 Blood Pressure Location Rt brachial Position Sitting Respiration 16 Pulse 99 Pulse Source Pulse Oximeter Temp 98.0 F Temp Source Oral Pulse Oximetry (%) 96 Oxygen Delivery Method Room Air Intake Visit Reasons: [facility] f[facility] / Possible referral to nurse baron. Accompanied by: Spouse Allergies Seasonal Allergies Allergy (Intermediate, Verified 06/05/25 15:26) Runny Nose Medication List - Last Reconciled 06/05/25 by Alen Castanon MD carbidopa-levodopa 25-100 mg 1 tab PO TID 90 days chair, wheel (Wheel chair) Daily As directed, 999 days esomeprazole magnesium 20 mg PO DAILY 90 days ibuprofen 600 mg PO Q6H PRN lisinopril 20 mg PO DAILY 90 days meclizine 25 mg PO BID PRN mecobalamin (vitamin B12) 1,000 mcg PO DAILY 90 days mirtazapine 7.5 - 15 mg PO BEDTIME ondansetron HCl 4 mg PO Q8H PRN 10 days simvastatin 20 mg PO DAILY 30 days Tobacco use date assessed: 06/05/25 Dental Screening Dental Screen Date: 06/05/25 Did you have a dental visit in the last 12 months?: Yes Did you have a dental problem in the last 6 months where you did not have access to dental care?: No Was dental information given to patient?: Patient has dentist HPI ED f[place] [facility] / Possible referral to nurse baron. HPI Details 59 y/o male presents to f/u hospital dis charge visit 05/26/25 for a fall. Hx of advanced Parkinson's - has had issues with frequent falls which they state has been getting worse. Pt had R elbow pain from fall. Workup, cat scan and elbow x-ray had been reassuring. They report ongoing falls. Has an appt. with neurology next month. They note he now has physical therapy. Does have a visiting nurse. HPI Comments History of Present Illness Details Documentation assistance for Alen Castanon MD, was provided by Radu Lindsay,Subha Drive In Waiter/Waitress on 06/05/2025 at 3:54 PM EST. I, Dr. Castanon, have read, observed, and verified documentation. [facility] Medical History Anxiety with depression Gout Parkinson disease GERD (gastroesophageal reflux disease) Urinary frequency Elevated fasting glucose Daytime sleepiness Difficulty sleeping Dizziness High cholesterol Hypertension Surgical History H/O colonoscopy History of appendectomy History of repair of anterior cruciate ligament of left knee Family History Maternal Grandmother Mental health disorder Maternal Uncle Mental health disorder Father Colon cancer Family/Other Leukemia Social History Housing: House Alcohol intake: former Comment: counts correct Patient Tobacco Use Status: Former Tobacco user Tobacco use type: Cigarette e-Cigarette/Vaping Use: Never Used Second Hand Smoke Exposure: No Substance Use Type: Marijuana service: Yes Current occupational status: unemployed Cognitive needs: No Hearing needs: No Vision needs: No Questionnaire PHQ-9 Over the last 2 weeks, how often have you been bothered by any of the following problems? 1. Little interest or pleasure in doing things: not at all 2. Feeling down, depressed, or hopeless: several days 3. Trouble falling or staying asleep, or sleeping too much: more than half the days 4. Feeling tired or having little energy: several days 5. Poor appetite or overeating: not at all 6. Feeling bad about yourself - or that you are a failure or have let yourself or your family down: several days 7. Trouble concentrating on things, such as reading the newspaper or watching television: not at all 8. Moving or speaking so slowly that other people could have noticed. Or the opposite - being so fidgety or restless that you have been moving around a lot more than usual: more than half the days 9. Thoughts that you would be better off or of hurting yourself in some way: several days Total score: 8 Depression Screening Interpretation: Positive Depression Screening Done: Yes Source: Developed by Drs. Torrey Funez, Haley Aviles, Gilmer Souza and colleagues, with an educational jose a from [employer]. Thrive Questionnaire Date Thrive assessed: 12/21/24 I am a: Patient What is your living situation today?: I have a steady place to live Within the past 12 months, did the food you bought not last and you didn't have the money to get more?: Never true Within the past 12 months, did you worry whether your food would run out before you got money to buy more?: Never true Do you have trouble paying for medicines?: No Do you have trouble getting transportation to medical appointments?: No Do you have trouble paying your heating and electricity bill?: No Do you have trouble taking care of your child, family member or friend?: Yes Do you have trouble with day-to-day activities such as bathing, preparing meals, shopping, managing finances, etc.?: Yes Are you currently unemployed and looking for a job?: No Are you interested in more education?: No Please select the resources that you would like help with: Care for elder or disabled Currently or been in a relationship where the following occur: No concerns reported THRIVE Score: 0 AUDIT C Alcohol Use Questionnaire (AUDIT-C) 1. How often do you have a drink containing alcohol?: Never 3. How often do you have six or more drinks on one occasion?: Never Total Score: 0 DARRICK-7 AMB Questionnaire DARRICK-7 Date DARRICK - 7 assessed: 12/21/24 Feeling nervous, anxious, or on edge: 0 = Not at all Not being able to stop or control worryin = Not at all Worrying too much about different things: 1 = Several days Trouble relaxin = Not at all Being so restless that it is hard to sit still: 0 = Not at all Becoming easily annoyed or irritable: 1 = Several days Feeling afraid as if something awful might happen: 1 = Several days Total DARRICK-7 score (0-4 normal; 5-9 mild; 10-14 moderate; 15-21 severe): 3 Source: Developed by Drs. Torrey Funez, Haley Aviles, Gilmer Souza and colleagues, with an educational jose a from [employer]. Review of Systems Const Denies chills, Denies fatigue, Denies fever(s), Denies headache(s) and Denies weakness ENT Denies dizziness and Denies headache(s) Card Denies dyspnea Resp Denies cough, Denies dyspnea, Denies wheezing and Denies other (shortness of breath) Musc Denies numbness and Denies tingling Neuro Denies dizziness, Denies headache(s), Denies numbness, Denies tingling and Denies weakness Psych Denies anxiety and Denies depression Endo Denies fatigue Aller/Immun Denies wheezing Physical exam (Primary Care) Vital Signs: Last Vital Signs Temp 98.0 F 06/05/25 15:21 Pulse 99 06/05/25 15:21 Resp 16 06/05/25 15:21 BP 104/74 06/05/25 15:21 Pulse Ox 96 06/05/25 15:21 Oxygen Delivery Method Room Air 06/05/25 15:21 BMI result Body Mass Index 24.0 Tobacco/Smoking Status: Tobacco use Status Tobacco use date assessed 06/05/25 06/05/25 15:29 Patient Tobacco Use Status Former Tobacco user 06/05/25 15:19 Tobacco use type Cigarette 06/05/25 15:19 e-Cigarette/Vaping Use Never Used 06/05/25 15:19 PHQ-9: PHQ-9 Score PHQ-9: Total score 8 06/05/25 15:54 Depression Screening Interpretation: Positive Thrive Assessment: Date of Thrive Assessment Date Thrive assessed 12/21/24 06/05/25 15:19 Currently or been in a relationship where the following occur: No concerns reported Const General: well developed; No acute distress Nutritional Appearance: well nourished Orientation/consciousness: patient oriented x3 HENMT Head: Yes normocephalic and Yes atraumatic Eyes General: appearance normal, both eyes and all related structures Pupils: Equal, round and reactive pupils present EOM: EOMs intact bilaterally Resp Effort & Inspection: normal respiratory effort Neuro General: patient oriented x3 and gait normal Cranial nerves: Yes Equal, round and reactive pupils present Extrem Other: R elbow pain and tenderness just distal to the lateral epicondyle Psych Affect: normal affect Coding Level of Care Code Est Pt Level 4 (49509) Diagnoses Falls frequently R29.6 Contusion of elbow, right S50.01XA Encounter type: initial encounter Parkinson's disease G20.B2 Dyskinesia presence: with dyskinesia Fluctuating manifestations: with fluctuating manifestations Right elbow pain M25.521 Assessment & Plan Assessment & Plan (1) Falls frequently: Code(s): R29.6 - Repeated falls Category: Medical (2) Contusion of elbow, right: Code(s): S50.01XA - Contusion of right elbow, initial encounter Category: Medical Qualifiers: Encounter type: initial encounter Qualified Code(s): S50.01XA - Contusion of right elbow, initial encounter (3) Parkinson's disease: Code(s): G20.A1 - Parkinson's disease without dyskinesia, without mention of fluctuations Category: Medical Qualifiers: Dyskinesia presence: with dyskinesia Fluctuating manifestations: with fluctuating manifestations Qualified Code(s): G20.B2 - Parkinson's disease with dyskinesia, with fluctuations (4) Right elbow pain: Code(s): M25.521 - Pain in right elbow Category: Medical Plan 59-year-old male with history of progressive parkinsonism and frequent falls presents after visit to the ED for fall onto right elbow. X-rays of right elbow on day of injury were negative for fracture. He was given oxycodone and methylprednisone for pain and swelling. Still has significant tenderness just distal to lateral epicondyle. Has some decreased range of motion still. Will repeat x-ray and follow-up with patient in a week. Patient now has a crew supervisor who is arranging care. He has physical therapy, OT, a visiting nurse and has an upcoming appointment with speech language pathology. He also has an upcoming appointment with his neurologist. Also give patient contact information for [facility] other care services. We discussed BATCH MAKER care in respite for his family chemical handler. We also discussed that he is a candidate for a motorized scooter. Currently using wheelchair. Orders: Orders XR elbow RT 2V Today M25.521 - Pain in right elbow Comprehensive [place]. Panel Fast Today Z00.00 - Encounter for general adult medical examination without abnormal findings Vitamin B12 and Folate Today E53.8 - Deficiency of other specified B group vitamins Microalbumin, Random (w Creat) Today I10 - Essential (primary) hypertension Complete Blood Count Auto Diff Today Z00.00 - Encounter for general adult medical examination without abnormal findings TSH reflex Free T4 Today Z00.00 - Encounter for general adult medical examination without abnormal findings UA CC w/rflx Micro + Cult Today Z00.00 - Encounter for general adult medical examination without abnormal findings
[2025-06-05 15:21] VITALS: BP 104/74; PULSE 99; RESP 16; TEMP 36.7; O2SAT 96; BMI 24.0
== END 2025-06-05 16:11 | disposition home or self-care (01) ==
LOC: HO.HMCFM 15:00
PROVIDERS: PCP Family Medicine; Visit Provider Family Medicine
DX: R29.6 Repeated falls (principal); S50.01XA Contusion of right elbow, initial encounter; G20.B2 Parkinson's disease with dyskinesia, with fluctuations; M25.521 Pain in right elbow

== ENCOUNTER 2025-06-07 08:37 | Outpatient (REF) | payer OTHER, SELFPAY ==
--- NOTE | ~2025-06-07 | XR_ITS ---
EXAMINATION: XR ELBOW, RIGHT CLINICAL INFORMATION: M25.521 - Pain in right elbow COMPARISON: 05/26/2025 TECHNIQUE: AP, lateral, and oblique views of the right elbow. FINDINGS: There is a notable joint effusion. There is an anterior spinnaker sign. No perceptible fracture, dislocation, or suspicious bone lesion. There is normal alignment. There is mild degenerative arthritis in the elbow joint. There is enthesopathic spurring of both epicondyles. There is mild soft tissue swelling overlying the olecranon and there is a small amount of calcium in the triceps enthesis. XR/XR elbow RT min 3V IMPRESSION: 1. Prominent joint effusion present. No detectable fracture. If there is a history of trauma, this may indicate a radio occult fracture. 2. 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 3. Spurring of the epicondyles. 4. Mild enthesopathic changes of the triceps tendon. Electronically signed by: Medhat Cueto MD 06/07/2025 09:19 AM EDT
--- OUTSIDE RECORDS SUMMARY | 2025-06-07 08:50 | XMS_ITS | Encounter Summary ---
Author Organization [facility] Address [address] [place] [address] Care Team Providers Care Detention Sergeant Name Role Phone Alen Castanon MD Primary Care Provider [phone] Encounter Details Date Type Department Care Team (Late st Contact Info) Description 06/02/2025 Telephone [facility] Neurology [address] [place] [phone] Paolo Wilkins, FURNACE INSTALLER [address] [facility] [address] [place] [address] Social History Tobacco Use Types Packs/Day Years [...] in December. He states with them for PT/OT/STEAM DISTRIBUTION SUPERVISOR and nursing. Med changes-Celexa Stopped, Mirtazapine 7.5 [...] Description 08/01/2025 9:30 AM EDT Office Visit [facility] Neurology [place] [address] [place] [address] Paolo Wilkins, FURNACE INSTALLER [address] [facility] [address] [place] [address] documented as of this encounter Goals Goal Patient Goal Type Associated Problems Recent Progress Patient-Stated? Author ST LTG 1 Speech Therapy No Geni Du CCC-STEAM DISTRIBUTION SUPERVISOR Note: Pt will use compensatory strategies for word retrieval, memory, attention and executive skills for functional activities with min cues/80% accuracy. LTG 2 Speech Therapy No Geni Du CCC-STEAM DISTRIBUTION SUPERVISOR Note: Pt score on the Communicative Participation Item Bank will improve by at least 3 points. documented as of this encounter Visit Diagnoses Not on filedocumented in this encounter Care Teams Detention Sergeant Relationship Specialty Start Date End Date Alen Castanon MD [address] [place] [address] [place] [address] PCP - General Family Medicine 08/03/23 documented as of this encounter
--- OUTSIDE RECORDS SUMMARY | 2025-06-07 08:50 | XMS_ITS | Patient Health Record ---
Author Organization [facility] telma Drury Address [address] [place] [address] Care Team Providers Care School Treasurer Name Role Phone Danielle CABRAL, Major Primary Care Provider Cira natalie Gutierrez [place] Unavailable [phone] Reason For Referral No Information Medications Medication [...] primary osteoarthritis of the ankle and/or foot (550805646) Primary osteoarthritis , right ankle and foot (M19.071) Active confirmed Problem Acquired hallux valgus (01449180) Hallux valgus (acquired), right foot (M20.11) Active confirmed Problem Acquired hammer toe of left foot (2385534183051550) Other hammer toe(s) (acquired), left foot (M20.42) Active confirmed Problem Primary gout (11888717) Idiopathic gout, right ankle and foot (M10.071) Active confirmed Plan Of Treatment Pending Test Test Name Order Date X ray : Foot, left 2V 04/23/2018 X ray : Foot, right 2V 03/23/2018 X ray : Foot, right 2V 04/23/2018 X ray : Foot, right 3V 11/03/2017 X ray : Foot, right 3V 03/09/2018 75520, [id number]/[id number], JOINT/BURSA 0 11/03/2017 Insurance Providers Payer Name Payer Address Payer Phone Subscriber Number Group Number Insured Name Patient Relationship to Insured Coverage Start Date Coverage End Date [facility] [address] [place] [address] [id number] Cesar Clinton Self - patient is the insured Medical (General) History Medical History History ICD Code Gout High blood pressure Surgical History Surgery Date(Month/Year) knee replacement 1986 appendectomy 1990 Gardiner/Cayla Right foot 03/04/2018
--- OUTSIDE RECORDS SUMMARY | 2025-06-07 08:50 | XMS_ITS | Patient Health Record ---
Author Organization [facility] Address [address] [place] [address] Care Team Providers Care Egg Trayer Name Role Phone Alen Castanon Primary Care Provider UnavailTorrey Eli Unavailable [phone] Allergies No Known Allergies Results Component Value Reference Range Notes Pathology (Not yet reviewed by provider) Interpretation: Performing Lab:[facility], [address] [place] [phone] Notes/Report: Reason For Referral No Information Medications [...] Status Risk Notes Problem Colon cancer screening (804884076) Colon cancer screening (Z12.11) Active confirmed Problem Preprocedural examination (869338436778149) Preprocedural examination (Z01.818) Active confirmed Problem Family history of malignant neoplasm of gastrointestinal tract (412287838) Family history of colon cancer in father (Z80.0) Active confirmed Problem History of polyp of colon (situation) (683253230) History of colon polyps (Z86.0100) Active confirmed Vital Signs Blood pressure diastolic 77 mm Hg 02/28/2025 Height 72 in 02/28/2025 Blood pressure systolic 111 mm Hg 02/28/2025 Weight 171 lbs 02/28/2025 BMI 23.19 kg/m2 02/28/2025 Procedures Procedure Date Ordered Date Performed Result Body Sit e COLONOSCOPY 02/28/2025 N/A Encounters Encounter Location Date Provider Diagnosis [facility] [place] [address] [place], [place] [id number] 05/19/2025 Torrey Dykes [facility] [address] [place] [address] 02/28/2025 Torrey Dykes Colon cancer screeni ng [...] Insured Coverage Start Date Coverage End Date [facility] [address] [place] [address] [id number] CORIE DAVILA Self - patient is the insured Medical (General) History Medical History History ICD Code hx of kidney stones hx of Gout hypertension Parkinsons disease Hypercholesterolemia GERD-He describes a negative upper endos copy in the past Depression Denies [place],DM,CVA,Lung disease,renal dise ase 2 previous colonoscopies thr [facility] with the most recent one in November 2020 removing 3 small tubular adenomas Surgical History Surgery Date(Month/Year) Broken left wrist 2024 ACL LEFT Appendectomy
--- OUTSIDE RECORDS SUMMARY | 2025-06-07 08:50 | XMS_ITS | Clinical Summary ---
Author Organization [facility] Address [address] [place] [address] Care Team Providers Care Advanced Analytics Associate Name Role Phone Unavailable Primary Care Provider Unavailabl e Social History Tobacco Use Types Packs/Day Years Used Date Smoking Tobacco: Never Assessed Sex and Gender Information Value Date Recorded Sex Assigned at Not on file Gender Identity Not on file Sexual Orientation Not on file Plan of Treatment Not on file
== END 2025-06-07 08:38 | disposition home or self-care (01) ==
LOC: HO.XRAY 08:37
PROVIDERS: PCP Family Medicine; Visit Provider Family Medicine
DX: M25.521 Pain in right elbow (principal)
CPT/HCPCS: 73080

== ENCOUNTER → 2025-06-07 08:43 | Outpatient (BNV) | payer OTHER, SELFPAY | PROVIDERS: PCP Family Medicine; Visit Provider Radiology Diagnostic Radiology | DX: M25.421 Effusion, right elbow (principal) | CPT/HCPCS: 73080 ==

== ENCOUNTER 2025-06-12 08:14 | Outpatient (REF) | payer OTHER, SELFPAY ==
--- OUTSIDE RECORDS SUMMARY | 2025-06-12 08:30 | XMS_ITS | Encounter Summary ---
Author Organization [facility] Address [address] [place] [address] Care Team Providers Care Office Equipment Mechanic Name Role Phone Alen Castanon MD Primary Care Provider Reason for Visit * Reason Onset Date Comments Medication Refill 06/09/2025 Encounter Details Date Type Department Care Team (Late st Contact Info) Description 06/09/2025 Refill [facility] Neurology [address] [phone] Paolo Wilkins, MAP PLOTTER [address] [facility] [address] [place] [address] Primary parkinsonism (HCC) Social History Tobacco Use [...] Description 08/01/2025 9:30 AM EDT Office Visit [facility] Neurology [address] [place] [address] Paolo Wilkins, MAP PLOTTER [address] [facility] [address] [place] [address] documented as of this encounter Goals Goal Patient Goal Type Associated Problems Recent Progress Patient-Stated? Author LTG 1 Speech Therapy No Geni Du, HILARY-REGIONAL PLANNER Note: Pt will use compensatory strategies for word retrieval, memory, attention and executive skills for functional activities with min cues/80% accuracy. LTG 2 Speech Therapy No Geni Du, HILARY-REGIONAL PLANNER Note: Pt score on the Communicative Participation Item Bank will improve by at least 3 points. documented as of this encounter Visit Diagnoses Diagnosis Primary parkinsonism (HCC) Paralysis agitans documented in this encounter Care Teams Office Equipment Mechanic Relationship Specialty Start Date End Date Alen Castanon MD [address] [place] [address] [place] [address] PCP - General Family Medicine 08/03/23 documented as of this encounter
--- OUTSIDE RECORDS SUMMARY | 2025-06-12 08:30 | XMS_ITS | Patient Health Record ---
Author Organization [facility] Address [address] [place] [address] Care Team Providers Care Forepart Laster Name Role Phone Alen Castanon Primary Care Provider UnavailTorrey Eli Unavailable [phone] Allergies No Known Allergies Results Component Value Reference Range Notes Pathology (Not yet reviewed by provider) Interpretation: Performing Lab:[facility], [address] [place] [phone] Notes/Report: Reason For Referral No Information Medications [...] Status Risk Notes Problem Colon cancer screening (470104787) Colon cancer screening (Z12.11) Active confirmed Problem Preprocedural examination (823547767491460) Preprocedural examination (Z01.818) Active confirmed Problem Family history of malignant neoplasm of gastrointestinal tract (107494936) Family history of colon cancer in father (Z80.0) Active confirmed Problem History of polyp of colon (situation) (375870627) History of colon polyps (Z86.0100) Active confirmed Vital Signs Blood pressure diastolic 77 mm Hg 02/28/2025 Height 72 in 02/28/2025 Blood pressure systolic 111 mm Hg 02/28/2025 Weight 171 lbs 02/28/2025 BMI 23.19 kg/m2 02/28/2025 Procedures Procedure Date Ordered Date Performed Result Body Sit e COLONOSCOPY 02/28/2025 N/A Encounters Encounter Location Date Provider Diagnosis [facility] [place] [address] [place], [place] [phone] 05/19/2025 Torrey Dykes [facility] [address] [place] [address] 02/28/2025 Torrey Dykes Colon cancer screeni ng [...] Insured Coverage Start Date Coverage End Date [facility] [address] [place] [address] [id number] CORIE DAVILA Self - patient is the insured Medical (General) History Medical History History ICD Code hx of kidney stones hx of Gout hypertension Parkinsons disease Hypercholesterolemia GERD-He describes a negative upper endos copy in the past Depression Denies [place],DM,CVA,Lung disease,renal dise ase 2 previous colonoscopies thr [facility] with the most recent one in November 2020 removing 3 small tubular adenomas Surgical History Surgery Date(Month/Year) Broken left wrist 2024 ACL LEFT Appendectomy
--- OUTSIDE RECORDS SUMMARY | 2025-06-12 08:30 | XMS_ITS | Clinical Summary ---
[facility] Organization [facility] Address [address] [place] [address] Care Team Providers Care Radio Technician Name Role Phone Unavailable Primary Care Provider Unavailabl e Social History Tobacco Use Types Packs/Day Years Used Date Smoking Tobacco: Never Assessed Sex and Gender Information Value Date Recorded Sex Assigned at Not on file Gender Identity Not on file Sexual Orientation Not on file Plan of Treatment Not on file
--- OUTSIDE RECORDS SUMMARY | 2025-06-12 08:30 | XMS_ITS | Patient Health Record ---
Author Organization [facility] telma Kenton Address [address] [facility] [place] [address] Care Team Providers Care Machine Bender Name Role Phone Danielle CABRAL, Major Primary Care Provider Cira natalie Gutierrez [place] Unavailable [phone] Reason For Referral No Information Medications Medication [...] primary osteoarthritis of the ankle and/or foot (119454808) Primary osteoarthritis , right ankle and foot (M19.071) Active confirmed Problem Acquired hallux valgus (20681718) Hallux valgus (acquired), right foot (M20.11) Active confirmed Problem Acquired hammer toe of left foot (4464372131695574) Other hammer toe(s) (acquired), left foot (M20.42) Active confirmed Problem Primary gout (45042519) Idiopathic gout, right ankle and foot (M10.071) Active confirmed Plan Of Treatment Pending Test Test Name Order Date X ray : Foot, left 2V 04/23/2018 X ray : Foot, right 2V 03/23/2018 X ray : Foot, right 2V 04/23/2018 X ray : Foot, right 3V 11/03/2017 X ray : Foot, right 3V 03/09/2018 20450, [id number]/[id number], JOINT/BURSA 0 11/03/2017 Insurance Providers Payer Name Payer Address Payer Phone Subscriber Number Group Number Insured Name Patient Relationship to Insured Coverage Start Date Coverage End Date [facility] [address] [place] [id number] Cesar Clinton Self - patient is the insured Medical (General) History Medical History History ICD Code Gout High blood pressure Surgical History Surgery Date(Month/Year) knee replacement 1986 appendectomy 1990 Gardiner/Cayla Right foot 03/04/2018
[2025-06-12 08:31] LABS: MANUAL DIFF FLAG NO
[2025-06-12 08:41] LABS: Hematocrit 39.5 % (42.0-52.0); Hemoglobin 13.2 g/dl (14.0-18.0); Imm Gran Abs Auto 0.02 X10*3/uL (0.00-0.03); Imm Gran Pct Auto 0.4 % (0.0-0.4); Lymphocytes Absolute Auto 1.1 X10*3/uL (1.2-4.9); Mean Corpuscular HGB Conc 33.4 g/dl (31.0-36.0); Mean Corpuscular Hemoglobin 33.4 pg (27.0-33.0); Mean Corpuscular Volume 100.0 fL (80.0-98.0); NRBC Abs Auto 0.000 X10*3/uL (0.0-0.012); NRBC Pct Auto 0.0 /100WBC (0.0-0.2); Platelet Count 243 X10*3/uL (160-400); Red Blood Count 3.95 X10*6/uL (4.60-5.80); White Blood Count 5.3 X10*3/uL (4.8-10.8)
[2025-06-12 09:17] LABS: Alanine Aminotransferase 22 U/L (0-40); Albumin Level 4.3 g/dL (3.5-5.0); Alkaline Phosphatase 76 U/L (39-117); Anion Gap 12 (12-20); Aspartate Amino Transferase 18 U/L (5-37); Blood Urea Nitrogen 21 mg/dL (9-16); Calcium 9.5 mg/dL (8.4-10.2); Carbon Dioxide 27 mmol/L (22-29); Chloride 109 mmol/L (96-108); Estimated Glomerular Filt Rate > 60; Potassium 4.4 mmol/L (3.3-5.1); Sodium 144 mmol/L (135-145); Total Protein 6.8 g/dL (6.5-8.0)
[2025-06-12 09:23] LABS: Appearance Urine Clear; Glucose Urine UA Negative (Negative); PH 5.0 (5.0-9.0); Specific Gravity - Urine 1.015 (1.005-1.025)
[2025-06-12 09:44] LABS: Folate 11.5 ng/mL (> or = 4.0); Vitamin B12 693 pg/mL (200-900)
== END 2025-06-12 08:15 | disposition home or self-care (01) ==
LOC: HO.LAB 08:14
PROVIDERS: PCP Family Medicine; Visit Provider Family Medicine
DX: Z00.00 Encounter for general adult medical examination without abnormal findings (principal); I10 Essential (primary) hypertension; E53.8 Deficiency of other specified B group vitamins
CPT/HCPCS: 36415; 80053; 81003; 82043; 82570; 82607; 82746; 84443; 85025

== ENCOUNTER 2025-06-15 10:33 | Outpatient (AMB) | payer OTHER, SELFPAY ==
--- NOTE | 2025-06-15 10:33 | MHC.PC.OV ---
Intake Visit Reasons: f/u xray via telemed Allergies Seasonal Allergies Allergy (Intermediate, Verified 06/15/25 10:34) Runny Nose Medication List - Last Reconciled 06/15/25 by Alen Castanon MD carbidopa-levodopa 25-100 mg 1 tab PO TID 90 days chair, wheel (Wheel chair) Daily As directed, 999 days esomeprazole magnesium 20 mg PO DAILY 90 days ibuprofen 600 mg PO Q6H PRN lisinopril 20 mg PO DAILY 90 days meclizine 25 mg PO BID PRN mecobalamin (vitamin B12) 1,000 mcg PO DAILY 90 days mirtazapine 7.5 - 15 mg PO BEDTIME ondansetron HCl 4 mg PO Q8H PRN 10 days simvastatin 20 mg PO DAILY 30 days Tobacco use date assessed: 06/15/25 Dental Screening Dental Screen Date: 06/15/25 Did you have a dental visit in the last 12 months?: Yes Did you have a dental problem in the last 6 months where you did not have access to dental care?: No Was dental information given to patient?: Patient has dentist HPI f/u xray via telemed HPI Details 60 y/o male presents to review repeat image of R elbow after a fall on 05/16/25. Elbow x-ray 06/07/25 showed: 1. Prominent joint effusion present. No detectable fracture. If there is a history of trauma, this may indicate a radio occult fracture. 2. 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 3. Spurring of the epicondyles. 4. Mild enthesopathic changes of the triceps tendon. They report ongoing falls but seems to be unpredictable. Has had a recent fall in his wheelchair - wheelchair seems to have tipped. Ongoing R elbow pain and swelling. [facility] Medical History Anxiety with depression Gout Parkinson disease GERD (gastroesophageal reflux disease) Urinary frequency Elevated fasting glucose Daytime sleepiness Difficulty sleeping Dizziness High cholesterol Hypertension Surgical History H/O colonoscopy History of appendectomy History of repair of anterior cruciate ligament of left knee Family History Maternal Grandmother Mental health disorder Maternal Uncle Mental health disorder Father Colon cancer Family/Other Leukemia Social History Housing: House Alcohol intake: former Comment: counts correct Patient Tobacco Use Status: Former Tobacco user Tobacco use type: Cigarette e-Cigarette/Vaping Use: Never Used Second Hand Smoke Exposure: No Substance Use Type: Marijuana service: Yes Current occupational status: unemployed Cognitive needs: No Hearing needs: No Vision needs: No Questionnaire PHQ-9 Over the last 2 weeks, how often have you been bothered by any of the following problems? 1. Little interest or pleasure in doing things: not at all 2. Feeling down, depressed, or hopeless: several days 3. Trouble falling or staying asleep, or sleeping too much: more than half the days 4. Feeling tired or having little energy: several days 5. Poor appetite or overeating: not at all 6. Feeling bad about yourself - or that you are a failure or have let yourself or your family down: several days 7. Trouble concentrating on things, such as reading the newspaper or watching television: not at all 8. Moving or speaking so slowly that other people could have noticed. Or the opposite - being so fidgety or restless that you have been moving around a lot more than usual: more than half the days 9. Thoughts that you would be better off or of hurting yourself in some way: several days Total score: 8 Depression Screening Interpretation: Positive Depression Screening Done: Yes Source: Developed by Drs. Torrey Funez, Haley Aviles, Gilmer Souza and colleagues, with an educational jose a from [employer]. Thrive Questionnaire Date Thrive assessed: 12/21/24 I am a: Patient What is your living situation today?: I have a steady place to live Within the past 12 months, did the food you bought not last and you didn't have the money to get more?: Never true Within the past 12 months, did you worry whether your food would run out before you got money to buy more?: Never true Do you have trouble paying for medicines?: No Do you have trouble getting transportation to medical appointments?: No Do you have trouble paying your heating and electricity bill?: No Do you have trouble taking care of your child, family member or friend?: Yes Do you have trouble with day-to-day activities such as bathing, preparing meals, shopping, managing finances, etc.?: Yes Are you currently unemployed and looking for a job?: No Are you interested in more education?: No Please select the resources that you would like help with: Care for elder or disabled Currently or been in a relationship where the following occur: No concerns reported THRIVE Score: 0 AUDIT C Alcohol Use Questionnaire (AUDIT-C) 1. How often do you have a drink containing alcohol?: Never 3. How often do you have six or more drinks on one occasion?: Never Total Score: 0 DARRICK-7 AMB Questionnaire DARRICK-7 Date DARRICK - 7 assessed: 12/21/24 Feeling nervous, anxious, or on edge: 0 = Not at all Not being able to stop or control worryin = Not at all Worrying too much about different things: 1 = Several days Trouble relaxin = Not at all Being so restless that it is hard to sit still: 0 = Not at all Becoming easily annoyed or irritable: 1 = Several days Feeling afraid as if something awful might happen: 1 = Several days Total DARRICK-7 score (0-4 normal; 5-9 mild; 10-14 moderate; 15-21 severe): 3 Source: Developed by Drs. Torrey Funez, Haley Aviles, Gilmer Souza and colleagues, with an educational jose a from [employer]. Review of Systems Const Denies chills, Denies fatigue, Denies fever(s), Denies headache(s) and Denies weakness ENT Denies dizziness and Denies headache(s) Card Denies dyspnea Resp Denies cough, Denies dyspnea, Denies wheezing and Denies other (shortness of breath) Musc Denies numbness and Denies tingling Neuro Denies dizziness, Denies headache(s), Denies numbness, Denies tingling and Denies weakness Psych Denies anxiety and Denies depression Endo Denies fatigue Aller/Immun Denies wheezing Physical exam (Primary Care) Tobacco/Smoking Status: Tobacco use Status Tobacco use date assessed 06/15/25 06/15/25 10:35 Patient Tobacco Use Status Former Tobacco user 06/15/25 10:35 Tobacco use type Cigarette 06/15/25 10:35 e-Cigarette/Vaping Use Never Used 06/15/25 10:35 PHQ-9: PHQ-9 Score PHQ-9: Total score 8 06/15/25 11:06 Depression Screening Interpretation: Positive Thrive Assessment: Date of Thrive Assessment Date Thrive assessed 12/21/24 06/15/25 10:35 Currently or been in a relationship where the following occur: No concerns reported Telehealth Telehealth Telehealth Platform: Telephone Location of provider rendering services: practice address Location of patient: address on file Patient Identification confirmed using: Name, : Yes Telehealth method: voice only Patient verbally consented to treatment: Yes Patient verbally consented to billing insurance company: Yes Patient informed of any privacy concerns related to visit: Yes Minutes spent on Phone/Video with Pt.: 10 Coding Level of Care Code Tele Est Pt Level 2 (67248) Diagnoses Right elbow pain M25.521 Falls frequently R29.6 Assessment & Plan Assessment & Plan (1) Right elbow pain: Code(s): M25.521 - Pain in right elbow Category: Medical Plan: Ongoing right elbow pain and swelling with some continued decreased range of motion. Repeat x-ray shows Spinnaker sign & Prominent joint effusion present. No detectable fracture. If there is a history of trauma, this may indicate a radio occult fracture. Concern for an occult fracture. Referred to Ortho (2) Falls frequently: Code(s): R29.6 - Repeated falls Category: Medical Plan: Ongoing frequent falls in patient with parkinsonism Occupational therapist was present at patient's telemedicine appointment today and notes that he can be fine standing by himself without problems 1 moment and then falls the next . Emphasize that given this presentation, he needs his environment changed so that he does not have to stand by himself and should not stand by himself. Should anticipate potential falls without any warning. His says that she is with him all the time. She will continue to monitor. Visiting nurse was there today and performed home safety evaluation. Changes are being made for safety in the home. Also being evaluated for DIGITAL CONTROLS TECHNICAL OFFICER. Patient requests motorized scooter and I will send script today to start process. Orders: Referrals Orthopedics Referral M25.529 - Pain in unspecified elbow Medications: New miscellaneous medical supply Motorized scooter. 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
--- OUTSIDE RECORDS SUMMARY | 2025-06-15 11:35 | XMS_ITS | Clinical Summary ---
Author Organization [facility] Address [address] [place] [address] Care Team Providers Care Fagoter Name Role Phone Unavailable Primary Care Provider Unavailabl e Social History Tobacco Use Types Packs/Day Years Used Date Smoking Tobacco: Never Assessed Sex and Gender Information Value Date Recorded Sex Assigned at Not on file Gender Identity Not on file Sexual Orientation Not on file Plan of Treatment Not on file
--- OUTSIDE RECORDS SUMMARY | 2025-06-15 11:35 | XMS_ITS | Patient Health Record ---
Author Organization [facility] Address [address] [place] [address] Care Team Providers Care R D Manager Name Role Phone Alne Castanon Primary Care Provider UnavailTorrey Eli Unavailable [phone] Allergies No Known Allergies Results Component Value Reference Range Notes Pathology (Not yet reviewed by provider) Interpretation: Performing Lab:[facility], [address] [place] [phone] Notes/Report: Reason For Referral No Information Medications [...] Status Risk Notes Problem Colon cancer screening (303488780) Colon cancer screening (Z12.11) Active confirmed Problem Preprocedural examination (561086378958960) Preprocedural examination (Z01.818) Active confirmed Problem Family history of malignant neoplasm of gastrointestinal tract (463895730) Family history of colon cancer in father (Z80.0) Active confirmed Problem History of polyp of colon (situation) (872709133) History of colon polyps (Z86.0100) Active confirmed Vital Signs Blood pressure diastolic 77 mm Hg 02/28/2025 Height 72 in 02/28/2025 Blood pressure systolic 111 mm Hg 02/28/2025 Weight 171 lbs 02/28/2025 BMI 23.19 kg/m2 02/28/2025 Procedures Procedure Date Ordered Date Performed Result Body Sit e COLONOSCOPY 02/28/2025 N/A Encounters Encounter Location Date Provider Diagnosis [facility] Outpatient [address], [place] [id number] 05/19/2025 Torrey Dykes [facility] [address] [place] [address] 02/28/2025 Torrey Dykes Colon cancer screeni ng [...] Insured Coverage Start Date Coverage End Date [facility] [address] [place] [address] [phone] [id number] CORIE DAVILA Self - patient is the insured Medical (General) History Medical History History ICD Code hx of kidney stones hx of Gout hypertension Parkinsons disease Hypercholesterolemia GERD-He describes a negative upper endos copy in the past Depression Denies [place],DM,CVA,Lung disease,renal dise ase 2 previous colonoscopies thr [facility] with the most recent one in November 2020 removing 3 small tubular adenomas Surgical History Surgery Date(Month/Year) Broken left wrist 2024 ACL LEFT Appendectomy
--- OUTSIDE RECORDS SUMMARY | 2025-06-15 11:35 | XMS_ITS | Patient Health Record ---
Author Organization [facility] telma Cameron Address [address] [address] Care Team Providers Care Bus Repair Supervisor Name Role Phone Danielle CABRAL, Major Primary Care Provider Icra natalie Gutierrez [place] Unavailable [phone] Reason For Referral No Information Medications Medication [...] primary osteoarthritis of the ankle and/or foot (544975905) Primary osteoarthritis , right ankle and foot (M19.071) Active confirmed Problem Acquired hallux valgus (98781769) Hallux valgus (acquired), right foot (M20.11) Active confirmed Problem Acquired hammer toe of left foot (3976268619332616) Other hammer toe(s) (acquired), left foot (M20.42) Active confirmed Problem Primary gout (26185110) Idiopathic gout, right ankle and foot (M10.071) Active confirmed Plan Of Treatment Pending Test Test Name Order Date X ray : Foot, left 2V 04/23/2018 X ray : Foot, right 2V 03/23/2018 X ray : Foot, right 2V 04/23/2018 X ray : Foot, right 3V 11/03/2017 X ray : Foot, right 3V 03/09/2018 04249, [id number]/[id number], JOINT/BURSA 0 11/03/2017 Insurance Providers Payer Name Payer Address Payer Phone Subscriber Number Group Number Insured Name Patient Relationship to Insured Coverage Start Date Coverage End Date [facility] [address] [place] [address] [id number] Cesar Clinton Self - patient is the insured Medical (General) History Medical History History ICD Code Gout High blood pressure Surgical History Surgery Date(Month/Year) knee replacement 1986 appendectomy 1990 Gardiner/Cayla Right foot 03/04/2018
--- OUTSIDE RECORDS SUMMARY | 2025-06-15 11:35 | XMS_ITS | Encounter Summary ---
Author Organization [facility] Address [address] [place] [address] Care Team Providers Care Flight Engineer Inspector Name Role Phone Alen Castanon MD Primary Care Provider Encounter Details Date Type Department Care Team (Late st Contact Info) Description 06/02/2025 Telephone [facility] Neurology [address] [place] [phone] Paolo Wilkins, PRIMARY CARE SALES REPRESENTATIVE [address] [facility] [address] [place] [address] Social History Tobacco Use Types Packs/Day Years [...] in December. He states with them for PT/OT/PLEXIGLAS FORMER and nursing. Med changes-Celexa Stopped, Mirtazapine 7.5 [...] 08/01/2025 9:30 AM EDT Office Visit [facility] Neurology [place] [address] [place] [address] Paolo Wilkins, PRIMARY CARE SALES REPRESENTATIVE [address] [facility] [address] [place] [address] documented as of this encounter Goals Goal Patient Goal Type Associated Problems Recent Progress Patient-Stated? Author ST LTG 1 Speech Therapy No Geni Du CCC-PLEXIGLAS FORMER Note: Pt will use compensatory strategies for word retrieval, memory, attention and executive skills for functional activities with min cues/80% accuracy. LTG 2 Speech Therapy No Geni Du CCC-PLEXIGLAS FORMER Note: Pt score on the Communicative Participation Item Bank will improve by at least 3 points. documented as of this encounter Visit Diagnoses Not on filedocumented in this encounter Care Teams Flight Engineer Inspector Relationship Specialty Start Date End Date Alen Castanon MD [address] [place] [address] [place] [address] PCP - General Family Medicine 08/03/23 documented as of this encounter
== END 2025-06-15 12:01 | disposition home or self-care (01) ==
LOC: HO.HMCFM 10:33
PROVIDERS: PCP Family Medicine; Visit Provider Family Medicine
DX: M25.521 Pain in right elbow (principal); R29.6 Repeated falls

== ENCOUNTER 2025-06-23 10:16 | Outpatient (REF) | payer OTHER, SELFPAY ==
--- NOTE | ~2025-06-23 | XR_ITS ---
EXAMINATION: XR ELBOW, RIGHT CLINICAL INFORMATION: M25.529 - Pain in unspecified elbow COMPARISON: 06/07/2025, 05/26/2025. TECHNIQUE: AP, lateral, and oblique views of the right elbow. FINDINGS: There is a notable joint effusion. There is an anterior spinnaker sign. No perceptible fracture, dislocation, or suspicious bone lesion. There is normal alignment. There is mild degenerative arthritis in the elbow joint. There is mild chondrocalcinosis in the radiocapitellar joint. There is enthesopathic spurring of both epicondyles. There is mild soft tissue swelling overlying the olecranon and there is a small amount of calcium in the triceps enthesis. XR/XR elbow RT min 3V IMPRESSION: 1. Prominent joint effusion present. No detectable fracture. If there is a history of trauma, this may indicate a radio occult fracture. No healing fracture identified. 2. 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 Mild chondrocalcinosis in the radiocapitellar joint. 3. Spurring of the epicondyles. 4. Mild enthesopathic changes of the triceps tendon. Electronically signed by: Medhat Cueto MD 06/23/2025 01:50 PM EDT
--- OUTSIDE RECORDS SUMMARY | 2025-06-26 11:23 | XMS_ITS | Encounter Summary ---
Author Organization [facility] Address [address] [place] [address] Care Team Providers Care Tooling Supervisor Name Role Phone Alen Castanon MD Primary Care Provider Encounter Details Date Type Department Care Team (Late st Contact Info) Description 06/02/2025 Telephone [facility] Neurology [address] [place] [address] Paolo Wlikins, VISION IMPAIRED TEACHER [address] [facility] [address] [place] [address] Social History Tobacco Use Types Packs/Day Years [...] in December. He states with them for PT/OT/AWS CONSULTANT and nursing. Med changes-Celexa Stopped, Mirtazapine 7.5 [...] Description 08/01/2025 9:30 AM EDT Office Visit [facility] Neurology [place] [address] [place] [address] Paolo Wilkins, VISION IMPAIRED TEACHER [address] [facility] [address] [place] [address] documented as of this encounter Goals Goal Patient Goal Type Associated Problems Recent Progress Patient-Stated? Author ST LTG 1 Speech Therapy No Geni Du CCC-AWS CONSULTANT Note: Pt will use compensatory strategies for word retrieval, memory, attention and executive skills for functional activities with min cues/80% accuracy. LTG 2 Speech Therapy No Geni Du CCC-AWS CONSULTANT Note: Pt score on the Communicative Participation Item Bank will improve by at least 3 points. documented as of this encounter Visit Diagnoses Not on filedocumented in this encounter Care Teams Tooling Supervisor Relationship Specialty Start Date End Date Alen Castanon MD [address] [place] [address] [place] [address] PCP - General Family Medicine 08/03/23 documented as of this encounter
--- OUTSIDE RECORDS SUMMARY | 2025-06-26 11:23 | XMS_ITS | Patient Health Record ---
Author Organization [facility] Address [address] [place] [address] Care Team Providers Care Drill Sharpener Operator Name Role Phone Alen Castanon Primary Care Provider UnavailTorrey Eli Unavailable [phone] Allergies No Known Allergies Results Component Value Reference Range Notes Pathology (Not yet reviewed by provider) Interpretation: Performing Lab:[facility], [address] [place] [phone] Notes/Report: Reason For Referral No Information Medications [...] Status Risk Notes Problem Colon cancer screening (514398792) Colon cancer screening (Z12.11) Active confirmed Problem Preprocedural examination (710576222481387) Preprocedural examination (Z01.818) Active confirmed Problem Family history of malignant neoplasm of gastrointestinal tract (718128908) Family history of colon cancer in father (Z80.0) Active confirmed Problem History of polyp of colon (situation) (273464313) History of colon polyps (Z86.0100) Active confirmed Vital Signs Blood pressure diastolic 77 mm Hg 02/28/2025 Height 72 in 02/28/2025 Blood pressure systolic 111 mm Hg 02/28/2025 Weight 171 lbs 02/28/2025 BMI 23.19 kg/m2 02/28/2025 Procedures Procedure Date Ordered Date Performed Result Body Sit e COLONOSCOPY 02/28/2025 N/A Encounters Encounter Location Date Provider Diagnosis [facility] Outpatient [address] [place], [place] [id number] 05/19/2025 Torrey Dykes [facility] [address] [place] [address] 02/28/2025 Torrey Dykes Colon cancer screeni ng [...] Insured Coverage Start Date Coverage End Date [facility] [address] [place] [address] [id number] CORIE DAVILA Self - patient is the insured Medical (General) History Medical History History ICD Code hx of kidney stones hx of Gout hypertension Parkinsons disease Hypercholesterolemia GERD-He describes a negative upper endos copy in the past Depression Denies [place],DM,CVA,Lung disease,renal dise ase 2 previous colonoscopies thr [facility] with the most recent one in November 2020 removing 3 small tubular adenomas Surgical History Surgery Date(Month/Year) Broken left wrist 2024 ACL LEFT Appendectomy
--- OUTSIDE RECORDS SUMMARY | 2025-06-26 11:23 | XMS_ITS | Clinical Summary ---
[facility] Organization [facility] Address [address] [place] [address] Care Team Providers Care Soil Checker Name Role Phone Unavailable Primary Care Provider Unavailabl e Social History Tobacco Use Types Packs/Day Years Used Date Smoking Tobacco: Never Assessed Sex and Gender Information Value Date Recorded Sex Assigned at Not on file Gender Identity Not on file Sexual Orientation Not on file Plan of Treatment Not on file
--- OUTSIDE RECORDS SUMMARY | 2025-06-26 11:23 | XMS_ITS | Patient Health Record ---
Author Organization [facility] telma [place] Address [address] [address] Care Team Providers Care Rope Tier Name Role Phone Danielle CABRAL, Major Primary Care Provider Cira natalie Gutierrez [place] Unavailable [phone] Reason For Referral No Information Medications Medication [...] primary osteoarthritis of the ankle and/or foot (570830923) Primary osteoarthritis , right ankle and foot (M19.071) Active confirmed Problem Acquired hallux valgus (24416676) Hallux valgus (acquired), right foot (M20.11) Active confirmed Problem Acquired hammer toe of left foot (5689019933578517) Other hammer toe(s) (acquired), left foot (M20.42) Active confirmed Problem Primary gout (86074803) Idiopathic gout, right ankle and foot (M10.071) Active confirmed Plan Of Treatment Pending Test Test Name Order Date X ray : Foot, left 2V 04/23/2018 X ray : Foot, right 2V 03/23/2018 X ray : Foot, right 2V 04/23/2018 X ray : Foot, right 3V 03/09/2018 X ray : Foot, right 3V 11/03/2017 [id number], [id number]/[id number], JOINT/BURSA 0 11/03/2017 Insurance Providers Payer Name Payer Address Payer Phone Subscriber Number Group Number Insured Name Patient Relationship to Insured Coverage Start Date Coverage End Date [facility] [address] [place] [address] [id number] Cesar Clinton Self - patient is the insured Medical (General) History Medical History History ICD Code Gout High blood pressure Surgical History Surgery Date(Month/Year) knee replacement 1986 appendectomy 1990 Gardiner/Cayla Right foot 03/04/2018
== END 2025-06-23 10:17 | disposition home or self-care (01) ==
LOC: HO.HOSX 10:16
PROVIDERS: Visit Provider Physician Assistant
DX: S50.01XA Contusion of right elbow, initial encounter (principal); M25.521 Pain in right elbow; Z79.899 Other long term (current) drug therapy; W19.XXXA Unspecified fall, initial encounter
CPT/HCPCS: 73080; 99212

== ENCOUNTER 2025-06-23 13:22 | Outpatient (AMB) | payer OTHER, SELFPAY ==
--- OUTSIDE RECORDS SUMMARY | 2025-06-23 13:25 | XMS_ITS | Clinical Summary ---
Author Organization [facility] Address [address] [place] [address] Care Team Providers Care Steel Tester Name Role Phone Unavailable Primary Care Provider Unavailabl e Social History Tobacco Use Types Packs/Day Years Used Date Smoking Tobacco: Never Assessed Sex and Gender Information Value Date Recorded Sex Assigned at Not on file Gender Identity Not on file Sexual Orientation Not on file Plan of Treatment Not on file
--- OUTSIDE RECORDS SUMMARY | 2025-06-23 13:25 | XMS_ITS | Patient Health Record ---
Author Organization [facility] telma Lindon Address [address] [facility] [place] [address] Care Team Providers Care Tube Sorter Name Role Phone Danielle CABRAL, Major Primary Care Provider Cira natalie Gutierrez [place] Unavailable [phone] Reason For Referral No Information Medications Medication [...] primary osteoarthritis of the ankle and/or foot (505292768) Primary osteoarthritis , right ankle and foot (M19.071) Active confirmed Problem Acquired hallux valgus (60263365) Hallux valgus (acquired), right foot (M20.11) Active confirmed Problem Acquired hammer toe of left foot (6258258406636800) Other hammer toe(s) (acquired), left foot (M20.42) Active confirmed Problem Primary gout (46125613) Idiopathic gout, right ankle and foot (M10.071) Active confirmed Plan Of Treatment Pending Test Test Name Order Date X ray : Foot, left 2V 04/23/2018 X ray : Foot, right 2V 03/23/2018 X ray : Foot, right 2V 04/23/2018 X ray : Foot, right 3V 11/03/2017 X ray : Foot, right 3V 03/09/2018 43084, [id number]/[id number], JOINT/BURSA 0 11/03/2017 Insurance Providers Payer Name Payer Address Payer Phone Subscriber Number Group Number Insured Name Patient Relationship to Insured Coverage Start Date Coverage End Date [facility] [address] [place] [address] [id number] Cesar Clinton Self - patient is the insured Medical (General) History Medical History History ICD Code Gout High blood pressure Surgical History Surgery Date(Month/Year) knee replacement 1986 appendectomy 1990 Gardiner/Cayla Right foot 03/04/2018
--- OUTSIDE RECORDS SUMMARY | 2025-06-23 13:26 | XMS_ITS | Encounter Summary ---
Author Organization [facility] Address [address] [place] [address] Care Team Providers Care Space Sciences Director Name Role Phone Alen Castanon MD Primary Care Provider Encounter Details Date Type Department Care Team (Late st Contact Info) Description 06/02/2025 Telephone [facility] Neurology [address] [place] [address] Paolo Wilkins, BULK SEALER [address] [facility] [address] [place] [address] Social History Tobacco Use Types Packs/Day Years [...] in December. He states with them for PT/OT/RECEPTION SPECIALIST and nursing. Med changes-Celexa Stopped, Mirtazapine 7.5 [...] Description 08/01/2025 9:30 AM EDT Office Visit [facility] Neurology [place] [address] [place] [address] Paolo Wilkins, BULK SEALER [address] [facility] [address] [place] [address] documented as of this encounter Goals Goal Patient Goal Type Associated Problems Recent Progress Patient-Stated? Author ST LTG 1 Speech Therapy No Geni Du CCC-RECEPTION SPECIALIST Note: Pt will use compensatory strategies for word retrieval, memory, attention and executive skills for functional activities with min cues/80% accuracy. LTG 2 Speech Therapy No Geni Du CCC-RECEPTION SPECIALIST Note: Pt score on the Communicative Participation Item Bank will improve by at least 3 points. documented as of this encounter Visit Diagnoses Not on filedocumented in this encounter Care Teams Space Sciences Director Relationship Specialty Start Date End Date Alen Castanon MD [address] [place] [address] [place] [address] PCP - General Family Medicine 08/03/23 documented as of this encounter
--- OUTSIDE RECORDS SUMMARY | 2025-06-23 13:26 | XMS_ITS | Patient Health Record ---
Author Organization [facility] Address [address] [place] [address] Care Team Providers Care Concessionist Name Role Phone Alen Castanon Primary Care Provider UnavailTorrey Eli Unavailable [phone] Allergies No Known Allergies Results Component Value Reference Range Notes Pathology (Not yet reviewed by provider) Interpretation: Performing Lab:[facility], [address] [place] [phone] Notes/Report: Reason For Referral No Information Medications [...] Status Risk Notes Problem Colon cancer screening (730712308) Colon cancer screening (Z12.11) Active confirmed Problem Preprocedural examination (336324611783035) Preprocedural examination (Z01.818) Active confirmed Problem Family history of malignant neoplasm of gastrointestinal tract (751270072) Family history of colon cancer in father (Z80.0) Active confirmed Problem History of polyp of colon (situation) (223995109) History of colon polyps (Z86.0100) Active confirmed Vital Signs Blood pressure diastolic 77 mm Hg 02/28/2025 Height 72 in 02/28/2025 Blood pressure systolic 111 mm Hg 02/28/2025 Weight 171 lbs 02/28/2025 BMI 23.19 kg/m2 02/28/2025 Procedures Procedure Date Ordered Date Performed Result Body Sit e COLONOSCOPY 02/28/2025 N/A Encounters Encounter Location Date Provider Diagnosis [facility] Outpatient [address] [place], [place] [phone] 05/19/2025 Torrey Dykes [facility] [address] [place] [address] 02/28/2025 Torrey Dykes Colon cancer screeni ng [...] of colon polyps (ICD-10 - Z86.0100) Overall, oCrie appears to be doing well from a [...] Insured Coverage Start Date Coverage End Date [facility] [address] [place] [address] [id number] CORIE DAVILA Self - patient is the insured Medical (General) History Medical History History ICD Code hx of kidney stones hx of Gout hypertension Parkinsons disease Hypercholesterolemia GERD-He describes a negative upper endos copy in the past Depression Denies [place],DM,CVA,Lung disease,renal dise ase 2 previous colonoscopies thr [facility] with the most recent one in November 2020 removing 3 small tubular adenomas Surgical History Surgery Date(Month/Year) Broken left wrist 2024 ACL LEFT Appendectomy
--- NOTE | 2025-06-23 13:35 | MHC.OFFVIS ---
Vital Signs 06/23/25 13:41 Height 6 ft Weight 177 lb BMI 24.0 Intake Visit Reasons: New prob-Rt elbow joint effusion Intake Note: Cesar is a 60 year old right hand dominant male who presents today for a evaluation of his right elbow pain, DOI 05/26/25. Patient reports that he presented to [facility] ER after he sustained a fall. He is unsure how he fell, unwitnessed fall. He continues to have swelling and pain that is located in his elbow. States he is unable to fully extend his arm. No numbness or tingling. IMPRESSION: 1. Prominent joint effusion present. No detectable fracture. If there is a history of trauma, this may indicate a radio occult fracture. 2. 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 3. Spurring of the epicondyles. 4. Mild enthesopathic changes of the triceps tendon Allergies Seasonal Allergies Allergy (Intermediate, Verified 06/23/25 13:44) Runny Nose HPI HPI New prob-Rt elbow joint effusion: Details: Mr. Clinton is a 60-year-old right-hand dominant male who presents to the office today for evaluation of a right elbow injury that he sustained on 05/26/2025 after mechanical fall. Patient has advanced Parkinson's disease and has issues with frequent falling. His disease continues to progress unfortunately. He reports that he does have some soreness about the right distal lateral humerus. He has been using a walker and weight-bearing on the right upper extremity with no concerns or pain. [facility] Medical History Anxiety with depression Gout Parkinson disease GERD (gastroesophageal reflux disease) Urinary frequency Elevated fasting glucose Daytime sleepiness Difficulty sleeping Dizziness High cholesterol Hypertension Surgical History H/O colonoscopy History of appendectomy History of repair of anterior cruciate ligament of left knee Family History Maternal Grandmother Mental health disorder Maternal Uncle Mental health disorder Father Colon cancer Family/Other Leukemia Social History Housing: House Alcohol intake: former Comment: counts correct Patient Tobacco Use Status: Former Tobacco user Tobacco use type: Cigarette e-Cigarette/Vaping Use: Never Used Second Hand Smoke Exposure: No Substance Use Type: Marijuana service: Yes Current occupational status: unemployed Cognitive needs: No Hearing needs: No Vision needs: No Review of Systems Const All systems reviewed & are unremarkable except as noted in HPI and below Physical Exam Vital Signs: BMI result Body Mass Index 24.0 Const General: cooperative, healthy appearing and no acute distress Resp Effort & Inspection: normal respiratory effort and able to speak in complete sentences Extrem Other: Right elbow: Normal to inspection. No ecchymosis, erythema, or edema. No tenderness to palpation over the olecranon. No tenderness to the medial or lateral epicondyle. Lacking roughly 10 degrees of full extension. Able to fully flex. No difficulty with pronation or supination. NVI. Psych Appearance: grossly normal Mental Status: mental status grossly normal Attitude: cooperative Assessment & Plan Assessment & Plan (1) Contusion of elbow, right: Code(s): S50.01XA - Contusion of right elbow, initial encounter Category: Medical Qualifiers: Encounter type: initial encounter Qualified Code(s): S50.01XA - Contusion of right elbow, initial encounter Plan Mr. Clinton is a 60-year-old right-hand dominant male who presents to the office today for evaluation of a right elbow injury that he sustained on 05/26/2025 after mechanical fall. Patient has advanced Parkinson's disease and has issues with frequent falling. His disease continues to progress unfortunately. He reports that he does have some soreness about the right distal lateral humerus. He has been using a walker and weight-bearing on the right upper extremity with no concerns or pain. While in the office today, I have recommended that the Lemuel FABIAN work with the patient and incorporate some additional exercises within his physical therapy treatment. Recommendations would include gentle range of motion, soft tissue massage, ice, strengthening of the right elbow. X-rays that were obtained in the office today of the right elbow are negative for any acute fracture or dislocation. Patient will follow up PRN, sooner if needed. Orders: Orders PT Evaluation and Treatment Today S50.01XA - Contusion of right elbow, initial encounter XR elbow RT min 3V Today M25.529 - Pain in unspecified elbow Coding Level of Care Code New Pt Level 3 (69587) Diagnoses Contusion of elbow, right S50.01XA Encounter type: initial encounter
[2025-06-23 13:41] VITALS: BMI 24.0
== END 2025-06-23 14:25 | disposition home or self-care (01) ==
LOC: HO.HOS 13:23
PROVIDERS: PCP Family Medicine; Visit Provider Physician Assistant
DX: S50.01XA Contusion of right elbow, initial encounter (principal)
CPT/HCPCS: 99213

== ENCOUNTER → 2025-06-23 13:24 | Outpatient (BNV) | payer OTHER, SELFPAY | PROVIDERS: Visit Provider Radiology Diagnostic Radiology | DX: M25.421 Effusion, right elbow (principal) | CPT/HCPCS: 73080 ==

== ENCOUNTER 2025-06-27 10:04 | Outpatient (AMB) | payer OTHER, SELFPAY ==
--- OUTSIDE RECORDS SUMMARY | 2025-05-19 09:10 | XMS_ITS ---
Author Organization [facility] Address [address] [place] [address] Care Team Providers Care Watch Mechanic Name Role Phone Alen Castanon Primary Care Provider Unavailab Torrey Saravia [phone] REASON FOR VISIT screening colon Encounters Encounter Location Date Provider Diagnosis [facility] [place] [address] [place] [id number] 05/19/2025 Torrey Dykes Plan Of Treatment No Information Progress Notes * CORIE DAVILADOB:1965 (60 yo M)Acc No.[id number]:05/19/2025 COLON WITH MAC Patient: CORIE FARRELL Provider: [...] * Provider: José Miguel Dykes MD Date: 0 05/19/2025 Generated for Pawel nevarez/Glory/eTransmitting on: 0 06/27/2025 10:47 AM EDT
--- NOTE | 2025-06-27 10:05 | MHC.OFFVIS ---
Intake Visit Reasons: 6m follow up Intake Note: Patient is present for follow up Urology Medication:VITAMIN B12 Antibiotic Allergy:NONE Blood Thinner:NONE Catalyst Unit Operator Required: No Accompanied by: Self / Same As Patient Allergies Seasonal Allergies Allergy (Intermediate, Verified 06/27/25 10:06) Runny Nose HPI Comments Details: Juanita is a pleasant male. He is a patient of Dr. Castanon. He is seen for the following urologic conditions - Lower urinary tract symptoms in the setting of neurologic disease (Parkinson's/supranuclear palsy) Telemedicine Evaluation 15 min Consultation Adallom Fei Video Off medication Nocturia x3, daytime control 5-6x Anticholinergics are not recommended as first-line therapy for patients with known neurologic conditions - failed Myrbetriq, daily tadalafil Discussed timed voiding. He has trouble sensing and whether he knows his bladder is empty. Recommend using the bathroom every 3 hours. Urinary urgency and frequency Prior trial of Myrbetriq Moderate success with 25 mg Did not think 50mg was not helpful Lower urinary tract symptoms Report on initial nocturia x2, urinary urgency with frequency and episodes of incontinence Bladder ultrasound prostate 45 cc PSA 01/23 0.6 At time of initial visit had new onset Parkinson's diagnosis Initial therapy tamsulosin Tried Cialis daily however this did not help PFSH Medical History Anxiety with depression Gout Parkinson disease GERD (gastroesophageal reflux disease) Urinary frequency Elevated fasting glucose Daytime sleepiness Difficulty sleeping Dizziness High cholesterol Hypertension Surgical History H/O colonoscopy History of appendectomy History of repair of anterior cruciate ligament of left knee Family History Maternal Grandmother Mental health disorder Maternal Uncle Mental health disorder Father Colon cancer Family/Other Leukemia Social History Housing: House Alcohol intake: former Comment: counts correct Patient Tobacco Use Status: Former Tobacco user Tobacco use type: Cigarette e-Cigarette/Vaping Use: Never Used Second Hand Smoke Exposure: No Substance Use Type: Marijuana service: Yes Current occupational status: unemployed Cognitive needs: No Hearing needs: No Vision needs: No Review of Systems Const All systems reviewed & are unremarkable except as noted in HPI and below Reports no additional complaints Resp Reports no additional complaints GI Reports no additional complaints Reports as per HPI Musc Reports no additional complaints Physical Exam Telemedicine evaluation Appropriate responses Regular breathing rate and rhythm HEENT Head: Yes normal to inspection Ears: hearing grossly normal bilaterally Eyes General: appearance normal, both eyes and all related structures Neck Neck: Yes normal visual inspection Chest Chest palpation & inspection: normal inspection of the chest Resp Effort & Inspection: normal respiratory effort and able to speak in complete sentences Telehealth Telehealth Telehealth Platform: Adallom Location of provider rendering services: practice address Location of patient: address on file Patient Identification confirmed using: Name, : Yes Telehealth method: video Patient verbally consented to treatment: Yes Patient verbally consented to billing insurance company: Yes Patient informed of any privacy concerns related to visit: Yes Minutes spent on Phone/Video with Pt.: 15 Assessment & Plan Assessment & Plan (1) Bladder instability: Code(s): N32.89 - Other specified disorders of bladder Category: Medical (2) Lower urinary tract symptoms: Code(s): R39.9 - Unspecified symptoms and signs involving the genitourinary system Category: Medical Plan Time voiding Patient Instructions: This note is constructed using voice recognition software. While every effort has been made to ensure accuracy cleaner laboratory equipment errors may have been included. Imaging studies, laboratory and physical exam results were discussed and reviewed in detail. No major barriers to patient understanding were identified. An opportunity to ask questions regarding the treatment plan was provided. All questions were answered. The patient expressed understanding and agreement with the above treatment plan. The patient is aware they should contact our office by phone for worsening of their current condition or the appearance of new urologic symptoms. Compliance is encouraged with any medications and followup testing that is ordered. It is a privilege to participate in the urologic care of your patient. If you have any questions or concerns regarding treatment for the above conditions, or other urologic issues, please do not hesitate to contact me. The office telephone contact is [phone]. Sincerely, Dr Rico Moreno MD, [facility] - Urology Compassionate Specialist Care for the Genitourinary System Coding Level of Care Code Tele Est Pt Level 3 (86928) Complex EM visit Add On G2211 Diagnoses Bladder instability N32.89 Lower urinary tract symptoms R39.9
--- OUTSIDE RECORDS SUMMARY | 2025-06-27 10:47 | XMS_ITS | Patient Health Record ---
Author Organization [facility] Address [address] [place] [address] Care Team Providers Care Cco Name Role Phone Alen Castanon Primary Care Provider UnavailTorrey Eli Unavailable [phone] Allergies No Known Allergies Results Component Value Reference Range Notes Pathology (Not yet reviewed by provider) Interpretation: Performing Lab:[facility], [address] [place] [id number] Notes/Report: Reason For Referral No Information Medications [...] Status Risk Notes Problem Colon cancer screening (659463295) Colon cancer screening (Z12.11) Active confirmed Problem Preprocedural examination (146349875297435) Preprocedural examination (Z01.818) Active confirmed Problem Family history of malignant neoplasm of gastrointestinal tract (118946175) Family history of colon cancer in father (Z80.0) Active confirmed Problem History of polyp of colon (situation) (005402977) History of colon polyps (Z86.0100) Active confirmed Vital Signs Blood pressure diastolic 77 mm Hg 02/28/2025 Height 72 in 02/28/2025 Blood pressure systolic 111 mm Hg 02/28/2025 Weight 171 lbs 02/28/2025 BMI 23.19 kg/m2 02/28/2025 Procedures Procedure Date Ordered Date Performed Result Body Sit e COLONOSCOPY 02/28/2025 N/A Encounters Encounter Location Date Provider Diagnosis [facility] [address] [place], [place] [id number] 05/19/2025 Torrey Dykes [facility] [address] [place] [address] 02/28/2025 Torrey Dykes Colon cancer screeni ng [...] Insured Coverage Start Date Coverage End Date [facility] [address] [place] [address] [id number] CORIE DAVILA Self - patient is the insured Medical (General) History Medical History History ICD Code hx of kidney stones hx of Gout hypertension Parkinsons disease Hypercholesterolemia GERD-He describes a negative upper endos copy in the past Depression Denies DE,DM,CVA,Lung disease,renal dise ase 2 previous colonoscopies thr [facility] with the most recent one in November 2020 removing 3 small tubular adenomas Surgical History Surgery Date(Month/Year) Broken left wrist 2024 ACL LEFT Appendectomy
--- OUTSIDE RECORDS SUMMARY | 2025-06-27 10:47 | XMS_ITS | Clinical Summary ---
Author Organization [facility] Address [address] [place] [address] Care Team Providers Care Transfusion Aide Name Role Phone Unavailable Primary Care Provider Unavailabl e Social History Tobacco Use Types Packs/Day Years Used Date Smoking Tobacco: Never Assessed Sex and Gender Information Value Date Recorded Sex Assigned at Not on file Gender Identity Not on file Sexual Orientation Not on file Plan of Treatment Not on file
--- OUTSIDE RECORDS SUMMARY | 2025-06-27 10:47 | XMS_ITS | Patient Health Record ---
Author Organization [facility] telma [place] Address [address] [facility] [address] Care Team Providers Care Shear Scrapman Name Role Phone Danielle CABRAL, Major Primary Care Provider Cira natalie Gutierrez [place] Unavailable [phone] Reason For Referral No Information Medications Medication [...] primary osteoarthritis of the ankle and/or foot (509176212) Primary osteoarthritis , right ankle and foot (M19.071) Active confirmed Problem Acquired hallux valgus (76836355) Hallux valgus (acquired), right foot (M20.11) Active confirmed Problem Acquired hammer toe of left foot (5709487676815477) Other hammer toe(s) (acquired), left foot (M20.42) Active confirmed Problem Idiopathic gout, right ankle and foot (M10.071) Active confirmed Plan Of Treatment Pending Test Test Name Order Date X ray : Foot, left 2V 04/23/2018 X ray : Foot, right 2V 03/23/2018 X ray : Foot, right 2V 04/23/2018 X ray : Foot, right 3V 11/03/2017 X ray : Foot, right 3V 03/09/2018 [id number], [id number]/[id number], JOINT/BURSA 0 11/03/2017 Insurance Providers Payer Name Payer Address Payer Phone Subscriber Number Group Number Insured Name Patient Relationship to Insured Coverage Start Date Coverage End Date [facility] [address] [facility] [place] [address] [id number] Cesar Clinton Self - patient is the insured Medical (General) History Medical History History ICD Code Gout High blood pressure Surgical History Surgery Date(Month/Year) knee replacement 1986 appendectomy 1990 Gardiner/Cayla Right foot 03/04/2018
--- OUTSIDE RECORDS SUMMARY | 2025-06-27 10:48 | XMS_ITS | Encounter Summary ---
Author Organization [facility] Address [address] [place] [address] Care Team Providers Care Paperhanger Apprentice Name Role Phone Alen Castanon MD Primary Care Provider Encounter Details Date Type Department Care Team (Late st Contact Info) Description 06/02/2025 Telephone [facility] Neurology [address] [place] [phone] Paolo Wilkins, BRICKLAYER HELPER [address] [facility] [address] [place] [address] Social History Tobacco Use Types Packs/Day Years [...] in December. He states with them for PT/OT/NETWORK OPERATIONS CENTER ENGINEER and nursing. Med changes-Celexa Stopped, Mirtazapine 7.5 [...] Description 08/01/2025 9:30 AM EDT Office Visit [facility] [place] [address] [place] [address] Paolo Wilkins, BRICKLAYER HELPER [address] [facility] [address] [place] [address] documented as of this encounter Goals Goal Patient Goal Type Associated Problems Recent Progress Patient-Stated? Author ST LTG 1 Speech Therapy No Geni Du CCC-NETWORK OPERATIONS CENTER ENGINEER Note: Pt will use compensatory strategies for word retrieval, memory, attention and executive skills for functional activities with min cues/80% accuracy. LTG 2 Speech Therapy No Geni Du CCC-NETWORK OPERATIONS CENTER ENGINEER Note: Pt score on the Communicative Participation Item Bank will improve by at least 3 points. documented as of this encounter Visit Diagnoses Not on filedocumented in this encounter Care Teams Paperhanger Apprentice Relationship Specialty Start Date End Date Alen Castanon MD [address] [place] [address] [place] [address] PCP - General Family Medicine 08/03/23 documented as of this encounter
--- OUTSIDE RECORDS SUMMARY | 2025-06-27 10:48 | XMS_ITS | Clinical Summary ---
Author Organization [facility] Address [address] [place] [address] Care Team Providers Care Community Outreach Coordinator Name Role Phone Alen Castanon MD Primary [...] total) by mouth daily. 3 Active lisinopril (PRINIVIL,ZeSTRI L) 20 MG tablet Take 1 tablet (20 mg total) by mouth daily. 3 Active Multiple Minerals-Vitamin s (WILDER MAG ZINC +D3 PO) Take by mouth. Active Myrbetriq 25 MG ER tablet Take 1 tablet (25 mg total) by mouth daily. 4 Active meclizine (ANTIVERT) 25 MG tablet TAKE ONE TABLET BY MOUTH TWICE A DAY NEEDED FOR DIZZINESS 5 Active mirtazapine (REMERON) 15 MG tablet TAKE 1/2 TO 1 TABLET BY MOUTH DAILY AT BEDTIME 5 Active carbidopa-levodo pa (SINEMET) 25-100 MG per tabletIndication s:Primary parkinsonism (HCC) Take 1 tablet by mouth 3 (three) times a day. 270 tablet 3 5 Active citalopram (CeleXA) 20 MG tablet Take 1 tablet (20 mg total) by mouth daily. 4 06/02/20 25 Discontin ued(Med List Clean-up/ Old Med - No E-Cancel/ No AVS) carbidopa-levodo pa (SINEMET) 25-100 MG per tabletIndication s:Primary parkinsonism (HCC) Take 1 tablet by mouth 3 (three) times a day. 5 06/09/20 25 Discontin ued(Reord er) Active Problems Problem Noted Date Diagnosed Date HTN (hypertension) 10/08/2023 Primary parkinsonism 08/26/2023 Gait instability 08/26/2023 Encounters Date Type Department Care Team Description 06/09/2025 Refill [facility] Neurology [address] [phone] Paolo Wilkins APRN Primary parkinsonism (HCC) 06/02/2025 Telephone [facility] Neurology [address] [phone] Paolo Wilkins APRN from Last 3 Months [...] 08/01/2025 9:30 AM EDT Office Visit [facility] [place] [address] [facility] [address] [place] [address] Paolo Wilkins, ACCESS RN [address] [facility] [address] [place] [address] Health Maintenance Due Date Last Done Comments [...] LTG 1 Speech Therapy No Geni Du CCC-KNOT PICKER CLOTH Note: Pt will use compensatory strategies for word retrieval, memory, attention and executive skills for functional activities with min cues/80% accuracy. LTG 2 Speech Therapy No Geni Du, HILARY-KNOT PICKER CLOTH Note: Pt score on the Communicative Participation Item Bank will improve by at least 3 points. Insurance [employer] Care Teams Community Outreach Coordinator Relationship Specialty Start Date End Date Alen Castanon MD [address] [place] [address] Dr Elias, [place] [address] PCP - General Family Medicine 08/03/23
== END 2025-06-27 16:09 | disposition home or self-care (01) ==
LOC: HO.HUSH 10:04
PROVIDERS: PCP Family Medicine; Visit Provider Urology
DX: N32.89 Other specified disorders of bladder (principal); R39.9 Unspecified symptoms and signs involving the genitourinary system
CPT/HCPCS: 98004

== ENCOUNTER 2025-07-17 11:42 | Emergency (ER) | payer OTHER, SELFPAY ==
--- OUTSIDE RECORDS SUMMARY | 2025-05-19 09:10 | XMS_ITS ---
Author Organization [facility] Address [address] [place] [address] Care Team Providers Care Manager Information Name Role Phone Alen Castanon Primary Care Provider Unavailab Torrey Saravia [phone] REASON FOR VISIT screening colon Encounters Encounter Location Date Provider [place] [facility] [place] [address] [facility] [place] [id number] 05/19/2025 Torrey Dykes Plan Of Treatment No Information Progress Notes * CORIE DAVILADOB:1965 (60 yo M)Acc No.[id number]:05/19/2025 COLON WITH MAC Patient: CORIE FARRELL Provider: José Miguel Dykes MD :1965 A ge:59 Y S ex:Male Date:05/19/2025 Address:[id number] Pcp:Alen Castanon Subjective: * Chief Complaints: * 1 . Screening colon. * Medical History: Objective: * Vitals: Assessment: Plan: * Treatment: * * The named appointment provid er may or may not be the originator of this progress note, and it is not deemed complete until electronically signed by the appointment provider. Sign off status: Pending * Provider: José Miguel Dykes MD Date: 05/19/2025 Generated for Kayyi geri/Okg/eTransmitting on: 0 07/17/2025 09:50 PM EDT
--- NOTE | ~2025-07-17 | XR_ITS ---
EXAMINATION: XR SHOULDER, RIGHT CLINICAL INFORMATION: multiple fall COMPARISON: Correlated to chest x-ray dated April 09, 2020. TECHNIQUE: AP and Y-view projections of the right shoulder. FINDINGS: No acute cortical disruption or malalignment. No lytic or blastic lesions. No calcifications in the soft tissues. XR/XR shoulder RT min 2V IMPRESSION: No acute fracture or dislocation. Electronically signed by: Mak Patel MD 07/17/2025 01:27 PM EDT
--- NOTE | ~2025-07-17 | XR_ITS ---
EXAMINATION: XR HIP, LEFT CLINICAL INFORMATION: multiple falls, referred by PT COMPARISON: Correlated to CT abdomen pelvis dated October 17, 2024. TECHNIQUE: AP view pelvis. AP and oblique views, of the left hip. FINDINGS: Sclerosis along the articular surface with subchondral cyst formation, both acetabula. Sclerosis in the articular surface of the symphysis pubis. No acute cortical disruption or gross malalignment, left hip. Bony pelvis is intact. Spina bifida occulta S1. Vascular clips in the inguinal scrotal region. XR/XR hip LT w PEL1V IMPRESSION: No acute fracture or dislocation, left hip. Moderate osteoarthrosis/osteoarthritis, both hips. Probable status post vasectomy. Electronically signed by: Mak Patel MD 07/17/2025 01:26 PM EDT
[2025-07-17 12:21] VITALS: BP 132/78; PULSE 90; RESP 18; TEMP 37.3; O2SAT 99; BMI 24.0
--- NOTE | 2025-07-17 12:21 | ED.GENADULT ---
HPI - General Adult General Chief complaint: Fall Stated complaint: pain left groin area,right shoulder pain post fall Related Data Home Medications ?Medication ?Instructions ?Recorded ?Confirmed mirtazapine 15 mg tablet 7.5 - 15 mg PO BEDTIME 06/05/25 06/15/25 Previous Rx's ?Medication ?Instructions ?Recorded carbidopa 25 mg-levodopa 100 mg 1 tab PO TID 90 days #270 tabs 05/11/24 tablet ibuprofen 600 mg tablet 600 mg PO Q6H PRN pain #20 tabs 06/27/24 meclizine 25 mg tablet 25 mg PO BID PRN dizziness #30 tabs 06/27/24 mecobalamin (vitamin B12) 1,000 1,000 mcg PO DAILY 90 days #90 tabs 06/27/24 mcg chewable tablet chair, wheel (Wheel chair) #1 ea 08/30/24 esomeprazole magnesium 20 mg 20 mg PO DAILY 90 days #90 caps 12/21/24 capsule,delayed release ondansetron HCl 4 mg tablet 4 mg PO Q8H PRN nausea and 02/01/25 vomiting 10 days #30 tabs lisinopril 20 mg tablet 20 mg PO DAILY 90 days #90 tabs 02/06/25 miscellaneous medical supply #1 ea 06/15/25 simvastatin 20 mg tablet 20 mg PO DAILY 30 days #30 tabs 07/05/25 tramadol 50 mg tablet 50 mg PO BID PRN pain 3 days #6 07/18/25 tabs Allergies Allergy/AdvReac Type Severity Reaction Status Date / Time Seasonal Allergies Allergy Intermediate Runny Nose Verified 07/17/25 12:23 [facility] Past Medical History Medical History Anxiety with depression Gout Parkinson disease GERD (gastroesophageal reflux disease) Urinary frequency Elevated fasting glucose Daytime sleepiness Difficulty sleeping Dizziness High cholesterol Hypertension Surgical History H/O colonoscopy History of appendectomy History of repair of anterior cruciate ligament of left knee Family History Family History Maternal Grandmother Mental health disorder Maternal Uncle Mental health disorder Father Colon cancer Family/Other Leukemia Social History Social History Housing: House Alcohol intake: former Comment: counts correct Patient Tobacco Use Status: Former Tobacco user Tobacco use type: Cigarette e-Cigarette/Vaping Use: Never Used Second Hand Smoke Exposure: No Substance Use Type: Marijuana Advance Directives: No Advance Directives Information Provided: No service: Yes Current occupational status: unemployed Cognitive needs: No Hearing needs: No Vision needs: No Physical Exam ED Vital Signs: BMI result Body Mass Index 24.0 Course Course Course Narrative: This is a rapid medical exam performed by oRbert Hudson NP: Additional HPI, ROS, PE not included below will be deferred to primary provider. Patient is a 60y/o M referred to the ED by physical therapist to r/o hip fx. States has been having multiple falls, c/o L groin pain. Plan: xray, labs Patient left the emergency department before myself or any of the other clinicians could review or explain physical exam findings, test results, need or lack there of for additional testing, treatment options, or a treatment plan. Medical Decision Making Lab Data 07/17/25 12:40 07/17/25 12:40 Labs: Lab Results 07/17/25 Range/Units 12:40 WBC 8.6 (4.8-10.8) X10*3/uL RBC 3.98 L (4.60-5.80) X10*6/uL Hgb 13.5 L (14.0-18.0) g/dl Hct 39.4 L (42.0-52.0) % MCV 99.0 H (80.0-98.0) fL MCH 33.9 H (27.0-33.0) pg MCHC 34.3 (31.0-36.0) g/dl RDW 12.5 (11.0-16.0) % Plt Count 255 (160-400) X10*3/uL MPV 9.3 L (9.4-12.4) fL Immature Gran % (Auto) 0.2 (0.0-0.4) % Neut % (Auto) 74.3 H (45-73) % Lymph % (Auto) 11.5 L (20-40) % [place] % (Auto) 13.4 H (2-11) % Eos % (Auto) 0.3 (0-4) % Baso % (Auto) 0.3 (0-2) % Lymph # (Auto) 1.0 L (1.2-4.9) X10*3/uL [place] # (Auto) 1.2 (0.1-1.2) X10*3/uL Eos # (Auto) 0.0 (0.0-0.4) X10*3/uL Baso # (Auto) 0.0 (0.0-0.2) X10*3/uL Abs Immat Gran (auto) 0.02 (0.00-0.03) X10*3/uL Absolute Neuts (auto) 6.4 (2.0-8.3) x10*3/uL Absolute Nucleated RBC 0.000 (0.0-0.012) X10*3/uL Nucleated RBC % (auto) 0.0 (0.0-0.2) /100WBC Sodium 141 (135-145) mmol/L Potassium 4.3 (3.3-5.1) mmol/L Chloride 109 H (96-108) mmol/L Carbon Dioxide 25 (22-29) mmol/L Anion Gap 11 L (12-20) BUN 28 H (9-16) mg/dL Creatinine 0.93 (0.5-1.4) mg/dL Estim Creat Clear Calc 90.3 Estimated GFR > 60 Random Glucose 111 (60-115) mg/dL Calcium 9.8 (8.4-10.2) mg/dL Total Bilirubin 0.7 (0.0-1.0) mg/dL AST 16 (5-37) U/L ALT 7 (0-40) U/L Alkaline Phosphatase 82 (39-117) U/L Total Protein 7.2 (6.5-8.0) g/dL Albumin 4.5 (3.5-5.0) g/dL Discharge Plan Discharge Clinical Impression: Groin pain Patient Disposition: Left W/O Completing Treatment Prescriptions: No Action carbidopa-levodopa 25-100 mg tablet 1 tab PO TID 90 Days Qty: 270 3RF ibuprofen 600 mg tablet 600 mg PO Q6H PRN (Reason: pain) Qty: 20 0RF meclizine 25 mg tablet 25 mg PO BID PRN (Reason: dizziness) Qty: 30 1RF mecobalamin (vitamin B12) 1,000 mcg tablet,chewable 1,000 mcg PO DAILY 90 Days Qty: 90 2RF ondansetron HCl 4 mg tablet 4 mg PO Q8H PRN (Reason: nausea and vomiting) 10 Days Qty: 30 0RF lisinopril 20 mg tablet 20 mg PO DAILY 90 Days Qty: 90 1RF simvastatin 20 mg tablet 20 mg PO DAILY 30 Days Qty: 30 1RF tramadol 50 mg tablet 50 mg PO BID PRN (Reason: pain) 3 Days Qty: 6 0RF mirtazapine 15 mg tablet 7.5 - 15 mg PO BEDTIME (DME) [facility] See [facility] Instructions .ROUTE .MEDSUPPLY Qty: 1 0RF Rx Instructions: Motorized scooter. Daily As directed, 999 days (DME) Wheel chair Kit See Rx Instructions .Route Qty: 1 0RF Rx Instructions: Daily As directed, 999 days esomeprazole magnesium 20 mg capsule,delayed release(DR/EC) 20 mg PO DAILY 90 Days Qty: 90 2RF Discharge Date/Time: 07/17/25 20:22
[2025-07-17 12:46] LABS: MANUAL DIFF FLAG NO
[2025-07-17 12:48] LABS: Hematocrit 39.4 % (42.0-52.0); Hemoglobin 13.5 g/dl (14.0-18.0); Imm Gran Abs Auto 0.02 X10*3/uL (0.00-0.03); Imm Gran Pct Auto 0.2 % (0.0-0.4); Lymphocytes Absolute Auto 1.0 X10*3/uL (1.2-4.9); Mean Corpuscular HGB Conc 34.3 g/dl (31.0-36.0); Mean Corpuscular Hemoglobin 33.9 pg (27.0-33.0); Mean Corpuscular Volume 99.0 fL (80.0-98.0); NRBC Abs Auto 0.000 X10*3/uL (0.0-0.012); NRBC Pct Auto 0.0 /100WBC (0.0-0.2); Platelet Count 255 X10*3/uL (160-400); Red Blood Count 3.98 X10*6/uL (4.60-5.80); White Blood Count 8.6 X10*3/uL (4.8-10.8)
[2025-07-17 13:04] LABS: Alanine Aminotransferase 7 U/L (0-40); Albumin Level 4.5 g/dL (3.5-5.0); Alkaline Phosphatase 82 U/L (39-117); Anion Gap 11 (12-20); Aspartate Amino Transferase 16 U/L (5-37); Blood Urea Nitrogen 28 mg/dL (9-16); Calcium 9.8 mg/dL (8.4-10.2); Carbon Dioxide 25 mmol/L (22-29); Chloride 109 mmol/L (96-108); Creatinine Clr Calc Pharmacy 90.3; Estimated Glomerular Filt Rate > 60; Potassium 4.3 mmol/L (3.3-5.1); Sodium 141 mmol/L (135-145); Total Protein 7.2 g/dL (6.5-8.0)
--- OUTSIDE RECORDS SUMMARY | 2025-07-17 21:50 | XMS_ITS | Encounter Summary ---
Author Organization [facility] Address [address] [place] [address] Care Team Providers Care Gambling Box Person Name Role Phone Alen Castanon MD Primary Care Provider Encounter Details Date Type Department Care Team (Late st Contact Info) Description 06/02/2025 Telephone [facility] Neurology [address] [place] [phone] Paolo Wilkins, SECURITY TEST ENGINEER [address] [facility] [address] [place] [address] Social History Tobacco Use Types Packs/Day Years [...] in December. He states with them for PT/OT/THERAPEUTIC DIETITIAN and nursing. Med changes-Celexa Stopped, Mirtazapine 7.5 [...] Description 08/01/2025 9:30 AM EDT Office Visit [facility] Neurology [place] [address] [place] [address] Paolo Wilkins, SECURITY TEST ENGINEER [address] [facility] [address] [place] [address] documented as of this encounter Goals Goal Patient Goal Type Associated Problems Recent Progress Patient-Stated? Author ST LTG 1 Speech Therapy No Geni Du CCC-THERAPEUTIC DIETITIAN Note: Pt will use compensatory strategies for word retrieval, memory, attention and executive skills for functional activities with min cues/80% accuracy. LTG 2 Speech Therapy No Geni Du CCC-THERAPEUTIC DIETITIAN Note: Pt score on the Communicative Participation Item Bank will improve by at least 3 points. documented as of this encounter Visit Diagnoses Not on filedocumented in this encounter Care Teams Gambling Box Person Relationship Specialty Start Date End Date Alen Castanon MD [address] [place] [address] [place] [address] PCP - General Family Medicine 08/03/23 documented as of this encounter
--- OUTSIDE RECORDS SUMMARY | 2025-07-17 21:50 | XMS_ITS | Clinical Summary ---
Author Organization [facility] Address [address] [place] [address] Care Team Providers Care Antisqueak Chalker Name Role Phone Unavailable Primary Care Provider Unavailabl e Social History Tobacco Use Types Packs/Day Years Used Date Smoking Tobacco: Never Assessed Sex and Gender Information Value Date Recorded Sex Assigned at Not on file Gender Identity Not on file Sexual Orientation Not on file Plan of Treatment Not on file
--- OUTSIDE RECORDS SUMMARY | 2025-07-17 21:50 | XMS_ITS | Clinical Summary ---
Author Organization [facility] Address [address] [place] [address] Care Team Providers Care Manager Of Human Resources Name Role Phone Alen Castanon MD Primary [...] MAG ZINC +D3 PO) Take by mouth. Activ e Myrbetriq 25 MG ER tablet Take 1 tablet (25 mg total) by mouth daily. 4 Active meclizine (ANTIVERT) 25 MG tablet TAKE ONE TABLET BY MOUTH TWICE A DAY NEEDED FOR DIZZINESS 5 Active mirtazapine (REMERON) 15 MG tablet TAKE 1/2 TO 1 TABLET BY MOUTH DAILY AT BEDTIME 5 Active carbidopa-levodop a (SINEMET) 25-100 MG per tabletIndications :Primary parkinsonism (HCC) Take 1 tablet by mouth 3 (three) times a day. 270 tablet 3 5 Active Active Problems Problem Noted Date Diagnosed Date HTN (hypertension) 10/08/2023 Primary parkinsonism 08/26/2023 Gait instability 08/26/2023 Encounters Date Type Department Care Team Description 06/09/2025 Refill [facility] [address] [address] Paolo Wilkins APRN Primary parkinsonism (HCC) 06/02/2025 Telephone [facility] [address] [phone] Paolo Wilkins APRN from Last 3 Months [...] Description 08/01/2025 9:30 AM EDT Office Visit [facility] [address] [phone] Paolo Wilkins APRN [address] [place] [address] Health Maintenance Due Date Last Done Comments Hepatitis C Virus Screening 1963 HIV Screening 1976 DTaP/Tdap/Td Vaccines (1 - Tdap) 1982 Colonoscopy 2008 Pneumococcal Vaccines 50+ (1 of 1 - PCV) 2013 Zoster (Shingles) Vaccine (1 of 2) 2013 RSV Vaccine 60 years and old er and Patients (1 - Risk 60-74 years 1-dose series) 2023 Influenza Vaccine 06/02/2025 COVID-19 Vaccine (1 - 2023-2 5 season) 2025 Hepatitis B Vaccines Aged Out No long er eligible based on patient's age to complete this topic Goals Goal Patient Goal Type Associated Problems Recent Progress Patient-Stated? Author ST LTG 1 Speech Therapy No Geni Du CCC-SEARCH ENGINE OPTIMIZATION ANALYST Note: Pt will use compensatory strategies for word retrieval, memory, attention and executive skills for functional activities with min cues/80% accuracy. LTG 2 Speech Therapy No Geni Du CCC-SEARCH ENGINE OPTIMIZATION ANALYST Note: Pt score on the Communicative Participation Item Bank will improve by at least 3 points. Insurance [employer] Care Teams Manager Of Human Resources Relationship Specialty Start Date End Date Alen Castanon MD [address] [place] [address] Dr Jada [place] [phone] PCP - General Family Medicine 08/03/23
--- OUTSIDE RECORDS SUMMARY | 2025-07-17 21:50 | XMS_ITS | Patient Health Record ---
Author Organization [facility] Address [address] [place] [address] Care Team Providers Care Lye Peel Operator Name Role Phone Alen Castanon Primary Care Provider UnavailTorrey Eli Unavailable [phone] Allergies No Known Allergies Results Component Value Reference Range Notes Pathology (Not yet reviewed by provider) Interpretation: Performing Lab:[facility], [address] [place] [id number] Notes/Report: Reason For Referral No Information Medications [...] Status Risk Notes Problem Colon cancer screening (554979084) Colon cancer screening (Z12.11) Active confirmed Problem Preprocedural examination (879568667146135) Preprocedural examination (Z01.818) Active confirmed Problem Family history of malignant neoplasm of gastrointestinal tract (542438702) Family history of colon cancer in father (Z80.0) Active confirmed Problem History of polyp of colon (situation) (296719086) History of colon polyps (Z86.0100) Active confirmed Vital Signs Blood pressure diastolic 77 mm Hg 02/28/2025 Height 72 in 02/28/2025 Blood pressure systolic 111 mm Hg 02/28/2025 Weight 171 lbs 02/28/2025 BMI 23.19 kg/m2 02/28/2025 Procedures Procedure Date Ordered Date Performed Result Body Sit e COLONOSCOPY 02/28/2025 N/A Encounters Encounter Location Date Provider Diagnosis [facility] Outpatient [address] [place], [place] [id number] 05/19/2025 Torrey Dykes [facility] [address] [place] [address] 02/28/2025 Torrey Dykes Colon cancer screeni ng [...] think a repeat endoscopy is presently required. Corei and his are comfortable with this plan. [...] [facility] [address] [place] [address] [id number] CORIE DAVILA Self - patient is the insured Medical (General) History Medical History History ICD Code hx of kidney stones hx of Gout hypertension Parkinsons disease Hypercholesterolemia GERD-He describes a negative upper endos copy in the past Depression Denies NM,DM,CVA,Lung disease,renal dise ase 2 previous colonoscopies thr [facility] with the most recent one in November 2020 removing 3 small tubular adenomas Surgical History Surgery Date(Month/Year) Broken left wrist 2024 ACL LEFT Appendectomy
--- OUTSIDE RECORDS SUMMARY | 2025-07-17 21:50 | XMS_ITS | Patient Health Record ---
Author Organization [facility] telma Gamaliel Address [address] [place] [address] Care Team Providers Care Senior Teradata Developer Name Role Phone Danielle CABRAL, Major Primary Care Provider Cira natalie Gutierrez [place] Unavailable [phone] Reason For Referral No Information Medications Medication [...] primary osteoarthritis of the ankle and/or foot (062213648) Primary osteoarthritis , right ankle and foot (M19.071) Active confirmed Problem Acquired hallux valgus (99889340) Hallux valgus (acquired), right foot (M20.11) Active confirmed Problem Acquired hammer toe of left foot (2199831120866940) Other hammer toe(s) (acquired), left foot (M20.42) Active confirmed Problem Primary gout (43318550) Idiopathic gout, right ankle and foot (M10.071) Active confirmed Plan Of Treatment Pending Test Test Name Order Date X ray : Foot, left 2V 04/23/2018 X ray : Foot, right 2V 03/23/2018 X ray : Foot, right 2V 04/23/2018 X ray : Foot, right 3V 11/03/2017 X ray : Foot, right 3V 03/09/2018 [id number], [id number]/[id number], JOINT/BURSA 0 11/03/2017 Insurance Providers Payer Name Payer Address Payer Phone Subscriber Number Group Number Insured Name Patient Relationship to Insured Coverage Start Date Coverage End Date [facility] [address] [place] [address] [id number] Cesar Clinton Self - patient is the insured Medical (General) History Medical History History ICD Code Gout High blood pressure Surgical History Surgery Date(Month/Year) knee replacement 1986 appendectomy 1990 Gardiner/Cayla Right foot 03/04/2018
== END 2025-07-17 20:22 | disposition left against medical advice (07) ==
PROVIDERS: Registered Nurse Emergency; Emergency Provider Emergency Medicine; PCP Family Medicine
DX: R10.32 Left lower quadrant pain (principal); Z53.21 Procedure and treatment not carried out due to patient leaving prior to being seen by health care provider
CPT/HCPCS: 36415; 73030; 73502; 80053; 85025; 99281; 99283

== ENCOUNTER → 2025-07-17 12:22 | Outpatient (BNV) | payer OTHER, SELFPAY | PROVIDERS: PCP Family Medicine; Visit Provider Radiology Diagnostic Radiology | DX: M16.12 Unilateral primary osteoarthritis, left hip (principal); M25.511 Pain in right shoulder | CPT/HCPCS: 73030; 73502 ==

== ENCOUNTER 2025-07-26 15:28 | Outpatient (AMB) | payer OTHER, SELFPAY ==
--- OUTSIDE RECORDS SUMMARY | 2025-05-19 09:10 | XMS_ITS ---
Author Organization [facility] Address [address] [place] [address] Care Team Providers Care Seasonal Sales Associate Name Role Phone Alen Castanon Primary Care Provider Unavailab Torrey Saravia [phone] REASON FOR VISIT screening colon Encounters Encounter Location Date Provider [place] [facility] [place] [address] [place] [id number] 05/19/2025 Torrey Dykes Plan Of Treatment No Information Progress Notes * CORIE DAVILADOB:1965 (60 yo M)Acc No.[id number]:05/19/2025 COLON WITH MAC Patient: CORIE FARRELL Provider: [...] 05/19/2025 Generated for Kayyi geri/Okg/eTransmitting on: 0 07/26/2025 05:50 PM EDT
--- NOTE | 2025-07-26 15:32 | MHC.PC.OV ---
Vital Signs 07/26/25 15:39 Height 6 ft Weight 191 lb 2 oz BMI 25.9 BP 120/80 Blood Pressure Location Rt brachial Position Sitting Respiration 16 Pulse 78 Pulse Source Pulse Oximeter Temp 97.7 F Temp Source Temporal Artery Scan Pulse Oximetry (%) 96 Oxygen Delivery Method Room Air Intake Visit Reasons: ED Follow-up C /follow up Parkinson Intake Note: Cesar presents in the office today for an ED follow up. Allergies Seasonal Allergies Allergy (Intermediate, Verified 07/26/25 15:36) Runny Nose Tobacco use date assessed: 07/26/25 Dental Screening Dental Screen Date: 07/26/25 Did you have a dental visit in the last 12 months?: Yes Did you have a dental problem in the last 6 months where you did not have access to dental care?: No Was dental information given to patient?: Patient has dentist HPI ED Follow-up [facility] /follow up Parkinson HPI Details 60 y/o male presents today to f/u hospital visit for L groin pain, R shoulder pain s/p fall. Pt had left the ED early. Shoulder x-ray 07/17/25 was fine. Hip/Pelvis x-ray showed no acute fracture. Moderate osteoarthrosis/osteoarthritis, both hips. Hx of supranuclear palsy which has been advancing rather quickly. Numerous falls, changes in memory/cognition. [facility] Medical History Anxiety with depression Gout Parkinson disease GERD (gastroesophageal reflux disease) Urinary frequency Elevated fasting glucose Daytime sleepiness Difficulty sleeping Dizziness High cholesterol Hypertension Surgical History H/O colonoscopy History of appendectomy History of repair of anterior cruciate ligament of left knee Family History Maternal Grandmother Mental health disorder Maternal Uncle Mental health disorder Father Colon cancer Family/Other Leukemia Social History (Updated 07/26/25 @ 15:39 by Florence Alvarado CMA) Housing: House Alcohol intake: former Comment: counts correct Patient Tobacco Use Status: Former Tobacco user Tobacco use type: Cigarette e-Cigarette/Vaping Use: Never Used Second Hand Smoke Exposure: No Substance Use Type: Marijuana service: Yes Current occupational status: unemployed Current occupational exposures/hazards: No Cognitive needs: No Hearing needs: No Vision needs: No Questionnaire Thrive Questionnaire Date Thrive assessed: 12/21/24 I am a: Patient What is your living situation today?: I have a steady place to live Within the past 12 months, did the food you bought not last and you didn't have the money to get more?: Never true Within the past 12 months, did you worry whether your food would run out before you got money to buy more?: Never true Do you have trouble paying for medicines?: No Do you have trouble getting transportation to medical appointments?: No Do you have trouble paying your heating and electricity bill?: No Do you have trouble taking care of your child, family member or friend?: Yes Do you have trouble with day-to-day activities such as bathing, preparing meals, shopping, managing finances, etc.?: Yes Are you currently unemployed and looking for a job?: No Are you interested in more education?: No Please select the resources that you would like help with: Care for elder or disabled Currently or been in a relationship where the following occur: No concerns reported THRIVE Score: 0 DARRICK-7 AMB Questionnaire DARRICK-7 Date DARRICK - 7 assessed: 12/21/24 Source: Developed by Drs. Torrey Funez, Haley Aviles, Gilmer Souza and colleagues, with an educational jose a from [employer]. Review of Systems Const Denies chills, Denies fatigue, Denies fever(s), Denies headache(s) and Denies weakness ENT Denies dizziness and Denies headache(s) Card Denies dyspnea Resp Denies cough, Denies dyspnea, Denies wheezing and Denies other (shortness of breath) Musc Denies numbness and Denies tingling Neuro Denies dizziness, Denies headache(s), Denies numbness, Denies tingling and Denies weakness Psych Denies anxiety and Denies depression Endo Denies fatigue Aller/Immun Denies wheezing Physical exam (Primary Care) Vital Signs: Last Vital Signs Temp 97.7 F 07/26/25 15:39 Pulse 78 07/26/25 15:39 Resp 16 07/26/25 15:39 BP 120/80 07/26/25 15:39 Pulse Ox 96 07/26/25 15:39 Oxygen Delivery Method Room Air 07/26/25 15:39 BMI result Body Mass Index 25.9 Tobacco/Smoking Status: Tobacco use Status Tobacco use date assessed 07/26/25 07/26/25 15:42 Patient Tobacco Use Status Former Tobacco user 07/26/25 15:39 Tobacco use type Cigarette 07/26/25 15:39 e-Cigarette/Vaping Use Never Used 07/26/25 15:39 Thrive Assessment: Date of Thrive Assessment Date Thrive assessed 12/21/24 07/26/25 15:34 Currently or been in a relationship where the following occur: No concerns reported Const General: well developed; No acute distress Nutritional Appearance: well nourished Orientation/consciousness: patient oriented x3 HENMT Head: Yes normocephalic and Yes atraumatic Eyes General: appearance normal, both eyes and all related structures Pupils: Equal, round and reactive pupils present EOM: EOMs intact bilaterally Resp Effort & Inspection: normal respiratory effort Auscultation: clear to auscultation bilaterally Cardio Rate: regular rate Rhythm: regular rhythm Heart sounds: S1 normal heart sound present, S2 normal heart sound present, no gallops, no murmurs and no rubs Neuro General: patient oriented x3 and gait normal Cranial nerves: Yes Equal, round and reactive pupils present Psych Affect: normal affect Coding Level of Care Code Est Pt Level 4 (30172) Diagnoses Progressive supranuclear palsy G23.1 Parkinson disease G20.A1 Status post fall Z91.81 Shoulder pain M25.519 Anxiety with depression F41.8 Assessment & Plan Assessment & Plan (1) Progressive supranuclear palsy: Code(s): G23.1 - Progressive supranuclear ophthalmoplegia [Ajjpoz-Qkckvdwjoy-Cvloaqfxl] Category: Medical (2) Parkinson disease: Code(s): G20.A1 - Parkinson's disease without dyskinesia, without mention of fluctuations Category: Medical (3) Status post fall: Code(s): Z91.81 - History of falling Category: Medical (4) Shoulder pain: Code(s): M25.519 - Pain in unspecified shoulder Category: Medical (5) Anxiety with depression: Code(s): F41.8 - Other specified anxiety disorders Category: Medical Plan Likely supranuclear palsy which unfortunately has been advancing rather quickly. Numerous falls, changes in memory/cognition, dysarthria, and mood Have ordered a motorized scooter for patient but he has not received this yet. He has a therapist and psychiatrist. Mirtazapine is being adjusted. Has upcoming follow-up. As a speech therapist / vna. Working with him on speech. No difficulty with swallowing at this time. Recent falls ED visit. X-rays of shoulder and hips are negative for fracture or dislocation. Still has some bilateral hip pain. Resolving. Patient has appointment coming up this coming month with neurologist in [place]. [facility]. Asking patient to have neurologist and [facility] forwarded to me We can review these next visit Lastly, awaiting paperwork via psychiatric social worker supervisor for [employer]. They will let know if they need any further help this. MOLST form reviewed and signed today
[2025-07-26 15:39] VITALS: BP 120/80; PULSE 78; RESP 16; TEMP 36.5; O2SAT 96; BMI 25.9
--- OUTSIDE RECORDS SUMMARY | 2025-07-26 17:50 | XMS_ITS | Clinical Summary ---
Author Organization [facility] Address [address] [place] [address] Care Team Providers Care Rn Clinical Documentation Name Role Phone Unavailable Primary Care Provider Unavailabl e Social History Tobacco Use Types Packs/Day Years Used Date Smoking Tobacco: Never Assessed Sex and Gender Information Value Date Recorded Sex Assigned at Not on file Gender Identity Not on file Sexual Orientation Not on file Plan of Treatment Not on file
--- OUTSIDE RECORDS SUMMARY | 2025-07-26 17:50 | XMS_ITS | Patient Health Record ---
Author Organization [facility]la [facility] Address [address] [place] [address] Care Team Providers Care Junior Electrical Engineer Name Role Phone Danielle CABRAL, Major Primary Care Provider Cira natalie Gutierrez [place] Unavailable [phone] Reason For Referral No Information Medications Medication [...] primary osteoarthritis of the ankle and/or foot (230462358) Primary osteoarthritis , right ankle and foot (M19.071) Active confirmed Problem Acquired hallux valgus (21540072) Hallux valgus (acquired), right foot (M20.11) Active confirmed Problem Acquired hammer toe of left foot (0225409295937307) Other hammer toe(s) (acquired), left foot (M20.42) Active confirmed Problem Primary gout (65663480) Idiopathic gout, right ankle and foot (M10.071) Active confirmed Plan Of Treatment Pending Test Test Name Order Date X ray : Foot, left 2V 04/23/2018 X ray : Foot, right 2V 03/23/2018 X ray : Foot, right 2V 04/23/2018 X ray : Foot, right 3V 11/03/2017 X ray : Foot, right 3V 03/09/2018 81823, [id number]/[id number], JOINT/BURSA 0 11/03/2017 Insurance Providers Payer Name Payer Address Payer Phone Subscriber Number Group Number Insured Name Patient Relationship to Insured Coverage Start Date Coverage End Date [facility] [address] [place] [id number] Cesar Clinton Self - patient is the insured Medical (General) History Medical History History ICD Code Gout High blood pressure Surgical History Surgery Date(Month/Year) knee replacement 1986 appendectomy 1990 Gardiner/Cayla Right foot 03/04/2018
--- OUTSIDE RECORDS SUMMARY | 2025-07-26 17:51 | XMS_ITS | Encounter Summary ---
Author Organization [facility] Address [address] [place] [address] Care Team Providers Care General Sales Manager Name Role Phone Alen Castanon MD Primary Care Provider Encounter Details Date Type Department Care Team (Late st Contact Info) Description 06/02/2025 Telephone [facility] Neurology [address] [place] [phone] Paolo Wilkins, RADIUS GRINDER [address] [place] [address] Social History Tobacco Use Types Packs/Day Years [...] in December. He states with them for PT/OT/STOVE FITTER and nursing. Med changes-Celexa Stopped, Mirtazapine 7.5 [...] [facility] [place] [address] [place] [address] Paolo Wilkins, RADIUS GRINDER [address] [place] [address] documented as of this encounter Goals Goal Patient Goal Type Associated Problems Recent Progress Patient-Stated? Author ST LTG 1 Speech Therapy No Geni Du CCC-STOVE FITTER Note: Pt will use compensatory strategies for word retrieval, memory, attention and executive skills for functional activities with min cues/80% accuracy. LTG 2 Speech Therapy No Geni Du CCC-STOVE FITTER Note: Pt score on the Communicative Participation Item Bank will improve by at least 3 points. documented as of this encounter Visit Diagnoses Not on filedocumented in this encounter Care Teams General Sales Manager Relationship Specialty Start Date End Date Alen Castanon MD [address] [place] [address] [place] [phone] PCP - General Family Medicine 08/03/23 documented as of this encounter
--- OUTSIDE RECORDS SUMMARY | 2025-07-26 17:51 | XMS_ITS | Clinical Summary ---
Author Organization [facility] Address [address] [place] [address] Care Team Providers Care Cash Register Balancer Name Role Phone Alen Castanon MD Primary [...] Type Department Care Team Description 06/09/2025 Refill [facility] [address] [address] Paolo Wilkins APRN Primary parkinsonism (HCC) 06/02/2025 Telephone [facility] Neurology [address] [phone] Paolo Wilkins APRN from Last 3 Months [...] Description 08/01/2025 9:30 AM EDT Office Visit [facility] [address] [phone] Paolo Wilkins APRN [address] [place] [address] Health Maintenance Due Date Last Done Comments [...] LTG 1 Speech Therapy No Geni Du CCC-STATIONS SUPERINTENDENT Note: Pt will use compensatory strategies for word retrieval, memory, attention and executive skills for functional activities with min cues/80% accuracy. LTG 2 Speech Therapy No Geni Du CCC-STATIONS SUPERINTENDENT Note: Pt score on the Communicative Participation Item Bank will improve by at least 3 points. Insurance [employer] Care Teams Cash Register Balancer Relationship Specialty Start Date End Date Alen Castanon MD [address] [place] [address] Dr Jada [place] [phone] PCP - General Family Medicine 08/03/23
--- OUTSIDE RECORDS SUMMARY | 2025-07-26 17:51 | XMS_ITS | Patient Health Record ---
Author Organization [facility] Address [address] [place] [address] Care Team Providers Care Youth Care Worker Name Role Phone Alen Castanon Primary Care Provider UnavailTorrey Eli Unavailable [phone] Allergies No Known Allergies Results Component Value Reference Range Notes Pathology (Not yet reviewed by provider) Interpretation: Performing Lab:[facility], [address] [place] [id number] Notes/Report: Reason For Referral No Information Medications [...] Status Risk Notes Problem Colon cancer screening (055874642) Colon cancer screening (Z12.11) Active confirmed Problem Preprocedural examination (363054323098687) Preprocedural examination (Z01.818) Active confirmed Problem Family history of malignant neoplasm of gastrointestinal tract (037288377) Family history of colon cancer in father (Z80.0) Active confirmed Problem History of polyp of colon (situation) (990946490) History of colon polyps (Z86.0100) Active confirmed Vital Signs Blood pressure diastolic 77 mm Hg 02/28/2025 Height 72 in 02/28/2025 Blood pressure systolic 111 mm Hg 02/28/2025 Weight 171 lbs 02/28/2025 BMI 23.19 kg/m2 02/28/2025 Procedures Procedure Date Ordered Date Performed Result Body Sit e COLONOSCOPY 02/28/2025 N/A Encounters Encounter Location Date Provider Diagnosis [facility] Out[facility] [address] [place], [place] [phone] 05/19/2025 Torrey Dykes [facility] [address] [place] [address] 02/28/2025 Torrey Dykes Colon cancer screeni ng [...] [facility] [address] [place] [address] [id number] CORIE DAVILA Self - patient is the insured Medical (General) History Medical History History ICD Code hx of kidney stones hx of Gout hypertension Parkinsons disease Hypercholesterolemia GERD-He describes a negative upper endos copy in the past Depression Denies SC,DM,CVA,Lung disease,renal dise ase 2 previous colonoscopies thr [facility] with the most recent one in November 2020 removing 3 small tubular adenomas Surgical History Surgery Date(Month/Year) Broken left wrist 2024 ACL LEFT Appendectomy
== END 2025-07-26 16:16 | disposition home or self-care (01) ==
LOC: HO.HMCFM 15:29
PROVIDERS: PCP Family Medicine; Visit Provider Family Medicine
DX: G23.1 Progressive supranuclear ophthalmoplegia [Steele-Richardson-Olszewski] (principal); G20.A1 Parkinson's disease without dyskinesia, without mention of fluctuations; Z91.81 History of falling; M25.519 Pain in unspecified shoulder; F41.8 Other specified anxiety disorders